=== PATIENT | male | born 1945 | race Caucasian/White ===

== ENCOUNTER → 2018-04-09 13:18 | Outpatient (CLI) | payer OTHER, SELFPAY ==
[2018-04-09 13:47] LABS: Hemoglobin 12.2 g/dL (13.5-17.5)
[2018-04-09 14:06] LABS: BUN Creatinine Ratio 23.8 (6-22); Blood Urea Nitrogen 31 mg/dL (9-20); Calcium 9.8 mg/dL (8.4-10.2); Carbon Dioxide 28 mmol/L (22-32); Chloride 103 mmol/L (98-107); Estimated Glomerular Filt Rate 54.3 mL/min (>60); Glucose 148 mg/dL (80-110); HEMOLYSIS < 15 (0-50); Potassium 4.3 mmol/L (3.4-5.1); Sodium 140 mmol/L (137-145)
[2018-04-09 14:21] LABS: Erythrocyte Sedimentation Rate 31 MM/HR (0-15)
[2018-04-09 14:52] LABS: Creatinine Urine Random 130.5 mg/dL; Protein (Total) Urine Random 103 mg/dL (0-12); Protein Creatinine Ratio Urine 0.78 GRAM/24H
[2018-04-13 12:51] LABS: Parathyroid Hormone Int 33 pg/mL (14-64)
== END ==
PROVIDERS: Family Provider Family Medicine; PCP Family Medicine; Visit Provider Student in an Organized Health Care Education/Training Program
DX: N05.9 Unspecified nephritic syndrome with unspecified morphologic changes (principal); D64.9 Anemia, unspecified; N25.81 Secondary hyperparathyroidism of renal origin; R80.9 Proteinuria, unspecified; R51 Headache
CPT/HCPCS: 36415; 80048; 82570; 83970; 84156; 85014; 85018; 85651

== ENCOUNTER → 2018-04-22 09:14 | Outpatient (CLI) | payer OTHER, SELFPAY ==
[2018-04-22 11:07] LABS: Vitamin B12 863 pg/mL (239-931)
== END ==
PROVIDERS: Family Provider Family Medicine; PCP Family Medicine; Visit Provider Family Medicine
DX: Z86.73 Personal history of transient ischemic attack (TIA), and cerebral infarction without residual deficits (principal); I48.0 Paroxysmal atrial fibrillation; Z86.39 Personal history of other endocrine, nutritional and metabolic disease
CPT/HCPCS: 36415; 82607

== ENCOUNTER → 2018-07-27 08:07 | Outpatient (CLI) | payer OTHER, SELFPAY ==
[2018-07-27 09:38] LABS: Erythrocyte Sedimentation Rate 42 MM/HR (0-15)
== END ==
PROVIDERS: Family Provider Family Medicine; PCP Family Medicine; Visit Provider Family Medicine
DX: R51 Headache (principal)
CPT/HCPCS: 85651

== ENCOUNTER → 2018-08-03 07:54 | Outpatient (CLI) | payer OTHER, SELFPAY ==
[2018-08-03 08:52] LABS: Add Manual Diff / Slide Review NO; Basophils Percent Auto 0.2 % (0-2); Eosinophils Percent Auto 3.5 % (2-4); Hematocrit 33.7 % (41-53); Hemoglobin 11.9 g/dL (13.5-17.5); Lymphocytes Percent Auto 21.7 % (25-40); Mean Corpuscular HGB Conc 35.5 % (30-36); Mean Corpuscular Hemoglobin 31.8 PG (26-34); Mean Corpuscular Volume 89.7 fL (80-100); Monocytes Percent Auto 7.5 % (3-14); Neutrophils Absolute Auto 5600 /uL (3000-5900); Neutrophils Percent Auto 67.1 % (50-75); Platelet Count 255 X10^3/uL (150-400); Red Blood Cell Count 3.75 X10^6/uL (4.5-5.9); White Blood Cell Count 8.3 X10^3/uL (4.5-11.0)
[2018-08-03 08:55] LABS: Hemoglobin A1C% w Est Avg Glu 6.7 % (4.0-6.0)
[2018-08-03 08:59] LABS: Alanine Aminotransferase 34 IU/L (21-72); Albumin Globulin Ratio 1.4 (1.0-2.8); Alkaline Phosphatase 57 U/L (38-126); Aspartate Aminotransferase 23 IU/L (17-59); BUN Creatinine Ratio 15.5 (6-22); Bilirubin Total 0.5 mg/dL (0.2-1.3); Blood Urea Nitrogen 17 mg/dL (9-20); Calcium 9.4 mg/dL (8.4-10.2); Carbon Dioxide 29 mmol/L (22-32); Chloride 107 mmol/L (98-107); Cholesterol 109 mg/dL (140-199); Estimated Glomerular Filt Rate > 60.0 mL/min (>60); Globulin 2.8 g/dL (1.7-4.1); Glucose 166 mg/dL (80-110); HDL Cholesterol 30 mg/dL (40-60); HEMOLYSIS < 15 (0-50); LDL Cholesterol Calculated 64 mg/dL (<100); Sodium 144 mmol/L (137-145); Total Protein 6.8 g/dL (6.3-8.2); Triglycerides 77 mg/dL (35-150)
[2018-08-03 09:48] LABS: Vitamin B12 870 pg/mL (239-931)
[2018-08-03 09:50] LABS: Thyroid Stimulating Hormone 2.44 uIU/mL (0.47-4.68)
== END ==
PROVIDERS: Family Provider Physical Medicine & Rehabilitation; PCP Family Medicine; Visit Provider Family Medicine
DX: D64.9 Anemia, unspecified (principal); E11.21 Type 2 diabetes mellitus with diabetic nephropathy; I10 Essential (primary) hypertension; Z51.81 Encounter for therapeutic drug level monitoring; Z79.4 Long term (current) use of insulin; Z86.79 Personal history of other diseases of the circulatory system
CPT/HCPCS: 36415; 80053; 80061; 82607; 83036; 84443; 85025

== ENCOUNTER → 2018-08-17 15:09 | Outpatient (CLI) | payer OTHER, SELFPAY ==
[2018-08-17 19:13] LABS: Creatinine Urine Random 184.1 mg/dL; Protein (Total) Urine Random 100 mg/dL (0-12); Protein Creatinine Ratio Urine 0.54 GRAM/24H
== END ==
PROVIDERS: Family Provider Physical Medicine & Rehabilitation; PCP Family Medicine; Visit Provider Student in an Organized Health Care Education/Training Program
DX: R80.9 Proteinuria, unspecified (principal)
CPT/HCPCS: 82570; 84156

== ENCOUNTER 2018-09-28 08:23 | Outpatient (CLI) | payer OTHER, SELFPAY ==
[2018-09-28] VITALS (9 sets, daily range): BP systolic 131–178; BP diastolic 65–88; PULSE 59–67; RESP 16–18; TEMP 36.4; O2SAT 94–100
--- NOTE | 2018-09-28 08:24 | DI.RAD.S_ITS ---
PROCEDURE: PAIN C/T INTERLAMINAR INJECT INDICATIONS: Multilevel cervical stenosis FINDINGS: Fluoroscopic spot filming was performed to verify placement of spinal needles at the C6-C7 level(s), as labeled on the films. Appropriate location(s) of the needle tip(s) was confirmed by injection of iodinated contrast. Dictated by: Keenan Barron M.D. on 09/28/2018 at 15:52 Approved by: Keenan Barron M.D. on 09/28/2018 at 15:52
[2018-09-28 09:28] LABS: INR 1.1 (0.9-1.3); Prothrombin Time 11.9 SECONDS (10.1-12.7)
--- NOTE | 2018-09-28 10:01 | PC.NURSE ---
PT ARRIVED STATING I DON'T FEEL WELL. NOTED TO BE DIAPHORETIC AND SLIGHTLY SLOW TO ANSWER QUESTIONS, STATED PT'S BS IS LOW. CONDUCTED ACCUCHECK, 1ST 65, GAVE 4OZ OJ. 10 MINUTES LATER 2ND ACCUCHECK 72, GAVE 4OZ OJ AND CHEESE. WILL CHECK IN ANOTHER 10 MINUTES.
[2018-09-28] MEDS: DEXTROSE 5%-0.9% NS 1,000 ML 100 ML IV (11:00)
--- NOTE | 2018-09-28 11:09 | PC.NURSE ---
3rd Accucheck conducted at [address] Montague at that time. Charted as done at 1105 by accident and unable to change time. please note 3rd Accucheck done 10 minutes after 2nd at 1016 with result of 106
[2018-09-28] MEDS: MIDAZOLAM 5 MG/5 ML VIAL IV (11:32)
[2018-09-28] MEDS: IOPAMIDOL 15 ML VIAL 3 ML INJ (11:43)
[2018-09-28] MEDS: DEXAMETHASONE 10 MG/ML VIAL 30 MG INJ (11:44)
--- NOTE | 2018-09-28 11:50 | PM.PROC.1 ---
Procedures Date/Time Date of procedure: 09/28/18 Time of procedure: 11:50 General Procedure description: PREOP DIAGNOSIS 1. CERVICAL STENOSIS, 2. CERVICAL HNP WITH UPPER EXTREMITY RADICULAR FEATURES, POST OP DIAGNOSIS 1. CERVICAL STENOSIS, 2. CERVICAL HNP WITH UPPER EXTREMITY RADICULAR FEATURES, PROCEDURES 1. FLUORSCOPICALLY GUIDED CONTRAST CONTROLLED INTERLAMINAR EPIDURAL STEROID INJECTION - C6/7 TL DWAIN PHYSICIAN: Aiden Montague, DO INDICATIONS Guanako is referred by Dr. Romano for treatment of Cervical Stenosis with Upper Extremity Paresthesias. FINDINGS Cervical Stenosis due to disc deterioration and nerve root irritation and nerve root irritation DESCRIPTION OF PROCEDURE Fluoroscopically guided, contrast-controlled C6/7 translaminar epidural steroid injection with conscious sedation. Following denial of allergy and review of potential side effects and complications, including, but not necessarily limited to, infection, allergic reaction, local tissue breakdown, temporary as well as permanent nerve injury, stroke, paralysis, and possible , the patient indicated that patient understood and agreed to proceed. An informed consent document was signed by the patient, witnessed by a nurse, and placed in the patient's chart. Additionally, other treatment options including modalities, medications, and physical therapy were reviewed with the patient. After review of previous anaesthesic history and IV conscious sedation the patient was deemed safe to proceed with todays procedure with IV conscious sedation as ASA class II designation. Safety time-out was performed to confirm patient ID, procedure to be performed and site of procedure. IV sedation was accomplished with a combination of 3mg of Versed administered by the RN after DO order, titrated to patient comfort during the course of the procedure while the patient remained responsive to all verbal commands. In the prone position, following sterile prep and drape of the cervical region, the C6/7 translaminar space was identified fluoroscopically. The skin was anesthetized via a 25-gauge 1.5-inch needle with 1% lidocaine solution. At this point, a 25-gauge, 2.5-inch short bevel spinal needle was atraumatically introduced and advanced under fluoroscopic guidance into epidural space at the C6/7 translaminar space. Depth was confirmed on lateral view. Radiological data, including multiple fluoroscopic views of the cervical spine, reveal a spinal needle at the C6/7 translaminar space. Lateral views then show placement of the needle in the epidural space. Subsequent views show contrast material flowing superiorly and inferiorly in the epidural space. DSA fluoroscopy with live contrast injection, once again, confirmed no vascular or intrathecal uptake. At this point, using loss of resistance technique with saline and air, the epidural space was entered. Following negative aspiration, injection of approximately 1.5 cc of Isovue-200 with live fluoroscopy in the AP view confirmed epidural flow in the epidural space without vascular or intrathecal uptake observed. Subsequently, a test dose of 1 cc of 1% lidocaine solution was injected and patient was observed for two minutes without signs or symptoms of complications, including abdominal pain, shortness of breath, bilateral upper or lower extremity weakness, nausea and vomiting, prior to steroid injection. At this point, 3 cc or 30 mg of dexamethasone was then injected without incident. The patient tolerated the procedure well without signs or symptoms of complications prior to being transferred to the recovery area for further monitoring, The patient was then transferred to the recovery area where they were observed for an appropriate period of time after the injection. The patient reported a VAS score of 6 prior to the procedure and a post-procedure VAS of 0. Total Fluoroscopy Time: 37.0 seconds Total Conscious Time: 24min POST OP INSTRUCTIONS The patient was provided a Pain Log to continue to record their response to the target-specific procedure prior to follow-up visit with the referring provider. Additionally, specific post-injection care instructions and a contact number to our office were provided if concerns arise regarding possible complications associated with the procedure are suspected. Aiden Montague DO Complications: none
--- NOTE | 2018-09-28 11:58 | PC.NURSE ---
ACCEPTED CARE OF PT FOR POST PROCEDURE OBSERVATION IN STABLE CONDITION
--- NOTE | 2018-09-28 11:59 | PC.NURSE ---
pt finished procedure and tolerated well. able to get off table on own and into w/c w/o problems. Handed off to Adelaide MURO for continued monitoring.
--- NOTE | 2018-09-29 11:58 | PC.NURSE ---
FOLLOW UP CALL MADE. PT C/O HIGH BLOODSUGARS, HIGHEST NOTED 325 TODAY, HE VERBALIZED THAT HE KNEW THIS COULD BE A SIDE EFFECT OF THE STEROID. HE C/O DECREASED ENERGY BUT DENIES OTHER CONCERNS AND STATES PAIN IS GONE. I INSTRUCTED HIM TO BE DILIGENT IN CHECKING HIS BLOOD SUGARS AND IN TAKING HIS INSULIN PRESCRIBED. ALSO ADVISED HIM TO LISTEN TO HIS BODY AND SEEK MEDICAL ATTENTION IF NEEDED. WILL UPDATE DR. MARTE.
== END 2018-09-28 12:22 | disposition home or self-care (01) ==
PROVIDERS: PCP Family Medicine; Visit Provider Physical Medicine & Rehabilitation
DX: M48.02 Spinal stenosis, cervical region (principal); M50.123 Cervical disc disorder at C6-C7 level with radiculopathy; R51 Headache; Z79.01 Long term (current) use of anticoagulants
CPT/HCPCS: 36415; 62321; 82962; 85610; 99152; J1100; J2250

== ENCOUNTER 2018-12-30 08:15 | Outpatient (RCR) | payer OTHER, SELFPAY ==
--- NOTE | 2018-11-09 17:30 | PT.OIE ---
Current Diagnoses Spinal stenosis, cervical region (11/09/18) Past Medical History (Last Reviewed 11/08/18 @ 18:04 by Paola Romano DO) Anemia (Acute) CKD (chronic kidney disease) (Acute ~12/2017) Atrial fibrillation (Chronic ~01/2017) BPH (benign prostatic hyperplasia) (Chronic) James's esophagus (Chronic) Cataracts, bilateral (Chronic ~12/2017) Coronary artery disease (Chronic) Diabetes (Chronic) GERD (gastroesophageal reflux disease) (Chronic) Generalized headaches (Chronic) Hyperlipemia (Chronic ~12/2014) Hypertension (Chronic) Pacemaker (Chronic 01/2017) Actinic keratosis (Resolved) History of CVA (cerebrovascular accident) (Resolved) Myocardial infarction (Resolved) Past Surgical History (Last Reviewed 11/08/18 @ 18:04 by Paola Romano DO) Hx of surgical procedure (Resolved) Hx of tonsillectomy (Resolved) Hx of vasectomy (Resolved) Status post transurethral resection of prostate (03/2014) Provider Visit Care Team Role Provider Type Paola Romano DO Primary Care Provider Physician Specialty: Family Practice Address: [address] [place] [address] Email: [email or web address] Aiden Montague DO Attending Provider Physician Specialty: Physiatry Pain Management Address: [address] [place] [address] Email: Physical Therapy Initial Evaluation PT-OP-A Visit Information Start: 11/09/18 14:47 Freq: Status: Active Protocol: Document 11/09/18 14:52 EA (Rec: 11/09/18 14:56 EA [id number]) Out-Patient Physical Therapy Visit Information Visit Information Visit Type Initial Evaluation Visit Start Time 09:45 Visit Stop Time 10:25 Total Visit Minutes 40 Visit Number 1 Number of WORM RAISER Visits 0 Evaluation Information Evaluation Date 11/09/18 Precautions Precautions Pacemaker PT-OP-B Current Condition Start: 11/09/18 14:47 Freq: Status: Active Protocol: Document 11/09/18 14:59 EA (Rec: 11/09/18 15:12 EA [id number]) Current Condition History of Current Condition Onset Date a year ago Current Complaints c/o bilateral neck pain with headache and both shoulder pain History of Current Condition Present condition started a year ago with no history of injury or neck surgery. Patient neck condition has been chronic in the past five years and had formal PT two years ago with good results. Patient reports it re-occurred last year in November; he mentioned that pain usually increased when uses he plays with his phone. Pt c/o of difficulty in driving due to head turning. X-rays performed recently per patient and reports diagnosed with disc problem. Prior Treatments and Tests Formal PT with same issues: 2 years ago with good results Cervical injection: 2 months ago Chiropractor: 6 months ago Future Testing and Treatments Planned Possible cervical surgery if PT did not resolve with PT treatment Treatment Goals Patient/Caregiver Goals 1. Patient wants to reduce pain to 1/10 2. Patient wants to improve cervical ROM Prior Functional Status Baseline Function- ADL's Independent Baseline Function- Mobility Independent Baseline Function- Gait Indep Baseline Function- Work/School Retired Baseline Function- Recreation/Hobbies No limitation in all pervious hobbies. Current Functional Impairments (Reported) Functional Limitations- ADL's Indep in all ADL's Functional Limitations- Mobility/Gait Independent Functional Limitations- Work/School Retired Functional Limitations- Recreation/ Unable if neck and head pain Hobbies appears Functional Limitations- Other Driving difficulty due to limited neck/head turning PT-OP-C Subjective Start: 11/09/18 14:47 Freq: Status: Active Protocol: Document 11/09/18 14:59 EA (Rec: 11/09/18 15:12 EA [id number]) OP-PT Subjective Patient Comments Patient Comments Pt c/o driving difficulty due to pain with head turning; states decreased tolerance to upright posture due to neck pain and head ache. Patient Reported Progress Worse Patient Questionnaires Neck Disability Index NDI Score 30 Neck Disability Index Impairment 60 to 79% Impaired (Score 30- 39) OP-PT Pain Assessment Location Bilateral Posterior Lateral Neck Pain Location Details bilateral post neck, traps, shoulder Intensity 5 Scale Used Numeric (1 - 10) Description Aching Shooting Tightness Frequency Frequent Pain Aggravating Factors Position Activity Lifting Pain Alleviating Factors Medication Rest Other Pain Alleviating Factors inflattble collar brace Patient Stated Pain Goal 1 Home Pain Medication Use Pain Medications Used Yes Pain Behaviors Pain Behaviors Guarding Holding Area PT-OP-E Functional Tests Start: 11/09/18 14:47 Freq: Status: Active Protocol: Document 11/09/18 17:28 EA (Rec: 11/09/18 17:38 EA [id number]) Functional Tests Apley's Scratch Test Action 1: The subject is instructed to touch the opposite shoulder with his/her hand. This motion checks Glenohumeral adduction, internal rotation , horizontal adduction and scapular protraction Action 2: The subject is instructed to place his/her arm overhead and reach behind the neck to touch his/her upper back. This motion checks Glenohumeral abduction, external rotation and scapular upward rotation and elevation. Action 3: The subject puts his/her hand on the lower back and reaches upward as far as possible. This motion checks glenohumeral adduction, internal rotation and scapular retraction with downward rotation Action 1- Left post deltoid Action 1- Right post deltoid Action 2- Left C7 Action 2- Right C7 Action 3- Left L2 Action 3- Right T12 PT-OP-H Neuro Start: 11/09/18 14:47 Freq: Status: Active Protocol: Document 11/09/18 17:28 EA (Rec: 11/09/18 17:38 EA [id number]) Deep Tendon Reflex & Clonus Assessment Deep Tendon Reflex Bilateral Brachioradialis Deep Tendon Reflex 1+ Diminished Bilateral Bicep Deep Tendon Reflex 1+ Diminished PT-OP-J Posture/Palpation/Skin Start: 11/09/18 14:47 Freq: Status: Active Protocol: Document 11/09/18 17:28 EA (Rec: 11/09/18 17:38 EA [id number]) Posture Evaluation Position Sitting Evaluation View Lateral Head/C-Spine Posture Excess Extension Forward Head T-Spine Posture Flattened L-Spine Posture Flattened Comments Posture Comments Moderate to severe forward head posture with internally rotated shoulders and protracted scapulae. Palpation Assessment Location One Palpation Location Posterior neck muscles, bilateral LS, traps, SCM, scalene Palpation Findings Soft Tissue Tightness Muscle Guarding Tenderness PT-OP-K Range of Motion Start: 11/09/18 14:47 Freq: Status: Active Protocol: Document 11/09/18 15:14 EA (Rec: 11/09/18 15:15 EA [id number]) Cervical Spine Range of Motion Cervical Spine Active Percentage Testing Position Sitting Flexion 80 Extension 75 Rotation Left 70 Rotation Right 70 Lateral Flexion Left 65 Lateral Flexion Right 65 ROM Limitations Soft Tissue Tightness Pain Shoulder Goniometric Range of Motion Shoulder Measured in Degrees Right Active Testing Position Sitting Flexion 150 Extension 60 Horizontal Abduction 15 External Rotation at 90 degrees 60 Abduction Internal Rotation 60 Left Active Testing Position Sitting Flexion 145 Extension 60 Abduction 145 Horizontal Abduction 15 External Rotation at 90 degrees 75 Abduction Internal Rotation 60 Internal Rotation Behind Back (text) L2 PT-OP-L Special Tests Start: 11/09/18 14:47 Freq: Status: Active Protocol: Document 11/09/18 15:12 EA (Rec: 11/09/18 15:13 EA [id number]) Special Tests Cervical Spine Special Tests Traction Test Results + Vertebral Artery Test Results negative Foraminal Compression Test Results + Shoulder Special Tests Neer Impingement Test Results + Lift-Off Rotator Cuff Test Results Left + Belly Press Test Results + PT-OP-M Strength Start: 11/09/18 14:47 Freq: Status: Active Protocol: Document 11/09/18 17:01 EA (Rec: 11/10/18 13:04 EA [id number]) Cervical Spine Strength Cervical Spine Manual Muscle Testing Flexion (C1-2) 4- Good- Extension 4 Good Rotation Left 4 Good Rotation Right 4 Good Lateral Flexion Left (C3) 4- Good- Lateral Flexion Right (C3) 4- Good- Reason Not Measured Pain Shoulder Strength Shoulder Manual Muscle Testing Right Flexion 4 Good Extension 5 Normal Abduction (C5) 4- Good- Adduction 5 Normal External Rotation 4 Good Internal Rotation 3+ Fair+ Horizontal Abduction 3+ Fair+ Left Flexion 4 Good Extension 5 Normal Abduction (C5) 3+ Fair+ Adduction 4 Good External Rotation 4 Good Internal Rotation 3+ Fair+ Horizontal Abduction 3+ Fair+ PT-OP-Q Treatments Start: 11/09/18 14:47 Freq: Status: Active Protocol: Document 11/09/18 14:52 EA (Rec: 11/09/18 14:56 EA [id number]) Self-Care/Home Management Treatment Education Patient Education Home Exercise Program Joint Protection Pain Management Posture PT-OP-T Assessment and Plan Start: 11/09/18 14:47 Freq: Status: Active Protocol: Document 11/09/18 14:52 EA (Rec: 11/09/18 14:56 EA [id number]) Physical Therapy Assessment Rehab Potential Rehabilitation Potential Fair Evaluation Complexity Number of Personal Factors/Comorbidities 1-2 Number of Body Systems Impaired 3 Clinical Presentation at Evaluation Evolving Impairments Impairments Activity Tolerance Pain Posture ROM Soft Tissue Mobility Strength Goals Five Impairment Impaired posture [employer] Goal (LTG) Patient will improve posture to near functional range to prevent muscular imbalance LTG Duration 4 wks Four Impairment Impaired shoulder ROM [facility] Goal (LTG) Patient will increase both shoulder ABD/Flexion/ ER with no pain to functional range to improve overhead movement. LTG Duration 4 wks Three Impairment Impaired cervical ROM [facility] Goal (LTG) Patient will increase cervical ROM particularly rotation to functional range LTG Duration 4 wks Two Impairment Quick Dash score 30 [facility] Goal (LTG) Patient will have Quick Dash score of < 10 LTG Duration 4 wks One Impairment Neck Disability Index score of 30/50 [facility] Goal (LTG) Patient will have NDI of < 20/ 50 LTG Duration 4 wks Assessment Summary Assessment Pleasant 73 y/o male patient with referring diagnosis cervical stenosis of spinal canal. Today he exhibits signs and symptoms consistent with cervical radiculopathy at the upper cervical region. Postural assessment reveals moderate to severe forward head posture with rounded and internally rotated shoulder and protracted scapulae. Sensory assessment reveals intact. Motor weakness is evident with shoulder musculature, however it is difficult to identify if pure neurological motor weakness due to pain on both shoulders. Shoulder special tests reveals positive with pain full arc and Belly press. Cervical compression tests reveals sensitive with no vertobrobasilar/vertebral artery dysfunction. Joint ROM is limited due to tightness to posterior cervical muscles, pectoral, and shoulder internal rotators. Patient is limited in most activities that requires head turning, lifting, and extreme shoulder rotation. In my professional opinion, patient would benefit with skilled PT to address the above mentioned deficits and dysfunction. Physical Therapy Plan Frequency and Duration Frequency of Treatment 2x/Week Duration of Treatment 8 weeks Plan of Care Start Date 11/09/18 Plan of Care End Date 01/04/19 Therapeutic Interventions Therapeutic Interventions Home Exercise Program Joint Mobilizations Manual Therapy Patient/Caregiver Education Self-Care/Home Management Soft Tissue Mobilization Therapeutic Exercises Modalities Cold Pack/Ice Massage Electric Stimulation Hot Packs Traction- Mechanical Next Visit Focus/Plan Next Note Type Treatment Note
--- NOTE | 2018-11-09 17:30 | PT.OPPOC ---
Current Diagnoses Spinal stenosis, cervical region (11/09/18) Provider Visit Care Team Role Provider Type Paola Romano DO Primary Care Provider Physician Specialty: Family Practice Address: [facility] [place], [address] Email: [email or web address] Aiden Montague DO Attending Provider Physician Specialty: Physiatry Pain Management Address: [address] [place] [address], [id number] Email: Plan Of Care PT-OP-T Assessment and Plan Start: 11/09/18 14:47 Freq: Status: Active Protocol: Document 11/09/18 14:52 EA (Rec: 11/09/18 14:56 EA [id number]) Physical Therapy Assessment Rehab Potential Rehabilitation Potential Fair Evaluation Complexity Number of Personal Factors/Comorbidities 1-2 Number of Body Systems Impaired 3 Clinical Presentation at Evaluation Evolving Impairments Impairments Activity Tolerance Pain Posture ROM Soft Tissue Mobility Strength Goals Five Impairment Impaired posture Correction Goal (LTG) Patient will improve posture to near functional range to prevent muscular imbalance LTG Duration 4 wks Four Impairment Impaired shoulder ROM [employer] Goal (LTG) Patient will increase both shoulder ABD/Flexion/ ER with no pain to functional range to improve overhead movement. LTG Duration 4 wks Three Impairment Impaired cervical ROM [employer] Goal (LTG) Patient will increase cervical ROM particulalry rotation to functional range LTG Duration 4 wks Two Impairment Quick Dash score 30 [employer] Goal (LTG) Patient will have Quick Dash score of < 10 LTG Duration 4 wks One Impairment Neck Disability Index score of 30/50 [employer] Goal (LTG) Patient will have NDI of < 20/ 50 LTG Duration 4 wks Assessment Summary Assessment Pleasant 73 y/o male patient with referring diagnosis cervical stenosis of spinal canal. Today he exhibits signs and symptoms consistent with cervical radiculopathy at the upper cervical region. Postural assessment reveals moderate to severe forward head posture with rounded and internally rotated shoulder and protracted scapulae. Sensory assessment reveals intact. Motor weakness is evident with shoulder musculature, however it is difficult to identify if pure neurological motor weakness due to pain on both shoulders. Shoulder special tests reveals positive with pain full arc and Belly press. Cervical compression tests reveals sensitive with no vertobrobasilar/vertebral artery dysfunction. Joint ROM is limited due to tightness to posterior cervical muscles, pectoral, and shoulder internal rotators. Patient is limited in most activities that requires head turning, lifting, and extreme shoulder rotation. In my professional opinion, patient would benefit with skilled PT to address the above mentioned deficits and dysfunction. Physical Therapy Plan Frequency and Duration Frequency of Treatment 2x/Week Duration of Treatment 8 weeks Plan of Care Start Date 11/09/18 Plan of Care End Date 01/04/19 Therapeutic Interventions Therapeutic Interventions Home Exercise Program Joint Mobilizations Manual Therapy Patient/Caregiver Education Self-Care/Home Management Soft Tissue Mobilization Therapeutic Exercises Modalities Cold Pack/Ice Massage Electric Stimulation Hot Packs Traction- Mechanical Next Visit Focus/Plan Next Note Type Treatment Note Plan of Care Dates Plan of Care Start Date 11/09/18 Plan of Care End Date 01/04/19 Please Sign and Return: I have reviewed this Plan of Care and certify that the skilled therapy services above are required to meet the patient?s needs. Physician Signature Date Printed Name and Credentials Clinical Instructor Signature Printed Name and Credentials
--- NOTE | 2018-11-16 10:21 | PT.OTN ---
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 Patient neck condition has been chronic in the past five years and had formal PT two years ago with good results. Patient reports it re-ocurred last year in November; he mentioned that pain usually increased when uses he plays with his phone. Pt c/o of difficulty in driving due to head turning. X-rays performed recently per patient and reports diagnosed with disc problem. Prior Treatments and Tests Formal PT with same issues: 2 years ago with good results Cervical enjection: 2 months ago Chiropractor: 6 months ago Future Testing and Treatments Planned Possible cervical surgery if PT did not resolve with PT treatment Treatment Goals Patient/Caregiver Goals 1. Patient wants to reduce pain to 1/10 2. Patient wants to improve cervical ROM Prior Functional Status Baseline Function- ADL's Independent Baseline Function- Mobility Independent Baseline Function- Gait Inedep Baseline Function- Work/School Retired Baseline Function- Recreation/Hobbies No limitation in all pervious hobbies. Current Functional Impairments (Reported) Functional Limitations- ADL's Indep in all ADL's Functional Limitations- Mobility/Gait Independent Functional Limitations- Work/School Retired Functional Limitations- Recreation/ Unable if neck and head pain Hobbies appears Functional Limitations- Other Driving difficulty due to limited neck/head turning PT-OP-C Subjective Start: 11/09/18 14:47 Freq: Status: Active Protocol: Document 11/16/18 10:09 SA (Rec: 11/16/18 10:21 SA [email or web address]) OP-PT Subjective Patient Comments Patient Comments Pt reports he is limiting his cell phone use in forward flexed position as well as doing wall stretch daily. Noted and minor improvement in symptoms. PT-OP-E Functional Tests Start: 11/09/18 14:47 Freq: Status: Active Protocol: Document 11/09/18 17:28 EA (Rec: 11/09/18 17:38 EA [id number]) Functional Tests Apley's Scratch Test Action 1: The subject is instructed to touch the opposite shoulder with his/her hand. This motion checks Glenohumeral adduction, internal rotation , horizontal adduction and scapular protraction Action 2: The subject is instructed to place his/her arm overhead and reach behind the neck to touch his/her upper back. This motion checks Glenohumeral abduction, external rotation and scapular upward rotation and elevation. Action 3: The subject puts his/her hand on the lower back and reaches upward as far as possible. This motion checks glenohumeral adduction, internal rotation and scapular retraction with downward rotation Action 1- Left post deltoid Action 1- Right post deltoid Action 2- Left C7 Action 2- Right C7 Action 3- Left L2 Action 3- Right T12 PT-OP-H Neuro Start: 11/09/18 14:47 Freq: Status: Active Protocol: Document 11/09/18 17:28 EA (Rec: 11/09/18 17:38 EA [id number]) Deep Tendon Reflex & Clonus Assessment Deep Tendon Reflex Bilateral Brachioradialis Deep Tendon Reflex 1+ Diminished Bilateral Bicep Deep Tendon Reflex 1+ Diminished PT-OP-J Posture/Palpation/Skin Start: 11/09/18 14:47 Freq: Status: Active Protocol: Document 11/09/18 17:28 EA (Rec: 11/09/18 17:38 EA [id number]) Posture Evaluation Position Sitting Evaluation View Lateral Head/C-Spine Posture Excess Extension Forward Head T-Spine Posture Flattened L-Spine Posture Flattened Comments Posture Comments Moderate to severe forward head posture with internally rotated shoulders and protracted scapulae. Palpation Assessment Location One Palpation Location Posterior neck muscles, bilateral LS, traps, SCM, scalene Palpation Findings Soft Tissue Tightness Muscle Guarding Tenderness PT-OP-K Range of Motion Start: 11/09/18 14:47 Freq: Status: Active Protocol: Document 11/09/18 15:14 EA (Rec: 11/09/18 15:15 EA [id number]) Cervical Spine Range of Motion Cervical Spine Active Percentage Testing Position Sitting Flexion 80 Extension 75 Rotation Left 70 Rotation Right 70 Lateral Flexion Left 65 Lateral Flexion Right 65 ROM Limitations Soft Tissue Tightness Pain Shoulder Goniometric Range of Motion Shoulder Measured in Degrees Right Active Testing Position Sitting Flexion 150 Extension 60 Horizontal Abduction 15 External Rotation at 90 degrees 60 Abduction Internal Rotation 60 Left Active Testing Position Sitting Flexion 145 Extension 60 Abduction 145 Horizontal Abduction 15 External Rotation at 90 degrees 75 Abduction Internal Rotation 60 Internal Rotation Behind Back (text) L2 PT-OP-L Special Tests Start: 11/09/18 14:47 Freq: Status: Active Protocol: Document 11/09/18 15:12 EA (Rec: 11/09/18 15:13 EA [id number]) Special Tests Cervical Spine Special Tests Traction Test Results + Vertebral Artery Test Results negative Foraminal Compression Test Results + Shoulder Special Tests Neer Impingement Test Results + Lift-Off Rotator Cuff Test Results Left + Belly Press Test Results + PT-OP-M Strength Start: 11/09/18 14:47 Freq: Status: Active Protocol: Document 11/09/18 17:01 EA (Rec: 11/10/18 13:04 EA [id number]) Cervical Spine Strength Cervical Spine Manual Muscle Testing Flexion (C1-2) 4- Good- Extension 4 Good Rotation Left 4 Good Rotation Right 4 Good Lateral Flexion Left (C3) 4- Good- Lateral Flexion Right (C3) 4- Good- Reason Not Measured Pain Shoulder Strength Shoulder Manual Muscle Testing Right Flexion 4 Good Extension 5 Normal Abduction (C5) 4- Good- Adduction 5 Normal External Rotation 4 Good Internal Rotation 3+ Fair+ Horizontal Abduction 3+ Fair+ Left Flexion 4 Good Extension 5 Normal Abduction (C5) 3+ Fair+ Adduction 4 Good External Rotation 4 Good Internal Rotation 3+ Fair+ Horizontal Abduction 3+ Fair+ PT-OP-Q Treatments Start: 11/09/18 14:47 Freq: Status: Active Protocol: Document 11/16/18 10:09 SA (Rec: 11/16/18 10:21 SA [email or web address]) Cardio Equipment Upper Body Ergometer (UBE) Duration (Minutes) 6 RPM 60 Other forward/backward Therapeutic Exercises Sidelying Exercises UT/scalenes stretching Side bilateral Reps/Minutes 30 x 2 each side Sitting Exercises chin tucks Reps/Minutes 20x Comments reminders for starting at neutral position Standing Exercises Postural wall stretch Side bilateral Reps/Minutes 3 min scapular row Side bilateral Resistance L2 TB Reps/Minutes 20x Manual Therapy Treatment Soft Tissue Mobilization Pecs/UTs/posterior c-spine Mobilization Type Myofascial Release Rolling Strumming Intensity/Depth Moderate Body Position Supine Comments Pt presents with tight pecs R> L PT-OP-R Modalities Start: 11/09/18 14:47 Freq: Status: Active Protocol: Document 11/16/18 10:09 SA (Rec: 11/16/18 10:21 SA [email or web address]) Hot Pack/Cold Pack Treatment Hot Pack Location c-spine Patient Position Supine Treatment Duration (minutes) 10 Patient Tolerance Good PT-OP-T Assessment and Plan Start: 11/09/18 14:47 Freq: Status: Active Protocol: Document 11/16/18 10:09 SA (Rec: 11/16/18 10:21 SA [email or web address]) Physical Therapy Assessment Assessment Summary Assessment Pt presents with forward head posture. Continued education for postural correction in sitting/standing position. Pt working on chin tucks and wall stretch daily as part of HEP, added scapular squeezes to HEP. Physical Therapy Plan Next Visit Focus/Plan Next Note Type Treatment Note Next Visit Plan Continue to progress postural and cervical ROM program, assess tolerance to manual therapy.
--- NOTE | 2018-11-23 11:22 | PT.OTN ---
Current Diagnoses Spinal stenosis, cervical region (11/23/18) Physical Therapy Treatment Note PT-OP-A Visit Information Start: 11/09/18 14:47 Freq: Status: Active Protocol: Document 11/23/18 11:14 SA (Rec: 11/23/18 11:22 SA [email or web address]) Out-Patient Physical Therapy Visit Information Visit Information Visit Type Treatment Note Visit Start Time 09:05 Visit Stop Time 09:50 Total Visit Minutes 45 Visit Number 3 Number of ELECTRIC METER INSPECTOR Visits 2 PT-OP-B Current Condition Start: 11/09/18 14:47 Freq: Status: Active Protocol: Document 11/09/18 14:59 EA (Rec: 11/09/18 15:12 EA [id number]) Current Condition History of Current Condition Onset Date a year ago Current Complaints c/o bilat neck pain with headache and both shoulder pain History of Current Condition Present condition started a year ago with no history of injury or neck surgery. Patient neck condition has been chronic in the past five years and had formal PT two years ago with good results. Patient reports it re-ocurred last year in November; he mentioned that pain usually increased when uses he plays with his phone. Pt c/o of difficulty in driving due to head turning. X-rays performed recently per patient and reports diagnosed with disc problem. Prior Treatments and Tests Formal PT with same issues: 2 years ago with good results Cervical enjection: 2 months ago Chiropractor: 6 months ago Future Testing and Treatments Planned Possible cervical surgery if PT did not resolve with PT treatment Treatment Goals Patient/Caregiver Goals 1. Patient wants to reduce pain to 1/10 2. Patient wants to improve cervical ROM Prior Functional Status Baseline Function- ADL's Independent Baseline Function- Mobility Independent Baseline Function- Gait Inedep Baseline Function- Work/School Retired Baseline Function- Recreation/Hobbies No limitation in all pervious hobbies. Current Functional Impairments (Reported) Functional Limitations- ADL's Indep in all ADL's Functional Limitations- Mobility/Gait Independent Functional Limitations- Work/School Retired Functional Limitations- Recreation/ Unable if neck and head pain Hobbies appears Functional Limitations- Other Driving difficulty due to limited neck/head turning PT-OP-C Subjective Start: 11/09/18 14:47 Freq: Status: Active Protocol: Document 11/23/18 11:14 SA (Rec: 11/23/18 11:22 SA [email or web address]) OP-PT Subjective Patient Comments Patient Comments Pt states he is feeling a gradual decrease in neck pain, has been modifying cell phone use, doing HEP daily and sleepin on My Pillow [email or web address] seems to be helping. PT-OP-E Functional Tests Start: 11/09/18 14:47 Freq: Status: Active Protocol: Document 11/09/18 17:28 EA (Rec: 11/09/18 17:38 EA [id number]) Functional Tests Apley's Scratch Test Action 1: The subject is instructed to touch the opposite shoulder with his/her hand. This motion checks Glenohumeral adduction, internal rotation , horizontal adduction and scapular protraction Action 2: The subject is instructed to place his/her arm overhead and reach behind the neck to touch his/her upper back. This motion checks Glenohumeral abduction, external rotation and scapular upward rotation and elevation. Action 3: The subject puts his/her hand on the lower back and reaches upward as far as possible. This motion checks glenohumeral adduction, internal rotation and scapular retraction with downward rotation Action 1- Left post deltoid Action 1- Right post deltoid Action 2- Left C7 Action 2- Right C7 Action 3- Left L2 Action 3- Right T12 PT-OP-H Neuro Start: 11/09/18 14:47 Freq: Status: Active Protocol: Document 11/09/18 17:28 EA (Rec: 11/09/18 17:38 EA [id number]) Deep Tendon Reflex & Clonus Assessment Deep Tendon Reflex Bilateral Brachioradialis Deep Tendon Reflex 1+ Diminished Bilateral Bicep Deep Tendon Reflex 1+ Diminished PT-OP-J Posture/Palpation/Skin Start: 11/09/18 14:47 Freq: Status: Active Protocol: Document 11/09/18 17:28 EA (Rec: 11/09/18 17:38 EA [id number]) Posture Evaluation Position Sitting Evaluation View Lateral Head/C-Spine Posture Excess Extension Forward Head T-Spine Posture Flattened L-Spine Posture Flattened Comments Posture Comments Moderate to severe forward head posture with internally rotated shoulders and protracted scapulae. Palpation Assessment Location One Palpation Location Posterior neck muscles, bilateral LS, traps, SCM, scalene Palpation Findings Soft Tissue Tightness Muscle Guarding Tenderness PT-OP-K Range of Motion Start: 11/09/18 14:47 Freq: Status: Active Protocol: Document 11/09/18 15:14 EA (Rec: 11/09/18 15:15 EA [id number]) Cervical Spine Range of Motion Cervical Spine Active Percentage Testing Position Sitting Flexion 80 Extension 75 Rotation Left 70 Rotation Right 70 Lateral Flexion Left 65 Lateral Flexion Right 65 ROM Limitations Soft Tissue Tightness Pain Shoulder Goniometric Range of Motion Shoulder Measured in Degrees Right Active Testing Position Sitting Flexion 150 Extension 60 Horizontal Abduction 15 External Rotation at 90 degrees 60 Abduction Internal Rotation 60 Left Active Testing Position Sitting Flexion 145 Extension 60 Abduction 145 Horizontal Abduction 15 External Rotation at 90 degrees 75 Abduction Internal Rotation 60 Internal Rotation Behind Back (text) L2 PT-OP-L Special Tests Start: 11/09/18 14:47 Freq: Status: Active Protocol: Document 11/09/18 15:12 EA (Rec: 11/09/18 15:13 EA [id number]) Special Tests Cervical Spine Special Tests Traction Test Results + Vertebral Artery Test Results negative Foraminal Compression Test Results + Shoulder Special Tests Neer Impingement Test Results + Lift-Off Rotator Cuff Test Results Left + Belly Press Test Results + PT-OP-M Strength Start: 11/09/18 14:47 Freq: Status: Active Protocol: Document 11/09/18 17:01 EA (Rec: 11/10/18 13:04 EA [id number]) Cervical Spine Strength Cervical Spine Manual Muscle Testing Flexion (C1-2) 4- Good- Extension 4 Good Rotation Left 4 Good Rotation Right 4 Good Lateral Flexion Left (C3) 4- Good- Lateral Flexion Right (C3) 4- Good- Reason Not Measured Pain Shoulder Strength Shoulder Manual Muscle Testing Right Flexion 4 Good Extension 5 Normal Abduction (C5) 4- Good- Adduction 5 Normal External Rotation 4 Good Internal Rotation 3+ Fair+ Horizontal Abduction 3+ Fair+ Left Flexion 4 Good Extension 5 Normal Abduction (C5) 3+ Fair+ Adduction 4 Good External Rotation 4 Good Internal Rotation 3+ Fair+ Horizontal Abduction 3+ Fair+ PT-OP-Q Treatments Start: 11/09/18 14:47 Freq: Status: Active Protocol: Document 11/23/18 11:14 SA (Rec: 11/23/18 11:22 SA [email or web address]) Cardio Equipment Upper Body Ergometer (UBE) Duration (Minutes) 6 RPM 65 Other forward/backward Therapeutic Exercises Sidelying Exercises UT/scalenes stretching Side bilateral Reps/Minutes 30 x 2 each side Sitting Exercises chin tucks Reps/Minutes 20x Comments reminders for starting at neutral position Standing Exercises Postural wall stretch Side bilateral Reps/Minutes 3 min Comments cues for technique scapular row Side bilateral Resistance L2 TB Reps/Minutes 20x Manual Therapy Treatment Soft Tissue Mobilization Pecs/UTs/posterior c-spine Mobilization Type Myofascial Release Rolling Strumming Intensity/Depth Moderate Body Position Supine Comments Pt presents with tight pecs R> L Manual Traction Cervical manual traction Body Position Supine Reps/Duration 3 min Comments Pt tolerates well. PT-OP-R Modalities Start: 11/09/18 14:47 Freq: Status: Active Protocol: Document 11/23/18 11:14 SA (Rec: 11/23/18 11:22 SA [email or web address]) Hot Pack/Cold Pack Treatment Hot Pack Location c-spine Patient Position Supine Patient Tolerance Good PT-OP-T Assessment and Plan Start: 11/09/18 14:47 Freq: Status: Active Protocol: Document 11/23/18 11:14 SA (Rec: 11/23/18 11:22 [email or web address]) Physical Therapy Assessment Assessment Summary Assessment Pt demonstrating improved postural awareness and self correction, consistent with HEP. Continued BUE/levator tightness R>L and forward head posture. Physical Therapy Plan Next Visit Focus/Plan Next Note Type Treatment Note Next Visit Plan Progress cervical ROM and postural improvement. Pt denies redicular symptoms.
--- NOTE | 2018-11-30 09:14 | PT.OTN ---
Current Diagnoses Spinal stenosis, cervical region (11/30/18) Physical Therapy Treatment Note PT-OP-A Visit Information Start: 11/09/18 14:47 Freq: Status: Active Protocol: Document 11/30/18 08:54 SA (Rec: 11/30/18 09:14 SA [email or web address]) Out-Patient Physical Therapy Visit Information Visit Information Visit Type Treatment Note Visit Start Time 09:00 Visit Stop Time 09:46 Total Visit Minutes 46 Visit Number 4 Number of AUTO PORTER Visits 3 PT-OP-B Current Condition Start: 11/09/18 14:47 Freq: Status: Active Protocol: Document 11/09/18 14:59 EA (Rec: 11/09/18 15:12 EA [id number]) Current Condition History of Current Condition Onset Date a year ago Current Complaints c/o bilat neck pain with headache and both shoulder pain History of Current Condition Present condition started a year ago with no history of injury or neck surgery. Patient neck condition has been chronic in the past five years and had formal PT two years ago with good results. Patient reports it re-ocurred last year in November; he mentioned that pain usually increased when uses he plays with his phone. Pt c/o of difficulty in driving due to head turning. X-rays performed recently per patient and reports diagnosed with disc problem. Prior Treatments and Tests Formal PT with same issues: 2 years ago with good results Cervical enjection: 2 months ago Chiropractor: 6 months ago Future Testing and Treatments Planned Possible cervical surgery if PT did not resolve with PT treatment Treatment Goals Patient/Caregiver Goals 1. Patient wants to reduce pain to 1/10 2. Patient wants to improve cervical ROM Prior Functional Status Baseline Function- ADL's Independent Baseline Function- Mobility Independent Baseline Function- Gait Inedep Baseline Function- Work/School Retired Baseline Function- Recreation/Hobbies No limitation in all pervious hobbies. Current Functional Impairments (Reported) Functional Limitations- ADL's Indep in all ADL's Functional Limitations- Mobility/Gait Independent Functional Limitations- Work/School Retired Functional Limitations- Recreation/ Unable if neck and head pain Hobbies appears Functional Limitations- Other Driving difficulty due to limited neck/head turning PT-OP-C Subjective Start: 11/09/18 14:47 Freq: Status: Active Protocol: Document 11/30/18 08:54 SA (Rec: 11/30/18 09:14 SA [email or web address]) OP-PT Subjective Patient Comments Patient Comments Pt having decreased TEMPLETON's but has c/o pain ans stiffness through c-spine in the mornings. Doing wall stretch and chin tucks daily. PT-OP-E Functional Tests Start: 11/09/18 14:47 Freq: Status: Active Protocol: Document 11/09/18 17:28 EA (Rec: 11/09/18 17:38 EA [id number]) Functional Tests Apley's Scratch Test Action 1: The subject is instructed to touch the opposite shoulder with his/her hand. This motion checks Glenohumeral adduction, internal rotation , horizontal adduction and scapular protraction Action 2: The subject is instructed to place his/her arm overhead and reach behind the neck to touch his/her upper back. This motion checks Glenohumeral abduction, external rotation and scapular upward rotation and elevation. Action 3: The subject puts his/her hand on the lower back and reaches upward as far as possible. This motion checks glenohumeral adduction, internal rotation and scapular retraction with downward rotation Action 1- Left post deltoid Action 1- Right post deltoid Action 2- Left C7 Action 2- Right C7 Action 3- Left L2 Action 3- Right T12 PT-OP-H Neuro Start: 11/09/18 14:47 Freq: Status: Active Protocol: Document 11/09/18 17:28 EA (Rec: 11/09/18 17:38 EA [id number]) Deep Tendon Reflex & Clonus Assessment Deep Tendon Reflex Bilateral Brachioradialis Deep Tendon Reflex 1+ Diminished Bilateral Bicep Deep Tendon Reflex 1+ Diminished PT-OP-J Posture/Palpation/Skin Start: 11/09/18 14:47 Freq: Status: Active Protocol: Document 11/09/18 17:28 EA (Rec: 11/09/18 17:38 EA [id number]) Posture Evaluation Position Sitting Evaluation View Lateral Head/C-Spine Posture Excess Extension Forward Head T-Spine Posture Flattened L-Spine Posture Flattened Comments Posture Comments Moderate to severe forward head posture with internally rotated shoulders and protracted scapulae. Palpation Assessment Location One Palpation Location Posterior neck muscles, bilateral LS, traps, SCM, scalene Palpation Findings Soft Tissue Tightness Muscle Guarding Tenderness PT-OP-K Range of Motion Start: 11/09/18 14:47 Freq: Status: Active Protocol: Document 11/09/18 15:14 EA (Rec: 11/09/18 15:15 EA [id number]) Cervical Spine Range of Motion Cervical Spine Active Percentage Testing Position Sitting Flexion 80 Extension 75 Rotation Left 70 Rotation Right 70 Lateral Flexion Left 65 Lateral Flexion Right 65 ROM Limitations Soft Tissue Tightness Pain Shoulder Goniometric Range of Motion Shoulder Measured in Degrees Right Active Testing Position Sitting Flexion 150 Extension 60 Horizontal Abduction 15 External Rotation at 90 degrees 60 Abduction Internal Rotation 60 Left Active Testing Position Sitting Flexion 145 Extension 60 Abduction 145 Horizontal Abduction 15 External Rotation at 90 degrees 75 Abduction Internal Rotation 60 Internal Rotation Behind Back (text) L2 PT-OP-L Special Tests Start: 11/09/18 14:47 Freq: Status: Active Protocol: Document 11/09/18 15:12 EA (Rec: 11/09/18 15:13 EA [id number]) Special Tests Cervical Spine Special Tests Traction Test Results + Vertebral Artery Test Results negative Foraminal Compression Test Results + Shoulder Special Tests Neer Impingement Test Results + Lift-Off Rotator Cuff Test Results Left + Belly Press Test Results + PT-OP-M Strength Start: 11/09/18 14:47 Freq: Status: Active Protocol: Document 11/09/18 17:01 EA (Rec: 11/10/18 13:04 EA [id number]) Cervical Spine Strength Cervical Spine Manual Muscle Testing Flexion (C1-2) 4- Good- Extension 4 Good Rotation Left 4 Good Rotation Right 4 Good Lateral Flexion Left (C3) 4- Good- Lateral Flexion Right (C3) 4- Good- Reason Not Measured Pain Shoulder Strength Shoulder Manual Muscle Testing Right Flexion 4 Good Extension 5 Normal Abduction (C5) 4- Good- Adduction 5 Normal External Rotation 4 Good Internal Rotation 3+ Fair+ Horizontal Abduction 3+ Fair+ Left Flexion 4 Good Extension 5 Normal Abduction (C5) 3+ Fair+ Adduction 4 Good External Rotation 4 Good Internal Rotation 3+ Fair+ Horizontal Abduction 3+ Fair+ PT-OP-Q Treatments Start: 11/09/18 14:47 Freq: Status: Active Protocol: Document 11/30/18 08:54 SA (Rec: 11/30/18 09:14 SA [email or web address]) Cardio Equipment Recumbent Stepper (Sci-Fit) Duration (Minutes) 6 Resistance 4 Therapeutic Exercises Supine Exercises Cervical ROM Side bilateral Equipment Used passive/manual Comments rotation and sidebending Sidelying Exercises UT/scalenes stretching Side bilateral Reps/Minutes 30 x 2 each Comments manual Sitting Exercises chin tucks Reps/Minutes 20x Comments reminders for starting at neutral position Standing Exercises Postural wall stretch Side bilateral Reps/Minutes 3 min Comments supine with foam roll under t- spine scapular row Side bilateral Resistance L2 TB Reps/Minutes 20x Manual Therapy Treatment Soft Tissue Mobilization Pecs/UTs/posterior c-spine Mobilization Type Myofascial Release Rolling Strumming Intensity/Depth Moderate Body Position Supine Comments gradual decrease in pec tightness Manual Traction Cervical manual traction Body Position Supine Reps/Duration 4 min Comments Pt tolerates well. PT-OP-R Modalities Start: 11/09/18 14:47 Freq: Status: Active Protocol: Document 11/30/18 08:54 SA (Rec: 11/30/18 09:14 SA [email or web address]) Hot Pack/Cold Pack Treatment Hot Pack Location c-spine Patient Position Supine Patient Tolerance Good PT-OP-T Assessment and Plan Start: 11/09/18 14:47 Freq: Status: Active Protocol: Document 11/30/18 08:54 SA (Rec: 11/30/18 09:14 SA [email or web address]) Physical Therapy Assessment Assessment Summary Assessment Pt progressing, consistent with HEP, decreasing HAs and improving postural awareness. Physical Therapy Plan Next Visit Focus/Plan Next Note Type Treatment Note Next Visit Plan Progress stretching and scapular strengthening with continued focus on postural improvement.
--- NOTE | 2018-12-03 11:42 | PT.OTN ---
Current Diagnoses Spinal stenosis, cervical region (12/03/18) Physical Therapy Treatment Note PT-OP-A Visit Information Start: 11/09/18 14:47 Freq: Status: Active Protocol: Document 12/03/18 11:37 SA (Rec: 12/03/18 11:42 SA [email or web address]) Out-Patient Physical Therapy Visit Information Visit Information Visit Type Treatment Note Visit Start Time 09:45 Visit Stop Time 10:31 Visit Number 5 Number of RRT Visits 4 PT-OP-B Current Condition Start: 11/09/18 14:47 Freq: Status: Active Protocol: Document 11/09/18 14:59 EA (Rec: 11/09/18 15:12 EA [id number]) Current Condition History of Current Condition Onset Date a year ago Current Complaints c/o bilat neck pain with headache and both shoulder pain History of Current Condition Present condition started a year ago with no history of injury or neck surgery. Patient neck condition has been chronic in the past five years and had formal PT two years ago with good results. Patient reports it re-ocurred last year in November; he mentioned that pain usually increased when uses he plays with his phone. Pt c/o of difficulty in driving due to head turning. X-rays performed recently per patient and reports diagnosed with disc problem. Prior Treatments and Tests Formal PT with same issues: 2 years ago with good results Cervical enjection: 2 months ago Chiropractor: 6 months ago Future Testing and Treatments Planned Possible cervical surgery if PT did not resolve with PT treatment Treatment Goals Patient/Caregiver Goals 1. Patient wants to reduce pain to 1/10 2. Patient wants to improve cervical ROM Prior Functional Status Baseline Function- ADL's Independent Baseline Function- Mobility Independent Baseline Function- Gait Inedep Baseline Function- Work/School Retired Baseline Function- Recreation/Hobbies No limitation in all pervious hobbies. Current Functional Impairments (Reported) Functional Limitations- ADL's Indep in all ADL's Functional Limitations- Mobility/Gait Independent Functional Limitations- Work/School Retired Functional Limitations- Recreation/ Unable if neck and head pain Hobbies appears Functional Limitations- Other Driving difficulty due to limited neck/head turning PT-OP-C Subjective Start: 11/09/18 14:47 Freq: Status: Active Protocol: Document 12/03/18 11:37 SA (Rec: 12/03/18 11:42 SA [email or web address]) OP-PT Subjective Patient Comments Patient Comments Pt reports doing his wall stretching daily. Feeling a little stiff this morning. PT-OP-E Functional Tests Start: 11/09/18 14:47 Freq: Status: Active Protocol: Document 11/09/18 17:28 EA (Rec: 11/09/18 17:38 EA [id number]) Functional Tests Apley's Scratch Test Action 1: The subject is instructed to touch the opposite shoulder with his/her hand. This motion checks Glenohumeral adduction, internal rotation , horizontal adduction and scapular protraction Action 2: The subject is instructed to place his/her arm overhead and reach behind the neck to touch his/her upper back. This motion checks Glenohumeral abduction, external rotation and scapular upward rotation and elevation. Action 3: The subject puts his/her hand on the lower back and reaches upward as far as possible. This motion checks glenohumeral adduction, internal rotation and scapular retraction with downward rotation Action 1- Left post deltoid Action 1- Right post deltoid Action 2- Left C7 Action 2- Right C7 Action 3- Left L2 Action 3- Right T12 PT-OP-H Neuro Start: 11/09/18 14:47 Freq: Status: Active Protocol: Document 11/09/18 17:28 EA (Rec: 11/09/18 17:38 EA [id number]) Deep Tendon Reflex & Clonus Assessment Deep Tendon Reflex Bilateral Brachioradialis Deep Tendon Reflex 1+ Diminished Bilateral Bicep Deep Tendon Reflex 1+ Diminished PT-OP-J Posture/Palpation/Skin Start: 11/09/18 14:47 Freq: Status: Active Protocol: Document 11/09/18 17:28 EA (Rec: 11/09/18 17:38 EA [id number]) Posture Evaluation Position Sitting Evaluation View Lateral Head/C-Spine Posture Excess Extension Forward Head T-Spine Posture Flattened L-Spine Posture Flattened Comments Posture Comments Moderate to severe forward head posture with internally rotated shoulders and protracted scapulae. Palpation Assessment Location One Palpation Location Posterior neck muscles, bilateral LS, traps, SCM, scalene Palpation Findings Soft Tissue Tightness Muscle Guarding Tenderness PT-OP-K Range of Motion Start: 11/09/18 14:47 Freq: Status: Active Protocol: Document 11/09/18 15:14 EA (Rec: 11/09/18 15:15 EA [id number]) Cervical Spine Range of Motion Cervical Spine Active Percentage Testing Position Sitting Flexion 80 Extension 75 Rotation Left 70 Rotation Right 70 Lateral Flexion Left 65 Lateral Flexion Right 65 ROM Limitations Soft Tissue Tightness Pain Shoulder Goniometric Range of Motion Shoulder Measured in Degrees Right Active Testing Position Sitting Flexion 150 Extension 60 Horizontal Abduction 15 External Rotation at 90 degrees 60 Abduction Internal Rotation 60 Left Active Testing Position Sitting Flexion 145 Extension 60 Abduction 145 Horizontal Abduction 15 External Rotation at 90 degrees 75 Abduction Internal Rotation 60 Internal Rotation Behind Back (text) L2 PT-OP-L Special Tests Start: 11/09/18 14:47 Freq: Status: Active Protocol: Document 11/09/18 15:12 EA (Rec: 11/09/18 15:13 EA [id number]) Special Tests Cervical Spine Special Tests Traction Test Results + Vertebral Artery Test Results negative Foraminal Compression Test Results + Shoulder Special Tests Neer Impingement Test Results + Lift-Off Rotator Cuff Test Results Left + Belly Press Test Results + PT-OP-M Strength Start: 11/09/18 14:47 Freq: Status: Active Protocol: Document 11/09/18 17:01 EA (Rec: 11/10/18 13:04 EA [id number]) Cervical Spine Strength Cervical Spine Manual Muscle Testing Flexion (C1-2) 4- Good- Extension 4 Good Rotation Left 4 Good Rotation Right 4 Good Lateral Flexion Left (C3) 4- Good- Lateral Flexion Right (C3) 4- Good- Reason Not Measured Pain Shoulder Strength Shoulder Manual Muscle Testing Right Flexion 4 Good Extension 5 Normal Abduction (C5) 4- Good- Adduction 5 Normal External Rotation 4 Good Internal Rotation 3+ Fair+ Horizontal Abduction 3+ Fair+ Left Flexion 4 Good Extension 5 Normal Abduction (C5) 3+ Fair+ Adduction 4 Good External Rotation 4 Good Internal Rotation 3+ Fair+ Horizontal Abduction 3+ Fair+ PT-OP-Q Treatments Start: 11/09/18 14:47 Freq: Status: Active Protocol: Document 12/03/18 11:37 SA (Rec: 12/03/18 11:42 SA [email or web address]) Cardio Equipment Upper Body Ergometer (UBE) Duration (Minutes) 6 RPM 70 Other forward/backward Therapeutic Exercises Supine Exercises Foam roll/thoracic ext stretch Reps/Minutes 3 min Cervical ROM Side bilateral Equipment Used passive/manual Comments rotation and sidebending Sidelying Exercises UT/scalenes stretching Side bilateral Reps/Minutes 30 x 2 each Comments manual Sitting Exercises chin tucks Reps/Minutes 20x Comments reminders for starting at neutral position Standing Exercises Postural wall stretch Side bilateral Reps/Minutes 3 min Comments supine with foam roll under t- spine scapular row Side bilateral Resistance TB LV3 Reps/Minutes 20x PT-OP-R Modalities Start: 11/09/18 14:47 Freq: Status: Active Protocol: Document 12/03/18 11:37 SA (Rec: 12/03/18 11:42 SA [email or web address]) Hot Pack/Cold Pack Treatment Hot Pack Location c-spine Patient Position Supine Treatment Duration (minutes) 10 Patient Tolerance Good PT-OP-T Assessment and Plan Start: 11/09/18 14:47 Freq: Status: Active Protocol: Document 12/03/18 11:37 SA (Rec: 12/03/18 11:42 SA [email or web address]) Physical Therapy Assessment Assessment Summary Assessment Pt demonstrating improving postural awareness and correction, decreased cervical pain and HAs. Physical Therapy Plan Next Visit Focus/Plan Next Note Type Treatment Note Next Visit Plan Progress stretching and scapular strengthening with continued focus on postural improvement.
--- NOTE | 2018-12-06 09:09 | PT.OTN ---
Current Diagnoses Spinal stenosis, cervical region (12/06/18) Physical Therapy Treatment Note PT-OP-A Visit Information Start: 11/09/18 14:47 Freq: Status: Active Protocol: Document 12/06/18 08:16 SAK (Rec: 12/06/18 08:31 SAK [id number]) Out-Patient Physical Therapy Visit Information Visit Information Visit Type Treatment Note Visit Start Time 08:15 Visit Stop Time 09:06 Total Visit Minutes 46 Visit Number 6 Number of FILLER AND TRIMMER Visits 4 PT-OP-B Current Condition Start: 11/09/18 14:47 Freq: Status: Active Protocol: Document 11/09/18 14:59 EA (Rec: 11/09/18 15:12 EA [id number]) Current Condition History of Current Condition Onset Date a year ago Current Complaints c/o bilat neck pain with headache and both shoulder pain History of Current Condition Present condition started a year ago with no history of injury or neck surgery. Patient neck condition has been chronic in the past five years and had formal PT two years ago with good results. Patient reports it re-ocurred last year in November; he mentioned that pain usually increased when uses he plays with his phone. Pt c/o of difficulty in driving due to head turning. X-rays performed recently per patient and reports diagnosed with disc problem. Prior Treatments and Tests Formal PT with same issues: 2 years ago with good results Cervical enjection: 2 months ago Chiropractor: 6 months ago Future Testing and Treatments Planned Possible cervical surgery if PT did not resolve with PT treatment Treatment Goals Patient/Caregiver Goals 1. Patient wants to reduce pain to 1/10 2. Patient wants to improve cervical ROM Prior Functional Status Baseline Function- ADL's Independent Baseline Function- Mobility Independent Baseline Function- Gait Inedep Baseline Function- Work/School Retired Baseline Function- Recreation/Hobbies No limitation in all pervious hobbies. Current Functional Impairments (Reported) Functional Limitations- ADL's Indep in all ADL's Functional Limitations- Mobility/Gait Independent Functional Limitations- Work/School Retired Functional Limitations- Recreation/ Unable if neck and head pain Hobbies appears Functional Limitations- Other Driving difficulty due to limited neck/head turning PT-OP-C Subjective Start: 11/09/18 14:47 Freq: Status: Active Protocol: Document 12/06/18 08:16 SAK (Rec: 12/06/18 08:31 SAK [id number]) OP-PT Subjective Patient Comments Patient Comments Sore, stiff this morning. PT-OP-E Functional Tests Start: 11/09/18 14:47 Freq: Status: Active Protocol: Document 11/09/18 17:28 EA (Rec: 11/09/18 17:38 EA [id number]) Functional Tests Apley's Scratch Test Action 1: The subject is instructed to touch the opposite shoulder with his/her hand. This motion checks Glenohumeral adduction, internal rotation , horizontal adduction and scapular protraction Action 2: The subject is instructed to place his/her arm overhead and reach behind the neck to touch his/her upper back. This motion checks Glenohumeral abduction, external rotation and scapular upward rotation and elevation. Action 3: The subject puts his/her hand on the lower back and reaches upward as far as possible. This motion checks glenohumeral adduction, internal rotation and scapular retraction with downward rotation Action 1- Left post deltoid Action 1- Right post deltoid Action 2- Left C7 Action 2- Right C7 Action 3- Left L2 Action 3- Right T12 PT-OP-H Neuro Start: 11/09/18 14:47 Freq: Status: Active Protocol: Document 11/09/18 17:28 EA (Rec: 11/09/18 17:38 EA [id number]) Deep Tendon Reflex & Clonus Assessment Deep Tendon Reflex Bilateral Brachioradialis Deep Tendon Reflex 1+ Diminished Bilateral Bicep Deep Tendon Reflex 1+ Diminished PT-OP-J Posture/Palpation/Skin Start: 11/09/18 14:47 Freq: Status: Active Protocol: Document 11/09/18 17:28 EA (Rec: 11/09/18 17:38 EA [id number]) Posture Evaluation Position Sitting Evaluation View Lateral Head/C-Spine Posture Excess Extension Forward Head T-Spine Posture Flattened L-Spine Posture Flattened Comments Posture Comments Moderate to severe forward head posture with internally rotated shoulders and protracted scapulae. Palpation Assessment Location One Palpation Location Posterior neck muscles, bilateral LS, traps, SCM, scalene Palpation Findings Soft Tissue Tightness Muscle Guarding Tenderness PT-OP-K Range of Motion Start: 11/09/18 14:47 Freq: Status: Active Protocol: Document 11/09/18 15:14 EA (Rec: 11/09/18 15:15 EA [id number]) Cervical Spine Range of Motion Cervical Spine Active Percentage Testing Position Sitting Flexion 80 Extension 75 Rotation Left 70 Rotation Right 70 Lateral Flexion Left 65 Lateral Flexion Right 65 ROM Limitations Soft Tissue Tightness Pain Shoulder Goniometric Range of Motion Shoulder Measured in Degrees Right Active Testing Position Sitting Flexion 150 Extension 60 Horizontal Abduction 15 External Rotation at 90 degrees 60 Abduction Internal Rotation 60 Left Active Testing Position Sitting Flexion 145 Extension 60 Abduction 145 Horizontal Abduction 15 External Rotation at 90 degrees 75 Abduction Internal Rotation 60 Internal Rotation Behind Back (text) L2 PT-OP-L Special Tests Start: 11/09/18 14:47 Freq: Status: Active Protocol: Document 11/09/18 15:12 EA (Rec: 11/09/18 15:13 EA [id number]) Special Tests Cervical Spine Special Tests Traction Test Results + Vertebral Artery Test Results negative Foraminal Compression Test Results + Shoulder Special Tests Neer Impingement Test Results + Lift-Off Rotator Cuff Test Results Left + Belly Press Test Results + PT-OP-M Strength Start: 11/09/18 14:47 Freq: Status: Active Protocol: Document 11/09/18 17:01 EA (Rec: 11/10/18 13:04 EA [id number]) Cervical Spine Strength Cervical Spine Manual Muscle Testing Flexion (C1-2) 4- Good- Extension 4 Good Rotation Left 4 Good Rotation Right 4 Good Lateral Flexion Left (C3) 4- Good- Lateral Flexion Right (C3) 4- Good- Reason Not Measured Pain Shoulder Strength Shoulder Manual Muscle Testing Right Flexion 4 Good Extension 5 Normal Abduction (C5) 4- Good- Adduction 5 Normal External Rotation 4 Good Internal Rotation 3+ Fair+ Horizontal Abduction 3+ Fair+ Left Flexion 4 Good Extension 5 Normal Abduction (C5) 3+ Fair+ Adduction 4 Good External Rotation 4 Good Internal Rotation 3+ Fair+ Horizontal Abduction 3+ Fair+ PT-OP-Q Treatments Start: 11/09/18 14:47 Freq: Status: Active Protocol: Document 12/06/18 08:16 SAK (Rec: 12/06/18 08:31 SAK [id number]) Cardio Equipment Upper Body Ergometer (UBE) Duration (Minutes) 6 RPM 70 Other forward/backward Therapeutic Exercises Supine Exercises Foam roll/thoracic ext stretch Reps/Minutes 3 min Cervical ROM Side bilateral Equipment Used passive/manual Comments rotation and sidebending Sidelying Exercises reach and roll Reps/Minutes 5x Sitting Exercises chin tucks Reps/Minutes 20x Comments reminders for starting at neutral position Standing Exercises Postural wall stretch Side bilateral Reps/Minutes 3 min Comments supine with foam roll under t- spine scapular row Side bilateral Resistance TB LV3 Reps/Minutes 20x Manual Therapy Treatment Soft Tissue Mobilization Pecs/UTs/posterior c-spine Mobilization Type Myofascial Release Rolling Strumming Intensity/Depth Moderate Body Position Supine Comments gradual decrease in pec tightness Manual Traction Cervical manual traction Body Position Supine Reps/Duration 4 min Comments Pt tolerates well. PT-OP-R Modalities Start: 11/09/18 14:47 Freq: Status: Active Protocol: Document 12/06/18 08:16 SAK (Rec: 12/06/18 08:31 SAK [id number]) Hot Pack/Cold Pack Treatment Hot Pack Location c-spine Patient Position Supine Treatment Duration (minutes) 15 Patient Tolerance Good PT-OP-T Assessment and Plan Start: 11/09/18 14:47 Freq: Status: Active Protocol: Document 12/06/18 08:16 SAK (Rec: 12/06/18 08:31 [facility] [id number]) Physical Therapy Assessment Goals Five Impairment Impaired posture Halfway Goal (LTG) Patient will improve posture to near functional range to prevent muscular imbalance LTG Duration 4 wks Four Impairment Impaired shoulder ROM Halfway Goal (LTG) Patient will increase both shoulder ABD/Flexion/ ER with no pain to functional range to improve overhead movement. LTG Duration 4 wks Three Impairment Impaired cervical ROM Truck Switcher Goal (LTG) Patient will increase cervical ROM particulalry rotation to functional range LTG Duration 4 wks Two Impairment Quick Dash score 30 Truck Switcher Goal (LTG) Patient will have Quick Dash score of < 10 LTG Duration 4 wks One Impairment Neck Disability Index score of 30/50 Truck Switcher Goal (LTG) Patient will have NDI of < 20/ 50 LTG Duration 4 wks Assessment Summary Assessment Patient requires mod cues for all ther ex Physical Therapy Plan Next Visit Focus/Plan Next Note Type Treatment Note Next Visit Plan Continue PT per POC
--- NOTE | 2018-12-09 13:04 | PT.OTN ---
Current Diagnoses Spinal stenosis, cervical region (12/09/18) Physical Therapy Treatment Note PT-OP-A Visit Information Start: 11/09/18 14:47 Freq: Status: Active Protocol: Document 12/09/18 07:30 AMB (Rec: 12/09/18 13:01 AMB [email or web address]) Out-Patient Physical Therapy Visit Information Visit Information Visit Type Treatment Note Visit Start Time 07:30 Visit Stop Time 08:15 Total Visit Minutes 46 Visit Number 7 Number of TOOL DESIGN ENGINEER Visits 0 PT-OP-B Current Condition Start: 11/09/18 14:47 Freq: Status: Active Protocol: Document 11/09/18 14:59 EA (Rec: 11/09/18 15:12 EA [id number]) Current Condition History of Current Condition Onset Date a year ago Current Complaints c/o bilat neck pain with headache and both shoulder pain History of Current Condition Present condition started a year ago with no history of injury or neck surgery. Patient neck condition has been chronic in the past five years and had formal PT two years ago with good results. Patient reports it re-ocurred last year in November; he mentioned that pain usually increased when uses he plays with his phone. Pt c/o of difficulty in driving due to head turning. X-rays performed recently per patient and reports diagnosed with disc problem. Prior Treatments and Tests Formal PT with same issues: 2 years ago with good results Cervical enjection: 2 months ago Chiropractor: 6 months ago Future Testing and Treatments Planned Possible cervical surgery if PT did not resolve with PT treatment Treatment Goals Patient/Caregiver Goals 1. Patient wants to reduce pain to 1/10 2. Patient wants to improve cervical ROM Prior Functional Status Baseline Function- ADL's Independent Baseline Function- Mobility Independent Baseline Function- Gait Inedep Baseline Function- Work/School Retired Baseline Function- Recreation/Hobbies No limitation in all pervious hobbies. Current Functional Impairments (Reported) Functional Limitations- ADL's Indep in all ADL's Functional Limitations- Mobility/Gait Independent Functional Limitations- Work/School Retired Functional Limitations- Recreation/ Unable if neck and head pain Hobbies appears Functional Limitations- Other Driving difficulty due to limited neck/head turning PT-OP-C Subjective Start: 11/09/18 14:47 Freq: Status: Active Protocol: Document 12/09/18 07:30 AMB (Rec: 12/09/18 13:01 AMB [id number]) OP-PT Subjective Patient Comments Patient Comments Pt reports sleeping poorly last night, so that he woke at about 4:30 am with his neck hurting PT-OP-E Functional Tests Start: 11/09/18 14:47 Freq: Status: Active Protocol: Document 11/09/18 17:28 EA (Rec: 11/09/18 17:38 EA [id number]) Functional Tests Apley's Scratch Test Action 1: The subject is instructed to touch the opposite shoulder with his/her hand. This motion checks Glenohumeral adduction, internal rotation , horizontal adduction and scapular protraction Action 2: The subject is instructed to place his/her arm overhead and reach behind the neck to touch his/her upper back. This motion checks Glenohumeral abduction, external rotation and scapular upward rotation and elevation. Action 3: The subject puts his/her hand on the lower back and reaches upward as far as possible. This motion checks glenohumeral adduction, internal rotation and scapular retraction with downward rotation Action 1- Left post deltoid Action 1- Right post deltoid Action 2- Left C7 Action 2- Right C7 Action 3- Left L2 Action 3- Right T12 PT-OP-H Neuro Start: 11/09/18 14:47 Freq: Status: Active Protocol: Document 11/09/18 17:28 EA (Rec: 11/09/18 17:38 EA [id number]) Deep Tendon Reflex & Clonus Assessment Deep Tendon Reflex Bilateral Brachioradialis Deep Tendon Reflex 1+ Diminished Bilateral Bicep Deep Tendon Reflex 1+ Diminished PT-OP-J Posture/Palpation/Skin Start: 11/09/18 14:47 Freq: Status: Active Protocol: Document 11/09/18 17:28 EA (Rec: 11/09/18 17:38 EA [id number]) Posture Evaluation Position Sitting Evaluation View Lateral Head/C-Spine Posture Excess Extension Forward Head T-Spine Posture Flattened L-Spine Posture Flattened Comments Posture Comments Moderate to severe forward head posture with internally rotated shoulders and protracted scapulae. Palpation Assessment Location One Palpation Location Posterior neck muscles, bilateral LS, traps, SCM, scalene Palpation Findings Soft Tissue Tightness Muscle Guarding Tenderness PT-OP-K Range of Motion Start: 11/09/18 14:47 Freq: Status: Active Protocol: Document 11/09/18 15:14 EA (Rec: 11/09/18 15:15 EA [id number]) Cervical Spine Range of Motion Cervical Spine Active Percentage Testing Position Sitting Flexion 80 Extension 75 Rotation Left 70 Rotation Right 70 Lateral Flexion Left 65 Lateral Flexion Right 65 ROM Limitations Soft Tissue Tightness Pain Shoulder Goniometric Range of Motion Shoulder Measured in Degrees Right Active Testing Position Sitting Flexion 150 Extension 60 Horizontal Abduction 15 External Rotation at 90 degrees 60 Abduction Internal Rotation 60 Left Active Testing Position Sitting Flexion 145 Extension 60 Abduction 145 Horizontal Abduction 15 External Rotation at 90 degrees 75 Abduction Internal Rotation 60 Internal Rotation Behind Back (text) L2 PT-OP-L Special Tests Start: 11/09/18 14:47 Freq: Status: Active Protocol: Document 11/09/18 15:12 EA (Rec: 11/09/18 15:13 EA [id number]) Special Tests Cervical Spine Special Tests Traction Test Results + Vertebral Artery Test Results negative Foraminal Compression Test Results + Shoulder Special Tests Neer Impingement Test Results + Lift-Off Rotator Cuff Test Results Left + Belly Press Test Results + PT-OP-M Strength Start: 11/09/18 14:47 Freq: Status: Active Protocol: Document 11/09/18 17:01 EA (Rec: 11/10/18 13:04 EA [id number]) Cervical Spine Strength Cervical Spine Manual Muscle Testing Flexion (C1-2) 4- Good- Extension 4 Good Rotation Left 4 Good Rotation Right 4 Good Lateral Flexion Left (C3) 4- Good- Lateral Flexion Right (C3) 4- Good- Reason Not Measured Pain Shoulder Strength Shoulder Manual Muscle Testing Right Flexion 4 Good Extension 5 Normal Abduction (C5) 4- Good- Adduction 5 Normal External Rotation 4 Good Internal Rotation 3+ Fair+ Horizontal Abduction 3+ Fair+ Left Flexion 4 Good Extension 5 Normal Abduction (C5) 3+ Fair+ Adduction 4 Good External Rotation 4 Good Internal Rotation 3+ Fair+ Horizontal Abduction 3+ Fair+ PT-OP-Q Treatments Start: 11/09/18 14:47 Freq: Status: Active Protocol: Document 12/09/18 07:30 AMB (Rec: 12/09/18 13:01 AMB [email or web address]) Cardio Equipment Upper Body Ergometer (UBE) Duration (Minutes) 6 RPM 70 Other forward/backward Therapeutic Exercises Supine Exercises Cervical ROM Side bilateral Equipment Used passive/manual Comments rotation and sidebending Sitting Exercises chin tucks Reps/Minutes 20x Comments reminders for starting at neutral position Standing Exercises Postural wall stretch Side bilateral Reps/Minutes 3 min Comments supine with foam roll under t- spine Manual Therapy Treatment Soft Tissue Mobilization Pecs/UTs/posterior c-spine Mobilization Type Myofascial Release Rolling Strumming Intensity/Depth Moderate Body Position Supine Comments gradual decrease in pec tightness Manual Traction Cervical manual traction Body Position Supine Reps/Duration 4 min Comments Pt tolerates well. PT-OP-R Modalities Start: 11/09/18 14:47 Freq: Status: Active Protocol: Document 12/09/18 07:30 AMB (Rec: 12/09/18 13:01 AMB [email or web address]) Hot Pack/Cold Pack Treatment Hot Pack Location c-spine Patient Position Supine Treatment Duration (minutes) 15 Patient Tolerance Good PT-OP-T Assessment and Plan Start: 11/09/18 14:47 Freq: Status: Active Protocol: Document 12/09/18 07:30 AMB (Rec: 12/09/18 13:01 AMB [email or web address]) Physical Therapy Assessment Assessment Summary Assessment Pt continues to wake from sleep with pain, discussed pillow usage and self myofascial release with theracane and tennis balls to help manage morning stiffness. Physical Therapy Plan Next Visit Focus/Plan Next Note Type Treatment Note Next Visit Plan Continue PT per POC
--- NOTE | 2018-12-23 12:02 | PT.OTN ---
Current Diagnoses Spinal stenosis, cervical region (12/23/18) Physical Therapy Treatment Note PT-OP-A Visit Information Start: 11/09/18 14:47 Freq: Status: Active Protocol: Document 12/23/18 08:11 EA (Rec: 12/23/18 08:17 EA [id number]) Out-Patient Physical Therapy Visit Information Visit Information Visit Type Treatment Note Visit Start Time 07:30 Visit Stop Time 08:18 Total Visit Minutes 48 Visit Number 8 PT-OP-B Current Condition Start: 11/09/18 14:47 Freq: Status: Active Protocol: Document 11/09/18 14:59 EA (Rec: 11/09/18 15:12 EA [id number]) Current Condition History of Current Condition Onset Date a year ago Current Complaints c/o bilat neck pain with headache and both shoulder pain History of Current Condition Present condition started a year ago with no history of injury or neck surgery. Patient neck condition has been chronic in the past five years and had formal PT two years ago with good results. Patient reports it re-ocurred last year in November; he mentioned that pain usually increased when uses he plays with his phone. Pt c/o of difficulty in driving due to head turning. X-rays performed recently per patient and reports diagnosed with disc problem. Prior Treatments and Tests Formal PT with same issues: 2 years ago with good results Cervical enjection: 2 months ago Chiropractor: 6 months ago Future Testing and Treatments Planned Possible cervical surgery if PT did not resolve with PT treatment Treatment Goals Patient/Caregiver Goals 1. Patient wants to reduce pain to 1/10 2. Patient wants to improve cervical ROM Prior Functional Status Baseline Function- ADL's Independent Baseline Function- Mobility Independent Baseline Function- Gait Inedep Baseline Function- Work/School Retired Baseline Function- Recreation/Hobbies No limitation in all pervious hobbies. Current Functional Impairments (Reported) Functional Limitations- ADL's Indep in all ADL's Functional Limitations- Mobility/Gait Independent Functional Limitations- Work/School Retired Functional Limitations- Recreation/ Unable if neck and head pain Hobbies appears Functional Limitations- Other Driving difficulty due to limited neck/head turning PT-OP-C Subjective Start: 11/09/18 14:47 Freq: Status: Active Protocol: Document 12/23/18 08:11 EA (Rec: 12/23/18 08:17 EA [id number]) OP-PT Subjective Patient Comments Patient Comments Pt reports that he feels much improve as to pain and neck mobility; states headache not as much as before as pattern and intensity. Reports unable to perform HEP in the past due to couch and cold. Patient Reported Progress Improving PT-OP-E Functional Tests Start: 11/09/18 14:47 Freq: Status: Active Protocol: Document 11/09/18 17:28 EA (Rec: 11/09/18 17:38 EA [id number]) Functional Tests Apley's Scratch Test Action 1: The subject is instructed to touch the opposite shoulder with his/her hand. This motion checks Glenohumeral adduction, internal rotation , horizontal adduction and scapular protraction Action 2: The subject is instructed to place his/her arm overhead and reach behind the neck to touch his/her upper back. This motion checks Glenohumeral abduction, external rotation and scapular upward rotation and elevation. Action 3: The subject puts his/her hand on the lower back and reaches upward as far as possible. This motion checks glenohumeral adduction, internal rotation and scapular retraction with downward rotation Action 1- Left post deltoid Action 1- Right post deltoid Action 2- Left C7 Action 2- Right C7 Action 3- Left L2 Action 3- Right T12 PT-OP-H Neuro Start: 11/09/18 14:47 Freq: Status: Active Protocol: Document 11/09/18 17:28 EA (Rec: 11/09/18 17:38 EA [id number]) Deep Tendon Reflex & Clonus Assessment Deep Tendon Reflex Bilateral Brachioradialis Deep Tendon Reflex 1+ Diminished Bilateral Bicep Deep Tendon Reflex 1+ Diminished PT-OP-J Posture/Palpation/Skin Start: 11/09/18 14:47 Freq: Status: Active Protocol: Document 11/09/18 17:28 EA (Rec: 11/09/18 17:38 EA [id number]) Posture Evaluation Position Sitting Evaluation View Lateral Head/C-Spine Posture Excess Extension Forward Head T-Spine Posture Flattened L-Spine Posture Flattened Comments Posture Comments Moderate to severe forward head posture with internally rotated shoulders and protracted scapulae. Palpation Assessment Location One Palpation Location Posterior neck muscles, bilateral LS, traps, SCM, scalene Palpation Findings Soft Tissue Tightness Muscle Guarding Tenderness PT-OP-K Range of Motion Start: 11/09/18 14:47 Freq: Status: Active Protocol: Document 11/09/18 15:14 EA (Rec: 11/09/18 15:15 EA [id number]) Cervical Spine Range of Motion Cervical Spine Active Percentage Testing Position Sitting Flexion 80 Extension 75 Rotation Left 70 Rotation Right 70 Lateral Flexion Left 65 Lateral Flexion Right 65 ROM Limitations Soft Tissue Tightness Pain Shoulder Goniometric Range of Motion Shoulder Measured in Degrees Right Active Testing Position Sitting Flexion 150 Extension 60 Horizontal Abduction 15 External Rotation at 90 degrees 60 Abduction Internal Rotation 60 Left Active Testing Position Sitting Flexion 145 Extension 60 Abduction 145 Horizontal Abduction 15 External Rotation at 90 degrees 75 Abduction Internal Rotation 60 Internal Rotation Behind Back (text) L2 PT-OP-L Special Tests Start: 11/09/18 14:47 Freq: Status: Active Protocol: Document 11/09/18 15:12 EA (Rec: 11/09/18 15:13 EA [id number]) Special Tests Cervical Spine Special Tests Traction Test Results + Vertebral Artery Test Results negative Foraminal Compression Test Results + Shoulder Special Tests Neer Impingement Test Results + Lift-Off Rotator Cuff Test Results Left + Belly Press Test Results + PT-OP-M Strength Start: 11/09/18 14:47 Freq: Status: Active Protocol: Document 11/09/18 17:01 EA (Rec: 11/10/18 13:04 EA [id number]) Cervical Spine Strength Cervical Spine Manual Muscle Testing Flexion (C1-2) 4- Good- Extension 4 Good Rotation Left 4 Good Rotation Right 4 Good Lateral Flexion Left (C3) 4- Good- Lateral Flexion Right (C3) 4- Good- Reason Not Measured Pain Shoulder Strength Shoulder Manual Muscle Testing Right Flexion 4 Good Extension 5 Normal Abduction (C5) 4- Good- Adduction 5 Normal External Rotation 4 Good Internal Rotation 3+ Fair+ Horizontal Abduction 3+ Fair+ Left Flexion 4 Good Extension 5 Normal Abduction (C5) 3+ Fair+ Adduction 4 Good External Rotation 4 Good Internal Rotation 3+ Fair+ Horizontal Abduction 3+ Fair+ PT-OP-Q Treatments Start: 11/09/18 14:47 Freq: Status: Active Protocol: Document 12/23/18 08:11 EA (Rec: 12/23/18 08:17 EA [id number]) Therapeutic Exercises Supine Exercises Cervical ROM Side bilateral Equipment Used passive/manual Comments rotation and sidebending Sidelying Exercises UT/scalenes stretching Side bilateral Reps/Minutes 30 x 2 each Comments manual Sitting Exercises 1 Sitting Exercise Name Isometrics in neutral position Reps/Minutes x 5SH x 5 repes each sides/ planes chin tucks Sitting Exercise Name AROM: SF, Rotation, F/E Reps/Minutes 20 reps each planes Comments reminders for starting at neutral position Standing Exercises scapular row Side bilateral Resistance TB LV3 Reps/Minutes 20x Manual Therapy Treatment Soft Tissue Mobilization Pecs/UTs/posterior c-spine Mobilization Type Myofascial Release Rolling Strumming Intensity/Depth Moderate Body Position Supine Comments gradual decrease in pec tightness PT-OP-R Modalities Start: 11/09/18 14:47 Freq: Status: Active Protocol: Document 12/23/18 08:11 EA (Rec: 12/23/18 08:17 EA [id number]) Hot Pack/Cold Pack Treatment Hot Pack Location c-spine Patient Position Supine Treatment Duration (minutes) 10 Patient Tolerance Good PT-OP-T Assessment and Plan Start: 11/09/18 14:47 Freq: Status: Active Protocol: Document 12/23/18 08:11 EA (Rec: 12/23/18 08:17 EA [id number]) Physical Therapy Assessment Assessment Summary Assessment Improved neck mobility with slight discomfort at end range . Patient is progressing very well. Progress exercises in sitting posture. Physical Therapy Plan Next Visit Focus/Plan Next Note Type Treatment Note Next Visit Plan Continue PT per POC
--- NOTE | 2018-12-27 09:35 | PT.OTN ---
Current Diagnoses Spinal stenosis, cervical region (12/27/18) Physical Therapy Treatment Note PT-OP-A Visit Information Start: 11/09/18 14:47 Freq: Status: Active Protocol: Document 12/27/18 08:08 EA (Rec: 12/27/18 08:15 EA [id number]) Out-Patient Physical Therapy Visit Information Visit Information Visit Type Treatment Note Visit Start Time 07:30 Visit Stop Time 08:20 Total Visit Minutes 50 Visit Number 9 PT-OP-B Current Condition Start: 11/09/18 14:47 Freq: Status: Active Protocol: Document 11/09/18 14:59 EA (Rec: 11/09/18 15:12 EA [id number]) Current Condition History of Current Condition Onset Date a year ago Current Complaints c/o bilat neck pain with headache and both shoulder pain History of Current Condition Present condition started a year ago with no history of injury or neck surgery. Patient neck condition has been chronic in the past five years and had formal PT two years ago with good results. Patient reports it re-ocurred last year in November; he mentioned that pain usually increased when uses he plays with his phone. Pt c/o of difficulty in driving due to head turning. X-rays performed recently per patient and reports diagnosed with disc problem. Prior Treatments and Tests Formal PT with same issues: 2 years ago with good results Cervical enjection: 2 months ago Chiropractor: 6 months ago Future Testing and Treatments Planned Possible cervical surgery if PT did not resolve with PT treatment Treatment Goals Patient/Caregiver Goals 1. Patient wants to reduce pain to 1/10 2. Patient wants to improve cervical ROM Prior Functional Status Baseline Function- ADL's Independent Baseline Function- Mobility Independent Baseline Function- Gait Inedep Baseline Function- Work/School Retired Baseline Function- Recreation/Hobbies No limitation in all pervious hobbies. Current Functional Impairments (Reported) Functional Limitations- ADL's Indep in all ADL's Functional Limitations- Mobility/Gait Independent Functional Limitations- Work/School Retired Functional Limitations- Recreation/ Unable if neck and head pain Hobbies appears Functional Limitations- Other Driving difficulty due to limited neck/head turning PT-OP-C Subjective Start: 11/09/18 14:47 Freq: Status: Active Protocol: Document 12/27/18 08:08 EA (Rec: 12/27/18 08:15 EA [id number]) OP-PT Subjective Patient Comments Patient Comments Pt reports that PT-OP-E Functional Tests Start: 11/09/18 14:47 Freq: Status: Active Protocol: Document 11/09/18 17:28 EA (Rec: 11/09/18 17:38 EA [id number]) Functional Tests Apley's Scratch Test Action 1: The subject is instructed to touch the opposite shoulder with his/her hand. This motion checks Glenohumeral adduction, internal rotation , horizontal adduction and scapular protraction Action 2: The subject is instructed to place his/her arm overhead and reach behind the neck to touch his/her upper back. This motion checks Glenohumeral abduction, external rotation and scapular upward rotation and elevation. Action 3: The subject puts his/her hand on the lower back and reaches upward as far as possible. This motion checks glenohumeral adduction, internal rotation and scapular retraction with downward rotation Action 1- Left post deltoid Action 1- Right post deltoid Action 2- Left C7 Action 2- Right C7 Action 3- Left L2 Action 3- Right T12 PT-OP-H Neuro Start: 11/09/18 14:47 Freq: Status: Active Protocol: Document 11/09/18 17:28 EA (Rec: 11/09/18 17:38 EA [id number]) Deep Tendon Reflex & Clonus Assessment Deep Tendon Reflex Bilateral Brachioradialis Deep Tendon Reflex 1+ Diminished Bilateral Bicep Deep Tendon Reflex 1+ Diminished PT-OP-J Posture/Palpation/Skin Start: 11/09/18 14:47 Freq: Status: Active Protocol: Document 11/09/18 17:28 EA (Rec: 11/09/18 17:38 EA [id number]) Posture Evaluation Position Sitting Evaluation View Lateral Head/C-Spine Posture Excess Extension Forward Head T-Spine Posture Flattened L-Spine Posture Flattened Comments Posture Comments Moderate to severe forward head posture with internally rotated shoulders and protracted scapulae. Palpation Assessment Location One Palpation Location Posterior neck muscles, bilateral LS, traps, SCM, scalene Palpation Findings Soft Tissue Tightness Muscle Guarding Tenderness PT-OP-K Range of Motion Start: 11/09/18 14:47 Freq: Status: Active Protocol: Document 11/09/18 15:14 EA (Rec: 11/09/18 15:15 EA [id number]) Cervical Spine Range of Motion Cervical Spine Active Percentage Testing Position Sitting Flexion 80 Extension 75 Rotation Left 70 Rotation Right 70 Lateral Flexion Left 65 Lateral Flexion Right 65 ROM Limitations Soft Tissue Tightness Pain Shoulder Goniometric Range of Motion Shoulder Measured in Degrees Right Active Testing Position Sitting Flexion 150 Extension 60 Horizontal Abduction 15 External Rotation at 90 degrees 60 Abduction Internal Rotation 60 Left Active Testing Position Sitting Flexion 145 Extension 60 Abduction 145 Horizontal Abduction 15 External Rotation at 90 degrees 75 Abduction Internal Rotation 60 Internal Rotation Behind Back (text) L2 PT-OP-L Special Tests Start: 11/09/18 14:47 Freq: Status: Active Protocol: Document 11/09/18 15:12 EA (Rec: 11/09/18 15:13 EA [id number]) Special Tests Cervical Spine Special Tests Traction Test Results + Vertebral Artery Test Results negative Foraminal Compression Test Results + Shoulder Special Tests Neer Impingement Test Results + Lift-Off Rotator Cuff Test Results Left + Belly Press Test Results + PT-OP-M Strength Start: 11/09/18 14:47 Freq: Status: Active Protocol: Document 11/09/18 17:01 EA (Rec: 11/10/18 13:04 EA [id number]) Cervical Spine Strength Cervical Spine Manual Muscle Testing Flexion (C1-2) 4- Good- Extension 4 Good Rotation Left 4 Good Rotation Right 4 Good Lateral Flexion Left (C3) 4- Good- Lateral Flexion Right (C3) 4- Good- Reason Not Measured Pain Shoulder Strength Shoulder Manual Muscle Testing Right Flexion 4 Good Extension 5 Normal Abduction (C5) 4- Good- Adduction 5 Normal External Rotation 4 Good Internal Rotation 3+ Fair+ Horizontal Abduction 3+ Fair+ Left Flexion 4 Good Extension 5 Normal Abduction (C5) 3+ Fair+ Adduction 4 Good External Rotation 4 Good Internal Rotation 3+ Fair+ Horizontal Abduction 3+ Fair+ PT-OP-Q Treatments Start: 11/09/18 14:47 Freq: Status: Active Protocol: Document 12/27/18 08:08 EA (Rec: 12/27/18 08:15 EA [id number]) Cardio Equipment Upper Body Ergometer (UBE) Duration (Minutes) 6 RPM 70 Other forward/backward Therapeutic Exercises Supine Exercises Cervical ROM Side bilateral Equipment Used passive/manual Comments rotation and sidebending Sidelying Exercises UT/scalenes stretching Side bilateral Reps/Minutes 30 x 2 each Comments manual Sitting Exercises 1 Sitting Exercise Name Isometrics in neutral position Reps/Minutes x 5SH x 5 repes each sides/ planes chin tucks Sitting Exercise Name AROM: SF, Rotation, F/E Reps/Minutes 20 reps each planes Comments reminders for starting at neutral position Standing Exercises Postural wall stretch Side bilateral Reps/Minutes 3 min Comments supine with foam roll under t- spine scapular row Side bilateral Resistance TB LV3 Reps/Minutes 20x Manual Therapy Treatment Soft Tissue Mobilization Pecs/UTs/posterior c-spine Mobilization Type Myofascial Release Rolling Strumming Intensity/Depth Moderate Body Position Supine Comments gradual decrease in pec tightness PT-OP-R Modalities Start: 11/09/18 14:47 Freq: Status: Active Protocol: Document 12/27/18 08:08 EA (Rec: 12/27/18 08:15 EA [id number]) Hot Pack/Cold Pack Treatment Hot Pack Location c-spine Patient Position Supine Treatment Duration (minutes) 10 Patient Tolerance Good PT-OP-T Assessment and Plan Start: 11/09/18 14:47 Freq: Status: Active Protocol: Document 12/27/18 08:08 EA (Rec: 12/27/18 08:15 EA [id number]) Physical Therapy Assessment Assessment Summary Assessment Patient tolerated treatment well with minor discomfort during full cervical rotation stretch. Physical Therapy Plan Next Visit Focus/Plan Next Note Type Treatment Note Next Visit Plan Advance as tolerated.
--- NOTE | 2018-12-30 09:00 | PT.OTN ---
Current Diagnoses Spinal stenosis, cervical region (12/30/18) Physical Therapy Treatment Note PT-OP-A Visit Information Start: 11/09/18 14:47 Freq: Status: Active Protocol: Document 12/30/18 08:16 SAK (Rec: 12/30/18 08:40 SAK [id number]) Out-Patient Physical Therapy Visit Information Visit Information Visit Type Treatment Note Visit Start Time 08:15 Visit Stop Time 09:05 Total Visit Minutes 50 Visit Number 10 Number of RECEIVING SPECIALIST Visits 0 PT-OP-B Current Condition Start: 11/09/18 14:47 Freq: Status: Active Protocol: Document 11/09/18 14:59 EA (Rec: 11/09/18 15:12 EA [id number]) Current Condition History of Current Condition Onset Date a year ago Current Complaints c/o bilat neck pain with headache and both shoulder pain History of Current Condition Present condition started a year ago with no history of injury or neck surgery. Patient neck condition has been chronic in the past five years and had formal PT two years ago with good results. Patient reports it re-ocurred last year in November; he mentioned that pain usually increased when uses he plays with his phone. Pt c/o of difficulty in driving due to head turning. X-rays performed recently per patient and reports diagnosed with disc problem. Prior Treatments and Tests Formal PT with same issues: 2 years ago with good results Cervical enjection: 2 months ago Chiropractor: 6 months ago Future Testing and Treatments Planned Possible cervical surgery if PT did not resolve with PT treatment Treatment Goals Patient/Caregiver Goals 1. Patient wants to reduce pain to 1/10 2. Patient wants to improve cervical ROM Prior Functional Status Baseline Function- ADL's Independent Baseline Function- Mobility Independent Baseline Function- Gait Inedep Baseline Function- Work/School Retired Baseline Function- Recreation/Hobbies No limitation in all pervious hobbies. Current Functional Impairments (Reported) Functional Limitations- ADL's Indep in all ADL's Functional Limitations- Mobility/Gait Independent Functional Limitations- Work/School Retired Functional Limitations- Recreation/ Unable if neck and head pain Hobbies appears Functional Limitations- Other Driving difficulty due to limited neck/head turning PT-OP-C Subjective Start: 11/09/18 14:47 Freq: Status: Active Protocol: Document 12/30/18 08:16 SAK (Rec: 12/30/18 08:40 SAK [id number]) OP-PT Subjective Patient Comments Patient Comments Overall feeling at least 50% better, doing his exercises. Patient Reported Progress Improving PT-OP-E Functional Tests Start: 11/09/18 14:47 Freq: Status: Active Protocol: Document 11/09/18 17:28 EA (Rec: 11/09/18 17:38 EA [id number]) Functional Tests Apley's Scratch Test Action 1: The subject is instructed to touch the opposite shoulder with his/her hand. This motion checks Glenohumeral adduction, internal rotation , horizontal adduction and scapular protraction Action 2: The subject is instructed to place his/her arm overhead and reach behind the neck to touch his/her upper back. This motion checks Glenohumeral abduction, external rotation and scapular upward rotation and elevation. Action 3: The subject puts his/her hand on the lower back and reaches upward as far as possible. This motion checks glenohumeral adduction, internal rotation and scapular retraction with downward rotation Action 1- Left post deltoid Action 1- Right post deltoid Action 2- Left C7 Action 2- Right C7 Action 3- Left L2 Action 3- Right T12 PT-OP-H Neuro Start: 11/09/18 14:47 Freq: Status: Active Protocol: Document 11/09/18 17:28 EA (Rec: 11/09/18 17:38 EA [id number]) Deep Tendon Reflex & Clonus Assessment Deep Tendon Reflex Bilateral Brachioradialis Deep Tendon Reflex 1+ Diminished Bilateral Bicep Deep Tendon Reflex 1+ Diminished PT-OP-J Posture/Palpation/Skin Start: 11/09/18 14:47 Freq: Status: Active Protocol: Document 11/09/18 17:28 EA (Rec: 11/09/18 17:38 EA [id number]) Posture Evaluation Position Sitting Evaluation View Lateral Head/C-Spine Posture Excess Extension Forward Head T-Spine Posture Flattened L-Spine Posture Flattened Comments Posture Comments Moderate to severe forward head posture with internally rotated shoulders and protracted scapulae. Palpation Assessment Location One Palpation Location Posterior neck muscles, bilateral LS, traps, SCM, scalene Palpation Findings Soft Tissue Tightness Muscle Guarding Tenderness PT-OP-K Range of Motion Start: 11/09/18 14:47 Freq: Status: Active Protocol: Document 11/09/18 15:14 EA (Rec: 11/09/18 15:15 EA [id number]) Cervical Spine Range of Motion Cervical Spine Active Percentage Testing Position Sitting Flexion 80 Extension 75 Rotation Left 70 Rotation Right 70 Lateral Flexion Left 65 Lateral Flexion Right 65 ROM Limitations Soft Tissue Tightness Pain Shoulder Goniometric Range of Motion Shoulder Measured in Degrees Right Active Testing Position Sitting Flexion 150 Extension 60 Horizontal Abduction 15 External Rotation at 90 degrees 60 Abduction Internal Rotation 60 Left Active Testing Position Sitting Flexion 145 Extension 60 Abduction 145 Horizontal Abduction 15 External Rotation at 90 degrees 75 Abduction Internal Rotation 60 Internal Rotation Behind Back (text) L2 PT-OP-L Special Tests Start: 11/09/18 14:47 Freq: Status: Active Protocol: Document 11/09/18 15:12 EA (Rec: 11/09/18 15:13 EA [id number]) Special Tests Cervical Spine Special Tests Traction Test Results + Vertebral Artery Test Results negative Foraminal Compression Test Results + Shoulder Special Tests Neer Impingement Test Results + Lift-Off Rotator Cuff Test Results Left + Belly Press Test Results + PT-OP-M Strength Start: 11/09/18 14:47 Freq: Status: Active Protocol: Document 11/09/18 17:01 EA (Rec: 11/10/18 13:04 EA [id number]) Cervical Spine Strength Cervical Spine Manual Muscle Testing Flexion (C1-2) 4- Good- Extension 4 Good Rotation Left 4 Good Rotation Right 4 Good Lateral Flexion Left (C3) 4- Good- Lateral Flexion Right (C3) 4- Good- Reason Not Measured Pain Shoulder Strength Shoulder Manual Muscle Testing Right Flexion 4 Good Extension 5 Normal Abduction (C5) 4- Good- Adduction 5 Normal External Rotation 4 Good Internal Rotation 3+ Fair+ Horizontal Abduction 3+ Fair+ Left Flexion 4 Good Extension 5 Normal Abduction (C5) 3+ Fair+ Adduction 4 Good External Rotation 4 Good Internal Rotation 3+ Fair+ Horizontal Abduction 3+ Fair+ PT-OP-Q Treatments Start: 11/09/18 14:47 Freq: Status: Active Protocol: Document 12/30/18 08:16 SAK (Rec: 12/30/18 08:40 SAK [id number]) Cardio Equipment Upper Body Ergometer (UBE) Duration (Minutes) 6 RPM 70 Other forward/backward Therapeutic Exercises Supine Exercises Cervical ROM Side bilateral Equipment Used passive/manual Comments rotation and sidebending Sidelying Exercises reach and roll Reps/Minutes 5x UT/scalenes stretching Side bilateral Reps/Minutes 30 x 2 each Comments manual Sitting Exercises UT and scalene stretches Reps/Minutes 2x 1 Sitting Exercise Name Isometrics in neutral position Reps/Minutes x 5SH x 5 repes each sides/ planes Standing Exercises Postural wall stretch Side bilateral Reps/Minutes 3 min Comments supine with foam roll under t- spine scapular row Side bilateral Resistance TB LV3 Reps/Minutes 20x Manual Therapy Treatment Soft Tissue Mobilization Pecs/UTs/posterior c-spine Mobilization Type Myofascial Release Rolling Strumming Intensity/Depth Moderate Body Position Supine Comments gradual decrease in pec tightness PT-OP-R Modalities Start: 11/09/18 14:47 Freq: Status: Active Protocol: Document 12/30/18 08:16 SAK (Rec: 12/30/18 08:40 SAK [id number]) Hot Pack/Cold Pack Treatment Hot Pack Location c-spine Patient Position Supine Treatment Duration (minutes) 10 Patient Tolerance Good PT-OP-T Assessment and Plan Start: 11/09/18 14:47 Freq: Status: Active Protocol: Document 12/30/18 08:16 SAK (Rec: 12/30/18 08:40 [facility] [id number]) Physical Therapy Assessment Goals Five Impairment Impaired posture Cushion Spring Assembler Goal (LTG) Patient will improve posture to near functional range to prevent muscular imbalance LTG Duration 4 wks Four Impairment Impaired shoulder ROM Cushion Spring Assembler Goal (LTG) Patient will increase both shoulder ABD/Flexion/ ER with no pain to functional range to improve overhead movement. LTG Duration 4 wks Three Impairment Impaired cervical ROM Intermediate Goal (LTG) Patient will increase cervical ROM particulalry rotation to functional range LTG Duration 4 wks Two Impairment Quick Dash score 30 Cushion Spring Assembler Goal (LTG) Patient will have Quick Dash score of < 10 LTG Duration 4 wks One Impairment Neck Disability Index score of 30/50 Cushion Spring Assembler Goal (LTG) Patient will have NDI of < 20/ 50 LTG Duration 4 wks Assessment Summary Assessment Patient progressing toward goals. Needs verbal and manual cues for postural alignment. Pain at end-range cervical rotation and sidebending. Physical Therapy Plan Frequency and Duration Frequency of Treatment 2x/Week Duration of Treatment 8 weeks Plan of Care Start Date 11/09/18 Plan of Care End Date 01/04/19 Next Visit Focus/Plan Next Note Type Re-Evaluation Next Visit Plan Reassess, continue PT per POC
--- NOTE | 2019-06-27 14:21 | PT.OPDS ---
Current Diagnoses Spinal stenosis, cervical region (12/30/18) Provider Visit Care Team Role Provider Type Paola Romano DO Primary Care Provider Physician Specialty: Family Practice Address: [address] [place] [address], [address], [place], [address] Email: [email or web address] Aiden Montague DO Attending Provider Physician Specialty: Physiatry Pain Management Address: [address] [place] [address], [id number] Email: [email or web address] Visit Number Visit Number 10 Discharge Summary PT-OP-B Current Condition Start: 11/09/18 14:47 Freq: Status: Active Protocol: Document 11/09/18 14:59 EA (Rec: 11/09/18 15:12 EA [id number]) Current Condition History of Current Condition Onset Date a year ago Current Complaints c/o bilat neck pain with headache and both shoulder pain History of Current Condition Present condition started a year ago with no history of injury or neck surgery. Patient neck condition has been chronic in the past five years and had formal PT two years ago with good results. Patient reports it re-ocurred last year in November; he mentioned that pain usually increased when uses he plays with his phone. Pt c/o of difficulty in driving due to head turning. X-rays performed recently per patient and reports diagnosed with disc problem. Prior Treatments and Tests Formal PT with same issues: 2 years ago with good results Cervical enjection: 2 months ago Chiropractor: 6 months ago Future Testing and Treatments Planned Possible cervical surgery if PT did not resolve with PT treatment Treatment Goals Patient/Caregiver Goals 1. Patient wants to reduce pain to 1/10 2. Patient wants to improve cervical ROM Prior Functional Status Baseline Function- ADL's Independent Baseline Function- Mobility Independent Baseline Function- Gait Inedep Baseline Function- Work/School Retired Baseline Function- Recreation/Hobbies No limitation in all pervious hobbies. Current Functional Impairments (Reported) Functional Limitations- ADL's Indep in all ADL's Functional Limitations- Mobility/Gait Independent Functional Limitations- Work/School Retired Functional Limitations- Recreation/ Unable if neck and head pain Hobbies appears Functional Limitations- Other Driving difficulty due to limited neck/head turning PT-OP-C Subjective Start: 11/09/18 14:47 Freq: Status: Active Protocol: Document 06/27/19 14:19 EA (Rec: 06/27/19 14:21 EA [id number]) OP-PT Subjective Patient Comments Patient Comments Patint is dicharge due to M.D authorization/referral issue per front desk receptionist staff. PT-OP-E Functional Tests Start: 11/09/18 14:47 Freq: Status: Active Protocol: Document 11/09/18 17:28 EA (Rec: 11/09/18 17:38 EA [id number]) Functional Tests Apley's Scratch Test Action 1- Left post deltoid Action 1- Right post deltoid Action 2- Left C7 Action 2- Right C7 Action 3- Left L2 Action 3- Right T12 PT-OP-H Neuro Start: 11/09/18 14:47 Freq: Status: Active Protocol: Document 11/09/18 17:28 EA (Rec: 11/09/18 17:38 EA [id number]) Deep Tendon Reflex & Clonus Assessment Deep Tendon Reflex Bilateral Brachioradialis Deep Tendon Reflex 1+ Diminished Bilateral Bicep Deep Tendon Reflex 1+ Diminished PT-OP-J Posture/Palpation/Skin Start: 11/09/18 14:47 Freq: Status: Active Protocol: Document 11/09/18 17:28 EA (Rec: 11/09/18 17:38 EA [id number]) Posture Evaluation Position Sitting Evaluation View Lateral Head/C-Spine Posture Excess Extension Forward Head T-Spine Posture Flattened L-Spine Posture Flattened Comments Posture Comments Moderate to severe forward head posture with internally rotated shoulders and protracted scapulae. Palpation Assessment Location One Palpation Location Posterior neck muscles, bilateral LS, traps, SCM, scalene Palpation Findings Soft Tissue Tightness Muscle Guarding Tenderness PT-OP-K Range of Motion Start: 11/09/18 14:47 Freq: Status: Active Protocol: Document 11/09/18 15:14 EA (Rec: 11/09/18 15:15 EA [id number]) Cervical Spine Range of Motion Cervical Spine Active Percentage Testing Position Sitting Flexion 80 Extension 75 Rotation Left 70 Rotation Right 70 Lateral Flexion Left 65 Lateral Flexion Right 65 ROM Limitations Soft Tissue Tightness Pain Shoulder Goniometric Range of Motion Shoulder Right Active Testing Position Sitting Flexion 150 Extension 60 Horizontal Abduction 15 External Rotation at 90 degrees 60 Abduction Internal Rotation 60 Left Active Testing Position Sitting Flexion 145 Extension 60 Abduction 145 Horizontal Abduction 15 External Rotation at 90 degrees 75 Abduction Internal Rotation 60 Internal Rotation Behind Back (text) L2 PT-OP-L Special Tests Start: 11/09/18 14:47 Freq: Status: Active Protocol: Document 11/09/18 15:12 EA (Rec: 11/09/18 15:13 EA [id number]) Special Tests Cervical Spine Special Tests Traction Test Results + Vertebral Artery Test Results negative Foraminal Compression Test Results + Shoulder Special Tests Neer Impingement Test Results + Lift-Off Rotator Cuff Test Results Left + Belly Press Test Results + PT-OP-M Strength Start: 11/09/18 14:47 Freq: Status: Active Protocol: Document 11/09/18 17:01 EA (Rec: 11/10/18 13:04 EA [id number]) Cervical Spine Strength Cervical Spine Manual Muscle Testing Flexion (C1-2) 4- Good- Extension 4 Good Rotation Left 4 Good Rotation Right 4 Good Lateral Flexion Left (C3) 4- Good- Lateral Flexion Right (C3) 4- Good- Reason Not Measured Pain Shoulder Strength Shoulder Manual Muscle Testing Right Flexion 4 Good Extension 5 Normal Abduction (C5) 4- Good- Adduction 5 Normal External Rotation 4 Good Internal Rotation 3+ Fair+ Horizontal Abduction 3+ Fair+ Left Flexion 4 Good Extension 5 Normal Abduction (C5) 3+ Fair+ Adduction 4 Good External Rotation 4 Good Internal Rotation 3+ Fair+ Horizontal Abduction 3+ Fair+ PT-OP-T Assessment and Plan Start: 11/09/18 14:47 Freq: Status: Active Protocol: Document 06/27/19 14:19 EA (Rec: 06/27/19 14:21 EA [id number]) Physical Therapy Assessment Assessment Summary Assessment Discharged Patient due to M.D referral issue per front desk receptionist staff. Physical Therapy Plan Discharge Physical Therapy Discharge Reasons No Longer Attending PT
== END 2019-07-01 10:06 | disposition home or self-care (01) ==
LOC: PHYS 08:15
PROVIDERS: PCP Family Medicine; Visit Provider Physical Medicine & Rehabilitation
DX: M48.02 Spinal stenosis, cervical region (principal)
CPT/HCPCS: 97010; 97110; 97140; 97162; J1100; J2250

== ENCOUNTER → 2019-01-17 07:49 | Outpatient (CLI) | payer OTHER, SELFPAY ==
[2019-01-17 09:59] LABS: Hemoglobin A1C% w Est Avg Glu 6.6 % (4.0-6.0)
[2019-01-17 10:06] LABS: Alanine Aminotransferase 41 IU/L (21-72); Albumin 4.3 g/dL (3.5-5.0); Albumin Globulin Ratio 1.3 (1.0-2.8); Alkaline Phosphatase 64 U/L (38-126); Aspartate Aminotransferase 29 IU/L (17-59); Bilirubin Total 0.5 mg/dL (0.2-1.3); Blood Urea Nitrogen 14 mg/dL (9-20); Calcium 9.3 mg/dL (8.4-10.2); Carbon Dioxide 28 mmol/L (22-32); Chloride 103 mmol/L (98-107); Cholesterol 136 mg/dL (140-199); Estimated Glomerular Filt Rate > 60.0 mL/min (>60); Globulin 3.2 g/dL (1.7-4.1); Glucose 77 mg/dL (80-110); HDL Cholesterol 30 mg/dL (40-60); HEMOLYSIS < 15 (0-50); LDL Cholesterol Calculated 81 mg/dL (<100); Potassium 4.1 mmol/L (3.4-5.1); Sodium 140 mmol/L (137-145); Total Protein 7.5 g/dL (6.3-8.2); Triglycerides 127 mg/dL (35-150)
== END ==
PROVIDERS: PCP Family Medicine; Visit Provider Family Medicine
DX: D64.9 Anemia, unspecified (principal); E11.21 Type 2 diabetes mellitus with diabetic nephropathy; I10 Essential (primary) hypertension; Z79.4 Long term (current) use of insulin
CPT/HCPCS: 36415; 80053; 80061; 83036

== ENCOUNTER → 2019-02-23 13:25 | Outpatient (CLI) | payer OTHER, SELFPAY ==
[2019-02-23 13:56] LABS: Hematocrit 36.1 % (41-53); Hemoglobin 12.5 g/dL (13.5-17.5)
[2019-02-23 14:29] LABS: BUN Creatinine Ratio 17.5 (6-22); Blood Urea Nitrogen 21 mg/dL (9-20); Calcium 9.3 mg/dL (8.4-10.2); Carbon Dioxide 26 mmol/L (22-32); Chloride 101 mmol/L (98-107); Estimated Glomerular Filt Rate 59.3 mL/min (>60); Glucose 186 mg/dL (80-110); HEMOLYSIS < 15 (0-50); Potassium 4.2 mmol/L (3.4-5.1); Sodium 137 mmol/L (137-145)
[2019-02-23 20:27] LABS: Creatinine Urine Random 170.7 mg/dL; Protein (Total) Urine Random 140 mg/dL (0-12); Protein Creatinine Ratio Urine 0.82 GRAM/24H
[2019-02-26 17:39] LABS: Parathyroid Hormone Int 12 pg/mL (14-64)
== END ==
PROVIDERS: PCP Family Medicine; Visit Provider Family Medicine
DX: N05.9 Unspecified nephritic syndrome with unspecified morphologic changes (principal); D64.9 Anemia, unspecified; N25.81 Secondary hyperparathyroidism of renal origin; R80.9 Proteinuria, unspecified
CPT/HCPCS: 36415; 80048; 82570; 83970; 84156; 85014; 85018

== ENCOUNTER → 2019-05-16 07:43 | Outpatient (CLI) | payer OTHER, SELFPAY ==
[2019-05-16 08:42] LABS: Add Manual Diff / Slide Review NO; Basophils Absolute Auto 0 /uL (0-100); Basophils Percent Auto 0.2 % (0-2); Eosinophils Absolute Auto 200 /uL (0-450); Eosinophils Percent Auto 3.3 % (2-4); Hematocrit 34.3 % (41-53); Hemoglobin 11.9 g/dL (13.5-17.5); Lymphocytes Absolute Auto 1700 /uL (1100-4500); Lymphocytes Percent Auto 22.7 % (25-40); Mean Corpuscular HGB Conc 34.9 % (30-36); Mean Corpuscular Hemoglobin 31.7 PG (26-34); Monocytes Absolute Auto 600 /uL (0-900); Neutrophils Absolute Auto 4900 /uL (1500-7000); Neutrophils Percent Auto 65.8 % (50-75); Platelet Count 257 X10^3/uL (150-400); Red Blood Cell Count 3.77 X10^6/uL (4.5-5.9); Red Cell Distribution Width 14.2 % (11.6-14.8); White Blood Cell Count 7.5 X10^3/uL (4.5-11.0)
[2019-05-16 08:57] LABS: Hemoglobin A1C% w Est Avg Glu 6.7 % (4.0-6.0)
[2019-05-16 09:01] LABS: Alanine Aminotransferase 32 IU/L (21-72); Albumin Globulin Ratio 1.3 (1.0-2.8); Alkaline Phosphatase 59 U/L (38-126); Aspartate Aminotransferase 26 IU/L (17-59); BUN Creatinine Ratio 18.3 (6-22); Bilirubin Total 0.6 mg/dL (0.2-1.3); Blood Urea Nitrogen 22 mg/dL (9-20); Calcium 9.5 mg/dL (8.4-10.2); Carbon Dioxide 29 mmol/L (22-32); Chloride 102 mmol/L (98-107); Cholesterol 128 mg/dL (140-199); Estimated Glomerular Filt Rate 59.3 mL/min (>60); Glucose 170 mg/dL (80-110); HDL Cholesterol 30 mg/dL (40-60); HEMOLYSIS < 15 (0-50); LDL Cholesterol Calculated 72 mg/dL (<100); Potassium 4.2 mmol/L (3.4-5.1); Sodium 140 mmol/L (137-145); Triglycerides 128 mg/dL (35-150)
== END ==
PROVIDERS: PCP Family Medicine; Visit Provider Family Medicine
DX: E11.9 Type 2 diabetes mellitus without complications (principal); I10 Essential (primary) hypertension; R60.9 Edema, unspecified; Z51.81 Encounter for therapeutic drug level monitoring
CPT/HCPCS: 36415; 80053; 80061; 83036; 85025

== ENCOUNTER → 2019-05-24 09:33 | Outpatient (CLI) | payer OTHER, SELFPAY ==
[2019-05-24 10:59] LABS: BUN Creatinine Ratio 17.3 (6-22); Blood Urea Nitrogen 26 mg/dL (9-20); Calcium 9.2 mg/dL (8.4-10.2); Carbon Dioxide 26 mmol/L (22-32); Chloride 100 mmol/L (98-107); Estimated Glomerular Filt Rate 45.9 mL/min (>60); Glucose 261 mg/dL (80-110); HEMOLYSIS < 15 (0-50); Potassium 4.5 mmol/L (3.4-5.1); Sodium 137 mmol/L (137-145)
== END ==
PROVIDERS: Family Provider Family Medicine; PCP Family Medicine; Visit Provider Internal Medicine Cardiovascular Disease
DX: I10 Essential (primary) hypertension (principal)
CPT/HCPCS: 36415; 80048

== ENCOUNTER → 2019-06-08 07:30 | Outpatient (CLI) | payer OTHER, SELFPAY ==
--- NOTE | 2019-06-08 08:41 | P.PCN_ITS ---
Cardiac Stress Test Report Referral & Results Date Patient Seen: 06/08/19 Time Patient Seen: 08:30 Requesting provider: Cristian Gore Indication: NSVT Rest ECG: V-paced rhythm Procedure Note: After both written and verbal informed consent the patient had an IV started by the diagnostic imaging RN and then was hooked up to the treadmill monitoring system. The patient was placed on the treadmill at 1 mile an hour with no elevation and was then injected with the Freya scan material. The Cardiolite was then immediately administered. The patient spent an additional 2-3 minutes on the treadmill before being returned to the [facility] in the supine position. The patient had a normal response to all infused materials. However, heart rate and blood pressure targets were not met. No signs/symptoms of angina. No EKG changes Impression: Suboptimal Freya protocol. Will await perfusion imaging. Please note: Actual ECG tracings can be found in the PACS system.
--- NOTE | 2019-06-09 16:44 | DI.NM.S_ITS ---
DATE OF SERVICE: 06/08/2019 PROCEDURE: Pharmacological perfusion study. INDICATION: Near syncope with paroxysmal a fib, Mobitz type II block, diabetes mellitus, hypertension. RADIOPHARMACEUTICAL: 25.1 mCi technetium-99m Myoview IV was injected at stress and 27.3 mCi technetium-99m Myoview IV was injected at rest. CARDIAC STRESS: Patient underwent IV Lexiscan perfusion study as per standard protocol. He remained hemodynamically stable. Baseline rhythm appears to be sinus rhythm. I don't see obvious atrioventricular pacing. During stress, there were no convincing ischemic changes. There were no significant sustained arrhythmias seen. RAW DATA: There was increased subdiaphragmatic activity. Hotspot spots seen near the apex. GATED STUDY: Stress LV ejection fraction 60%. I don't see any significant wall motion abnormalities. There is no transient ischemic dilatation. TID ratio is 1.07, which is within normal limits. Resting LV end-diastolic volume is 133 mL. Lung/heart ratio is 0.23, which is within normal limits. MYOCARDIAL PERFUSION SCAN: Stress supine, resting supine, and stress prone images were compared to each other. Stress supine and resting supine images revealed moderate sized, [id number] decreased perfusion of inferior wall and inferoapex which got significantly improved during prone images. However, prone images remained to have persisted inferoapical defect. No reversible ischemia. CONCLUSION: 1. No reversible ischemia. 2. Patient has predominantly fixed inferoapical defect. No significant wall motion abnormalities in that segment on gated study. Patient had perfusion study in 12/2016. At that time, he had normal myocardial. However, he had a pacemaker implantation in 02/24/2017. This inferoapical perfusion defect could be due to pacemaker. However, one cannot rule out possibility of small nontransmural myocardial infarction in that area. 3. Overall, this is a low-risk myocardial perfusion scan. Clinical correlation is recommended. Guanako Israel - ROOPA/angella/ doc#: [id number]/job#: [id number] dd: 06/09/2019 16:16:00 dt: 06/09/2019 16:25:00 DICTATING MD/COPIES TO: Cristian Gore MD COPIES MNE: JEN
== END ==
PROVIDERS: Family Provider Family Medicine; PCP Family Medicine; Visit Provider Internal Medicine Cardiovascular Disease
DX: R55 Syncope and collapse (principal); I48.0 Paroxysmal atrial fibrillation; I47.2 Ventricular tachycardia; I44.1 Atrioventricular block, second degree; E11.9 Type 2 diabetes mellitus without complications; I10 Essential (primary) hypertension; Z95.0 Presence of cardiac pacemaker
CPT/HCPCS: 78452; 93016; 93017; 93018; A9502; J2785

== ENCOUNTER → 2019-06-09 09:01 | Outpatient (CLI) | payer OTHER, SELFPAY ==
--- NOTE | 2019-06-09 09:03 | DI.ECHO.S_ITS ---
[facility]---------+ [facility] +---------+ : : [address] [place] : : : : [id number] : : : : Phone: [phone]+ Echocardiogram Report + + :Name: ZARI BABCOCK Study Date: 06/09/2019 Height: 69 in : :[facility] Exam Location: IS Weight: 170 lb : : Gender: Male BSA: 1.9 m2 : :: 1945 Age: 74 yrs BP: 158/63 mmHg: :Reason For Study: VTACH : : Performed By: Ruslan Guadarrama : :Referring: Cristian Gore : + + Interpretation Summary The left ventricle is normal in size. The ejection fraction is estimated to be 60-65%. There has been no significant change in LVEF since the previous study. The right ventricle is borderline dilated. The right ventricular systolic function is normal. There is a pacemaker lead in the right ventricle. There is mild tricuspid regurgitation. Compared to the prior echo exam, there has been no change in TR severity. The right ventricular systolic pressure is estimated to be at least 24 mmHg based on an estimated right atrial pressure of 3 mm Hg. Procedure: A two-dimensional transthoracic echocardiogram with color flow and Doppler was performed. The study quality was technically good. There is no prior echocardiogram noted for this patient. Comparison is made with the echocardiogram of 09/30/16. The patient was in normal sinus rhythm during the exam. Left Ventricle: The left ventricle is normal in size. Left ventricular wall thickness is borderline increased. Proximal septal thickening is noted. There is no echo evidence for significant left ventricular outflow tract obstruction. There is no thrombus. The ejection fraction is estimated to be 60-65%. There has been no significant change since the previous study. There is apical inferior wall hypokinesis. Compared to the prior exam, the left ventricular wall motion has not changed. Diastolic parameters suggest a relaxation abnormality of the left ventricle, consistent with probable normal filling pressures. Right Ventricle: The right ventricle is borderline dilated. There is a pacemaker lead in the right ventricle. The right ventricular systolic function is normal. Atria: The left atrium is mildly dilated. The left atrium has remained unchanged in size since the prior echo exam. Right atrial size is normal. The interatrial septum is intact with no evidence for an atrial septal defect. Mitral Valve: The mitral valve is normal. There is trace mitral regurgitation. Aortic Valve: The aortic valve is normal in structure and function. The aortic valve is trileaflet. The aortic valve opens well. There is no aortic valve stenosis. No aortic regurgitation is present. Tricuspid Valve: The tricuspid valve is normal. There is mild tricuspid regurgitation. The right ventricular systolic pressure is estimated to be at least 24 mmHg based on an estimated right atrial pressure of 3 mm Hg. Compared to the prior echo exam, there has been no change in TR severity. Pulmonic Valve: The pulmonic valve leaflets are thin and pliable; valve motion is normal. There is mild pulmonic regurgitation. Great Vessels: The aortic root is normal size. The dimensions of the ascending aorta are normal. The pulmonary artery is normal size. The IVC is of normal diameter and collapses greater than 50% with a sniff. This suggests a low right atrial pressure of 3 mm Hg. Pericardium/ Pleura There is no pericardial effusion. There is no pleural effusion. MMode/2D Measurements & Calculations LVIDd: 5.3 cm LVOT diam: 2.3 cm LVIDs: 3.2 cm Ao root diam: 3.5 cm FS: 38.2 % Aortic Jxn: 2.4 cm EPSS: 0.39 cm asc Aorta Diam: 3.4 cm IVSd: 1.1 cm LVPWd: 0.91 cm LV parker. diameter/BSA (cm/m^2): 2.7 LV sys. diameter/BSA (cm/m^2): 1.7 LA dimension: 3.4 cm RA long axis: 4.9 cm LA A2 area: 21.5 cm2 RA area: 18.3 cm2 LA A4 area: 23.5 cm2 RA vol: 57.7 ml LA length (vol): 6.2 cm RA : 29.9 ml/m2 LA vol: 69.4 ml IVC diam: 0.95 cm LA vol index: 36.0 ml/m2 RVD1 (basal): 3.8 cm RVD2 (mid): 4.3 cm Doppler Measurements & Calculations Ao V2 max: 134.2 cm/sec LVOT Max Cory: 100.0 cm/sec Ao V2 mean: 93.3 cm/sec LV V1 max P.0 mmHg Ao max P.2 mmHg LV V1 VTI: 22.2 cm Ao mean P.8 mmHg KONRAD(I,D): 3.1 cm2 Ao V2 VTI: 29.5 cm KONRAD(V,D): 3.1 cm2 sev ratio: 0.75 KONRAD indexed to BSA (cm^2/m^2): 1.6 MV E max cory: 43.5 cm/sec TR max cory: 228.7 cm/sec MV A max cory: 65.6 cm/sec TR max P.9 mmHg MV E/A: 0.66 PA V2 max: 76.0 cm/sec Med Peak E' Cory: 4.0 cm/sec PA V2 mean: 58.1 cm/sec E/E' med: 10.8 PA mean P.4 mmHg Lat Peak E' Cory: 8.2 cm/sec PA pr(Accel): 21.6 mmHg E/E' lat: 5.3 PA Accel Time: 0.12 sec E/e' average: 8.1 MV dec time: 0.25 sec SV(LVOT): 92.1 ml Reading Physician:01:04 PM
== END ==
PROVIDERS: Family Provider Family Medicine; PCP Family Medicine; Visit Provider Internal Medicine Cardiovascular Disease
DX: I07.1 Rheumatic tricuspid insufficiency (principal); I37.1 Nonrheumatic pulmonary valve insufficiency; I47.2 Ventricular tachycardia; I48.0 Paroxysmal atrial fibrillation; Z95.0 Presence of cardiac pacemaker; Z86.73 Personal history of transient ischemic attack (TIA), and cerebral infarction without residual deficits
CPT/HCPCS: 93306

== ENCOUNTER 2019-06-10 08:00 | Emergency (ER) | payer OTHER, SELFPAY ==
[2019-06-10 08:00] VITALS: BP 190/91; PULSE 81; RESP 18; TEMP 36.4; O2SAT 99; BMI 25.1
--- NOTE | 2019-06-10 08:06 | DI.RAD.S_ITS ---
PROCEDURE: XR CHEST 1V INDICATIONS: chest pain TECHNIQUE: One view of the chest was acquired. COMPARISON: [facility], , CHEST 2 VIEW, 12/18/2016, 8:34. FINDINGS: Surgical changes and devices: Dual-lead cardiac pacer. Lungs and pleura: Lungs are clear. No pleural effusions or pneumothorax. Mediastinum: Mediastinal contours appear normal. Heart size is normal. Bones and chest wall: No suspicious bony lesions. Overlying soft tissues appear unremarkable. IMPRESSION: No acute disease Dictated by: Keenan Barron M.D. on 06/10/2019 at 8:43 Approved by: Keenan Barron M.D. on 06/10/2019 at 8:46
[2019-06-10 08:24] LABS: Add Manual Diff / Slide Review NO; Basophils Absolute Auto 100 /uL (0-100); Basophils Percent Auto 0.9 % (0-2); Eosinophils Absolute Auto 200 /uL (0-450); Eosinophils Percent Auto 2.4 % (2-4); Hematocrit 38.3 % (41-53); Hemoglobin 13.5 g/dL (13.5-17.5); Lymphocytes Absolute Auto 2300 /uL (1100-4500); Mean Corpuscular HGB Conc 35.3 % (30-36); Mean Corpuscular Hemoglobin 32.1 PG (26-34); Mean Corpuscular Volume 90.8 fL (80-100); Monocytes Absolute Auto 700 /uL (0-900); Monocytes Percent Auto 8.3 % (3-14); Neutrophils Absolute Auto 5300 /uL (1500-7000); Neutrophils Percent Auto 61.4 % (50-75); Platelet Count 305 X10^3/uL (150-400); Red Blood Cell Count 4.22 X10^6/uL (4.5-5.9); Red Cell Distribution Width 14.2 % (11.6-14.8); White Blood Cell Count 8.6 X10^3/uL (4.5-11.0)
--- NOTE | 2019-06-10 08:25 | ED.SOB ---
HPI - SOB/Dyspnea General Chief Complaint: Shortness of Breath/Dyspnea Stated Complaint: rash,shortness of breath Time Seen by Provider: 06/10/19 08:01 Source: patient and family Mode of arrival: ambulatory Limitations: no limitations History of Present Illness 74-year-old male with history of hypertension and hyperlipidemia and recent evaluation for chest pain presents with a general sense of being ill with shortness of breath and fatigue as well as some anterior chest pressure in the absence of provocation or palliation nor radiation. He he is not dizzy nor weak or lightheaded. Patient had a Lexiscan two days ago and echo yesterday. He's felt poorly since the stress test. He had some caffeine this morning at the suggestion of his nurse and his symptoms improved. Patient was recently admitted [facility] for near syncope and this stress testing was part of the discharge plan for that. He was pale and clammy and developed some rash last night, which has since faded. His called cardiology whom suggest this may be a type of allergic reaction. Related Data Home Medications Medication Instructions Recorded Confirmed Iron (FERROUS GLUCONATE) 27 mg PO QDAY #0 01/19/13 05/17/19 Fish Oil 1,000 mg PO QDAY #0 tab 08/25/16 05/17/19 [cinnamon] #0 08/25/16 05/17/19 [CALCIUM] #0 06/12/17 05/17/19 ascorbic acid (vitamin C) #0 12/16/17 05/17/19 carvedilol 25 mg tablet 37.5 mg PO BID #0 tab 07/14/18 05/17/19 gabapentin 300 mg capsule 300 mg PO TID PRN cap 10/13/18 05/17/19 hydrochlorothiazide 25 mg tablet 25 mg PO DAILY 03/08/19 05/17/19 omeprazole magnesium 20 mg 20 mg PO DAILY 03/08/19 05/17/19 tablet,delayed release amlodipine 10 mg tablet 10 mg PO Q DAY tab 05/17/19 potassium chloride ER 10 mEq 10 meq PO DAILY 05/17/19 05/17/19 capsule,extended release Previous Rx's Medication Instructions Recorded glucometer #1 ea 05/06/18 Syringes: Ultra Fine Insulin #100 each 05/31/18 Syringe w/Needle warfarin 5 mg tablet 5 mg PO .COMPLEX #90 tab 08/23/18 losartan 100 mg tablet 100 mg PO Q DAY #30 tab 09/15/18 Glucose: Test Strips #200 each 09/27/18 [place] #100 each 10/11/18 Accu-chek Softclix Lancets #100 each 12/29/18 nystatin 100,000 unit/gram topical 1 applictn TOP BID #15 gram 03/08/19 cream atorvastatin 80 mg tablet 80 mg PO HS #30 tab 03/17/19 trazodone 50 mg tablet 50 mg PO BEDTIME #30 tab 04/20/19 insulin NPH isophane U-100 human See Rx Instructions SUBCUT 05/16/19 100 unit/mL (3 mL) subcutaneous pen .COMPLEX #15 ml insulin U- 100 regular human 100 See Rx Instructions .ROUTE 05/23/19 unit/mL injection solution .COMPLEX #10 ml Allergies Allergy/AdvReac Type Severity Reaction Status Date / Time ciprofloxacin [CIPROFLOXACIN] Allergy Intermediate Dizzy, Verified 06/10/19 08:13 constipation, lightheaded, bad dreams, joint pain atenolol [ATENOLOL] Allergy Mild Lightheaded Verified 06/10/19 08:13 and nausea Review of Systems Constitutional Reports chills, Reports fatigue, Denies fever(s), Denies lethargy and Reports weakness Eyes Denies change in vision, Denies eye discharge, Denies irritation and Denies loss of vision ENT Ears, Nose, Mouth, and Throat: Denies change in voice, Denies neck pain and Denies sore throat Cardiovascular Reports chest pain, Denies irregular heart rhythm, Denies lightheadedness, Denies palpitations, Reports dyspnea, Reports dyspnea on exertion and Denies orthopnea Respiratory Denies cough, Reports dyspnea, Reports dyspnea on exertion and Denies wheezing Gastrointestinal Gastrointestinal: Denies abdominal pain, Denies change in bowel habits, Denies diarrhea, Denies nausea and Denies vomiting Genitourinary Denies hematuria, Denies flank pain, Denies urinary incontinence and Denies urinary urgency Musculoskeletal Denies neck pain Integumentary/Breasts Denies pruritus, Denies erythema, Reports rash and Denies wounds Neurologic Denies confusion, Denies loss of vision and Reports weakness Psychiatric Denies anxiety, Denies confusion, Denies depression, Denies homicidal ideation and Denies suicidal ideation Endocrine Reports fatigue and Denies palpitations Hematologic/Lymphatic Denies easy bruising Allergic/Immunologic Denies wheezing [facility] Social History Smoking Status: Former smoker Exam Narrative Exam Narrative: GENERAL: 74-year-old male appears stated age, obviously in distress, visibly anxious with some increased work of breathing HEAD: Atraumatic. Normocephalic. No temporal or scalp tenderness. EYES: Pupils equal round and reactive. Extraocular motions intact. No scleral icterus. No injection or drainage. ENT: Nose without bleeding, purulent drainage or septal hematoma. Throat without erythema, tonsillar hypertrophy or exudate. Uvula midline. Airway patent. NECK: Trachea midline. No JVD or lymphadenopathy. Supple, nontender, no meningeal signs. CARDIOVASCULAR: Regular rate and rhythm without murmurs, gallops, or rubs. RESPIRATORY: Clear to auscultation. Breath sounds equal bilaterally. No wheezes, rales, or rhonchi. Tachypnea GASTROINTESTINAL: Abdomen soft, non-tender, nondistended. No hepato-splenomegaly, or palpable masses. No guarding. EXTREMITIES: No clubbing, cyanosis, or edema. No joint tenderness, effusion, or edema noted. BACK: Nontender without deformity or crepitance. No flank tenderness. NEURO: AOx3. SKIN: No rash or erythema. Initial Vital Signs Initial Vital Signs: Vital Signs Temperature 97.6 F 06/10/19 08:00 Pulse Rate 81 06/10/19 08:00 Respiratory Rate 18 06/10/19 08:00 Blood Pressure 190/91 H 06/10/19 08:00 Pulse Oximetry 99 06/10/19 08:00 Course Orders Ordered: ED Orders 06/10/19 08:05 EKG-12 Lead Stat 06/10/19 08:06 XR chest 1V Stat 06/10/19 08:10 B Type Natriuretic Peptide Stat Complete Blood Count AUTO DIFF Stat Comprehensive Metabolic Panel Stat D Dimer Stat Lipase Stat Troponin & CK Cardiac Panel Stat Sodium Chloride (Normal Saline 0.9%) 1,000 mls @ 150 mls/hr IV CONT BETH Last Admin: 06/10/19 08:30 Dose: 150 mls/hr Discontinued Medications Albuterol/Ipratropium (Duoneb) 3 ml INH NOW ONE Stop: 06/10/19 08:49 Last Admin: 06/10/19 08:55 Dose: 3 ml Aspirin (Aspirin Chew) 324 mg PO NOW ONE Stop: 06/10/19 08:07 Last Admin: 06/10/19 08:30 Dose: 324 mg Methylprednisolone (Solu-Medrol 125 Mg Vial) 125 mg IV NOW ONE Stop: 06/10/19 08:49 Last Admin: 06/10/19 09:04 Dose: 125 mg Consultations Consultation #1: discussion with Dr. Gore. Echo and stress test showed no abnormalities. Symptoms most likely consistent with allergy. Recommends the workup we've done and reassurance with follow up with PCP Vital Signs - 8 hr 06/10/19 08:00 06/10/19 08:56 Temperature 97.6 F Pulse Rate 81 68 Respiratory Rate 18 12 Blood Pressure 190/91 H Pulse Oximetry 99 100 MDM - SOB/Dyspnea Lab Data Result diagrams: 06/10/19 08:10 06/10/19 08:10 Lab Results 06/10/19 06/10/19 06/10/19 Range/Units 08:10 08:10 08:10 WBC 8.6 (4.5-11.0) X10^3/uL RBC 4.22 L (4.5-5.9) X10^6/uL Hgb 13.5 (13.5-17.5) g/dL Hct 38.3 L (41-53) % MCV 90.8 (80-100) fL MCH 32.1 (26-34) PG MCHC 35.3 (30-36) % RDW 14.2 (11.6-14.8) % Plt Count 305 (150-400) X10^3/uL Neut % (Auto) 61.4 (50-75) % Lymph % (Auto) 27.0 (25-40) % [place] % (Auto) 8.3 (3-14) % Eos % (Auto) 2.4 (2-4) % Baso % (Auto) 0.9 (0-2) % Neut # (Auto) 5300 (2285-7613) /uL Lymph # (Auto) 2300 (2527-5459) /uL [place] # (Auto) 700 (0-900) /uL Eos # (Auto) 200 (0-450) /uL Baso # (Auto) 100 (0-100) /uL D-Dimer < 200 (<230) ng/mL Sodium 138 (137-145) mmol/L Potassium 3.8 (3.4-5.1) mmol/L Chloride 104 (98-107) mmol/L Carbon Dioxide 22 (22-32) mmol/L BUN 22 H (9-20) mg/dL Creatinine 1.10 (0.66-1.25) mg/dL Estimated GFR > 60.0 (>60) mL/min BUN/Creatinine Ratio 20.0 (6-22) Glucose 175 H (80-110) mg/dL Calcium 10.3 H (8.4-10.2) mg/dL Total Bilirubin 0.9 (0.2-1.3) mg/dL AST 35 (17-59) IU/L ALT 46 (21-72) IU/L Alkaline Phosphatase 74 (38-126) U/L Total Creatine Kinase 47 L (55-170) U/L CK-MB (CK-2) TNP CK-MB (CK-2) Rel Index TNP Troponin I < 0.012 (0.01-0.034) ng/mL B-Natriuretic Peptide (<100) Total Protein 8.0 (6.3-8.2) g/dL Albumin 4.6 (3.5-5.0) g/dL Globulin 3.4 (1.7-4.1) g/dL Albumin/Globulin Ratio 1.4 (1.0-2.8) Lipase 439 H (23-300) U/L 06/10/19 Range/Units 08:10 WBC (4.5-11.0) X10^3/uL RBC (4.5-5.9) X10^6/uL Hgb (13.5-17.5) g/dL Hct (41-53) % MCV (80-100) fL MCH (26-34) PG MCHC (30-36) % RDW (11.6-14.8) % Plt Count (150-400) X10^3/uL Neut % (Auto) (50-75) % Lymph % (Auto) (25-40) % [place] % (Auto) (3-14) % Eos % (Auto) (2-4) % Baso % (Auto) (0-2) % Neut # (Auto) (6718-9100) /uL Lymph # (Auto) (6904-4418) /uL [place] # (Auto) (0-900) /uL Eos # (Auto) (0-450) /uL Baso # (Auto) (0-100) /uL D-Dimer (<230) ng/mL Sodium (137-145) mmol/L Potassium (3.4-5.1) mmol/L Chloride (98-107) mmol/L Carbon Dioxide (22-32) mmol/L BUN (9-20) mg/dL Creatinine (0.66-1.25) mg/dL Estimated GFR (>60) mL/min BUN/Creatinine Ratio (6-22) Glucose (80-110) mg/dL Calcium (8.4-10.2) mg/dL Total Bilirubin (0.2-1.3) mg/dL AST (17-59) IU/L ALT (21-72) IU/L Alkaline Phosphatase (38-126) U/L Total Creatine Kinase (55-170) U/L CK-MB (CK-2) CK-MB (CK-2) Rel Index Troponin I (0.01-0.034) ng/mL B-Natriuretic Peptide < 100 (<100) Total Protein (6.3-8.2) g/dL Albumin (3.5-5.0) g/dL Globulin (1.7-4.1) g/dL Albumin/Globulin Ratio (1.0-2.8) Lipase (23-300) U/L Imaging Data Chest x-ray: Radiologist's impression: [address] [address] XRay Report Signed Patient: Guanako Israel LMR#: [id number] : 6Acct:[id number] Age/Sex: 74 / MDate of Service: 06/10/19 Loc: ED Accession Number: [id number] Procedure: XR chest 1V Ordering Provider: Jaren Shine D.O. PROCEDURE: XR CHEST 1V INDICATIONS: chest pain TECHNIQUE: One view of the chest was acquired. COMPARISON: [facility], , CHEST 2 VIEW, 12/18/2016, 8:34. FINDINGS: Surgical changes and devices: Dual-lead cardiac pacer. Lungs and pleura: Lungs are clear. No pleural effusions or pneumothorax. Mediastinum: Mediastinal contours appear normal. Heart size is normal. Bones and chest wall: No suspicious bony lesions. Overlying soft tissues appear unremarkable. IMPRESSION: No acute disease Dictated by: Keenan Barron M.D. on 06/10/2019 at 8:43 Approved by: Keenan Barron M.D. on 06/10/2019 at 8:46 ECG Data Interpretation: atrial paced at 61BPM, no ischemic change such as ST segmental change MDM Narrative Medical decision making narrative: Multiple etiologies considered includin. DC - thought less likely with non ischemic EKG, normal troponin 2. CHF - thought less likely given lack of rales, lower extremity edema, orthopnea, fluid on CXR, or elevated BNP 3. PE - thought less likely given lack of pleuritic chest pain, tachycardia, signs of strain on EKG, negative DDimer, PE algorithm used 4. Hypoglycemia and other electrolyte abnormalities - thought less likely given normal labs Patient given extensive return precautions, questions for he and answered to their apparent satisfaction Discharge Plan Departure Patient Disposition: Home Clinical Impression: Acute dyspnea Instructions: DI for Shortness of Breath, DI for Adverse Drug Reaction -- Allergic Activity Restrictions/Additional Instructions: *You have been diagnosed with [ acute shortness of breath, fatigue, and rash likely a reaction to the Lexiscan. Heart attack, heart failure, blood clot and pneumonia have all been considered. ] *What to do: *Take medications as directed *Follow up with your primary care provider in 2-3 days, call for an appointment. Let them know you were seen in the Emergency Department and that we ask that you be seen in follow up *Return to ER if you should have any new, worsening or concerning symptoms Prescriptions: No Action glucometer Qty: 1 RF: 0 Iron (FERROUS GLUCONATE) 27 mg PO QDAY Qty: 0 RF: 0 [cinnamon] Qty: 0 RF: 0 Fish Oil 1,000 mg PO QDAY Qty: 0 RF: 0 [CALCIUM] Qty: 0 RF: 0 ascorbic acid (vitamin C) 500 MG tablet Qty: 0 RF: 0 Syringes: Ultra Fine Insulin Syringe w/Needle .Route .MEDSUPPLY Qty: 100 RF: 3 carvedilol [Coreg] 25 mg tablet 37.5 mg PO BID Qty: 0 RF: 0 warfarin [Coumadin] 5 mg tablet 5 mg PO .COMPLEX Qty: 90 RF: 1 losartan 100 mg tablet 100 mg PO Q DAY Qty: 30 RF: 6 Glucose: Test Strips .Route .MEDSUPPLY Qty: 200 RF: 3 [place] .Route .MEDSUPPLY Qty: 100 RF: 12 Accu-chek Softclix Lancets .Route .MEDSUPPLY Qty: 100 RF: 3 atorvastatin [Lipitor] 80 mg tablet 80 mg PO HS Qty: 30 RF: 2 trazodone 50 mg tablet 50 mg PO BEDTIME Qty: 30 RF: 0 Humulin N NPH Insulin KwikPen 100 unit/mL (3 mL) insulin pen See Rx Instructions SUBCUT .COMPLEX Qty: 15 RF: 3 Humulin R Regular U-100 Insuln 100 unit/mL solution See Rx Instructions .ROUTE .COMPLEX Qty: 10 RF: 3 hydrochlorothiazide 25 mg tablet 25 mg PO DAILY RF: 0 Prilosec OTC 20 mg tablet,delayed release (DR/EC) 20 mg PO DAILY RF: 0 nystatin 100,000 unit/gram cream 1 applictn TOP BID Qty: 15 RF: 2 potassium chloride 10 mEq capsule, extended release 10 meq PO DAILY RF: 0 amlodipine 10 mg tablet 10 mg PO Q DAY RF: 0 gabapentin 300 mg capsule 300 mg PO TID PRNRF: 0 Referrals: Paola Romano DO [Primary Care Provider] -
[2019-06-10] MEDS: SODIUM CHLORIDE 0.9% 1,000 ML 150 ML IV (08:30)
[2019-06-10] MEDS: ASPIRIN 81 MG TAB 324 MG PO (08:30)
[2019-06-10 08:35] LABS: Alanine Aminotransferase 46 IU/L (21-72); Albumin 4.6 g/dL (3.5-5.0); Albumin Globulin Ratio 1.4 (1.0-2.8); Alkaline Phosphatase 74 U/L (38-126); Aspartate Aminotransferase 35 IU/L (17-59); Bilirubin Total 0.9 mg/dL (0.2-1.3); Blood Urea Nitrogen 22 mg/dL (9-20); Calcium 10.3 mg/dL (8.4-10.2); Carbon Dioxide 22 mmol/L (22-32); Chloride 104 mmol/L (98-107); Creatine Kinase 47 U/L (55-170); Estimated Glomerular Filt Rate > 60.0 mL/min (>60); Globulin 3.4 g/dL (1.7-4.1); Glucose 175 mg/dL (80-110); HEMOLYSIS < 15 (0-50); Lipase 439 U/L (23-300); Potassium 3.8 mmol/L (3.4-5.1); Sodium 138 mmol/L (137-145)
[2019-06-10 08:46] LABS: Troponin I < 0.012 ng/mL (0.01-0.034)
[2019-06-10 08:47] LABS: D Dimer < 200 ng/mL (<230)
[2019-06-10] MEDS: ALBUTEROL/IPRATROPIUM 3 ML AMPUL INH (08:55)
[2019-06-10 08:56] VITALS: PULSE 68; RESP 12; O2SAT 100
[2019-06-10] MEDS: methylPREDNISolone 125 MG/2 ML VIAL IV (09:04)
[2019-06-10 09:48] LABS: B Type Natriuretic Peptide < 100 (<100)
[2019-06-10 10:16] VITALS: BP 152/72; PULSE 59; RESP 19; O2SAT 99
== END 2019-06-10 10:10 | disposition home or self-care (01) ==
PROVIDERS: Emergency Provider Emergency Medicine; Family Provider Family Medicine; PCP Family Medicine
DX: R06.00 Dyspnea, unspecified (principal)
CPT/HCPCS: 36591; 71045; 80053; 82550; 83690; 83880; 84484; 85025; 85379; 93005; 93010; 94640; 96361; 96374; 99283; 99285; J2930

== ENCOUNTER → 2019-08-04 07:57 | Outpatient (CLI) | payer OTHER, SELFPAY ==
[2019-08-04 09:00] LABS: Hemoglobin A1C% w Est Avg Glu 6.4 % (4.0-6.0)
[2019-08-04 09:24] LABS: Alanine Aminotransferase 30 IU/L (21-72); Albumin Globulin Ratio 1.5 (1.0-2.8); Alkaline Phosphatase 54 U/L (38-126); Amylase 94 U/L (30-110); Aspartate Aminotransferase 25 IU/L (17-59); BUN Creatinine Ratio 15.4 (6-22); Bilirubin Total 0.5 mg/dL (0.2-1.3); Blood Urea Nitrogen 20 mg/dL (9-20); Calcium 9.8 mg/dL (8.4-10.2); Carbon Dioxide 27 mmol/L (22-32); Chloride 104 mmol/L (98-107); Cholesterol 114 mg/dL (140-199); Estimated Glomerular Filt Rate 54.1 mL/min (>60); Globulin 2.6 g/dL (1.7-4.1); Glucose 126 mg/dL (80-110); HDL Cholesterol 29 mg/dL (40-60); HEMOLYSIS < 15 (0-50); LDL Cholesterol Calculated 54 mg/dL (<100); Lipase 139 U/L (23-300); Potassium 4.1 mmol/L (3.4-5.1); Sodium 140 mmol/L (137-145); Total Protein 6.6 g/dL (6.3-8.2); Triglycerides 157 mg/dL (35-150)
[2019-08-04 09:50] LABS: Thyroid Stimulating Hormone 1.54 uIU/mL (0.47-4.68)
== END ==
PROVIDERS: PCP Family Medicine; Visit Provider Family Medicine
DX: E11.21 Type 2 diabetes mellitus with diabetic nephropathy (principal); I10 Essential (primary) hypertension; I48.0 Paroxysmal atrial fibrillation; Z51.81 Encounter for therapeutic drug level monitoring; Z79.4 Long term (current) use of insulin; Z86.73 Personal history of transient ischemic attack (TIA), and cerebral infarction without residual deficits; E16.2 Hypoglycemia, unspecified; R74.8 Abnormal levels of other serum enzymes
CPT/HCPCS: 36415; 80053; 80061; 82150; 83036; 83690; 84443

== ENCOUNTER 2019-08-22 08:15 | Outpatient (RCR) | payer OTHER, SELFPAY ==
--- NOTE | 2019-08-15 16:53 | PT.OIE ---
Current Diagnoses Spinal stenosis, cervical region (08/15/19) Cervicalgia (08/15/19) Past Medical History (Last Reviewed 11/08/18 @ 18:04 by Paola Romano DO) Actinic keratosis (Resolved) Anemia (Acute) Atrial fibrillation (Chronic ~01/2017) James's esophagus (Chronic) BPH (benign prostatic hyperplasia) (Chronic) Cataracts, bilateral (Chronic ~12/2017) CKD (chronic kidney disease) (Acute ~12/2017) Coronary artery disease (Chronic) Diabetes (Chronic) Generalized headaches (Chronic) GERD (gastroesophageal reflux disease) (Chronic) History of CVA (cerebrovascular accident) (Resolved) Hyperlipemia (Chronic ~12/2014) Hypertension (Chronic) Myocardial infarction (Resolved) Pacemaker (Chronic 01/2017) Past Surgical History (Last Reviewed 11/08/18 @ 18:04 by Paola Romano DO) Hx of surgical procedure (Resolved) Hx of tonsillectomy (Resolved) Hx of vasectomy (Resolved) Status post transurethral resection of prostate (03/2014) Visit Care Team Role Provider Type Paola Romano DO Attending Provider Physician Primary Care Provider Specialty: [facility] Address: [address] [place] [address], [address], [facility] Email: [email or web address] Physical Therapy Initial Evaluation PT-OP-A Visit Information Start: 08/15/19 10:25 Freq: Status: Active Protocol: Document 08/15/19 10:30 AMB (Rec: 08/15/19 15:59 AMB [email or web address]) Out-Patient Physical Therapy Visit Information Visit Information Visit Type Initial Evaluation Visit Start Time 10:30 Visit Stop Time 11:30 Total Visit Minutes 30 Visit Number 1 PT-OP-B Current Condition Start: 08/15/19 10:25 Freq: Status: Active Protocol: Document 08/15/19 10:30 AMB (Rec: 08/15/19 15:59 AMB [email or web address]) Current Condition History of Current Condition Onset Date chronic Current Complaints neck pain, especially upon waking History of Current Condition Guanako has had neck pain for years. Denies pain, numbness, tingling that radiates into the hands. Does have finger tip intermittent numbness that he attributes to blood glucose checks. He finds the most pain is in the mornings. He sleeps poorly. Mostly on his sides, either side, with one My Pillow. It usually takes an hour or two for the neck to calm down, but about once a week it just painful all day long. He does get headaches, about once a month, that his doctors think are cervicogenic in nature. Guanako has significant medical history of [place] and CVA and pacemaker placement all in 2010. Prior Treatments and Tests Prior PT helped. Injection helped briefly, but no detention effects. X-ray showed foraminal stenosis throughout the cervical spine. Prior Functional Status Baseline Function- ADL's Independent Baseline Function- Mobility Independent Current Functional Impairments (Reported) Functional Limitations- ADL's Difficulty sleeping and pain when waking due to neck pain Personal Factors Other Personal Factors That May Effect just had back surgery, so Therapy/Recovery doing a bit more around the house to make up for that. PT-OP-C Subjective Start: 08/15/19 10:25 Freq: Status: Active Protocol: Document 08/15/19 10:30 AMB (Rec: 08/15/19 15:59 AMB [email or web address]) Patient Questionnaires Oswestry Low Back Index Oswestry Score 18 Oswestry Impairment 1 to 19% Impaired (Score 1-19) OP-PT Pain Assessment Location Bilateral Posterior Lateral Neck Intensity 6 Scale Used Numeric (1 - 10) PT-OP-J Posture/Palpation/Skin Start: 08/15/19 10:25 Freq: Status: Active Protocol: Document 08/15/19 10:30 AMB (Rec: 08/15/19 16:27 AMB [email or web address]) Posture Evaluation Comments Posture Comments Increased lumbar lordosis with thoracic kyphosis and upper cervical hyper extension. Palpation Assessment Location One Palpation Details Tenderness and stiffness with UPAs throughout cervical spine most at C4-5 and C5-6. No significant tenderness at UT, levator but significant tightness at suboccipitals. PT-OP-K Range of Motion Start: 08/15/19 10:25 Freq: Status: Active Protocol: Document 08/15/19 10:30 AMB (Rec: 08/15/19 16:27 AMB [email or web address]) Cervical Spine Range of Motion Cervical Spine Active Degrees Testing Position Sitting Flexion 50 Extension 22 Rotation Left 55 Rotation Right 45 Lateral Flexion Left 20 Lateral Flexion Right 20 PT-OP-L Special Tests Start: 08/15/19 10:25 Freq: Status: Active Protocol: Document 08/15/19 10:30 AMB (Rec: 08/15/19 16:27 AMB [email or web address]) Special Tests Cervical Spine Special Tests Spurling's Test Test Results negative PT-OP-M Strength Start: 08/15/19 10:25 Freq: Status: Active Protocol: Document 08/15/19 10:30 AMB (Rec: 08/15/19 16:27 AMB [email or web address]) Shoulder Strength Shoulder Manual Muscle Testing Right Flexion 4+ Good+ Extension 5 Normal Abduction (C5) 4 Good External Rotation 4+ Good+ Internal Rotation 4+ Good+ Left Flexion 4+ Good+ Extension 5 Normal Abduction (C5) 4 Good External Rotation 4+ Good+ Internal Rotation 4+ Good+ PT-OP-Q Treatments Start: 08/15/19 10:25 Freq: Status: Active Protocol: Document 08/15/19 10:30 AMB (Rec: 08/15/19 16:27 AMB [email or web address]) Therapeutic Exercises Standing Exercises 1 Standing Exercise Name chin tuck Reps/Minutes 5x2 PT-OP-R Modalities Start: 08/15/19 10:25 Freq: Status: Active Protocol: Document 08/15/19 10:30 AMB (Rec: 08/15/19 16:27 AMB [email or web address]) Hot Pack/Cold Pack Treatment Hot Pack Location neck Patient Position Hooklying Treatment Duration (minutes) 15 Patient Tolerance Good PT-OP-T Assessment and Plan Start: 08/15/19 10:25 Freq: Status: Active Protocol: Document 08/15/19 10:30 AMB (Rec: 08/15/19 16:46 AMB [email or web address]) Physical Therapy Assessment Rehab Potential Rehabilitation Potential Good Evaluation Complexity Number of Personal Factors/Comorbidities 1-2 Number of Body Systems Impaired 3 Clinical Presentation at Evaluation Stable Impairments Impairments Pain,Posture,ROM Goals Three Impairment sleep Short Term Goal (STG) Guanako will wake up with 4/10 pain or less. STG Duration 4 weeks Two Impairment pain Short Term Goal (STG) Guanako will report 3/10 neck pain or less with cervical rotation. STG Duration 4 weeks One Impairment ROM Short Term Goal (STG) Pt will increase cervical rotation to 55 degrees bilaterally. STG Duration 4 weeks Half-Way Goal (LTG) Pt will increase cervical sidebending to 35 degrees bilaterally. LTG Duration 8 weeks Assessment Summary Assessment Guanako attends PT with neck pain thatis chronic in nature with restricted ROM and stiffness especially in the morning. He did not have radicular symptoms, but did benefit from PT previously. He has kept up with some exercises, but not all. He will benefit from PT to continue to work on his posture, ROM and reduce his painful symptoms especially in the morning. Physical Therapy Plan Frequency and Duration Frequency of Treatment 2x/Week Duration of Treatment 8 weeks Plan of Care Start Date 08/15/19 Plan of Care End Date 10/10/19 Therapeutic Interventions Therapeutic Interventions Home Exercise Program,Joint Mobilizations,Manual Therapy, Neuromuscular Re-education, Self-Care/Home Management,Soft Tissue Mobilization, Therapeutic Activities, Therapeutic Exercises Modalities Cold Pack/Ice Massage,Hot Packs,Ultrasound Next Visit Focus/Plan Next Note Type Treatment Note Next Visit Plan Progress postural stability and ROM exercises
--- NOTE | 2019-08-17 08:16 | PT.OTN ---
Current Diagnoses Spinal stenosis, cervical region (08/17/19) Cervicalgia (08/17/19) Physical Therapy Treatment Note PT-OP-A Visit Information Start: 08/15/19 10:25 Freq: Status: Active Protocol: Document 08/17/19 07:30 AMB (Rec: 08/17/19 07:38 AMB [id number]) Out-Patient Physical Therapy Visit Information Visit Information Visit Type Treatment Note Visit Start Time 07:30 Visit Stop Time 08:15 Total Visit Minutes 45 Visit Number 2 PT-OP-B Current Condition Start: 08/15/19 10:25 Freq: Status: Active Protocol: Document 08/15/19 10:30 AMB (Rec: 08/15/19 15:59 AMB [email or web address]) Current Condition History of Current Condition Onset Date chronic Current Complaints neck pain, especially upon waking History of Current Condition Guanako has had neck pain for years. Denies pain, numbness, tingling that radiates into the hands. Does have finger tip intermittent numbness that he attributes to blood glucose checks. He finds the most pain is in the mornings. He sleeps poorly. Mostly on his sides, either side, with one My Pillow. It usually takes an hour or two for the neck to calm down, but about once a week it just painful all day long. He does get headaches, about once a month, that his doctors think are cervicogenic in nature. Guanako has significant medical history of [place] and CVA and pacemaker placement all in 2010. Prior Treatments and Tests Prior PT helped. Injection helped briefly, but no nursing home effects. X-ray showed foraminal stenosis throughout the cervical spine. Prior Functional Status Baseline Function- ADL's Independent Baseline Function- Mobility Independent Current Functional Impairments (Reported) Functional Limitations- ADL's Difficulty sleeping and pain when waking due to neck pain Personal Factors Other Personal Factors That May Effect just had back surgery, so Therapy/Recovery doing a bit more around the house to make up for that. PT-OP-C Subjective Start: 08/15/19 10:25 Freq: Status: Active Protocol: Document 08/17/19 07:30 AMB (Rec: 08/17/19 07:38 AMB [id number]) OP-PT Subjective Patient Comments Patient Comments Pt states his neck was sore after eval and is still a bit sore. PT-OP-J Posture/Palpation/Skin Start: 08/15/19 10:25 Freq: Status: Active Protocol: Document 08/15/19 10:30 AMB (Rec: 08/15/19 16:27 AMB [email or web address]) Posture Evaluation Comments Posture Comments Increased lumbar lordosis with thoracic kyphosis and upper cervical hyper extension. Palpation Assessment Location One Palpation Details Tenderness and stiffness with UPAs throughout cervical spine most at C4-5 and C5-6. No significant tenderness at UT, levator but significant tightness at suboccipitals. PT-OP-K Range of Motion Start: 08/15/19 10:25 Freq: Status: Active Protocol: Document 08/15/19 10:30 AMB (Rec: 08/15/19 16:27 AMB [email or web address]) Cervical Spine Range of Motion Cervical Spine Active Degrees Testing Position Sitting Flexion 50 Extension 22 Rotation Left 55 Rotation Right 45 Lateral Flexion Left 20 Lateral Flexion Right 20 PT-OP-L Special Tests Start: 08/15/19 10:25 Freq: Status: Active Protocol: Document 08/15/19 10:30 AMB (Rec: 08/15/19 16:27 AMB [email or web address]) Special Tests Cervical Spine Special Tests Spurling's Test Test Results negative PT-OP-M Strength Start: 08/15/19 10:25 Freq: Status: Active Protocol: Document 08/15/19 10:30 AMB (Rec: 08/15/19 16:27 AMB [email or web address]) Shoulder Strength Shoulder Manual Muscle Testing Right Flexion 4+ Good+ Extension 5 Normal Abduction (C5) 4 Good External Rotation 4+ Good+ Internal Rotation 4+ Good+ Left Flexion 4+ Good+ Extension 5 Normal Abduction (C5) 4 Good External Rotation 4+ Good+ Internal Rotation 4+ Good+ PT-OP-Q Treatments Start: 08/15/19 10:25 Freq: Status: Active Protocol: Document 08/17/19 07:30 AMB (Rec: 08/17/19 07:38 AMB [id number]) Cardio Equipment Upper Body Ergometer (UBE) Duration (Minutes) 5 Other fwd backward Therapeutic Exercises Supine Exercises 1 Supine Exercise Name cervical isometrics Reps/Minutes 5x10 Comments cervical rotation Foam roll/thoracic ext stretch Supine Exercise Name active pec stretch Reps/Minutes 20 Sidelying Exercises UT/scalenes stretching Reps/Minutes 30x2 Sitting Exercises chin tucks Reps/Minutes 10 Standing Exercises Postural wall stretch Reps/Minutes 30x2 Comments doorway scapular row Resistance t band #3 Reps/Minutes 2x10 Other Exercises 1 Other Exercise Name thread the needle Reps/Minutes 30x2 Comments quadruped PT-OP-R Modalities Start: 08/15/19 10:25 Freq: Status: Active Protocol: Document 08/15/19 10:30 AMB (Rec: 08/15/19 16:27 AMB [email or web address]) Hot Pack/Cold Pack Treatment Hot Pack Location neck Patient Position Hooklying Treatment Duration (minutes) 15 Patient Tolerance Good PT-OP-T Assessment and Plan Start: 08/15/19 10:25 Freq: Status: Active Protocol: Document 08/17/19 07:30 AMB (Rec: 08/17/19 07:38 AMB [id number]) Physical Therapy Assessment Assessment Summary Assessment Guanako tolerated stretching well , vc for form Physical Therapy Plan Next Visit Focus/Plan Next Note Type Treatment Note Next Visit Plan Progress postural stability and ROM exercises
--- NOTE | 2019-08-22 11:33 | PT.OTN ---
Current Diagnoses Spinal stenosis, cervical region (08/22/19) Cervicalgia (08/22/19) Physical Therapy Treatment Note PT-OP-A Visit Information Start: 08/15/19 10:25 Freq: Status: Active Protocol: Document 08/22/19 08:13 AMB (Rec: 08/22/19 08:23 AMB [id number]) Out-Patient Physical Therapy Visit Information Visit Information Visit Type Treatment Note Visit Start Time 08:15 Visit Stop Time 09:00 Total Visit Minutes 45 Visit Number 3 PT-OP-B Current Condition Start: 08/15/19 10:25 Freq: Status: Active Protocol: Document 08/15/19 10:30 AMB (Rec: 08/15/19 15:59 AMB [email or web address]) Current Condition History of Current Condition Onset Date chronic Current Complaints neck pain, especially upon waking History of Current Condition Guanako has had neck pain for years. Denies pain, numbness, tingling that radiates into the hands. Does have finger tip intermittent numbness that he attributes to blood glucose checks. He finds the most pain is in the mornings. He sleeps poorly. Mostly on his sides, either side, with one My Pillow. It usually takes an hour or two for the neck to calm down, but about once a week it just painful all day long. He does get headaches, about once a month, that his doctors think are cervicogenic in nature. Gu[place]ako has significant medical history of [place] and CVA and pacemaker placement all in 2010. Prior Treatments and Tests Prior PT helped. Injection helped briefly, but no [facility] effects. X-ray showed foraminal stenosis throughout the cervical spine. Prior Functional Status Baseline Function- ADL's Independent Baseline Function- Mobility Independent Current Functional Impairments (Reported) Functional Limitations- ADL's Difficulty sleeping and pain when waking due to neck pain Personal Factors Other Personal Factors That May Effect just had back surgery, so Therapy/Recovery doing a bit more around the house to make up for that. PT-OP-C Subjective Start: 08/15/19 10:25 Freq: Status: Active Protocol: Document 08/22/19 08:13 AMB (Rec: 08/22/19 08:23 AMB [id number]) OP-PT Subjective Patient Comments Patient Comments Pt states neck was sore for about 2 days after last appointment, soreness after HEP lasts for about 2 hours. PT-OP-J Posture/Palpation/Skin Start: 08/15/19 10:25 Freq: Status: Active Protocol: Document 08/15/19 10:30 AMB (Rec: 08/15/19 16:27 AMB [email or web address]) Posture Evaluation Comments Posture Comments Increased lumbar lordosis with thoracic kyphosis and upper cervical hyper extension. Palpation Assessment Location One Palpation Details Tenderness and stiffness with UPAs throughout cervical spine most at C4-5 and C5-6. No significant tenderness at UT, levator but significant tightness at suboccipitals. PT-OP-K Range of Motion Start: 08/15/19 10:25 Freq: Status: Active Protocol: Document 08/15/19 10:30 AMB (Rec: 08/15/19 16:27 AMB [email or web address]) Cervical Spine Range of Motion Cervical Spine Active Degrees Testing Position Sitting Flexion 50 Extension 22 Rotation Left 55 Rotation Right 45 Lateral Flexion Left 20 Lateral Flexion Right 20 PT-OP-L Special Tests Start: 08/15/19 10:25 Freq: Status: Active Protocol: Document 08/15/19 10:30 AMB (Rec: 08/15/19 16:27 AMB [email or web address]) Special Tests Cervical Spine Special Tests Spurling's Test Test Results negative PT-OP-M Strength Start: 08/15/19 10:25 Freq: Status: Active Protocol: Document 08/15/19 10:30 AMB (Rec: 08/15/19 16:27 AMB [email or web address]) Shoulder Strength Shoulder Manual Muscle Testing Right Flexion 4+ Good+ Extension 5 Normal Abduction (C5) 4 Good External Rotation 4+ Good+ Internal Rotation 4+ Good+ Left Flexion 4+ Good+ Extension 5 Normal Abduction (C5) 4 Good External Rotation 4+ Good+ Internal Rotation 4+ Good+ PT-OP-Q Treatments Start: 08/15/19 10:25 Freq: Status: Active Protocol: Document 08/22/19 08:13 AMB (Rec: 08/22/19 08:23 AMB [id number]) Cardio Equipment Upper Body Ergometer (UBE) Duration (Minutes) 5 Other fwd backward Therapeutic Exercises Supine Exercises 1 Supine Exercise Name cervical isometrics Reps/Minutes 5x10 Comments cervical rotation Prone Exercises 1 Prone Exercise Name Is Reps/Minutes 10 Sidelying Exercises UT/scalenes stretching Reps/Minutes 30x2 Sitting Exercises UT and scalene stretches Sitting Exercise Name given as HEP written handout Standing Exercises Postural wall stretch Reps/Minutes 30x2 Comments doorway scapular row Resistance t band #3 Reps/Minutes 2x10 Other Exercises 3 Other Exercise Name quadruped UE flex Reps/Minutes 10 2 Other Exercise Name kailash pose Reps/Minutes 30x2 1 Other Exercise Name thread the needle Reps/Minutes 30x2 Comments quadruped PT-OP-R Modalities Start: 08/15/19 10:25 Freq: Status: Active Protocol: Document 08/22/19 08:15 AMB (Rec: 08/22/19 11:33 AMB [id number]) Hot Pack/Cold Pack Treatment Hot Pack Location neck Patient Position Hooklying Treatment Duration (minutes) 15 Patient Tolerance Good PT-OP-T Assessment and Plan Start: 08/15/19 10:25 Freq: Status: Active Protocol: Document 08/22/19 08:13 AMB (Rec: 08/22/19 08:23 AMB [id number]) Physical Therapy Assessment Assessment Summary Assessment Soreness R>L, encouraged pt in moderation with HEP. Shoulders/tspine restrict ROM as well. Physical Therapy Plan Next Visit Focus/Plan Next Note Type Treatment Note Next Visit Plan Progress postural stability and ROM exercises
--- NOTE | 2019-09-02 09:12 | PT.OPDS ---
Current Diagnoses Spinal stenosis, cervical region (08/22/19) Cervicalgia (08/22/19) Visit Care Team Role Provider Type Paola Romano DO Attending Provider Physician Primary Care Provider Specialty: [facility] Address: [address] [place] [address], [address], [address] Email: [email or web address] Visit Number Visit Number 3 Discharge Summary PT-OP-B Current Condition Start: 08/15/19 10:25 Freq: Status: Active Protocol: Document 08/15/19 10:30 AMB (Rec: 08/15/19 15:59 AMB [email or web address]) Current Condition History of Current Condition Onset Date chronic Current Complaints neck pain, especially upon waking History of Current Condition Gu[place] has had neck pain for years. Denies pain, numbness, tingling that radiates into the hands. Does have finger tip intermittent numbness that he attributes to blood glucose checks. He finds the most pain is in the mornings. He sleeps poorly. Mostly on his sides, either side, with one My Pillow. It usually takes an hour or two for the neck to calm down, but about once a week it just painful all day long. He does get headaches, about once a month, that his doctors think are cervicogenic in nature. Guanako has significant medical history of [place] and CVA and pacemaker placement all in 2010. Prior Treatments and Tests Prior PT helped. Injection helped briefly, but no [facility] effects. X-ray showed foraminal stenosis throughout the cervical spine. Prior Functional Status Baseline Function- ADL's Independent Baseline Function- Mobility Independent Current Functional Impairments (Reported) Functional Limitations- ADL's Difficulty sleeping and pain when waking due to neck pain Personal Factors Other Personal Factors That May Effect just had back surgery, so Therapy/Recovery doing a bit more around the house to make up for that. PT-OP-C Subjective Start: 08/15/19 10:25 Freq: Status: Active Protocol: Document 08/22/19 08:13 AMB (Rec: 08/22/19 08:23 AMB [id number]) OP-PT Subjective Patient Comments Patient Comments Pt states neck was sore for about 2 days after last appointment, soreness after HEP lasts for about 2 hours. PT-OP-J Posture/Palpation/Skin Start: 08/15/19 10:25 Freq: Status: Active Protocol: Document 08/15/19 10:30 AMB (Rec: 08/15/19 16:27 AMB [email or web address]) Posture Evaluation Comments Posture Comments Increased lumbar lordosis with thoracic kyphosis and upper cervical hyper extension. Palpation Assessment Location One Palpation Details Tenderness and stiffness with UPAs throughout cervical spine most at C4-5 and C5-6. No significant tenderness at UT, levator but significant tightness at suboccipitals. PT-OP-K Range of Motion Start: 08/15/19 10:25 Freq: Status: Active Protocol: Document 08/15/19 10:30 AMB (Rec: 08/15/19 16:27 AMB [email or web address]) Cervical Spine Range of Motion Cervical Spine Active Degrees Testing Position Sitting Flexion 50 Extension 22 Rotation Left 55 Rotation Right 45 Lateral Flexion Left 20 Lateral Flexion Right 20 PT-OP-L Special Tests Start: 08/15/19 10:25 Freq: Status: Active Protocol: Document 08/15/19 10:30 AMB (Rec: 08/15/19 16:27 AMB [email or web address]) Special Tests Cervical Spine Special Tests Spurling's Test Test Results negative PT-OP-M Strength Start: 08/15/19 10:25 Freq: Status: Active Protocol: Document 08/15/19 10:30 AMB (Rec: 08/15/19 16:27 AMB [email or web address]) Shoulder Strength Shoulder Manual Muscle Testing Right Flexion 4+ Good+ Extension 5 Normal Abduction (C5) 4 Good External Rotation 4+ Good+ Internal Rotation 4+ Good+ Left Flexion 4+ Good+ Extension 5 Normal Abduction (C5) 4 Good External Rotation 4+ Good+ Internal Rotation 4+ Good+ PT-OP-T Assessment and Plan Start: 08/15/19 10:25 Freq: Status: Active Protocol: Document 09/02/19 09:09 AMB (Rec: 09/02/19 09:12 AMB [email or web address]) Physical Therapy Assessment Assessment Summary Assessment Guanako attended 3 visits of physical therapy and was instructed in a home exercise program. He canceled his last appointment, and his said that they were going to work on getting him different health insurance. He is discharged at this time per his request, but due to his short time in PT he did not meet his goals. Physical Therapy Plan Discharge Physical Therapy Discharge Reasons Patient Request
== END 2019-08-22 09:15 ==
LOC: PHYS 08:15
PROVIDERS: PCP Family Medicine; Visit Provider Family Medicine
DX: M48.02 Spinal stenosis, cervical region (principal); M54.2 Cervicalgia
CPT/HCPCS: 97110; 97161

== ENCOUNTER → 2019-09-07 13:55 | Outpatient (CLI) | payer OTHER, SELFPAY ==
[2019-09-07 15:14] LABS: Hematocrit 32.8 % (41-53); Hemoglobin 11.5 g/dL (13.5-17.5)
[2019-09-07 16:18] LABS: Blood Urea Nitrogen 27 mg/dL (9-20); Calcium 9.5 mg/dL (8.4-10.2); Carbon Dioxide 30 mmol/L (22-32); Chloride 101 mmol/L (98-107); Estimated Glomerular Filt Rate 45.9 mL/min (>60); Glucose 153 mg/dL (80-110); HEMOLYSIS < 15 (0-50); Potassium 4.1 mmol/L (3.4-5.1); Sodium 139 mmol/L (137-145)
[2019-09-07 16:20] LABS: Creatinine Urine Random 188.4 mg/dL; Protein (Total) Urine Random 34 mg/dL (0-12); Protein Creatinine Ratio Urine 0.18 GRAM/24H
[2019-09-07 17:31] LABS: B Type Natriuretic Peptide < 100 (<100)
[2019-09-10 16:35] LABS: Parathyroid Hormone Int 21 pg/mL (14-64)
== END ==
PROVIDERS: PCP Family Medicine; Visit Provider Student in an Organized Health Care Education/Training Program
DX: N05.9 Unspecified nephritic syndrome with unspecified morphologic changes (principal); I50.32 Chronic diastolic (congestive) heart failure; D64.9 Anemia, unspecified; N25.81 Secondary hyperparathyroidism of renal origin; R80.9 Proteinuria, unspecified
CPT/HCPCS: 36415; 80048; 82570; 83880; 83970; 84156; 85014; 85018

== ENCOUNTER → 2019-09-26 08:18 | Outpatient (CLI) | payer OTHER, SELFPAY ==
[2019-09-26 09:27] LABS: BUN Creatinine Ratio 16.7 (6-22); Blood Urea Nitrogen 25 mg/dL (9-20); Calcium 9.8 mg/dL (8.4-10.2); Carbon Dioxide 28 mmol/L (22-32); Chloride 104 mmol/L (98-107); Estimated Glomerular Filt Rate 45.9 mL/min (>60); Glucose 205 mg/dL (80-110); HEMOLYSIS < 15 (0-50); Magnesium 1.7 mg/dL (1.6-2.3); Potassium 4.4 mmol/L (3.4-5.1); Sodium 138 mmol/L (137-145)
[2019-09-26 10:35] LABS: Thyroid Stimulating Hormone 1.64 uIU/mL (0.47-4.68)
[2019-09-26 13:59] LABS: Free T4, Direct Thyroxine 1.09 ng/dL (0.78-2.19)
== END ==
PROVIDERS: Family Provider Family Medicine; PCP Family Medicine; Visit Provider Physician Assistant
DX: I48.0 Paroxysmal atrial fibrillation (principal)
CPT/HCPCS: 36415; 80048; 83735; 84439; 84443

== ENCOUNTER → 2019-10-04 12:56 | Outpatient (CLI) | payer OTHER, SELFPAY ==
--- NOTE | 2019-10-04 12:59 | DI.RAD.S_ITS ---
PROCEDURE: XR CHEST 2V INDICATIONS: wheezing TECHNIQUE: 2 views of the chest were acquired. COMPARISON: [facility], CR, XR CHEST 1V, 06/10/2019, 8:26. FINDINGS: Surgical changes and devices: left-sided cardiac pacer device is in place. Lungs and pleura: Lungs are clear. No pleural effusions or pneumothorax. Mediastinum: Mediastinal contours are normal. Heart size is normal. Bones and chest wall: No suspicious bony abnormalities. Soft tissues appear unremarkable. IMPRESSION: Stable radiographic evaluation of the chest without acute cardiopulmonary abnormalities or focal airspace disease. Dictated by: Nick Phipps M.D. on 10/04/2019 at 13:09 Approved by: Nick Phipps M.D. on 10/04/2019 at 13:29
== END ==
PROVIDERS: PCP Family Medicine; Visit Provider Family Medicine
DX: R06.2 Wheezing (principal); Z95.0 Presence of cardiac pacemaker
CPT/HCPCS: 71046

== ENCOUNTER → 2019-11-01 09:14 | Outpatient (CLI) | payer OTHER, SELFPAY ==
[2019-11-01 09:49] LABS: Blood Urea Nitrogen 26 mg/dL (9-20); Calcium 9.4 mg/dL (8.4-10.2); Carbon Dioxide 29 mmol/L (22-32); Chloride 98 mmol/L (98-107); Estimated Glomerular Filt Rate 54.1 mL/min (>60); Glucose 327 mg/dL (80-110); HEMOLYSIS < 15 (0-50); Sodium 135 mmol/L (137-145)
== END ==
PROVIDERS: PCP Family Medicine; Visit Provider Student in an Organized Health Care Education/Training Program
DX: N05.9 Unspecified nephritic syndrome with unspecified morphologic changes (principal)
CPT/HCPCS: 36415; 80048

== ENCOUNTER 2019-12-21 07:24 | Day surgery (SDC) | payer OTHER, SELFPAY ==
[2019-12-21] VITALS (9 sets, daily range): BP systolic 113–165; BP diastolic 60–73; PULSE 60–66; RESP 13–18; TEMP 36.4–36.5; O2SAT 89–99; BMI 23.3
[2019-12-21] MEDS: SODIUM CHLORIDE 0.9% 1,000 ML 150 ML IV (08:30)
[2019-12-21] MEDS: fentaNYL 250 MCG/5 ML INJ IV (09:14)
--- NOTE | 2019-12-21 09:14 | PM.PREOP ---
Pre-operative Note Interval Note History & Physical reviewed/Exam performed by Physician: Yes Changes to H&P: No H&P completed within 30 days and has changed as indicated here:: lungs exam: wheezing on expiration on right side anteriorly ASA Class (for procedural sedation): II
[2019-12-21] MEDS: MIDAZOLAM 5 MG/ML VIAL IV (09:20)
--- NOTE | 2019-12-21 09:24 | PM.OP.ENDO ---
Operative Date/Time/Diagnoses Date of procedure: 12/21/19 Procedure & Clinicians Study performed: EGD Moderate conscious sedation was administered by the endoscopy nurse and supervised by the endoscopist. The following parameters were monitored: Oxygen saturation, heart rate, blood pressure, and response to care. Sedatives used: 5 mg midazolam, 100 mcg fentanyl Indications: Esophageal dysphagia, GERD, history of James's esophagus Procedure Notes Procedure in detail: Prior to the procedure, history and physical was performed, and patient medications and allergies were reviewed. Preprocedure nursing history and assessment was reviewed. Patient identification and proposed procedure were verified by the physician and nurse in the procedure room. The physical status of the patient was reassessed after the procedure. After informed consent was obtained including risks, benefits, and alternatives, the scope was passed under direct vision. Throughout the procedure, the patient's blood pressure, pulse, and oxygen saturations were monitored continuously. The upper endoscope was introduced through the mouth and advanced to the 2nd portion of the duodenum. Retroflexion was performed in the stomach. The patient tolerated the procedure poorly; there was mild O2 desaturation, coughing, wheezing, and patient agitation during the procedure. The upper and middle thirds of the esophagus were normal appearing. In the distal esophagus, there were a few tongues of salmon-colored mucosa extending above the gastroesophageal junction for about 1 cm. No strictures, masses or mucosal nodules were seen. A more detailed exam was precluded due to patient's difficulty tolerating the procedure. A 3-4 cm hiatal hernia was noted. Scattered hematin deposits were noted in the stomach. No bleeding lesions were appreciated. The entire examined duodenum was normal appearing Impression: Short segment James's esophagus Medium-sized hiatal hernia Normal appearing stomach Normal appearing examined duodenum Sedation minutes: 10 Complications: other (No complications. No EBL) Post-procedure Plan for aftercare: Reschedule EGD with monitored anesthesia care Continue home medications Resume previous diet Follow anti-reflux diet and lifestyle modifications Discharge home with escort
--- NOTE | 2019-12-21 09:48 | SUR.PHASEI ---
Removed oxygen to assess room air saturation.
--- NOTE | 2019-12-21 09:58 | SUR.PHASEI ---
Patient drinking orange juice without difficulty.
== END 2019-12-21 10:26 | disposition home or self-care (01) ==
PROVIDERS: PCP Family Medicine; Referring Provider Internal Medicine; Visit Provider Internal Medicine
PROC: 0DJ08ZZ Inspection of Upper Intestinal Tract, Via Natural or Artificial Opening Endoscopic (ICD-10-PCS; CPT 43235; principal; 2019-12-21 09:00)
DX: K22.70 Barrett's esophagus without dysplasia (principal); K21.9 Gastro-esophageal reflux disease without esophagitis; K44.9 Diaphragmatic hernia without obstruction or gangrene
CPT/HCPCS: 43235; J2250; J3010

== ENCOUNTER → 2019-12-28 08:41 | Outpatient (CLI) | payer OTHER, SELFPAY ==
[2019-12-28 10:34] LABS: BUN Creatinine Ratio 17.7 (6-22); Blood Urea Nitrogen 23 mg/dL (9-20); Calcium 9.4 mg/dL (8.4-10.2); Carbon Dioxide 29 mmol/L (22-32); Chloride 100 mmol/L (98-107); Estimated Glomerular Filt Rate 54.1 mL/min (>60); Glucose 247 mg/dL (80-110); HEMOLYSIS < 15 (0-50); Potassium 4.1 mmol/L (3.4-5.1); Sodium 137 mmol/L (137-145)
== END ==
PROVIDERS: PCP Family Medicine; Referring Provider Internal Medicine Cardiovascular Disease; Visit Provider Internal Medicine Cardiovascular Disease
DX: I48.0 Paroxysmal atrial fibrillation (principal)
CPT/HCPCS: 36415; 80048

== ENCOUNTER → 2020-06-13 08:08 | Outpatient (CLI) | payer OTHER, SELFPAY ==
[2020-06-13 10:20] LABS: Add Manual Diff / Slide Review NO; Basophils Absolute Auto 0 /uL (0-100); Basophils Percent Auto 0.4 % (0-2); Eosinophils Absolute Auto 300 /uL (0-450); Eosinophils Percent Auto 4.3 % (2-4); Hematocrit 34.1 % (41-53); Hemoglobin 12.1 g/dL (13.5-17.5); Lymphocytes Absolute Auto 1600 /uL (1100-4500); Mean Corpuscular HGB Conc 35.5 % (30-36); Mean Corpuscular Hemoglobin 32.9 PG (26-34); Mean Corpuscular Volume 92.6 fL (80-100); Monocytes Absolute Auto 500 /uL (0-900); Monocytes Percent Auto 6.9 % (3-14); Neutrophils Absolute Auto 5200 /uL (1500-7000); Neutrophils Percent Auto 67.4 % (50-75); Platelet Count 221 X10^3/uL (150-400); Red Blood Cell Count 3.68 X10^6/uL (4.5-5.9); Red Cell Distribution Width 14.3 % (11.6-14.8); White Blood Cell Count 7.7 X10^3/uL (4.5-11.0)
[2020-06-13 10:34] LABS: Hemoglobin A1C% w Est Avg Glu 6.7 % (4.0-6.0)
[2020-06-13 10:57] LABS: Alanine Aminotransferase 27 IU/L (<50); Albumin 3.9 g/dL (3.5-5.0); Albumin Globulin Ratio 1.4 (1.0-2.8); Alkaline Phosphatase 61 U/L (38-126); Aspartate Aminotransferase 29 IU/L (17-59); Bilirubin Total 0.6 mg/dL (0.2-1.3); Blood Urea Nitrogen 22 mg/dL (9-20); Calcium 9.4 mg/dL (8.4-10.2); Carbon Dioxide 28 mmol/L (22-32); Chloride 102 mmol/L (98-107); Cholesterol 135 mg/dL (140-199); Estimated Glomerular Filt Rate > 60.0 mL/min (>60); Globulin 2.8 g/dL (1.7-4.1); Glucose 136 mg/dL (80-110); HDL Cholesterol 38 mg/dL (40-60); HEMOLYSIS < 15 (0-50); LDL Cholesterol Calculated 74 mg/dL (<100); Potassium 4.1 mmol/L (3.4-5.1); Sodium 135 mmol/L (137-145); Total Protein 6.7 g/dL (6.3-8.2); Triglycerides 117 mg/dL (35-150)
[2020-06-13 11:27] LABS: Prostate Specific Antigen 0.479 ng/mL (0.10-4.00)
== END ==
PROVIDERS: PCP Family Medicine; Referring Provider Family Medicine; Visit Provider Family Medicine
DX: D51.0 Vitamin B12 deficiency anemia due to intrinsic factor deficiency (principal); E11.21 Type 2 diabetes mellitus with diabetic nephropathy; I10 Essential (primary) hypertension; I48.0 Paroxysmal atrial fibrillation; N40.0 Benign prostatic hyperplasia without lower urinary tract symptoms; Z79.01 Long term (current) use of anticoagulants; Z79.4 Long term (current) use of insulin
CPT/HCPCS: 36415; 80053; 80061; 83036; 84153; 85025

== ENCOUNTER → 2020-06-27 10:50 | Outpatient (CLI) | payer OTHER, SELFPAY ==
[2020-06-27 12:12] LABS: Hematocrit 33.9 % (41-53); Hemoglobin 11.9 g/dL (13.5-17.5)
[2020-06-27 12:32] LABS: BUN Creatinine Ratio 14.9 (6-22); Blood Urea Nitrogen 22 mg/dL (9-20); Calcium 9.7 mg/dL (8.4-10.2); Carbon Dioxide 34 mmol/L (22-32); Chloride 103 mmol/L (98-107); Estimated Glomerular Filt Rate 46.5 mL/min (>60); Glucose 145 mg/dL (80-110); HEMOLYSIS < 15 (0-50); Potassium 4.7 mmol/L (3.4-5.1); Sodium 139 mmol/L (137-145)
[2020-06-27 15:26] LABS: Creatinine Urine Random 94.5 mg/dL; Protein (Total) Urine Random 21 mg/dL (0-12); Protein Creatinine Ratio Urine 0.22 GRAM/24H
[2020-06-28 07:09] LABS: Parathyroid Hormone Int 22 pg/mL (15-65)
== END ==
PROVIDERS: PCP Family Medicine; Referring Provider Student in an Organized Health Care Education/Training Program; Visit Provider Student in an Organized Health Care Education/Training Program
DX: N05.9 Unspecified nephritic syndrome with unspecified morphologic changes (principal); D64.9 Anemia, unspecified; N25.81 Secondary hyperparathyroidism of renal origin; R80.9 Proteinuria, unspecified
CPT/HCPCS: 36415; 80048; 82570; 83970; 84156; 85014; 85018

== ENCOUNTER → 2020-11-26 13:24 | Outpatient (CLI) | payer OTHER, SELFPAY ==
[2020-11-26 16:02] LABS: Blood Urea Nitrogen 23 mg/dL (9-20); Calcium 9.7 mg/dL (8.4-10.2); Carbon Dioxide 32 mmol/L (22-32); Chloride 99 mmol/L (98-107); Estimated Glomerular Filt Rate > 60.0 mL/min (>60); Glucose 159 mg/dL (80-110); HEMOLYSIS < 15 (0-50); Potassium 3.9 mmol/L (3.4-5.1); Sodium 136 mmol/L (137-145)
[2020-11-26 16:05] LABS: NT-proBNP (BNP-Adult 18+) 125 pg/mL (<125)
== END ==
PROVIDERS: PCP Family Medicine; Referring Provider Student in an Organized Health Care Education/Training Program; Visit Provider Student in an Organized Health Care Education/Training Program
DX: N05.9 Unspecified nephritic syndrome with unspecified morphologic changes (principal); I50.32 Chronic diastolic (congestive) heart failure
CPT/HCPCS: 36415; 80048; 83880

== ENCOUNTER → 2021-02-13 07:35 | Outpatient (CLI) | payer OTHER, SELFPAY ==
[2021-02-13 08:51] LABS: Add Manual Diff / Slide Review NO; Basophils Absolute Auto 0 /uL (0-100); Basophils Percent Auto 0.5 % (0-2); Eosinophils Absolute Auto 300 /uL (0-450); Eosinophils Percent Auto 4.3 % (2-4); Hematocrit 35.8 % (41-53); Hemoglobin 12.3 g/dL (13.5-17.5); Lymphocytes Absolute Auto 1700 /uL (1100-4500); Lymphocytes Percent Auto 21.7 % (25-40); Mean Corpuscular HGB Conc 34.4 % (30-36); Mean Corpuscular Hemoglobin 31.5 PG (26-34); Mean Corpuscular Volume 91.5 fL (80-100); Monocytes Absolute Auto 600 /uL (0-900); Monocytes Percent Auto 7.7 % (3-14); Neutrophils Absolute Auto 5200 /uL (1500-7000); Neutrophils Percent Auto 65.8 % (50-75); Platelet Count 247 X10^3/uL (150-400); Red Blood Cell Count 3.91 X10^6/uL (4.5-5.9); Red Cell Distribution Width 14.2 % (11.6-14.8); White Blood Cell Count 7.9 X10^3/uL (4.5-11.0)
[2021-02-13 08:52] LABS: Hemoglobin A1C% w Est Avg Glu 6.7 % (4.0-6.0)
[2021-02-13 09:06] LABS: Alanine Aminotransferase 31 IU/L (<50); Albumin 3.9 g/dL (3.5-5.0); Albumin Globulin Ratio 1.3 (1.0-2.8); Alkaline Phosphatase 67 U/L (38-126); Aspartate Aminotransferase 37 IU/L (17-59); BUN Creatinine Ratio 17.4 (6-22); Bilirubin Total 0.5 mg/dL (0.2-1.3); Blood Urea Nitrogen 23 mg/dL (9-20); Calcium 9.4 mg/dL (8.4-10.2); Carbon Dioxide 29 mmol/L (22-32); Chloride 102 mmol/L (98-107); Cholesterol 118 mg/dL (140-199); Estimated Glomerular Filt Rate 52.9 mL/min (>60); Glucose 144 mg/dL (80-110); HDL Cholesterol 25 mg/dL (40-60); HEMOLYSIS < 15 (0-50); LDL Cholesterol Calculated 63 mg/dL (<100); Potassium 3.7 mmol/L (3.4-5.1); Sodium 138 mmol/L (137-145); Total Protein 6.9 g/dL (6.3-8.2); Triglycerides 151 mg/dL (35-150)
== END ==
PROVIDERS: PCP Family Medicine; Referring Provider Family Medicine; Visit Provider Family Medicine
DX: E11.21 Type 2 diabetes mellitus with diabetic nephropathy (principal); I10 Essential (primary) hypertension; E78.5 Hyperlipidemia, unspecified; Z51.81 Encounter for therapeutic drug level monitoring; Z79.4 Long term (current) use of insulin
CPT/HCPCS: 36415; 80053; 80061; 83036; 85025

== ENCOUNTER → 2021-02-19 12:06 | Outpatient (CLI) | payer OTHER, SELFPAY ==
[2021-02-19 14:49] LABS: Free T3, Triiodothyronine Free 3.12 pg/mL (2.77-5.27); Free T4, Direct Thyroxine 1.08 ng/dL (0.78-2.19)
[2021-02-19 15:02] LABS: Thyroid Stimulating Hormone 1.85 uIU/mL (0.47-4.68)
== END ==
PROVIDERS: PCP Family Medicine; Referring Provider Family Medicine; Visit Provider Family Medicine
DX: I10 Essential (primary) hypertension (principal)
CPT/HCPCS: 36415; 84439; 84443; 84481

== ENCOUNTER → 2021-02-20 15:49 | Outpatient (CLI) | payer OTHER, SELFPAY ==
--- NOTE | 2021-02-20 15:50 | DI.ECHO.S_ITS ---
[facility]---------+ [facility] +---------+ : : [address] : : : : [id number] : : : : Phone: [phone] Echocardiogram Report + + :Name: ZARI BABCOCK Study Date: 02/20/2021 Height: 69 in : :[facility] ReadingLocation: Weight: 157 lb : : Gender: Male BSA: 1.9 m2 : :: 1945 Age: 76 yrs BP: 148/75 mmHg: :Reason For Study: ATRIOVENTRICULAR BLOCK, SECOND DEGREE : :Ordering Physician: DEANN, : :DENIA Marti Performed By: Jaky Carney : :Referring: DENIA ZACARIAS : + + Interpretation Summary The left ventricle is normal in size. The ejection fraction is estimated to be 55-60%. During intermittent ventricular paced rhythm, LV dyssynchrony seen. The right ventricle is at the upper limits of normal in size. The right ventricular systolic function is normal. There is a pacemaker lead in the right ventricle. No significant valvular pathology seen. The IVC is of normal diameter and collapses greater than 50% with a sniff. This suggests a low right atrial pressure of 3 mm Hg. Procedure: A two-dimensional transthoracic echocardiogram with color flow and Doppler was performed. The study quality was technically adequate. Comparison is made with the echocardiogram of 06/09/2019. The patient was in sinus rhythm with heart rates between 60-66 bpm during the exam. Intermittent pacemaker rhythm. Left Ventricle: The left ventricle is normal in size. Proximal septal thickening is noted. There is no echo evidence for significant left ventricular outflow tract obstruction. There is no thrombus. The ejection fraction is estimated to be 55-60%. During intermittent pacemaker rhythm, LV dyssynchrony seen. Diastolic parameters suggest a relaxation abnormality of the left ventricle, consistent with probable normal filling pressures. Right Ventricle: There is a pacemaker lead in the right ventricle. The right ventricle is at the upper limits of normal in size. The right ventricular systolic function is normal. Atria: The left atrium is mildly dilated. There has been no significant change since the previous study. The right atrium is mildly dilated. There is a catheter/pacemaker lead seen in the right atrium. There is no Doppler evidence for an interatrial shunt. Mitral Valve: There is mild mitral annular calcification. There is mild mitral regurgitation. Aortic Valve: The aortic valve is trileaflet. The aortic valve opens well. There is no aortic valve stenosis. No aortic regurgitation is present. Tricuspid Valve: The tricuspid valve is normal in structure and function. There is mild tricuspid regurgitation. The right ventricular systolic pressure is estimated to be at least 25 mmHg based on an estimated right atrial pressure of 3 mm Hg. Pulmonic Valve: The pulmonic valve leaflets are thin and pliable; valve motion is normal. There is mild pulmonic regurgitation. Great Vessels: The aortic root is normal size. The dimensions of the ascending aorta are normal. The IVC is of normal diameter and collapses greater than 50% with a sniff. This suggests a low right atrial pressure of 3 mm Hg. Pericardium/ Pleura There is no pericardial effusion. There is no pleural effusion. MMode/2D Measurements & Calculations LVIDd: 5.1 cm LVOT diam: 2.1 cm LVIDs: 3.4 cm Ao root diam: 3.6 cm FS: 34.4 % asc Aorta Diam: 3.0 cm EPSS: 0.72 cm IVSd: 1.2 cm LVPWd: 1.1 cm LV parker. diameter/BSA (cm/m^2): 2.8 LV sys. diameter/BSA (cm/m^2): 1.8 LA A2 area: 22.2 cm2 RA long axis: 5.4 cm LA A4 area: 21.6 cm2 RA area: 21.3 cm2 LA length (vol): 5.6 cm RA vol: 71.6 ml LA vol: 72.9 ml RA : 38.4 ml/m2 LA vol index: 39.1 ml/m2 IVC diam: 0.97 cm RVD1 (basal): 3.3 cm TAPSE: 2.0 cm Doppler Measurements & Calculations Ao V2 max: 146.0 cm/sec LVOT Max Cory: 101.6 cm/sec Ao V2 mean: 96.4 cm/sec LV V1 max P.1 mmHg Ao max P.5 mmHg LV V1 VTI: 22.4 cm Ao mean P.3 mmHg KONRAD(I,D): 2.5 cm2 Ao V2 VTI: 30.6 cm KONRAD(V,D): 2.4 cm2 sev ratio: 0.73 KONRAD indexed to BSA (cm^2/m^2): 1.4 MV E max cory: 67.9 cm/sec TR max cory: 233.2 cm/sec MV A max cory: 68.4 cm/sec TR max P.8 mmHg MV E/A: 0.99 PA V2 max: 88.3 cm/sec Med Peak E' Cory: 6.3 cm/sec PA V2 mean: 61.8 cm/sec E/E' med: 10.8 PA mean P.7 mmHg Lat Peak E' Cory: 10.0 cm/sec PA pr(Accel): 39.2 mmHg E/E' lat: 6.8 E/e' average: 8.8 MV dec time: 0.21 sec SV(LVOT): 77.9 ml Reading Physician:05:14 PM
== END ==
PROVIDERS: PCP Family Medicine; Referring Provider Physician Assistant; Visit Provider Physician Assistant
DX: I08.1 Rheumatic disorders of both mitral and tricuspid valves (principal); I44.1 Atrioventricular block, second degree
CPT/HCPCS: 93306

== ENCOUNTER 2021-03-05 06:57 | Inpatient (IN) | payer OTHER, SELFPAY ==
[2021-03-05] VITALS (17 sets, daily range): BP systolic 123–206; BP diastolic 55–112; PULSE 61–73; RESP 16–24; TEMP 36.6–38; O2SAT 91–98; BMI 22.8
--- NOTE | 2021-03-05 07:20 | DI.CT.S_ITS ---
PROCEDURE: CT ABDOMEN PELVIS WO CON INDICATIONS: Right-sided abdominal pain TECHNIQUE: After the administration of oral contrast, 5 mm thick sections acquired from the diaphragms to the symphysis. 5 mm coronal and sagittal reformats were performed. For radiation dose reduction, the following was used: automated exposure control, adjustment of mA and/or kV according to patient size. COMPARISON: None. FINDINGS: Image quality: Excellent. ABDOMEN: Lung bases: Lung bases are clear. Heart size is normal. Cardiac pacer leads. Solid organs: Liver is normal in size. Gallbladder is within normal limits. Pancreas is normal in size. Spleen is normal in size. No adrenal nodules. Both kidneys are normal in size, without hydronephrosis or nephrolithiasis. 1.0 centimeter upper pole and 1.3 centimeter lower pole hyperdense lesions noted in the left kidney which may represent hemorrhagic cysts. 1.1 centimeter lower pole hyperdense lesion noted in the of the right kidney which may represent hemorrhagic cyst. Peritoneum and bowel: Bowel loops demonstrate normal wall thickness and caliber. Numerous diverticuli scattered throughout the colon. Moderate amount of stool throughout the colon. The appendix is enlarged measuring up to 1.5 centimeters in diameter. There is and 8 millimeter appendicoliths. Mild inflammatory changes and trace free fluid noted adjacent to the enlarged appendix. Nodes and vessels: No retroperitoneal or mesenteric adenopathy by size criteria. Aorta and inferior vena cava are normal in size. Scattered atherosclerotic calcifications involving the abdominal and pelvic vasculature. Miscellaneous: Small fat containing umbilical hernia.. PELVIS: Genitourinary: Bladder wall thickness is normal. Miscellaneous: No inguinal adenopathy. Small bilateral fat containing inguinal hernias. Bones: No suspicious bony lesions. No vertebral body compression fractures. Spine degenerative disc disease and facet arthropathy. IMPRESSION: 1. Acute appendicitis with 8 millimeter appendicolith. No evidence of appendiceal rupture. 2. Colonic diverticulosis without evidence of diverticulitis. 3. Small hyperdense lesions in the kidneys bilaterally which may represent hemorrhagic cyst. Recommend renal ultrasound for definitive characterization when clinically feasible. Findings discussed with Dr. Bowen on March 05, 2021 at 9:29 a.m. Dictated by: Lina George MD, PhD on 03/05/2021 at 9:21 Approved by: Lina George MD, PhD on 03/05/2021 at 9:30
[2021-03-05 07:22] LABS: Add Manual Diff / Slide Review NO; Basophils Absolute Auto 100 /uL (0-100); Basophils Percent Auto 0.4 % (0-2); Eosinophils Absolute Auto 0 /uL (0-450); Eosinophils Percent Auto 0.1 % (2-4); Hematocrit 36.6 % (41-53); Hemoglobin 12.6 g/dL (13.5-17.5); Lymphocytes Absolute Auto 1200 /uL (1100-4500); Lymphocytes Percent Auto 6.6 % (25-40); Mean Corpuscular HGB Conc 34.5 % (30-36); Mean Corpuscular Hemoglobin 31.3 PG (26-34); Mean Corpuscular Volume 90.7 fL (80-100); Monocytes Absolute Auto 1400 /uL (0-900); Monocytes Percent Auto 7.4 % (3-14); Neutrophils Absolute Auto 15700 /uL (1500-7000); Neutrophils Percent Auto 85.5 % (50-75); Platelet Count 297 X10^3/uL (150-400); Red Blood Cell Count 4.03 X10^6/uL (4.5-5.9); Red Cell Distribution Width 13.8 % (11.6-14.8); White Blood Cell Count 18.4 X10^3/uL (4.5-11.0)
--- NOTE | 2021-03-05 07:22 | ED.GENADULT ---
HPI - General Adult General Chief complaint: Abdominal Pain Stated complaint: FEVER 10.5 LAST NIGHT RIGHT SIDE PAIN Time Seen by Provider: 03/05/21 07:03 Source: patient Mode of arrival: Ambulatory Limitations: no limitations History of Present Illness HPI narrative: 76-year-old male here for evaluation approximately 24 hours of right-sided abdominal pain. He states that it started yesterday afternoon after eating a hot dog. Has had some nausea and dry heaving. States that urination is not changing any of his symptoms. Has not had a bowel movement since the onset of the discomfort. Other individuals who ate the same amount of food did not have any symptoms. He is on Coumadin for atrial fibrillation and a presence of a pacemaker. He is also an insulin-dependent diabetic. Has had a stroke in the past and also has had coronary artery disease. Has had some kidney issues in the past but not on dialysis. Has been taking all his medications as directed. Had a fever last night. No prior abdominal surgeries. Has not tried anything for symptoms prior to arrival. Related Data Home Medications Medication Instructions Recorded Confirmed Iron (FERROUS GLUCONATE) 27 mg PO QDAY #0 01/19/13 02/19/21 cinnamon bark [Cinnamon] 1,000 mg PO BID #0 08/25/16 02/19/21 ascorbic acid (vitamin C) 500 mg PO DAILY #0 12/16/17 02/19/21 potassium chloride 10 mEq 10 meq PO DAILY 05/17/19 02/19/21 capsule,extended release Fish Oil 1,200 mg PO BID #0 tab 07/25/19 02/19/21 hydrochlorothiazide 25 mg tablet 12.5 mg PO DAILY tab 02/19/21 02/19/21 insulin NPH isoph U-100 human 100 See Rx Instructions SUBCUT 02/19/21 unit/mL (3 mL) subcutaneous pen .COMPLEX ml Previous Rx's Medication Instructions Recorded glucometer #1 ea 05/06/18 Accu-chek Softclix Lancets #100 each 12/29/18 Syringes: Ultra Fine Insulin #100 each 01/10/20 Syringe w/Needle warfarin 5 mg tablet 5 mg PO .COMPLEX #100 tab 02/27/20 amlodipine 10 mg tablet 10 mg PO Q DAY #90 tab 04/27/20 [place] #200 each 09/12/20 trazodone 50 mg tablet 50 mg PO BEDTIME #90 tab 09/26/20 insulin regular human 100 unit/mL See Rx Instructions .ROUTE 10/23/20 injection solution .COMPLEX #30 ml carvedilol 25 mg tablet 37.5 mg PO BID #270 tab 12/20/20 lorazepam 0.5 mg tablet See Rx Instructions .ROUTE 12/27/20 .COMPLEX #30 tab sertraline 25 mg tablet See Rx Instructions .ROUTE 01/03/21 .COMPLEX #90 tab losartan 100 mg tablet See Rx Instructions .ROUTE 01/24/21 .COMPLEX #90 tab Glucose: Test Strips #200 each 01/29/21 atorvastatin 80 mg tablet See Rx Instructions .ROUTE 02/22/21 .COMPLEX #30 tab Allergies Allergy/AdvReac Type Severity Reaction Status Date / Time ciprofloxacin [CIPROFLOXACIN] Allergy Intermediate Dizzy, Verified 02/19/21 11:29 constipation, lightheaded, bad dreams, joint pain atenolol [ATENOLOL] Allergy Mild Lightheaded Verified 02/19/21 11:29 and nausea regadenoson [From Lexiscan] Allergy disorented Verified 02/19/21 11:29 and agitated Review of Systems Constitutional Constitutional: Reports chills, Reports fatigue, Reports fever(s) and Denies headache(s) Eyes Eyes: Denies change in vision ENT Ears, Nose, Mouth, and Throat: Denies headache(s) and Denies sore throat Cardiovascular Cardiovascular: Denies chest pain and Denies dyspnea Respiratory Respiratory: Denies dyspnea Gastrointestinal Gastrointestinal: Reports abdominal pain, Denies change in bowel habits, Reports nausea and Reports vomiting Genitourinary Genitourinary: Denies dysuria Genitourinary: Denies dysuria Musculoskeletal Musculoskeletal: Denies arthralgias and Denies myalgias Integumentary/Breasts Skin/Breast: Denies rash Neurologic Neurologic: Denies behavioral changes, Denies confusion and Denies headache(s) Psychiatric Psychiatric: Denies behavioral changes and Denies confusion Endocrine Endocrine: Reports fatigue Hematologic/Lymphatic On Anticoagulants: Yes Allergic/Immunologic Allergic/Immunologic: Denies urticaria Patient History Medical History Actinic keratosis Acute renal failure (01/09/17) Anemia Atrial fibrillation (~01/2017) James's esophagus BPH (benign prostatic hyperplasia) BPPV (benign paroxysmal positional vertigo) Cataracts, bilateral (~12/2017) CKD (chronic kidney disease) (~12/2017) Coronary artery disease Diabetes Generalized 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 panic attacks Generalized headaches GERD (gastroesophageal reflux disease) History of CVA (cerebrovascular accident) Hyperlipemia (~12/2014) Hypertension prison current use of anticoagulant therapy Myocardial infarction Pacemaker (01/2017) Surgical History Hx of surgical procedure Hx of tonsillectomy Hx of vasectomy Status post transurethral resection of prostate (03/2014) Family History (Updated 06/07/20 @ 12:40 by Gianni Zaman DO) Father Diabetes mellitus High cholesterol Mother Diabetes mellitus High cholesterol Social History household members: spouse Smoking Status: Former smoker alcohol intake: former Smoking Status: Former smoker alcohol intake frequency: 0-2 drinks per day Substance Use Type: marijuana Exam Initial Vital Signs Initial Vital Signs: Vital Signs Temperature 99.2 F 03/05/21 07:08 Pulse Rate 69 03/05/21 07:08 Respiratory Rate 16 03/05/21 07:08 Blood Pressure 172/77 H 03/05/21 07:08 Pulse Oximetry 97 03/05/21 07:08 Const General: cooperative, comfortable and well developed Limitations: mental status not altered HENMT Head: normal to inspection and normocephalic Eyes Eyelids: eyelids normal Chest Chest: No pacemaker Other: Pacemaker left upper chest Resp Effort & Inspection: normal respiratory effort Auscultation: clear to auscultation bilaterally Cardio Rate: regular rate Rhythm: regular rhythm GI Inspection: non-distended Palpation: soft, No firm and tender (Right upper quadrant and right lower quadrant with guarding) Back/Spine/Pelvis Back: No CVA tenderness Skin Lesions: no lesions Rashes: no rashes Neuro General: patient alert, patient awake and patient oriented x3 Cognition: normal cognition Speech: speech normal Sensory Exam: no sensory deficits noted Extrem General: normal to inspection and capillary refill normal Psych Appearance: grossly normal and well kempt Scores GCS Shaan coma scale eye opening: Spontaneous Blaine coma scale verbal response: Orientated Shaan coma scale motor response: Obey commands Blaine coma scale total score: 15 Course Orders Ordered: ED Orders 03/05/21 07:10 Complete Blood Count AUTO DIFF Stat Comprehensive Metabolic Panel Stat Lipase Stat Prothrombin Time INR Stat 03/05/21 07:20 CT abdomen pelvis wo con Stat 03/05/21 09:34 COVID19 - ADMIT (SIGNS AND DISPLAYS SALES REPRESENTATIVE swab/PCR) Stat Piperacillin/Tazobactam/Dextrose (Zosyn) 4.5 gm in 100 mls @ 200 mls/hr IV NOW ONE Stop: 03/05/21 10:02 Sodium Chloride (Normal Saline 0.9%) 1,000 mls @ 125 mls/hr IV CONT BETH Discontinued Medications Sodium Chloride (Normal Saline 0.9%) 1,000 mls @ 1,000 mls/hr IV BOLUS ONE Stop: 03/05/21 08:11 Last Admin: 03/05/21 07:38 Dose: 1,000 mls/hr Documented by: OREN Morphine Sulfate (Morphine 4 Mg/Ml Inj) 4 mg IV NOW ONE Stop: 03/05/21 07:22 Last Admin: 03/05/21 07:38 Dose: 4 mg Documented by: OREN Ondansetron HCl (Ondansetron 4 Mg/2 Ml Inj) 4 mg IV NOW ONE Stop: 03/05/21 07:22 Last Admin: 03/05/21 07:37 Dose: 4 mg Documented by: OREN Ondansetron HCl (Ondansetron 4 Mg/2 Ml Inj) 4 mg IV NOW ONE Stop: 03/05/21 08:15 Last Admin: 03/05/21 08:24 Dose: 4 mg Documented by: BTONER Vital Signs Vital signs: Vital Signs - 8 hr 03/05/21 07:08 03/05/21 07:41 03/05/21 07:43 Temperature 99.2 F Pulse Rate 69 63 62 Respiratory Rate 16 Blood Pressure 172/77 H 174/79 H Pulse Oximetry 97 98 95 03/05/21 08:00 03/05/21 08:02 03/05/21 08:30 Temperature Pulse Rate 68 66 65 Respiratory Rate 21 Blood Pressure 206/85 H 185/86 H 158/102 H Pulse Oximetry 98 97 94 03/05/21 08:46 03/05/21 09:00 Temperature Pulse Rate 67 63 Respiratory Rate 23 22 Blood Pressure 176/108 H 175/88 H Pulse Oximetry 98 95 Medical Decision Making Medical Records Medical records reviewed: Yes I reviewed the patient's medical records. Lab Data Lab results reviewed: Yes I reviewed the patient's lab results. Result diagrams: 03/05/21 07:10 03/05/21 07:10 Labs: Lab Results 03/05/21 03/05/21 03/05/21 Range/Units 07:10 07:10 07:10 WBC 18.4 H (4.5-11.0) X10^3/uL RBC 4.03 L (4.5-5.9) X10^6/uL Hgb 12.6 L (13.5-17.5) g/dL Hct 36.6 L (41-53) % MCV 90.7 (80-100) fL MCH 31.3 (26-34) PG MCHC 34.5 (30-36) % RDW 13.8 (11.6-14.8) % Plt Count 297 (150-400) X10^3/uL Neut % (Auto) 85.5 H (50-75) % Lymph % (Auto) 6.6 L (25-40) % Hidalgo % (Auto) 7.4 (3-14) % Eos % (Auto) 0.1 L (2-4) % Baso % (Auto) 0.4 (0-2) % Neut # (Auto) 28123 H (8170-5805) /uL Lymph # (Auto) 1200 (3342-1378) /uL [place]go # (Auto) 1400 H (0-900) /uL Eos # (Auto) 0 (0-450) /uL Baso # (Auto) 100 (0-100) /uL PT 27.2 H (10.1-12.7) SECONDS INR 2.3 H (0.9-1.3) Sodium 137 (137-145) mmol/L Potassium 3.7 (3.4-5.1) mmol/L Chloride 102 (98-107) mmol/L Carbon Dioxide 25 (22-32) mmol/L BUN 23 H (9-20) mg/dL Creatinine 1.16 (0.66-1.25) mg/dL Estimated GFR > 60.0 (>60) mL/min BUN/Creatinine Ratio 19.8 (6-22) Glucose 221 H (80-110) mg/dL Calcium 10.1 (8.4-10.2) mg/dL Total Bilirubin 0.6 (0.2-1.3) mg/dL AST 30 (17-59) IU/L ALT 28 (<50) IU/L Alkaline Phosphatase 66 (38-126) U/L Total Protein 7.6 (6.3-8.2) g/dL Albumin 4.3 (3.5-5.0) g/dL Globulin 3.3 (1.7-4.1) g/dL Albumin/Globulin Ratio 1.3 (1.0-2.8) Lipase 77 (23-300) U/L Imaging Data CT scan - abdomen/pelvis: Radiologist's Impression: [address] [id number] Scan ReportSigned Patient: Guanako Israel LMR#: [id number]: 6Acct:[id number]/Sex: 76 / MDate of Service: 03/05/21Loc: EDAccession Number: [id number] Procedure: CT abdomen pelvis wo con Ordering Provider: Yaya Bowen D.O. PROCEDURE: CT ABDOMEN PELVIS WO CON INDICATIONS: Right-sided abdominal pain TECHNIQUE: After the administration of oral contrast, 5 mm thick sections acquired from the diaphragms to the symphysis. 5 mm coronal and sagittal reformats were performed. For radiation dose reduction, the following was used: automated exposure control, adjustment of mA and/or kV according to patient size. COMPARISON: None. FINDINGS: Image quality: Excellent. ABDOMEN: Lung bases: Lung bases are clear. Heart size is normal. Cardiac pacer leads. Solid organs: Liver is normal in size. Gallbladder is within normal limits. Pancreas is normal in size. Spleen is normal in size. No adrenal nodules. Both kidneys are normal in size, without hydronephrosis or nephrolithiasis. 1.0 centimeter upper pole and 1.3 centimeter lower pole hyperdense lesions noted in the left kidney which may represent hemorrhagic cysts. 1.1 centimeter lower pole hyperdense lesion noted in the of the right kidney which may represent hemorrhagic cyst. Peritoneum and bowel: Bowel loops demonstrate normal wall thickness and caliber. Numerous diverticuli scattered throughout the colon. Moderate amount of stool throughout the colon. The appendix is enlarged measuring up to 1.5 centimeters in diameter. There is and 8 millimeter appendicoliths. Mild inflammatory changes and trace free fluid noted adjacent to the enlarged appendix. Nodes and vessels: No retroperitoneal or mesenteric adenopathy by size criteria. Aorta and inferior vena cava are normal in size. Scattered atherosclerotic calcifications involving the abdominal and pelvic vasculature. Miscellaneous: Small fat containing umbilical hernia.. PELVIS: Genitourinary: Bladder wall thickness is normal. Miscellaneous: No inguinal adenopathy. Small bilateral fat containing inguinal hernias. Bones: No suspicious bony lesions. No vertebral body compression fractures. Spine degenerative disc disease and facet arthropathy. IMPRESSION: 1. Acute appendicitis with 8 millimeter appendicolith. No evidence of appendiceal rupture. 2. Colonic diverticulosis without evidence of diverticulitis. 3. Small hyperdense lesions in the kidneys bilaterally which may represent hemorrhagic cyst. Recommend renal ultrasound for definitive characterization when clinically feasible. Findings discussed with Dr. Bowen on March 05, 2021 at 9:29 a.m. Dictated by: Lina George MD, PhD on 03/05/2021 at 9:21 Approved by: Lina George MD, PhD on 03/05/2021 at 9:30 ECG Data Attestation: I personally reviewed and interpreted this ECG as follows: Prior ECG tracings: not available for review Interpretation: Sinus rhythm Ventricular rate is 64 Left axis deviation LVH Normal QTC QRS 116 milliseconds MDM Narrative Medical decision making narrative: Patient has right-sided abdominal tenderness. Leukocytosis. Is afebrile. CT scan does show appendicitis. This does explain his presenting symptoms today. His last oral intake was this morning at approximately 0600 hours. Discussed the case with Dr. Pizano on-call for General surgery. Will admit under his service. Antibiotics ordered. Discharge Plan Departure Patient Disposition: Admitted as Observation Clinical Impression: Acute appendicitis Admit Date/Time: 03/05/21 09:35 Admit Provider: Rd Pizano
[2021-03-05 07:28] LABS: INR 2.3 (0.9-1.3); Prothrombin Time 27.2 SECONDS (10.1-12.7)
[2021-03-05 07:33] LABS: Alanine Aminotransferase 28 IU/L (<50); Albumin 4.3 g/dL (3.5-5.0); Albumin Globulin Ratio 1.3 (1.0-2.8); Alkaline Phosphatase 66 U/L (38-126); Aspartate Aminotransferase 30 IU/L (17-59); BUN Creatinine Ratio 19.8 (6-22); Bilirubin Total 0.6 mg/dL (0.2-1.3); Blood Urea Nitrogen 23 mg/dL (9-20); Calcium 10.1 mg/dL (8.4-10.2); Carbon Dioxide 25 mmol/L (22-32); Chloride 102 mmol/L (98-107); Estimated Glomerular Filt Rate > 60.0 mL/min (>60); Globulin 3.3 g/dL (1.7-4.1); Glucose 221 mg/dL (80-110); HEMOLYSIS < 15 (0-50); Lipase 77 U/L (23-300); Potassium 3.7 mmol/L (3.4-5.1); Sodium 137 mmol/L (137-145); Total Protein 7.6 g/dL (6.3-8.2)
[2021-03-05] MEDS: ONDANSETRON 4 MG/2 ML INJ IV ×2 (07:37→08:24)
[2021-03-05] MEDS: MORPHINE 4 MG/ML INJ IV (07:38)
[2021-03-05] MEDS: SODIUM CHLORIDE 0.9% 1,000 ML 1000 ML IV (07:38)
--- NOTE | 2021-03-05 08:26 | PC.NURSE ---
pt complains of not feeling right, then said he felt something in his chest, place cardiac leads on and called for a EKG, requested zofran iv from dr berry, provided to pt.
[2021-03-05] MEDS: PIPERACILLIN-TAZO 4.5 GM/100 ML FROZ.PIGGY IV (09:46)
[2021-03-05] MEDS: HYDROMORPHONE 0.5 MG INJ IV ×2 (09:47→11:41)
[2021-03-05] MEDS: SODIUM CHLORIDE 0.9% 1,000 ML 125 ML IV ×2 (09:59→10:56)
--- NOTE | 2021-03-05 10:40 | PC.NURSE ---
Day shift: Pt on unit from ED at approx 1040. Pt's spouse, Chante has requested that he get his INR drawn here as he has an appointment tomorrow for INR. Pt is A&Ox4. Oriented to room and call light. He is ambulatory but high fall risk for now. He just voided and urine collected. He is NPO and the plan is surgery later today. He is on the schedule per ED RN. HFR protocol in place as well as NPO signage. VS WNL. RA 97%. Reports ABD pain 5/10. Denies any nausea.
[2021-03-05 11:17] LABS: COVID19 - ADMIT (NP swab/PCR) Negative (Negative)
[2021-03-05] MEDS: PIPERACILLIN-TAZO 3.375 GM/50 ML FROZ.PIGGY IV ×2 (13:23→21:34)
[2021-03-05] MEDS: OXYCODONE IR 5 MG TABLET PO ×2 (15:57→21:58)
--- NOTE | 2021-03-05 18:26 | P.HP_ITS ---
History of Present Illness History of Present Illness Date Patient Seen: 03/05/21 Time Patient Seen: 18:27 Chief complaint: FEVER 10.5 LAST NIGHT RIGHT SIDE PAIN Narrative: Guanako Israel is a 76 year-old man admitted for acute appendicitis without abscess. He presented this morning with right lower quadrant abdominal pain and associated nausea. CT A/P demonstrates acute appendicitis without abscess or free air. At admission WBC 18, INR 2.3. Receiving Zosyn and IV fluids since admission with improvement but not resolution of abdominal pain. Past medical history 1. Atrial fibriliation on Warfarin 2. CAD hx HI 2016 no stents 3. HTN 4. Insulin dependent DM 5. CVA 6. TURP 7. Hx acute renal failure resolved. 8. Pacemaker Patient History Medical History Actinic keratosis Acute renal failure (01/09/17) Anemia Atrial fibrillation (~01/2017) James's esophagus BPH (benign prostatic hyperplasia) BPPV (benign paroxysmal positional vertigo) Cataracts, bilateral (~12/2017) CKD (chronic kidney disease) (~12/2017) Coronary artery disease Diabetes Generalized 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 panic attacks Generalized headaches GERD (gastroesophageal reflux disease) History of CVA (cerebrovascular accident) Hyperlipemia (~12/2014) Hypertension FDC current use of anticoagulant therapy Myocardial infarction Pacemaker (01/2017) Surgical History Hx of surgical procedure Hx of tonsillectomy Hx of vasectomy Status post transurethral resection of prostate (03/2014) Family & Social History Family History Father Diabetes mellitus High cholesterol Mother Diabetes mellitus High cholesterol Social History: household members spouse Prior Living Arrangements House Safety & Behavioral: Feels Safe in Current Yes Environment Been Physically Hurt or No Threatened By a Person Suicidal Ideation Description None Suicide Plan Description No Plan Tobacco & Substance use: Tobacco type cigarettes Smoking Status Former smoker alcohol intake former alcohol intake frequency 0-2 drinks per day Substance Use Type marijuana Meds Home Medications and Allergies Home Medications Medication Instructions Recorded Confirmed Type ferrous sulfate 27 mg PO DAILY #0 01/19/13 03/05/21 History cinnamon bark [Cinnamon] 1,000 mg PO BID #0 08/25/16 03/05/21 History ascorbic acid (vitamin C) 500 mg PO DAILY #0 12/16/17 03/05/21 History glucometer #1 ea 05/06/18 03/05/21 Rx Accu-chek Softclix Lancets #100 each 12/29/18 03/05/21 Rx potassium chloride 10 mEq 10 meq PO BEDTIME 05/17/19 03/05/21 History capsule,extended release Syringes: Ultra Fine Insulin #100 each 01/10/20 03/05/21 Rx Syringe w/[place] #200 each 09/12/20 03/05/21 Rx trazodone 50 mg tablet 50 mg PO BEDTIME #90 tab 09/26/20 03/05/21 Rx carvedilol 25 mg tablet 37.5 mg PO BID #270 tab 12/20/20 03/05/21 Rx lorazepam 0.5 mg tablet See Rx Instructions .ROUTE 12/27/20 03/05/21 Rx .COMPLEX #30 tab Glucose: Test Strips #200 each 01/29/21 03/05/21 Rx hydrochlorothiazide 25 mg tablet 12.5 mg PO DAILY tab 02/19/21 03/05/21 History amlodipine 10 mg PO BEDTIME 03/05/21 03/05/21 History atorvastatin 80 mg PO BEDTIME 03/05/21 03/05/21 History uidrooz-velxfkjvo-tvpk 1 tab PO BEDTIME 03/05/21 03/05/21 History famotidine 20 mg PO BEDTIME 03/05/21 03/05/21 History glucosamine sulfate [Glucosamine] 2,000 mg PO BID 03/05/21 03/05/21 History insulin NPH isoph U-100 human 6 unit SUBCUT BEDTIME 03/05/21 03/05/21 History [Humulin N NPH Insulin KwikPen] insulin NPH isoph U-100 human 24 unit SUBCUT QAM 03/05/21 03/05/21 History [Humulin N NPH Insulin KwikPen] insulin regular human [Humulin R 4 - 9 unit SUBCUT AC 03/05/21 03/05/21 History Regular U-100 Insuln] losartan 100 mg PO DAILY 03/05/21 03/05/21 History multivitamin 1 tab PO DAILY 03/05/21 03/05/21 History omega 1-jww-wuh-fish oil [Fish Oil] 1 cap PO BID 03/05/21 03/05/21 History sertraline 25 mg PO DAILY 03/05/21 03/05/21 History warfarin 5 mg PO DAILY 03/05/21 03/05/21 History Allergies Allergy/AdvReac Type Severity Reaction Status Date / Time ciprofloxacin [CIPROFLOXACIN] Allergy Intermediate Dizzy, Verified 02/19/21 11:29 constipation, lightheaded, bad dreams, joint pain atenolol [ATENOLOL] Allergy Mild Lightheaded Verified 02/19/21 11:29 and nausea regadenoson [From Lexiscan] Allergy disorented Verified 02/19/21 11:29 and agitated Review of Systems Review of Systems ROS: Yes All systems reviewed with the patient and are negative except as otherwise documented Exam Vital Signs (past 8 hours): - 03/05/21 10:47 03/05/21 15:40 Temperature 99.3 F 100.4 F H Pulse Rate 61 72 Respiratory Rate 18 18 Blood Pressure 149/59 H 123/60 Pulse Oximetry 98 94 Oxygen Delivery Method Room Air Oxygen Flow Rate 0 Narrative Exam Narrative: GENERAL-well developed elderly male, no acute distress HEENT-no scleral icterus, hearing intact NECK-no JVD, trachea midline CVS- regular rate, no peripheral edema RESP-unlabored respiratory effort, no audible wheezing GI-tender right lower quadrant with deep palpation, no peritonitis MSK-no cyanosis or clubbing, extremities without deformity SKIN-warm, dry NEURO-alert and oriented, no focal deficits PYSCH-Appropriate mood and affect Objective Labs Result Diagrams: 03/05/21 07:10 03/05/21 07:10 Labs: Laboratory Results - last 24 hr 03/05/21 03/05/21 03/05/21 07:10 07:10 07:10 WBC 18.4 H RBC 4.03 L Hgb 12.6 L Hct 36.6 L MCV 90.7 MCH 31.3 MCHC 34.5 RDW 13.8 Plt Count 297 Neut % (Auto) 85.5 H Lymph % (Auto) 6.6 L [place] % (Auto) 7.4 Eos % (Auto) 0.1 L Baso % (Auto) 0.4 Neut # (Auto) 94700 H Lymph # (Auto) 1200 [place] # (Auto) 1400 H Eos # (Auto) 0 Baso # (Auto) 100 PT 27.2 H INR 2.3 H Sodium 137 Potassium 3.7 Chloride 102 Carbon Dioxide 25 BUN 23 H Creatinine 1.16 Estimated GFR > 60.0 BUN/Creatinine Ratio 19.8 Glucose 221 H Calcium 10.1 Total Bilirubin 0.6 AST 30 ALT 28 Alkaline Phosphatase 66 Total Protein 7.6 Albumin 4.3 Globulin 3.3 Albumin/Globulin Ratio 1.3 Lipase 77 SARS-CoV-2 (PCR) 03/05/21 09:52 WBC RBC Hgb Hct MCV MCH MCHC RDW Plt Count Neut % (Auto) Lymph % (Auto) [place] % (Auto) Eos % (Auto) Baso % (Auto) Neut # (Auto) Lymph # (Auto) [place] # (Auto) Eos # (Auto) Baso # (Auto) PT INR Sodium Potassium Chloride Carbon Dioxide BUN Creatinine Estimated GFR BUN/Creatinine Ratio Glucose Calcium Total Bilirubin AST ALT Alkaline Phosphatase Total Protein Albumin Globulin Albumin/Globulin Ratio Lipase SARS-CoV-2 (PCR) Negative Assessment & Plan Assessment & Plan narrative: Guanako Israel is a 76-year-old male on anticoagulation with acute appendicitis. Multiple medical comorbidities including coronary artery disease, pacemaker, atrial fibrillation diabetes. CT a/P demonstrates acute appendicitis with fecaliths no abscess. Plan -warfarin reversal with vitamin K now -laparoscopic appendectomy tomorrow 5/5 -Zosyn and IV fluids -sliding scale insulin -SCDs for VT prophylaxis -diet as tolerated NPO after midnight Technical details of the operation were discussed with the patient and his . Operative risks including bleeding, infection, damage to surrounding structu res, conversion to open, heart attack, stroke, were discussed. Their questions have been answered and he is in agreement with this plan.
[2021-03-05] MEDS: PHYTONADIONE (VIT K1) 10 MG in DEXTROSE 5 % IN WATER 50 ML 102 ML IV (18:33)
[2021-03-05] MEDS: ACETAMINOPHEN 325 MG TABLET 650 MG PO (18:33)
[2021-03-05] MEDS: ATORVASTATIN 20 MG TABLET 80 MG PO (21:33)
[2021-03-05] MEDS: FAMOTIDINE 20 MG TABLET PO (21:33)
[2021-03-05] MEDS: AMLODIPINE 5 MG TABLET 10 MG PO (21:33)
[2021-03-05] MEDS: POTASSIUM CHLORIDE 10 MEQ TAB PO (21:33)
[2021-03-05] MEDS: carvediloL 12.5 MG TABLET 37.5 MG PO (21:38)
[2021-03-05] MEDS: INSULIN LISPRO 100 UNIT/ML 3ML VIAL SUBCUT (21:41)
[2021-03-05] MEDS: INSULIN NPH 100 UNIT/ML VIAL 6 UNIT SUBCUT (21:50)
[2021-03-06] VITALS (27 sets, daily range): BP systolic 102–138; BP diastolic 42–69; PULSE 65–84; RESP 14–20; TEMP 36.6–38.4; O2SAT 88–98; BMI 22.8
--- NOTE | 2021-03-06 | PATH_ITS ---
[facility] Accession Number: [id number] . 01 Material submitted: . appendix - APPENDIX . 02 Diagnosis: Appendix, Appendectomy: Acute suppurative appendicitis with perforation and serositis. Negative for dysplasia and malignancy. MRV 03/12/2021 1341 Local . 02 Electronically signed: . Shameka Cruz MD, Pathologist NPI- [id number] . 01 Gross description: . The specimen is received in formalin, labeled appendix and consists of a 3.5 cm in length by 0.7 cm in diameter disrupted vermiform appendix. The serosa is benitez-pink with fibrinous adhesions. Sectioning reveals a benitez-pink mucosa and a lumen measuring 0.3 cm in diameter. Also received are multiple benitez-yellow to benitez-green and hemorrhagic fragments of soft tissue measuring 4.5 x 4.0 x 2.0 cm in aggregate. Relations Coordinator sections are submitted. . A1-A2: vermiform appendix, entirely submitted, margin inked blue and bisected tip. A3: retail field representative soft tissue. ([id number]) /MRV 03/07/2021 1614 Local . 02 Pathologist provided ICD-10: K35.20 . 02 CPT . 647747 Performed at: 01 [facility] [address], [place], [place] [id number] MD Almas Ibanez MD Phone: [phone] Performed at: 02 [facility] [address] [place], [place] [id number] MD Shameka Cruz MD Phone: [phone]
[2021-03-06] MEDS: SODIUM CHLORIDE 0.9% 1,000 ML 125 ML IV ×3 (00:06→20:23)
[2021-03-06] MEDS: ACETAMINOPHEN 325 MG TABLET 650 MG PO ×3 (00:13→23:44)
[2021-03-06] MEDS: ONDANSETRON 4 MG/2 ML INJ IV (00:14)
[2021-03-06] MEDS: TRAZODONE 50 MG TABLET PO (00:14)
[2021-03-06] MEDS: DEXTROSE 50 % IN WATER 25 GM/50 ML SYRINGE IV (02:13)
--- NOTE | 2021-03-06 02:18 | PC.NURSE ---
GLU check at 0200 showed 48 mg/dL. Pt NPO for potential surgery 03/06/2021. Pt given 25 mg in 50 mL D50 IV.
[2021-03-06 05:23] LABS: Add Manual Diff / Slide Review NO; Basophils Absolute Auto 0 /uL (0-100); Basophils Percent Auto 0.1 % (0-2); Eosinophils Absolute Auto 0 /uL (0-450); Eosinophils Percent Auto 0.1 % (2-4); Hematocrit 33.8 % (41-53); Hemoglobin 11.7 g/dL (13.5-17.5); Lymphocytes Absolute Auto 1100 /uL (1100-4500); Lymphocytes Percent Auto 7.2 % (25-40); Mean Corpuscular HGB Conc 34.6 % (30-36); Mean Corpuscular Hemoglobin 31.8 PG (26-34); Mean Corpuscular Volume 92.1 fL (80-100); Monocytes Absolute Auto 1100 /uL (0-900); Monocytes Percent Auto 7.2 % (3-14); Neutrophils Absolute Auto 13500 /uL (1500-7000); Neutrophils Percent Auto 85.4 % (50-75); Platelet Count 221 X10^3/uL (150-400); Red Blood Cell Count 3.67 X10^6/uL (4.5-5.9); Red Cell Distribution Width 13.7 % (11.6-14.8); White Blood Cell Count 15.8 X10^3/uL (4.5-11.0)
[2021-03-06] MEDS: PIPERACILLIN-TAZO 3.375 GM/50 ML FROZ.PIGGY IV ×4 (06:14→23:44)
[2021-03-06 06:28] LABS: INR 1.6 (0.9-1.3); Prothrombin Time 18.3 SECONDS (10.1-12.7)
[2021-03-06 06:30] LABS: Blood Urea Nitrogen 23 mg/dL (9-20); Calcium 8.6 mg/dL (8.4-10.2); Carbon Dioxide 27 mmol/L (22-32); Chloride 107 mmol/L (98-107); Estimated Glomerular Filt Rate 44.6 mL/min (>60); Glucose 131 mg/dL (80-110); HEMOLYSIS < 15 (0-50); Potassium 3.9 mmol/L (3.4-5.1); Sodium 138 mmol/L (137-145)
[2021-03-06] MEDS: carvediloL 12.5 MG TABLET 37.5 MG PO ×2 (08:14→21:48)
[2021-03-06] MEDS: POTASSIUM CHLORIDE 10 MEQ TAB PO (08:14)
[2021-03-06] MEDS: AMLODIPINE 5 MG TABLET 10 MG PO (08:15)
[2021-03-06] MEDS: OXYCODONE IR 5 MG TABLET PO ×3 (08:16→23:44)
[2021-03-06] MEDS: INSULIN LISPRO 100 UNIT/ML 3ML VIAL SUBCUT ×2 (08:17→11:22)
[2021-03-06] MEDS: PHYTONADIONE (VIT K1) 5 MG in DEXTROSE 5 % IN WATER 50 ML 101 ML IV (09:40)
--- NOTE | 2021-03-06 13:55 | CM.DANOTE ---
Patient is a 76 year old male who was admitted on 03/05/21 for Fever, Right Side Pain. Pt has [facility] for insurance and his PCP is Dr. Gianni Zaman. EMR was reviewed. Per Surgeon, pt with acute appendicitis without signs of abscess and recommending Lap Appe today. SW met beside with pt and spouse and explained role and they confirm that they live in [place] and pt is active and independent at baseline. Pt drives and does not use DME to ambulate. Pt denies any hx of HH or SNF and his DPOA is his Chante. Pt states he helps his sister 5 days a week with their 96 year old mother who lives with pt's sister. Pt is concerned he will have to take time off after surgery before being able to help his mother but they have set up an additional caregiver while he is recovering from surgery. Spouse states that she does not feel that they will need HH RN or any other services at d/c as she is retired and available to assist if needed and can provide transport home at d/c and is somewhat concerned if pt discharges right after surgery but aware that to stay in the hospital the MD needs to medically justify staying in the hospital. Plan: SW to follow after Lap Appe today around 1500 to determine if pt safe for d/c home with spouse when stable and any further identified discharge planning needs. GAGAN Escobedo Discharge Planning/Care Management Advanced directive, confirm from FAMILY Start: 03/05/21 13:01 Freq: Q24H Status: Active Protocol: Document 03/05/21 13:01 YAD (Rec: 03/05/21 13:02 YAD [id number]) Advance Directive, confirm on record Time 13:01 Person contacted Pt Copy received No CM Discharge Assessment Start: 03/06/21 13:53 Freq: Status: Active Protocol: Document 03/06/21 13:53 BF (Rec: 03/06/21 13:55 BF [id number]) Discharge Planning Assessment Assigned [employer]k1 Operator GAGAN Bradley DPOA/Assigned Designee Name spouse Chante Contact Information [phone] Advance Directives? Yes Advance Directives on File No History Provided By Patient,Significant Other, Medical Record Has Patient been admitted in last 30 No days? Prior Living Arrangements House Household Members spouse Type of transporation used prior to Drives own vehicle admit Independent with ADL's Yes Is patient alert and oriented? Yes Caregiver for Another Yes: 96 yo mother Barriers to Discharge No Discharge Plan Home Transportation Arrangement Spouse bedside and can transport at d/c Referrals Initiated None needed Additional Comment Pending Lap Appe around 1300 today Whiteboard Updated in Patient Room with Yes name and ext. # of Ship Self [employer] Mk1 Operator Review Status In Process Please Provide Date Initial DC 03/06/21 Assessment Was Performed Next Review Type Continued Stay Review
--- NOTE | 2021-03-06 15:39 | PC.NURSE ---
Pt plan is to go to surgery this afternoon. Pt pain has been managed well with PRN oxycodone. Temp of 100.1 this morning, given PRN tylenol and fever resolved. Pt at bedside at 0840, Dr. Pizano at bedside at 0915 with updates on surgery. Pt given one more dose of Vitamin K IV, and told he would be going to surgery some time this afternoon. Pt and agreeable to plan. Pt allowed to drink sips of water until 1100. IV to the left forearm infiltrated with NS at 0940; arm elevated and warm compress applied. New 20g to the right forearm started at 0940.
[2021-03-06] MEDS: LACTATED RINGERS 1,000 ML 42 ML IV (16:40)
--- NOTE | 2021-03-06 16:50 | PM.PREOP ---
Pre-operative Note Interval Note History & Physical reviewed/Exam performed by Physician: Yes Changes to H&P: No
--- NOTE | 2021-03-06 17:09 | DIET.PN ---
Addendum entered by Mayelin Pablo 03/07/21 13:56: pt reports he is not fighting his weight loss over the past few years, his appetite is just not what it used to be. interventions: Discussed prioritizing protein intake with low appetite. Pt enjoys variety of protein foods and will try to do this. Pt has no questions or concerns for RD Original Note: Dietary Progress Note Assessment: 76y M c pmhx of CAD s/p stroke and insulin dependent DM (A1c 6.8) admitted for acute appendicitis c fecalith referred to nutrition for recent weight loss. Pt reports having severe R side pain since last night after eating hot dog for dinner. Chart review shows pt has been experiencing some slow weight loss over the past 2y (-10% in 2y, non-severe, -2% in 1y, non-severe). HT: 175.2cm WT: 70.3kg UBW: 71-78kg x3y BMI: 22.9 Labs:A1c 6.8 MNA:9 [place]:20 Nutrition Diagnosis: none at this time Diet Order: NPO for surgery Monitoring/Evaluations: following post-surgical POs
--- NOTE | 2021-03-06 17:31 | SUR.OPER ---
Supine on padded OR bed, head on pillow, right arm secured on padded arm boards at <90 degrees abduction, left arm padded and tucked, legs uncrossed, safety belt at thigh, tape over blanket over lower legs.
[2021-03-06] MEDS: BUPIVACAINE 0.25% (PF) VIAL 30 ML INJ (17:46)
[2021-03-06] MEDS: OXYCODONE/ACETAMINOPHEN 5/325 TABLET 1 TAB PO (19:05)
--- NOTE | 2021-03-06 19:38 | SUR.PHASEI ---
191 to room 221. Bed down and locked, call light within reach, SCDs on. Drain remains compressed, red drainage in tubing. Waited for 20 minutes for RN to arrive (was helping another patient). Hand off patient to RN coordinator. Steri-strips CDI, approx half dollar size pale pink drainage on gauze around drain site. Patient was dozing while waiting for the RN, arouses easily to voice. VSS.
[2021-03-06] MEDS: INSULIN NPH 100 UNIT/ML VIAL 6 UNIT SUBCUT (21:05)
[2021-03-06] MEDS: ATORVASTATIN 20 MG TABLET 80 MG PO (21:09)
[2021-03-06] MEDS: FAMOTIDINE 20 MG TABLET PO (21:11)
--- NOTE | 2021-03-06 21:48 | P.OP_ITS ---
Operative Date/Time/Diagnoses Date of procedure: 03/06/21 Time of procedure: 21:48 Pre-op diagnosis: Acute appendicitis Post-op diagnosis: other (Perforated appendicitis) Procedure & Clinicians Procedure: Laparoscopic appendectomy Same procedure as scheduled: Yes Indications: Acute appendicitis. CT demonstrates acute appendicitis without ab scess Surgeon: Rd Pizano Anesthesia Type: General Operative Notes Findings: Necrotic perforated appendix with abscess cavity. Specimen(s): other (Appendix) Estimated Blood Loss (mL): 75 Procedure in detail: Patient was brought to the operating room placed supine on the table. Bilateral lower extremity compression devices were applied. Anesthesia was induced and they intubated with an endotracheal tube. They received 3.375 g of Zosyn prior to skin incision. The left arm was tucked and appropriately padded. They were prepped and draped in sterile fashion. Time-out was performed. An infraumbilical incision was made the umbilical stalk was grasped and elevated and incision was made and the abdomen was entered atraumatically. A 12 mm balloon trocar was then placed through the incision and pneumoperitoneum of 14 mm Hg was established. The scope was then inserted and the abdomen inspected, there was no evidence of injury upon entry. Two 5 mm ports were placed under direct visualization, one in the left lower quadrant and second in the lower midline. A thorough laparoscopic evaluation was performed inspecting all four quadrants. The patient was then tilted right side up. The small bowel was then swept to the upper aspect of the abdomen. The abdomen had murky fluid within the pelvis. The tenie were followed to the base of the cecum where the appendix was identified. The appendix was within an abscess cavity with purulent material. As the appendix was fully exposed it became evident that it was fully necrotic in its midportion and perforated. There was a fecalith sitting adjacent to the necrotic portion. The appendix was dissected out of the abscess cavity and off of the cecum. The cecum was mobilized off of its lateral attachments to fully expose the appendix. The appendix was removed in pieces, the appendiceal artery could not be identified I suspected it had thrombosed. The appendiceal mesentery that remained was divided with electo cautery on the [place]. The base of the appendix was viable and it was transected flush with the cecum using the Endo-DIO stapler blue load. The abscess cavity was entirely debrided and the cavity along with the appendix were removed using the Endo-Catch. The abdomen was irrigated with several L of sterile saline hemostasis was checked. Placed a drain through the left side of the abdomen laparoscopic incision to lay along the right pericolic gutter. The 5 mm ports were then removed under direct visualization. The umbilical fascial incision was closed with 0 Vicryl in a figure-eight fashion. The skin wounds were irrigated and closed with 4-0 Monocryl followed by the application of Dermabond. Sponge instrument count at the end of the operation was correct. The patient tolerated procedure well was extubated and transferred to the postoperative care unit in stable condition. Complications: none Post-operative Disposition: Acute Care
--- NOTE | 2021-03-06 23:53 | PC.NURSE ---
pt was only able to void 50cc. bladder scan was around 200cc
[2021-03-07] VITALS (21 sets, daily range): BP systolic 104–122; BP diastolic 57–64; PULSE 72–98; RESP 16–20; TEMP 35.7–37.4; O2SAT 84–98
--- NOTE | 2021-03-07 01:29 | PC.NURSE ---
Addendum entered by Ramila Wayne R.N. 03/07/21 06:28: Additional note: patient was up to BSC earlier and able to urinate 225cc. Addendum entered by Ramila Wayne R.N. 03/07/21 06:03: Had been weaned down to 0.5L/min oxygen but now noted sat to be 88% so increased back to 1L/min Original Note: patient is alert and oriented. Breath sounds CTA. O2 sat at shift change was 96% on 3L/min oxygen per NC so decreased to 2L/min and still at 96% so decreased further to 1L/min. Patient does state he feels slightly SOB but has no obvious symptoms. HRR. Denies nausea. BT present but has not yet passed flatus. Abdomen is distended and tender to light palpation. States abdominal pain is 4/10 so medicated with Oxycodone. Steri-strips to 2 lap sites are CDI. ZELALEM dressing with moderate amount serosanguinous drainage; ZELALEM is intact and compressed. Has not yet voided since return from surgery at 1930 so bladder scan done with 298cc noted on scan. Is able to turn himself in bed. Did stand at side of bed in attempt to urinate and was noted to be unsteady/weak. Is wearing bilateral calf SCD's. 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 Fall risk score is high and bed alarm is activated. Temperature was 100.3 so was medicated with Tylenol and was 98 on recheck.
[2021-03-07] MEDS: SODIUM CHLORIDE 0.9% 1,000 ML 125 ML IV (02:12)
[2021-03-07 05:22] LABS: Add Manual Diff / Slide Review NO; Basophils Absolute Auto 0 /uL (0-100); Basophils Percent Auto 0.3 % (0-2); Eosinophils Absolute Auto 0 /uL (0-450); Hematocrit 29.7 % (41-53); Hemoglobin 10.3 g/dL (13.5-17.5); Lymphocytes Absolute Auto 900 /uL (1100-4500); Lymphocytes Percent Auto 6.4 % (25-40); Mean Corpuscular HGB Conc 34.6 % (30-36); Mean Corpuscular Hemoglobin 32.1 PG (26-34); Mean Corpuscular Volume 92.7 fL (80-100); Monocytes Absolute Auto 500 /uL (0-900); Neutrophils Absolute Auto 12000 /uL (1500-7000); Neutrophils Percent Auto 89.3 % (50-75); Platelet Count 189 X10^3/uL (150-400); Red Cell Distribution Width 13.8 % (11.6-14.8); White Blood Cell Count 13.4 X10^3/uL (4.5-11.0)
[2021-03-07 05:35] LABS: BUN Creatinine Ratio 15.5 (6-22); Blood Urea Nitrogen 22 mg/dL (9-20); Calcium 7.8 mg/dL (8.4-10.2); Carbon Dioxide 24 mmol/L (22-32); Chloride 104 mmol/L (98-107); Estimated Glomerular Filt Rate 48.6 mL/min (>60); Glucose 192 mg/dL (80-110); HEMOLYSIS < 15 (0-50); Potassium 3.8 mmol/L (3.4-5.1); Sodium 134 mmol/L (137-145)
[2021-03-07] MEDS: PIPERACILLIN-TAZO 3.375 GM/50 ML FROZ.PIGGY IV ×4 (06:01→23:46)
[2021-03-07] MEDS: OXYCODONE IR 5 MG TABLET PO ×5 (06:48→23:46)
[2021-03-07] MEDS: HYDROMORPHONE 0.5 MG INJ IV (09:02)
[2021-03-07] MEDS: AMLODIPINE 5 MG TABLET 10 MG PO (09:08)
[2021-03-07] MEDS: carvediloL 12.5 MG TABLET 37.5 MG PO ×2 (09:09→20:11)
[2021-03-07] MEDS: ENOXAPARIN 30 MG/0.3 ML SYRINGE SUBCUT (09:11)
[2021-03-07] MEDS: hydroCHLOROthiazide 25 MG TABLET 12.5 MG PO (09:12)
[2021-03-07] MEDS: SERTRALINE 50 MG TABLET 25 MG PO (09:13)
[2021-03-07] MEDS: ACETAMINOPHEN 325 MG TABLET 650 MG PO (09:14)
[2021-03-07] MEDS: INSULIN LISPRO 100 UNIT/ML 3ML VIAL SUBCUT ×3 (09:15→16:47)
--- NOTE | 2021-03-07 09:20 | PM.PNPO.1 ---
Subjective Subjective Date Patient Seen: 03/07/21 Time Patient Seen: 09:20 Interval history: abdominal pain improved from yesterday. no N/V fever resolved Exam Vital Signs (past 8 hours): - 03/07/21 03:18 03/07/21 05:00 03/07/21 05:40 Temperature 97.7 F Pulse Rate 72 Respiratory Rate 18 20 Blood Pressure 116/57 L Pulse Oximetry 94 95 03/07/21 06:03 03/07/21 09:00 03/07/21 09:09 Temperature 99.3 F Pulse Rate 78 72 Respiratory Rate 16 Blood Pressure 118/60 116/57 L Pulse Oximetry 88 L 93 Oxygen Delivery Method Nasal Cannula Oxygen Flow Rate 1.5 Narrative Exam Narrative: Gen-Adult male alter and oriented Chest-Non labored resp 2 L NC Abdomen-Soft minimally tender RLQ. Drain SS scant. Extm-Mild edema. Objective Labs Result Diagrams: 03/07/21 04:47 03/07/21 04:53 Labs: Laboratory Results - last 24 hr 03/07/21 03/07/21 04:47 04:53 WBC 13.4 H RBC 3.20 L Hgb 10.3 L Hct 29.7 L MCV 92.7 MCH 32.1 MCHC 34.6 RDW 13.8 Plt Count 189 Neut % (Auto) 89.3 H Lymph % (Auto) 6.4 L [place] % (Auto) 4.0 Eos % (Auto) 0.0 L Baso % (Auto) 0.3 Neut # (Auto) 64359 H Lymph # (Auto) 900 L [place] # (Auto) 500 Eos # (Auto) 0 Baso # (Auto) 0 Sodium 134 L Potassium 3.8 Chloride 104 Carbon Dioxide 24 BUN 22 H Creatinine 1.42 H Estimated GFR 48.6 L BUN/Creatinine Ratio 15.5 Glucose 192 H Calcium 7.8 L PFSH Medical History Actinic keratosis Acute renal failure (01/09/17) Anemia Atrial fibrillation (~01/2017) James's esophagus BPH (benign prostatic hyperplasia) BPPV (benign paroxysmal positional vertigo) Cataracts, bilateral (~12/2017) CKD (chronic kidney disease) (~12/2017) Coronary artery disease Diabetes Generalized 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 panic attacks Generalized headaches GERD (gastroesophageal reflux disease) History of CVA (cerebrovascular accident) Hyperlipemia (~12/2014) Hypertension nursing home current use of anticoagulant therapy Myocardial infarction Pacemaker (01/2017) Surgical History Hx of surgical procedure Hx of tonsillectomy Hx of vasectomy Status post transurethral resection of prostate (03/2014) Family History Father Diabetes mellitus High cholesterol Mother Diabetes mellitus High cholesterol Social History household members: spouse Smoking Status: Former smoker alcohol intake: former Assessment & Plan Post-op Postoperative Procedures: Procedures Operation Date: 03/06/21 16:15 Actual Procedures Side Surgeon p Laparoscopic Appendectomy Rd Pizano MD Postoperative status narrative: 76M POD 1 sp lap appy perforated with abscess -Diabetic diet insulin sliding scale -DC IVF -40 Lasix today wean O2 as able -pLovenox and SCDs -Zosyn -Possible DC tomorrow +/- drain on PO antibicotics if resolution of leukocytosis -PT consult
[2021-03-07] MEDS: FUROSEMIDE 40 MG/4 ML VIAL IV (09:28)
--- NOTE | 2021-03-07 11:58 | PT.IIE ---
Surgery Performed Operation Date: 03/06/21 16:15 Actual Procedures p Laparoscopic Appendectomy - Rd Pizano MD Surgical History (Last Reviewed 03/05/21 @ 18:[address] Pizano MD) Hx of surgical procedure Hx of tonsillectomy Hx of vasectomy Status post transurethral resection of prostate (03/2014) Medical History (Last Reviewed 03/05/21 @ 18:[address] Pizano MD) Actinic keratosis Acute renal failure (01/09/17) Anemia Atrial fibrillation (~01/2017) James's esophagus BPH (benign prostatic hyperplasia) BPPV (benign paroxysmal positional vertigo) Cataracts, bilateral (~12/2017) CKD (chronic kidney disease) (~12/2017) Coronary artery disease Diabetes Generalized 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 panic attacks Generalized headaches GERD (gastroesophageal reflux disease) History of CVA (cerebrovascular accident) Hyperlipemia (~12/2014) Hypertension 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 use of 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 5 steps L rail + R wall to enter the house Home Environment Standard Height Toilet,Walk in Shower,Tub/Shower Home Equipment Front Wheel Walker,Shower Seat without Backrest,Hand Held Shower,Grab Bars Near Toilet Additional Social History Comment pt stated that he takes care of his 96y/o mom(does not need physical assistance; assists with meals) M2 PT-IP Current Condition Start: 03/07/21 13:27 Freq: NEEDED Status: Active Protocol: Document 03/07/21 11:58 AB (Rec: 03/07/21 13:41 AB [id number]) Physical Therapy Current Condition Current Condition Evaluation Date 03/07/21 Treatment Diagnosis s/p Lap appy; difficulty in walking Onset Date 03/05/21 Precautions Abdominal Surgery Precautions Log Roll,Lifting Restrictions, Gait Belt above Incisional Area M3 PT-IP Subjective Start: 03/07/21 13:27 Freq: NEEDED Status: Active Protocol: Document 03/07/21 11:58 AB (Rec: 03/07/21 13:41 AB [id number]) Subjective Physical Therapy Visit Type Type Initial Evaluation Visit Start Time 11:58 Visit Stop Time 12:18 Total Visit Minutes 20 Number of SERVICE STATION OPERATOR Visits 0 Therapy Pain Assessment Pain When Pain Assessed At Rest Pain Present Pain Present Pain Reported Location Abdomen Intensity 6 Scale Used Numeric (0 - 10) Pain Management Techniques Distraction,Modification of Treatment,Re-positioning, Timing of Activity with Medications M4 PT-IP Mobility and Gait Start: 03/07/21 13:27 Freq: NEEDED Status: Active Protocol: Document 03/07/21 11:58 AB (Rec: 03/07/21 13:41 AB [id number]) PT-Bed Mobility Assessment Rolling Type of Rolling Log Rolling Level of Assist Standby Assistance Supine to Sit Supine to Sit Standby Assistance,Bedrails Sit to Supine Sit to Supine Standby Assistance,Bedrails PT-Transfer Assessment Sit to and From Stand Sit to and from Stand Contact Guard Assistance,1 Person Assistance,Use of Upper Extremities Equipment Transfer Assistive Device None,Gait Belt Orthotic/Prosthetic Devices or Brace: No Transfers Transfer Destination Bed Transfer Technique ambulated without AD Transfer Ability Level of Assist Contact Guard Assistance,1 Person Assistance,Use of Upper Extremities Comments Mobility Comments pt sitting on chair and stated that he just walked the hallway with nursing and is stated that it wiped him out but agreed to do some PT. completed sit to stand from the chair CGA and ambulated to the bed without AD CGA. completed log roll sit<>supine SBA using bed rail. agreed to do some more ambulation in room and completed ~ 15 ft without AD. pt sat back on the chair. positioned on the chair. call light and table placed within reach. informed pt regarding unsteadiness with ambulation without AD and pt will continue to work with PT to improve ambulation and activity tolerance. pt agreed . Gait Assessment Gait Gait Assistance Required: Contact Guard Assist Distance (Feet) 15 Able to Maintain Weight Bearing Status Yes During Gait Assistive Devices Assistive Device None,Gait Belt Orthotic/Prosthetic Devices or Brace: No Gait Deviations General Gait Pattern Ataxic,Decreased Stride Length ,Decreased Feet Clearance,Step -to Gait Factors Limiting Gait Function Factors Limiting Gait Function Decreased Activity Tolerance, Decreased Strength,Limited Range of Motion,Pain,Poor Balance Comments Gait Comments presents with waddling gait with increase trunk guarding. informed pt with safety and to use FWW a this time but PT to continues to work on ambulation without ADand improve activity tolerance. pt agreed. Stair Climbing Assessment Comments Stair Climbing Comments refused to do stair climbing; stated that he is tired from his previous walk with the nurses PT-Balance Assessment Sitting Balance and Reactions Static Sitting Balance Ability Good Dynamic Sitting Balance Ability Good Standing Balance and Reactions Static Standing Balance Ability Good Dynamic Standing Balance Ability Fair Device Used without AD M5 PT-IP Objective Assessments Start: 03/07/21 13:27 Freq: NEEDED Status: Active Protocol: Document 03/07/21 11:58 AB (Rec: 03/07/21 13:41 AB [id number]) Orientation Orientation/Cognition Level of Alertness Alert Orientation Name,Place,Situation Language Function Ability Hard of Hearing Safety Awareness Understands Safety Issues Memory Description No Deficits Noted Gross Range of Motion Lower Extremity ROM Assessment Within Functional Limits Strength Comments Strength Comments RLE: 4/5 LLE: 4+/5 Coordination Assessment Gross Coordination Gross Coordination WNL Sensation Assessment Sensation Gross Sensation WNL Muscle Tone Muscle Tone WNL Yes M6 PT-IP Treatment Start: 03/07/21 13:27 Freq: NEEDED Status: Active Protocol: Document 03/07/21 11:58 AB (Rec: 03/07/21 13:41 AB [id number]) Physical Therapy Treatment Education Education Provided Precautions,Safety M7 PT-IP Assessment and Plan Start: 03/07/21 13:27 Freq: NEEDED Status: Active Protocol: Document 03/07/21 11:58 AB (Rec: 03/07/21 13:41 AB [id number]) PT Summary Assessment and Plan Potential Rehabilitation Potential Good Status of Condition at Evaluation Stable Summary Impairments Pain,ROM,Strength,Balance, Coordination,Sensation,Tone, Cognition,Bed Mobility, Transfers,Gait,Activity Tolerance Assessment Summary pt requiring CGA with ambulation without AD. recommending use of FWW at this time for safety but PT to continue to improve ambulation and activity tolerance. pt also need to complete stair climbing training prior to d/c. pt stated that his spouse will be able to assist him if needed. Goals Bed Mobility Goal Independent Transfer Goal Independent,Front Wheeled Walker Gait Goal Independent,Front Wheel Walker Gait Distance 250 Other Goals LTG: improve transfer without AD mod I; without AD 100 ft without AD mod I up/down 5 steps L rail ascending mod I Days to Meet Goals 5 Frequency of Treatment Frequency Of Treatment Once a Day Treatment Plan Physical Therapy Treatment Plan Bed Mobility Training,Transfer Training,Gait Training, Therapeutic Exercise,Balance Retraining,Post Op Education, Discharge Planning,Hot or Cold Pack,Neuromuscular Re-ed, Coordination Retraining,Manual Therapy Precautions Abdominal Surgery Precautions Log Roll,Lifting Restrictions, Gait Belt above Incisional Area Recommendations To Nursing Amount of Assist Needed 1 Person Assist Discharge Recommendations PT Discharge Recommendations Home with Assistance,Home Health Transportation Needs at Discharge Private Vehicle
[2021-03-07] MEDS: SODIUM CHLORIDE 0.9% 250 ML 21 ML IV (12:55)
--- NOTE | 2021-03-07 13:59 | PC.NURSE ---
Patient VSS, bowel tones are hypoactive in all quadrants, is not passing gas, last BM 5/3, denies nausea, abdomen is distended and tender,abdominal pain is 4-7/10. Claudy drain is patent and draining sanguineous fluid, lap sites are intact. IV Dilaudid 0.5mg PRN and Oxycodone 5mg PRN given and is working well for pain. Patient was up ambulating in the hallway today, up walking the room, and up in the chair. Incentive spirometer was encouraged, patient has some coarse lung sounds anteriorly bilaterally, but also states that he is a regular marijuana smoker.
--- NOTE | 2021-03-07 15:16 | CM.DPC ---
DCP: continued: Case received, discussed in Team Rounds. Noted pt do go to surgery yesterday afternoon as planned for laproscopic appendectomy. Post of dx was perforated appendicitis with abscess. Pt today is on IV antibiotics (with oral planned at d/c). Drain in place. PT working with pt and currently recommending a fww ( pt does not use AD at baseline. will have to see if he has access to one prior). Pt has also been up in halls mobilizing with nursing staff. RN caring for pt notes BT hypoactive. - flatus. P: anticipate home at d/c with 's support but will be following. Payer: [employer]. Admission status: confirmed INPT: per ÁNGELA Raygoza
--- NOTE | 2021-03-07 16:21 | DI.RAD.S_ITS ---
PROCEDURE: XR CHEST 1V INDICATIONS: post op hypoxia TECHNIQUE: One view of the chest was acquired. COMPARISON: [facility], CR, XR CHEST 1V, 06/10/2019, 8:26. FINDINGS: Surgical changes and devices: Stable left chest wall cardiac pacer. Lungs and pleura: Lungs are clear. No pleural effusions or pneumothorax. Mediastinum: Mediastinal contours appear normal. Heart size is normal. Bones and chest wall: No suspicious bony lesions. Overlying soft tissues appear unremarkable. IMPRESSION: No acute cardiopulmonary disease process. Dictated by: Lina George MD, PhD on 03/07/2021 at 16:59 Approved by: Lina George MD, PhD on 03/07/2021 at 17:00
[2021-03-07] MEDS: MAGNESIUM HYDROXIDE 30 ML UDC PO (16:38)
[2021-03-07] MEDS: POTASSIUM CHLORIDE 10 MEQ TAB PO (20:06)
[2021-03-07] MEDS: ATORVASTATIN 20 MG TABLET 80 MG PO (20:06)
[2021-03-07] MEDS: FAMOTIDINE 20 MG TABLET PO (20:07)
[2021-03-07] MEDS: ONDANSETRON 4 MG/2 ML INJ IV (20:33)
[2021-03-07] MEDS: INSULIN NPH 100 UNIT/ML VIAL 6 UNIT SUBCUT (20:36)
[2021-03-07] MEDS: SODIUM CHLORIDE 0.9% FLUSH 10 ML IV (20:50)
[2021-03-08] VITALS (16 sets, daily range): BP systolic 100–127; BP diastolic 54–61; PULSE 70–89; RESP 16–20; TEMP 36.8–37.3; O2SAT 83–96
--- NOTE | 2021-03-08 01:30 | PC.NURSE ---
Addendum entered by Ramila Wayne R.N. 03/08/21 06:59: Patient able to urinate only 50cc in urinal with bladder scan of 576. [place] to [facility] [place] if he could empty out bladder but only able to void an additional 30cc. Dr Savage informed of urinary retention although patient denies feeling any pressure/discomfort from retention. Reviewed respiratory status and O2 sats during the night. See new orders. Addendum entered by Ramila Wayne R.N. 03/08/21 01:58: Continuous pulse oximeter alarming and patient found to have sats dropping as low as 84%. Woke patient and had him work with I.S. and coughing and was again able to bring up clear mucous. After 10 breaths with I.S. and coughing O2 sat now again at 92%. Will continue to monitor. Original Note: patient is alert and oriented. When first vital signs taken patient was on oxygen at 3L/min per NC with sat of 88% so increased oxygen to 5L/min to get sat to 92%. Had patient work with I.S. which resulted in some strong coughing and expectoration of scant, thin, clear mucous after which sat improved to 95%. Breath sounds with expiratory rhonchi in right lobes. HRR. Denies current nausea. BT hypoactive tonight and abdomen is still very distended but soft. Has not had BM since 03/04 and denies flatus as yet; refused ordered suppository on previous shift but did take MOM. Tender to palpation and patient describes pain as 6/10 and sore; medicated with Oxycodone. Steristrips intact to lap sites on abdomen. Dressing intact around ZELALEM drain and no new drainage noted; ZELALEM is intact and compressed. Denies dysuria, frequency or urgency with urination. Is able to move himself in bed. When out of bed is assisted with walker and 1 assist due to weakness/unsteadiness. Wearing bilateral calf SCD's. Fall risk score is high and bed alarm is activated.
[2021-03-08] MEDS: HYDROMORPHONE 0.5 MG INJ IV (02:08)
[2021-03-08 05:41] LABS: BUN Creatinine Ratio 16.1 (6-22); Blood Urea Nitrogen 29 mg/dL (9-20); Calcium 7.8 mg/dL (8.4-10.2); Carbon Dioxide 26 mmol/L (22-32); Chloride 103 mmol/L (98-107); Glucose 148 mg/dL (80-110); HEMOLYSIS < 15 (0-50); Potassium 3.4 mmol/L (3.4-5.1); Sodium 135 mmol/L (137-145)
[2021-03-08 05:43] LABS: Add Manual Diff / Slide Review NO; Basophils Absolute Auto 0 /uL (0-100); Basophils Percent Auto 0.2 % (0-2); Eosinophils Absolute Auto 100 /uL (0-450); Eosinophils Percent Auto 0.6 % (2-4); Hematocrit 26.3 % (41-53); Hemoglobin 9.1 g/dL (13.5-17.5); Lymphocytes Absolute Auto 700 /uL (1100-4500); Lymphocytes Percent Auto 6.4 % (25-40); Mean Corpuscular HGB Conc 34.6 % (30-36); Mean Corpuscular Hemoglobin 31.8 PG (26-34); Mean Corpuscular Volume 91.8 fL (80-100); Monocytes Absolute Auto 500 /uL (0-900); Monocytes Percent Auto 4.8 % (3-14); Neutrophils Absolute Auto 9900 /uL (1500-7000); Platelet Count 192 X10^3/uL (150-400); Red Blood Cell Count 2.87 X10^6/uL (4.5-5.9); Red Cell Distribution Width 14.1 % (11.6-14.8); White Blood Cell Count 11.2 X10^3/uL (4.5-11.0)
[2021-03-08] MEDS: PIPERACILLIN-TAZO 3.375 GM/50 ML FROZ.PIGGY IV ×3 (06:00→21:45)
[2021-03-08] MEDS: SODIUM CHLORIDE 0.9% FLUSH 10 ML IV ×3 (06:01→21:45)
[2021-03-08] MEDS: SODIUM CHLORIDE 0.9% 250 ML 21 ML IV (07:07)
[2021-03-08] MEDS: LIDOCAINE 2% (GLYDO) 6 ML GEL TOP (07:53)
[2021-03-08] MEDS: INSULIN LISPRO 100 UNIT/ML 3ML VIAL SUBCUT ×4 (08:36→21:39)
[2021-03-08] MEDS: ENOXAPARIN 40 MG/0.4 ML SYRINGE SUBCUT (08:40)
[2021-03-08] MEDS: AMLODIPINE 5 MG TABLET 10 MG PO (08:47)
[2021-03-08] MEDS: hydroCHLOROthiazide 25 MG TABLET 12.5 MG PO (08:50)
[2021-03-08] MEDS: SERTRALINE 50 MG TABLET 25 MG PO (08:50)
[2021-03-08] MEDS: carvediloL 12.5 MG TABLET 37.5 MG PO ×2 (09:00→20:43)
[2021-03-08] MEDS: ALBUTEROL/IPRATROPIUM 3 ML AMPUL INH ×2 (09:21→20:00)
--- NOTE | 2021-03-08 09:50 | PT.IPTN ---
Current Diagnoses Acute appendicitis with perforation and localized peritonitis, without abscess (03/05/21) Surgery Performed Operation Date: 03/06/21 16:15 Actual Procedures p Laparoscopic Appendectomy - Rd Pizano MD Physical Therapy Treatment Note M2 PT-IP Current Condition Start: 03/07/21 13:27 Freq: NEEDED Status: Active Protocol: Document 03/07/21 11:58 AB (Rec: 03/07/21 13:41 AB [id number]) Physical Therapy Current Condition Current Condition Evaluation Date 03/07/21 Treatment Diagnosis s/p Lap appy; difficulty in walking Onset Date 03/05/21 Precautions Abdominal Surgery Precautions Log Roll,Lifting Restrictions, Gait Belt above Incisional Area M3 PT-IP Subjective Start: 03/07/21 13:27 Freq: NEEDED Status: Active Protocol: Document 03/08/21 09:50 AB (Rec: 03/08/21 11:27 AB [id number]) Subjective Physical Therapy Visit Type Type Treatment Note Visit Start Time 09:50 Visit Stop Time 10:20 Total Visit Minutes 30 Number of SUPERVISOR ERECTION SHOP Visits 0 Physical Therapy Visit Comments Patient Comments agreeable to do PT Therapy Pain Assessment Pain When Pain Assessed At Rest Location Abdomen Scale Used pain scale not stated Pain Management Techniques Modification of Treatment,Re- positioning,Timing of Activity with Medications M4 PT-IP Mobility and Gait Start: 03/07/21 13:27 Freq: NEEDED Status: Active Protocol: Document 03/08/21 09:50 AB (Rec: 03/08/21 11:27 AB [id number]) PT-Bed Mobility Assessment Rolling Type of Rolling Log Rolling Level of Assist Standby Assistance Supine to Sit Supine to Sit Standby Assistance,Head of Bed Elevated PT-Transfer Assessment Sit to and From Stand Sit to and from Stand Contact Guard Assistance,1 Person Assistance,Use of Upper Extremities Equipment Transfer Assistive Device Gait Belt,Front Wheeled Walker Orthotic/Prosthetic Devices or Brace: No Transfers Transfer Destination Chair Transfer Technique ambulated using FWW Transfer Ability Level of Assist Contact Guard Assistance,1 Person Assistance,Use of Upper Extremities Comments Mobility Comments pt stated that he feels tired but agreeable to do PT. Pt completed supine to sit log roll HOB elevated SBA. pt was able to sit on EOB SBA. completed sit to stand CGA and ambulated in room using FWW 45 ft CGA. opted to use FWW today for safety as pt seems to have less energy today. Hgb: 9.1 and Hct of 26.3. O2 sat with O2 on at 94% and BP: 103/56. pt agreed to sit up on chair. positioned on chair. call light and table placed within reach. BP at end of tx session: 104/53 Gait Assessment Gait Gait Assistance Required: Contact Guard Assist Distance (Feet) 45 Able to Maintain Weight Bearing Status Yes During Gait Assistive Devices Assistive Device Gait Belt,Front Wheeled Walker Orthotic/Prosthetic Devices or Brace: No Gait Deviations General Gait Pattern Decreased Stride Length, Decreased Feet Clearance Factors Limiting Gait Function Factors Limiting Gait Function Decreased Activity Tolerance, Decreased Strength,Limited Range of Motion,Pain,Poor Balance,Respiratory Distress Comments Gait Comments pls refer to mobility section for details M5 PT-IP Objective Assessments Start: 03/07/21 13:27 Freq: NEEDED Status: Active Protocol: Document 03/07/21 11:58 AB (Rec: 03/07/21 13:41 AB [id number]) Orientation Orientation/Cognition Level of Alertness Alert Orientation Name,Place,Situation Language Function Ability Hard of Hearing Safety Awareness Understands Safety Issues Memory Description No Deficits Noted Gross Range of Motion Lower Extremity ROM Assessment Within Functional Limits Strength Comments Strength Comments RLE: 4/5 LLE: 4+/5 Coordination Assessment Gross Coordination Gross Coordination WNL Sensation Assessment Sensation Gross Sensation WNL Muscle Tone Muscle Tone WNL Yes M6 PT-IP Treatment Start: 03/07/21 13:27 Freq: NEEDED Status: Active Protocol: Document 03/08/21 09:50 AB (Rec: 03/08/21 11:27 AB [id number]) Physical Therapy Treatment Education Education Provided Precautions,Safety M7 PT-IP Assessment and Plan Start: 03/07/21 13:27 Freq: NEEDED Status: Active Protocol: Document 03/08/21 09:50 AB (Rec: 03/08/21 11:27 AB [id number]) PT Summary Assessment and Plan Potential Rehabilitation Potential Good Summary Impairments Pain,ROM,Strength,Balance, Coordination,Bed Mobility, Transfers,Gait,Activity Tolerance Progress Towards Goals Slow Progress due to Medical Issues,Slow Progress due to Activity Tolerance Assessment Summary pt requiring CGA with mobility and c/o feeling tired. used FWW at this time for safety. pt seems to be doing better yesterday with regards to activity tolerance and mobility compared to today. will need to assess progress during hospital stay for d/c plans but pt plans to go home and spouse to assist him but at this time may require SNF to improve general strength and mobility independence. Goals Bed Mobility Goal Independent Transfer Goal Independent,Front Wheeled Walker Gait Goal Independent,Front Wheel Walker Gait Distance 250 Other Goals LTG: improve transfer without AD mod I; without AD 100 ft without AD mod I up/down 5 steps L rail ascending mod I Days to Meet Goals 5 Frequency of Treatment Frequency Of Treatment Once a Day Treatment Plan Physical Therapy Treatment Plan Bed Mobility Training,Transfer Training,Gait Training, Therapeutic Exercise,Balance Retraining,Post Op Education, Discharge Planning,Hot or Cold Pack,Neuromuscular Re-ed, Coordination Retraining,Manual Therapy Precautions Abdominal Surgery Precautions Log Roll,Lifting Restrictions, Gait Belt above Incisional Area Recommendations To Nursing Amount of Assist Needed 1 Person Assist Discharge Recommendations PT Discharge Recommendations Home vs SNF Transportation Needs at Discharge Private Vehicle,Wheelchair/ Cabulance
--- NOTE | 2021-03-08 12:42 | PC.NURSE ---
Assess- Patient pierson inserted as he was retaining urine. He has had an adequate amount that is dark yellow in pierson bag. Complained of some buring around urethra but this seems to have resolved. Abdomen is distended but softer than this am. He has been up in room ambulating with physical therapy. IVF infusing at 21cc/hr and he is tolerating well. ZELALEM drain in place and putting out ss drainage. just left to go home for a rest and will be back later.
--- NOTE | 2021-03-08 13:00 | CM.DPC ---
DCP: continued: case discussed in Team Rounds, EMR reviewed. Gonzalez catheter is now in place as pt was retaining urine overnight. PT is working with pt again today. Pt is mobilizing at a contact guard assist with FWW. No note from the surgeon yet for today. Pt is post op day 2 from laproscopic appendectomy: appendix perforated and with abscess. (performed 03/06 1t 1500) P: d/c home when medically stable for same expected but DCP team will continue to follow as POC unfolds.
--- NOTE | 2021-03-08 13:06 | PC.NURSE ---
30cc serosanguineous drainage emptied from abdominal drain.
[2021-03-08] MEDS: OXYCODONE IR 5 MG TABLET PO (15:32)
[2021-03-08] MEDS: ACETAMINOPHEN 325 MG TABLET 650 MG PO (15:33)
--- NOTE | 2021-03-08 15:42 | PC.NURSE ---
Addendum entered by Louisa Lou R.N. 03/08/21 21:13: Per Dr. Savage orders, pt's alexander drain was dc'd following emptying 30 cc's serous fluid. Folded 2 x 2 with tegaderm to cover placed against previous drain site. Dulcolax suppository administered. Addendum entered by Louisa Lou R.N. 03/08/21 18:02: Dr. Savage in to see patient. Original Note: Pt awake, alert resting quietly in recliner. 02 @ 3L per nc in place. Pt independent in using I.S. to 1500 and Pickle. Breath sounds are clear throughout. Occasional irregular apical beat with auscultation. Pt admits to passing flatus and denies nausea. Abdomen is distended. Bowel tones are tympanic. Visible steristrip to central abdomen. Alexander drain to left lower abdominal quadrant with old drainage visible and contained within tegaderm dressing. No peripheral edema. Pt admits to right sided abdominal pain, sharp in nature, 5/10 and was medicated as per emar. Taking oral fluids well.
--- NOTE | 2021-03-08 18:02 | P.PN_ITS ---
Subjective Subjective Date Patient Seen: 03/08/21 Time Patient Seen: 18:02 Interval history: The patient is a gentleman who is post an appendectomy 2 days ago. He has stop the small amount of gas but had no bowel movements. He feels a little distended. Pain right now is improved and he feels the best he has in 2 days. Ate better tonight than he has in 2 days. Still on supplemental oxygen. He had to have a Gonzalez placed because he was unable to urinate and had almost 600 cc in his bladder. He has chronic problems with nocturia. He has had a bladder procedure in the past. Exam Vital Signs (past 8 hours): - 03/08/21 11:51 03/08/21 14:00 03/08/21 15:40 Temperature 98.2 F 98.3 F Pulse Rate 83 75 Respiratory Rate 20 16 Blood Pressure 108/57 L 100/54 L Pulse Oximetry 94 90 L 93 Oxygen Delivery Method Nasal Cannula Oxygen Flow Rate 2 Narrative Exam Narrative: Moving air well. Lungs are clear at this time. Abdomen is distended. Drain is draining serous fluid. It is clear. No unusual tenderness. Gonzalez in place. Objective Labs Result Diagrams: 03/08/21 05:14 03/08/21 05:14 Labs: Laboratory Results - last 24 hr 03/08/21 03/08/21 05:14 05:14 WBC 11.2 H RBC 2.87 L Hgb 9.1 L Hct 26.3 L MCV 91.8 MCH 31.8 MCHC 34.6 RDW 14.1 Plt Count 192 Neut % (Auto) 88.0 H Lymph % (Auto) 6.4 L [place] % (Auto) 4.8 Eos % (Auto) 0.6 L Baso % (Auto) 0.2 Neut # (Auto) 9900 H Lymph # (Auto) 700 L [place] # (Auto) 500 Eos # (Auto) 100 Baso # (Auto) 0 Sodium 135 L Potassium 3.4 Chloride 103 Carbon Dioxide 26 BUN 29 H Creatinine 1.80 H Estimated GFR 37.0 L BUN/Creatinine Ratio 16.1 Glucose 148 H Calcium 7.8 L [facility] Medical History Actinic keratosis Acute renal failure (01/09/17) Anemia Atrial fibrillation (~01/2017) James's esophagus BPH (benign prostatic hyperplasia) BPPV (benign paroxysmal positional vertigo) Cataracts, bilateral (~12/2017) CKD (chronic kidney disease) (~12/2017) Coronary artery disease Diabetes Generalized 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 panic attacks Generalized headaches GERD (gastroesophageal reflux disease) History of CVA (cerebrovascular accident) Hyperlipemia (~12/2014) Hypertension half-way current use of anticoagulant therapy Myocardial infarction Pacemaker (01/2017) Surgical History Hx of surgical procedure Hx of tonsillectomy Hx of vasectomy Status post transurethral resection of prostate (03/2014) Family History Father Diabetes mellitus High cholesterol Mother Diabetes mellitus High cholesterol Social History household members: spouse Smoking Status: Former smoker alcohol intake: former Assessment & Plan Post-op Postoperative Procedures: Procedures Operation Date: 03/06/21 16:15 Actual Procedures Side Surgeon p Laparoscopic Appendectomy Rd Pizano MD Postoperative status: doing well Postoperative plan narrative: Will give a suppository to see if we can stimulate bowel function. Drain can probably be removed as it is draining serous material. White blood cell count is 11 but still has a preponderance of segs. Will continue IV antibiotics. Creatinine is up to 1.8. Will watch this cautiously. Repeat labs in the morning. Resume his anticoagulation once the drain is out.
[2021-03-08] MEDS: ATORVASTATIN 20 MG TABLET 80 MG PO (20:41)
[2021-03-08] MEDS: POTASSIUM CHLORIDE 10 MEQ TAB PO (20:42)
[2021-03-08] MEDS: FAMOTIDINE 20 MG TABLET PO (20:42)
[2021-03-08] MEDS: BISACODYL 10 MG SUPP PR (20:45)
[2021-03-08] MEDS: INSULIN NPH 100 UNIT/ML VIAL 6 UNIT SUBCUT (21:40)
[2021-03-08] MEDS: TRAZODONE 50 MG TABLET PO (21:45)
[2021-03-09] VITALS (16 sets, daily range): BP systolic 95–133; BP diastolic 50–64; PULSE 63–89; RESP 16–20; TEMP 36.4–36.9; O2SAT 86–94
[2021-03-09 05:23] LABS: Add Manual Diff / Slide Review NO; Basophils Absolute Auto 0 /uL (0-100); Basophils Percent Auto 0.3 % (0-2); Eosinophils Absolute Auto 400 /uL (0-450); Eosinophils Percent Auto 3.7 % (2-4); Hematocrit 26.2 % (41-53); Hemoglobin 9.2 g/dL (13.5-17.5); Lymphocytes Absolute Auto 800 /uL (1100-4500); Lymphocytes Percent Auto 7.1 % (25-40); Mean Corpuscular HGB Conc 35.1 % (30-36); Mean Corpuscular Hemoglobin 32.1 PG (26-34); Mean Corpuscular Volume 91.5 fL (80-100); Monocytes Absolute Auto 600 /uL (0-900); Monocytes Percent Auto 5.1 % (3-14); Neutrophils Absolute Auto 9200 /uL (1500-7000); Neutrophils Percent Auto 83.8 % (50-75); Platelet Count 214 X10^3/uL (150-400); Red Blood Cell Count 2.86 X10^6/uL (4.5-5.9); Red Cell Distribution Width 14.2 % (11.6-14.8); White Blood Cell Count 10.9 X10^3/uL (4.5-11.0)
[2021-03-09 05:36] LABS: Alanine Aminotransferase 27 IU/L (<50); Albumin 2.8 g/dL (3.5-5.0); Alkaline Phosphatase 57 U/L (38-126); Aspartate Aminotransferase 38 IU/L (17-59); BUN Creatinine Ratio 19.7 (6-22); Bilirubin Total 0.6 mg/dL (0.2-1.3); Blood Urea Nitrogen 35 mg/dL (9-20); Calcium 8.1 mg/dL (8.4-10.2); Carbon Dioxide 26 mmol/L (22-32); Chloride 102 mmol/L (98-107); Estimated Glomerular Filt Rate 37.4 mL/min (>60); Globulin 2.8 g/dL (1.7-4.1); Glucose 194 mg/dL (80-110); HEMOLYSIS < 15 (0-50); Potassium 3.4 mmol/L (3.4-5.1); Sodium 133 mmol/L (137-145); Total Protein 5.6 g/dL (6.3-8.2)
[2021-03-09] MEDS: SODIUM CHLORIDE 0.9% 250 ML 21 ML IV (06:01)
[2021-03-09] MEDS: PIPERACILLIN-TAZO 3.375 GM/50 ML FROZ.PIGGY IV ×3 (06:01→21:24)
[2021-03-09 07:14] LABS: Magnesium 2.1 mg/dL (1.6-2.3)
[2021-03-09] MEDS: AMLODIPINE 5 MG TABLET 10 MG PO (08:53)
[2021-03-09] MEDS: hydroCHLOROthiazide 25 MG TABLET 12.5 MG PO (08:56)
[2021-03-09] MEDS: SERTRALINE 50 MG TABLET 25 MG PO (08:57)
[2021-03-09] MEDS: carvediloL 12.5 MG TABLET 37.5 MG PO ×2 (08:58→21:26)
[2021-03-09] MEDS: INSULIN LISPRO 100 UNIT/ML 3ML VIAL SUBCUT ×4 (09:00→21:32)
[2021-03-09] MEDS: MULTIVIT,CALC,MINS/IRON/FOLIC 1 TABLET 1 TAB PO (09:00)
[2021-03-09] MEDS: ENOXAPARIN 40 MG/0.4 ML SYRINGE SUBCUT (09:01)
[2021-03-09] MEDS: ALBUTEROL/IPRATROPIUM 3 ML AMPUL INH ×2 (09:05→19:46)
--- NOTE | 2021-03-09 10:14 | DI.RAD.S_ITS ---
PROCEDURE: XR CHEST 1V INDICATIONS: O2 dependence TECHNIQUE: One view of the chest was acquired. COMPARISON: [facility], CR, XR CHEST 2V, 10/04/2019, 12:58. [facility], CR, XR CHEST 1V, 06/10/2019, 8:26. [facility], CR, XR CHEST 1V, 03/07/2021, 16:37. FINDINGS: Surgical changes and devices: A pacer device is seen. The leads are seen in stable positions. Lungs and pleura: Lungs are clear. No pleural effusions or pneumothorax. Mediastinum: Mediastinal contours appear normal. Heart size is normal. Bones and chest wall: No suspicious bony lesions. Age-appropriate bony degenerative changes are seen. Overlying soft tissues appear unremarkable. IMPRESSION: Stable chest plain films, without an acute abnormality identified. Dictated by: Fausto Mace M.D. on 03/09/2021 at 9:38 Approved by: Fausto Mace M.D. on 03/09/2021 at 9:38
--- NOTE | 2021-03-09 10:18 | PM.PN.1 ---
Subjective Subjective Date Patient Seen: 03/09/21 Time Patient Seen: 09:30 Interval history: Pt passed a small liquid stool last PM. Passing gas. Tolerating PO. Pulling 2000 on IS. Still on 3L NC. Denies subjective SOB. Still feels bloated. Exam Vital Signs (past 8 hours): - 03/09/21 02:30 03/09/21 04:00 03/09/21 06:18 Temperature 97.9 F Pulse Rate 78 Respiratory Rate 20 Blood Pressure 132/59 L Pulse Oximetry 90 L 90 L 94 03/09/21 07:43 03/09/21 08:58 03/09/21 09:05 Temperature Pulse Rate 78 78 86 Respiratory Rate 16 18 Blood Pressure 130/64 130/64 Pulse Oximetry 91 92 03/09/21 09:31 Temperature Pulse Rate Respiratory Rate Blood Pressure Pulse Oximetry 92 Oxygen Delivery Method Room Air Oxygen Flow Rate 3 Narrative Exam Narrative: GENERAL: Alert, comfortable. Appears stated age. Answers questions promptly and appropriately. Vital signs noted. HENT: Normocephalic, atraumatic. Hearing intact. EYES: Conjunctiva pink, sclera white, no periorbital swelling. CARDIOVASCULAR: Regular rate RESPIRATORY: Non-tachypneic, breathing comfortably on 3L NC. GASTROINTESTINAL: Abdomen soft, mildly distended; appropriate TTP Objective Imaging Chest x-ray: Radiologist's impression: Nothing acute, nothing to explain desat Labs Result Diagrams: 03/09/21 05:16 03/09/21 05:16 Labs: Laboratory Results - last 24 hr 03/09/21 03/09/21 03/09/21 05:16 05:16 05:16 WBC 10.9 RBC 2.86 L Hgb 9.2 L Hct 26.2 L MCV 91.5 MCH 32.1 MCHC 35.1 RDW 14.2 Plt Count 214 Neut % (Auto) 83.8 H Lymph % (Auto) 7.1 L [place] % (Auto) 5.1 Eos % (Auto) 3.7 Baso % (Auto) 0.3 Neut # (Auto) 9200 H Lymph # (Auto) 800 L [place] # (Auto) 600 Eos # (Auto) 400 Baso # (Auto) 0 Sodium 133 L Potassium 3.4 Chloride 102 Carbon Dioxide 26 BUN 35 H Creatinine 1.78 H Estimated GFR 37.4 L BUN/Creatinine Ratio 19.7 Glucose 194 H Calcium 8.1 L Magnesium 2.1 Total Bilirubin 0.6 AST 38 ALT 27 Alkaline Phosphatase 57 Total Protein 5.6 L Albumin 2.8 L Globulin 2.8 Albumin/Globulin Ratio 1.0 PFSH Medical History Actinic keratosis Acute renal failure (01/09/17) Anemia Atrial fibrillation (~01/2017) James's esophagus BPH (benign prostatic hyperplasia) BPPV (benign paroxysmal positional vertigo) Cataracts, bilateral (~12/2017) CKD (chronic kidney disease) (~12/2017) Coronary artery disease Diabetes Generalized 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 panic attacks Generalized headaches GERD (gastroesophageal reflux disease) History of CVA (cerebrovascular accident) Hyperlipemia (~12/2014) Hypertension [facility] current use of anticoagulant therapy Myocardial infarction Pacemaker (01/2017) Surgical History Hx of surgical procedure Hx of tonsillectomy Hx of vasectomy Status post transurethral resection of prostate (03/2014) Family History Father Diabetes mellitus High cholesterol Mother Diabetes mellitus High cholesterol Social History household members: spouse Smoking Status: Former smoker alcohol intake: former Assessment & Plan Assessment and plan (1) Hypoxia: Status: Acute (2) Abdominal distension: Status: Acute (3) S/P appendectomy: Status: Acute (4) BETO (acute kidney injury): Status: Acute (5) Hypokalemia: Status: Acute (6) Type 2 diabetes mellitus with diabetic nephropathy, with long-term current use of insulin: Status: Chronic (7) Paroxysmal atrial fibrillation: Status: Chronic (8) Anticoagulated on Coumadin: Status: Acute (9) Urinary retention: Status: Acute Assessment & Plan narrative: 76 yo man POD#3 s/p appendectomy. Leukocytosis has resolved. Continuing abx due to abscess in OR. Will go home on abx per Dr. Pizano. He is not weaning off O2. CXR unimpressive. Will get echo to eval for cardiac cause. Pierson still in place due to urinary retention. Starting flomax today. Passing gas and small amount of stool. Still distended. Will increase bowel regimen and ambulation as much as possible. Will need O2 tank. Plan: zosyn cont for abscess cxr -- done, normal echo ordered starting coumadin today increasing bowel regimen ambulate as much as tolerated keep pierson today start flomax remove pierson tomorrow dispo pending tolerates PO, passing stool, and weans off O2 Quality VTE Deep Vein Thrombosis/Pulmonary Embolism Present on Admission: No
[2021-03-09] MEDS: polyethylene glycoL 3350 17 GM POWD.PACK PO ×2 (10:50→21:27)
[2021-03-09] MEDS: TAMSULOSIN 0.4 MG CAPSULE PO (10:50)
--- NOTE | 2021-03-09 11:49 | DI.ECHO.S_ITS ---
[facility]---------+ [facility] +---------+ : : [address] : : : : [id number] : : : : Phone: [phone] Echocardiogram Report + + :Name: ZARI BABCOCK Study Date: 03/09/2021 Height: 69 in : :[facility] ReadingLocation: Weight: 155 lb : : Gender: Male BSA: 1.9 m2 : :: 1945 Age: 76 yrs BP: 133/62 mmHg: :Reason For Study: SOB : :Ordering Physician: SHERITA, : :LUCILLE Performed By: Tutu Mcwilliams : :Referring: LUCILLE MAGALLON : + + Interpretation Summary Limited Echo: 1) Normal left ventricular size, thickness, wall motion, and systolic function (EF 60-65%). 2) Normal right ventricular size and function. There is a pacemaker lead in the right ventricle. 3) The right ventricular systolic pressure is estimated to be at least 31 mmHg based on an estimated right atrial pressure of 3 mm Hg. 4) Compared to the Echo done 02/20/2021, no significant change. Procedure: A two-dimensional transthoracic echocardiogram with color flow and Doppler was performed in limited views only. The study quality was technically adequate. Comparison is made with the echocardiogram of 02/20/2021. Left Ventricle: The left ventricle is normal in size and wall thickness. Left ventricular systolic function is normal. The ejection fraction is estimated to be 60-65%. There are no focal wall motion abnormalities. Right Ventricle: The right ventricle is normal in size and function. There is a pacemaker lead in the right ventricle. Tricuspid Valve: The tricuspid valve is normal in structure and function. There is mild tricuspid regurgitation. The right ventricular systolic pressure is estimated to be at least 31 mmHg based on an estimated right atrial pressure of 3 mm Hg. Great Vessels: The IVC is of normal diameter and collapses greater than 50% with a sniff. This suggests a low right atrial pressure of 3 mm Hg. Pericardium/ Pleura There is no pericardial effusion. There is no pleural effusion. MMode/2D Measurements & Calculations LVIDd: 5.1 cm TAPSE: 2.1 cm LVIDs: 3.0 cm FS: 40.0 % IVSd: 1.0 cm LVPWd: 0.87 cm LV parker. diameter/BSA (cm/m^2): 2.7 LV sys. diameter/BSA (cm/m^2): 1.6 Doppler Measurements & Calculations TR max alf: 266.3 cm/sec TR max P.4 mmHg Reading Physician:01:59 PM
--- NOTE | 2021-03-09 11:57 | PC.NURSE ---
Addendum entered by Johana Larry R.N. 03/09/21 14:05: Patient up to the hallway, desats to 86% on 3 liters, patiently is currently on 6 liters in the hallway to maintain 92-93% and feels short of breath and a little light headed. Addendum entered by Johana Larry R.N. 03/09/21 12:51: Patient is now complaining about abdominal pain 05/11, patient is complaining that enamel applier had really pushed on abdomen and now it is really painful. Addendum entered by Johana Larry R.N. 03/09/21 12:31: Patient has abdominal pain 01/09, denies intervention, denies nausea, he's passing gas, bowel tones are hypoactive in all quadrants. Original Note: Patient continues to have low O2 saturation off of oxygen. Patient is currently only 3 liters O2 [place] was up ambulating in the [place] w/ O2 on 3 liters and was at 89-91% while ambulating. Lung sounds are coarse throughout and Dim in the bases, he has a moist cough that is non-productive. Patient has been encouraged to do deep breathing, cough, incentive spirometer and flutter valve. Patient has been encouraged to ambulate. Dr. Johnson aware of patient progress.
[2021-03-09] MEDS: HYDROMORPHONE 0.5 MG INJ IV (12:50)
[2021-03-09] MEDS: ACETAMINOPHEN 325 MG TABLET 650 MG PO (12:50)
--- NOTE | 2021-03-09 13:35 | PT-IP ANOTE ---
Pt refused mobility x2 today. Pt states he is not feeling well today and had walked with nursing this morning, if feeling better later he states he will walk with nursing later.
--- NOTE | 2021-03-09 15:27 | DI.CT.S_ITS ---
PROCEDURE: CT ANGIO CHEST PE PROTOCOL INDICATIONS: hypoxia post op, PE TECHNIQUE: After the administration of intravenous contrast, 2 mm thick sections acquired from the pulmonary apices to the posterior costophrenic angles. 3-dimensional maximum intensity projection (MIP) coronal and sagittal reformats were then acquired through the thorax. For radiation dose reduction, the following was used: automated exposure control, adjustment of mA and/or kV according to patient size. COMPARISON: [facility], CT, CT ABDOMEN PELVIS WO CON, 03/05/2021, 8:43. [facility], CR, XR CHEST 1V, 03/09/2021, 10:17. [facility], CR, XR CHEST 1V, 03/07/2021, 16:37. FINDINGS: Image quality: Excellent. Pulmonary arteries: Pulmonary arteries are normal in size, and demonstrate no intraluminal filling defects to suggest central pulmonary embolism. Lungs and pleura: Small bilateral pleural effusions are seen. Dependent enhancing consolidation can be seen at both lung bases, which is attributed to atelectasis. There is no pneumothorax. The central airways are patent. Mediastinum: Heart size is normal, without pericardial effusion. AICD leads are seen. Borderline prominent mediastinal lymph nodes are seen, without melissa enlargement. Thoracic aorta is normal in caliber and enhancement. Esophagus is normal in caliber. There is a small to moderate hiatal hernia. Bones and chest wall: No suspicious bony lesions. Ribs and thoracic spine appear intact throughout. At least moderate degenerative changes are seen. Thyroid gland demonstrates no significant abnormality. No axillary or supraclavicular adenopathy. Abdomen: A mild amount of ascites is seen within the upper abdomen. Oral contrast can be seen within the colon. The visualized portions of the upper abdominal structures are otherwise unremarkable for imaging technique. IMPRESSION: Negative for pulmonary embolism. Small bilateral pleural effusions are seen, with overlying atelectasis. Borderline prominent lymph nodes are seen. Mild ascites noted. Incidental note is made of: AICD Small to moderate hiatal hernia Dictated by: Fausto Mace M.D. on 03/09/2021 at 15:59 Approved by: Fausto Mace M.D. on 03/09/2021 at 16:03
--- NOTE | 2021-03-09 15:53 | P.CONS_ITS ---
History of Present Illness Consult details Date Patient Seen: 03/09/21 Time Patient Seen: 15:53 Chief complaint: FEVER 10.5 LAST NIGHT RIGHT SIDE PAIN Reason for consult: hypoxia Requesting provider: Chinyere Johnson Narrative: This is a 76-year-old male with a past medical history of paroxysmal AFib, previous high-degree block status post pacemaker, hypertension, type 2 diabetes, prior CVA and reported NC (normal stress testing recently, no stents) who was admitted on March 05 with acute appendicitis. On March 06 the patient underwent laparoscopic appendectomy and has been requiring oxygen since. On March 07 that appears he got a dose of Lasix, 40 mg which did not seemingly help his oxygenation. He then developed a slight BETO with creatinine jumping to 1.8. Chest x-ray shows no acute pathologies. Limited echocardiogram today performed shows an EF of 60-65% without focal wall motion abnormalities and a normal right atrial pressure consistent with no acute volume overload. EKG on 03/06 showed sinus rhythm with no evidence of ischemia. EKG performed today shows atrial fibrillation with occasional ventricularly paced complexes, there is no acute morphology changes compared to his prior tracings when not paced. The patient today does complain of a slightly worsened abdominal pain after echocardiogram, he denies any nausea or vomiting and does not feel that short of breath currently. He denies any chest pain, palpitations, diaphoresis, chest pressure or left arm or neck pain. He last took his warfarin on 03/04. He has been on heparin 5000 units twice a day. Patient had been smoking marijuana daily for approximately the past 15 years, he states he would like to stop after this hospitalization. The remainder of his vital signs are unremarkable. Imaging is as discussed above. CBC today shows no leukocytosis, mild but stable anemia, creatinine of 1.78 improved slightly from 1.80 yesterday. Glucose was 194. He also has a mildly low total protein and albumin. CT PE protocol was ordered, currently pending Meds Home Medications and Allergies Home Medications Medication Instructions Recorded Confirmed Type ferrous sulfate 27 mg PO DAILY #0 01/19/13 03/05/21 History cinnamon bark [Cinnamon] 1,000 mg PO BID #0 08/25/16 03/05/21 History ascorbic acid (vitamin C) 500 mg PO DAILY #0 12/16/17 03/05/21 History glucometer #1 ea 05/06/18 03/05/21 Rx Accu-chek Softclix Lancets #100 each 12/29/18 03/05/21 Rx potassium chloride 10 mEq 10 meq PO BEDTIME 05/17/19 03/05/21 History capsule,extended release Syringes: Ultra Fine Insulin #100 each 01/10/20 03/05/21 Rx Syringe w/Needle [place] #200 each 09/12/20 03/05/21 Rx trazodone 50 mg tablet 50 mg PO BEDTIME #90 tab 09/26/20 03/05/21 Rx carvedilol 25 mg tablet 37.5 mg PO BID #270 tab 12/20/20 03/05/21 Rx lorazepam 0.5 mg tablet See Rx Instructions .ROUTE 12/27/20 03/05/21 Rx .COMPLEX #30 tab Glucose: Test Strips #200 each 01/29/21 03/05/21 Rx hydrochlorothiazide 25 mg tablet 12.5 mg PO DAILY tab 02/19/21 03/05/21 History Humulin N NPH Insulin KwikPen 6 unit SUBCUT BEDTIME 03/05/21 03/05/21 History Humulin N NPH Insulin KwikPen 24 unit SUBCUT QAM 03/05/21 03/05/21 History Humulin R Regular U-100 Insuln 4 - 9 unit SUBCUT AC 03/05/21 03/05/21 History amlodipine 10 mg PO BEDTIME 03/05/21 03/05/21 History atorvastatin 80 mg PO BEDTIME 03/05/21 03/05/21 History tivgkvk-wkcvkfhwp-zloc 1 tab PO BEDTIME 03/05/21 03/05/21 History famotidine 20 mg PO BEDTIME 03/05/21 03/05/21 History glucosamine sulfate [Glucosamine] 2,000 mg PO BID 03/05/21 03/05/21 History losartan 100 mg PO DAILY 03/05/21 03/05/21 History multivitamin 1 tab PO DAILY 03/05/21 03/05/21 History omega 6-tsj-nvb-fish oil [Fish Oil] 1 cap PO BID 03/05/21 03/05/21 History sertraline 25 mg PO DAILY 03/05/21 03/05/21 History warfarin 5 mg PO DAILY 03/05/21 03/05/21 History amoxicillin-pot clavulanate 1 tab PO BID #14 tab 03/07/21 Rx [Augmentin] oxycodone 5 mg PO Q8H PRN #30 tab 03/07/21 Rx Allergies Allergy/AdvReac Type Severity Reaction Status Date / Time ciprofloxacin [CIPROFLOXACIN] Allergy Intermediate Dizzy, Verified 02/19/21 11:29 constipation, lightheaded, bad dreams, joint pain atenolol [ATENOLOL] Allergy Mild Lightheaded Verified 02/19/21 11:29 and nausea regadenoson [From Lexiscan] Allergy disorented Verified 02/19/21 11:29 and agitated Review of Systems Review of Systems Narrative: All other systems reviewed with the patient and are negative unless otherwise stated. Exam Vital Signs (past 8 hours): - 03/09/21 08:58 03/09/21 09:05 03/09/21 09:31 Temperature Pulse Rate 78 86 Respiratory Rate 18 Blood Pressure 130/64 Pulse Oximetry 92 92 03/09/21 10:00 03/09/21 11:03 03/09/21 14:00 Temperature 97.6 F Pulse Rate 89 Respiratory Rate 17 Blood Pressure 133/62 Pulse Oximetry 92 91 92 Oxygen Delivery Method Nasal Cannula Oxygen Flow Rate 3 Narrative Exam Narrative: GENERAL APPEARANCE: Well developed, well nourished, in no acute distress. Nasal cannulae in place. SKIN: Inspection of the skin reveals no rashes, ulcerations or petechiae. HEENT: Normocephalic atraumatic, extraocular muscles are intact, oropharynx is clear and mucous membranes are moist, neck is supple without adenopathy NECK: Supple and symmetric. There was no thyroid enlargement, and no tenderness, or masses were felt. CHEST: Normal AP diameter and normal contour without any kyphoscoliosis. LUNGS: Auscultation of the lungs revealed diminished breath sounds at the bilateral lung bases with no overt wheezes, rhonchi, rales CARDIOVASCULAR: There was a regular rate and rhythm without any murmurs, gallops, rubs. Peripheral pulses were 2+ and symmetric. ABDOMEN: Soft, mildly distended, appropriately tender over surgical incisions which appear clear dry and intact. MUSCULOSKELETAL: There was no tenderness or effusions noted. Muscle strength and tone were normal. EXTREMITIES: No cyanosis, clubbing or edema. NEUROLOGIC: Alert and oriented x 3. Normal affect. Patient was seen ambulating with assistance earlier in the day slowly with physical therapy. Strength is +5/5 in the Upper Extremities and Lower Extremities Bilaterally. Objective ECG Impression: atrial fibrillation with occasional ventricularly paced complexes, there is no acute morphology changes compared to his prior tracings when not paced. Imaging Chest x-ray: My impression: No acute pathology, pacemaker in place. Radiologist's impression: PROCEDURE: XR CHEST 1V INDICATIONS: O2 dependence TECHNIQUE: One view of the chest was acquired. COMPARISON: [facility], CR, XR CHEST 2V, 10/04/2019, 12:58. [facility], CR, XR CHEST 1V, 06/10/2019, 8:26. [facility], CR, XR CHEST 1V, 03/07/2021, 16:37. FINDINGS: Surgical changes and devices: A pacer device is seen. The leads are seen in stable positions. Lungs and pleura: Lungs are clear. No pleural effusions or pneumothorax. Mediastinum: Mediastinal contours appear normal. Heart size is normal. Bones and chest wall: No suspicious bony lesions. Age-appropriate bony dege nerative changes are seen. Overlying soft tissues appear unremarkable. IMPRESSION: Stable chest plain films, without an acute abnormality identified. Labs Result Diagrams: 03/09/21 05:16 03/09/21 05:16 Labs: Laboratory Results - last 24 hr 03/09/21 03/09/21 03/09/21 05:16 05:16 05:16 WBC 10.9 RBC 2.86 L Hgb 9.2 L Hct 26.2 L MCV 91.5 MCH 32.1 MCHC 35.1 RDW 14.2 Plt Count 214 Neut % (Auto) 83.8 H Lymph % (Auto) 7.1 L [place] % (Auto) 5.1 Eos % (Auto) 3.7 Baso % (Auto) 0.3 Neut # (Auto) 9200 H Lymph # (Auto) 800 L [place] # (Auto) 600 Eos # (Auto) 400 Baso # (Auto) 0 Sodium 133 L Potassium 3.4 Chloride 102 Carbon Dioxide 26 BUN 35 H Creatinine 1.78 H Estimated GFR 37.4 L BUN/Creatinine Ratio 19.7 Glucose 194 H Calcium 8.1 L Magnesium 2.1 Total Bilirubin 0.6 AST 38 ALT 27 Alkaline Phosphatase 57 Total Protein 5.6 L Albumin 2.8 L Globulin 2.8 Albumin/Globulin Ratio 1.0 Assessment & Plan Assessment & Plan narrative: This is a 76-year-old male with a past medical history of paroxysmal AFib, previous high-degree block status post pacemaker, hypertension, type 2 diabetes, prior CVA and reported NC (normal stress testing recently, no stents) who was admitted on March 05 with acute appendicitis. On March 06 the patient underwent laparoscopic appendectomy and has been requiring oxygen since, Medicine was consulted today, 03/09, for persistent hypoxia. 1. Acute hypoxemic respiratory failure, present on admission -differential at this time includes atelectasis secondary to pain from abdominal procedure and mild distension, other etiologies include possible aspiration or pulmonary embolism, or EBONY as spouse reports worsened hypoxia when asleep. Suspect etiology multifactorial due to combination of these if CT angio is negative for PE. -have ordered CT angiogram PE protocol to help further delineate the etiology of his hypoxia currently. -there is no current evidence of volume overload or heart failure based on echocardiogram results with an EF of 60-65% and a normal right atrial pressure. Giving him Lasix previously during his hospital course only seemed to cause a mild BETO. -EKG shows no evidence of acute ischemia and patient is without chest pain, ACS is unlikely at this time. His anemia with a hemoglobin of 9.2 is not likely sufficient enough to cause over hypoxia. 2. Paroxysmal atrial fibrillation, history of high-degree block with permanent pacemaker -patient is currently rate controlled 3. Acute kidney injury, not present on admission -likely in the setting of acute infection and dehydration. He currently appears euvolemic and his creatinine slightly improved today. Do not recommend fluids at this time, but will continue to monitor closely after CT angiogram. 4. Hypertension, chronic -continue home medications 5. Type 2 diabetes, chronic -patient is on NPH at home, 24 AM and 6 PM. Will change to lantus therapy in the hospital, start with 10 units tonight for longer acting coverage. May need to re-initiate meal time coverage depending on diet and blood sugars tomorrow. 6. Acute appendicitis status post appendectomy - General surgery managing. 7. Acute blood loss anemia - suspect secondary to procedure. Transfuse for Hg <7. Code: Full, surrogate decision maker is the patient's spouse DVT ppx: on HSQ Medicine will continue to follow this patient. Please contact hospitalist team with any questions.
[2021-03-09] MEDS: WARFARIN 5 MG TABLET PO (16:59)
[2021-03-09] MEDS: OXYCODONE IR 5 MG TABLET PO (18:12)
[2021-03-09] MEDS: ATORVASTATIN 20 MG TABLET 80 MG PO (21:25)
[2021-03-09] MEDS: POTASSIUM CHLORIDE 10 MEQ TAB 20 MEQ PO (21:25)
[2021-03-09] MEDS: FAMOTIDINE 20 MG TABLET PO (21:25)
[2021-03-09] MEDS: TRAZODONE 50 MG TABLET PO (21:25)
[2021-03-09] MEDS: SENNOSIDES 8.6 MG TABLET 17.2 MG PO (21:26)
[2021-03-09] MEDS: INSULIN GLARGINE 100 UNIT/ML 3ML PEN 10 UNIT SUBCUT (21:33)
[2021-03-09] MEDS: SODIUM CHLORIDE 0.9% FLUSH 10 ML IV (21:35)
[2021-03-10] VITALS (17 sets, daily range): BP systolic 130–162; BP diastolic 59–85; PULSE 67–90; RESP 15–20; TEMP 36.4–37.2; O2SAT 92–97
[2021-03-10 06:13] LABS: BUN Creatinine Ratio 17.3 (6-22); Blood Urea Nitrogen 26 mg/dL (9-20); Calcium 8.5 mg/dL (8.4-10.2); Carbon Dioxide 28 mmol/L (22-32); Chloride 103 mmol/L (98-107); Estimated Glomerular Filt Rate 45.6 mL/min (>60); Glucose 177 mg/dL (80-110); HEMOLYSIS < 15 (0-50); Magnesium 2.1 mg/dL (1.6-2.3); Potassium 3.5 mmol/L (3.4-5.1); Sodium 136 mmol/L (137-145)
[2021-03-10 06:25] LABS: Hematocrit 28.5 % (41-53); Hemoglobin 9.9 g/dL (13.5-17.5); Mean Corpuscular HGB Conc 34.7 % (30-36); Mean Corpuscular Hemoglobin 31.8 PG (26-34); Mean Corpuscular Volume 91.7 fL (80-100); Platelet Count 251 X10^3/uL (150-400); Red Blood Cell Count 3.11 X10^6/uL (4.5-5.9); Red Cell Distribution Width 13.9 % (11.6-14.8); White Blood Cell Count 10.6 X10^3/uL (4.5-11.0)
[2021-03-10] MEDS: PIPERACILLIN-TAZO 3.375 GM/50 ML FROZ.PIGGY IV ×3 (06:27→21:38)
[2021-03-10 06:52] LABS: Add Manual Diff / Slide Review NO; Basophils Percent Auto 0.2 % (0-2); Eosinophils Absolute Auto 300 /uL (0-450); Lymphocytes Absolute Auto 1000 /uL (1100-4500); Lymphocytes Percent Auto 9.5 % (25-40); Monocytes Absolute Auto 800 /uL (0-900); Monocytes Percent Auto 7.3 % (3-14); Neutrophils Absolute Auto 8500 /uL (1500-7000)
[2021-03-10 06:53] LABS: Basophils Absolute Auto 0 /uL (0-100)
[2021-03-10] MEDS: ALBUTEROL/IPRATROPIUM 3 ML AMPUL INH ×2 (07:35→20:12)
--- NOTE | 2021-03-10 08:30 | CM.DPC ---
DCP Cont: Checked in with patient and , Chante. Introduced self and role. Confirmed with and patient that home is the plan. indicated, she can take care of him. They both reside outside of [place]. Patient is still requiring oxygen, goal is to get him off the oxygen before he goes home. Mentioned home health to spouse, but stated, I don't think we need it. P: DCP to continue to check in. At this time, home is the plan when he is medically stable. Antionette Amador RN/Wire [employer]
[2021-03-10] MEDS: INSULIN LISPRO 100 UNIT/ML 3ML VIAL SUBCUT ×4 (09:07→20:57)
[2021-03-10] MEDS: SERTRALINE 50 MG TABLET 25 MG PO (09:08)
[2021-03-10] MEDS: HEPARIN 5,000 UNIT/ML VIAL 5000 UNIT SUBCUT ×2 (09:08→20:47)
[2021-03-10] MEDS: hydroCHLOROthiazide 25 MG TABLET 12.5 MG PO (09:08)
[2021-03-10] MEDS: carvediloL 12.5 MG TABLET 37.5 MG PO ×2 (09:08→20:48)
[2021-03-10] MEDS: polyethylene glycoL 3350 17 GM POWD.PACK PO ×2 (09:08→20:46)
[2021-03-10] MEDS: AMLODIPINE 5 MG TABLET 10 MG PO (09:09)
[2021-03-10] MEDS: TAMSULOSIN 0.4 MG CAPSULE PO (09:09)
[2021-03-10] MEDS: MULTIVIT,CALC,MINS/IRON/FOLIC 1 TABLET 1 TAB PO (09:09)
--- NOTE | 2021-03-10 10:39 | PM.PN.1 ---
Subjective Subjective Date Patient Seen: 03/10/21 Time Patient Seen: 09:30 Interval history: Negative echo and PE CT. Worked with PT and RT. Feels less distended. Tolerating PO and passing gas and stool. Exam Vital Signs (past 8 hours): - 03/10/21 05:35 03/10/21 06:00 03/10/21 07:35 Temperature 97.5 F L Pulse Rate 82 67 Respiratory Rate 18 16 Blood Pressure 135/66 Pulse Oximetry 95 93 96 03/10/21 08:00 03/10/21 09:08 03/10/21 10:00 Temperature 97.7 F Pulse Rate 73 73 Respiratory Rate 15 Blood Pressure 133/74 133/74 Pulse Oximetry 94 94 Oxygen Delivery Method Nasal Cannula Oxygen Flow Rate 2 Narrative Exam Narrative: GEN: appears fatigued HENT: Normocephalic, atraumatic. Hearing intact. EYES: Conjunctiva pink, sclera white, no periorbital swelling. CARDIOVASCULAR: Regular rate RESPIRATORY: Non-tachypneic, breathing comfortably on 2L NC. GASTROINTESTINAL: Abdomen soft, mildly distended, improved from yesterday, dressings c/d/i; appropriate TTP Objective Imaging Echo: Radiologist's impression: Unchanged from January, EF 60-65% CT scan - chest: Radiologist's impression: No PE. +atelectasis, small pleural effusions Labs Result Diagrams: 03/10/21 05:43 03/10/21 05:43 Labs: Laboratory Results - last 24 hr 03/10/21 03/10/21 05:43 05:43 WBC 10.6 RBC 3.11 L Hgb 9.9 L Hct 28.5 L MCV 91.7 MCH 31.8 MCHC 34.7 RDW 13.9 Plt Count 251 Neut % (Auto) 80.0 H Lymph % (Auto) 9.5 L [place] % (Auto) 7.3 Eos % (Auto) 3.0 Baso % (Auto) 0.2 Neut # (Auto) 8500 H Lymph # (Auto) 1000 L [place] # (Auto) 800 Eos # (Auto) 300 Baso # (Auto) 0 Total Counted Cancelled Seg Neutrophils % Cancelled Band Neutrophils % Cancelled Lymphocytes % (Manual) Cancelled Atypical Lymphs % Cancelled Monocytes % (Manual) Cancelled Eosinophils % (Manual) Cancelled Basophils % (Manual) Cancelled Metamyelocytes % Cancelled Myelocytes % Cancelled Promyelocytes % Cancelled Blast Cells % Cancelled Neutrophils # (Manual) Cancelled Nucleated RBCs Cancelled Differential Comment Cancelled Hypersegmented Neuts Cancelled Reactive Lymphocytes Cancelled Plasma Cells Cancelled Smudge Cells Cancelled Other Cell Type Cancelled Toxic Granulation Cancelled Toxic Vacuolation Cancelled Dohle Bodies Cancelled Monet Rods Cancelled WBC Morphology Comment Cancelled Platelet Estimate Cancelled Clumped Platelets Cancelled Plt Morphology Comment Cancelled RBC Morphology Cancelled Dimorphic RBCs Cancelled Polychromasia Cancelled Hypochromasia Cancelled Poikilocytosis Cancelled Basophilic Stippling Cancelled Anisocytosis Cancelled Microcytosis Cancelled Macrocytosis Cancelled Spherocytes Cancelled Pappenheimer Bodies Cancelled Sickle Cells Cancelled Target Cells Cancelled Tear Drop Cells Cancelled Ovalocytes Cancelled Stomatocytes Cancelled Helmet Cells Cancelled [place] Bodies Cancelled [place] Rings Cancelled Quang Cells Cancelled Acanthocytes (Spur) Cancelled Rouleaux Cancelled Schistocytes Cancelled Sodium 136 L Potassium 3.5 Chloride 103 Carbon Dioxide 28 BUN 26 H Creatinine 1.50 H Estimated GFR 45.6 L BUN/Creatinine Ratio 17.3 Glucose 177 H Calcium 8.5 Magnesium 2.1 PFSH Medical History Actinic keratosis Acute renal failure (01/09/17) Anemia Atrial fibrillation (~01/2017) James's esophagus BPH (benign prostatic hyperplasia) BPPV (benign paroxysmal positional vertigo) Cataracts, bilateral (~12/2017) CKD (chronic kidney disease) (~12/2017) Coronary artery disease Diabetes Generalized 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 panic attacks Generalized headaches GERD (gastroesophageal reflux disease) History of CVA (cerebrovascular accident) Hyperlipemia (~12/2014) 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 Myocardial infarction Pacemaker (01/2017) Surgical History Hx of surgical procedure Hx of tonsillectomy Hx of vasectomy Status post transurethral resection of prostate (03/2014) Family History Father Diabetes mellitus High cholesterol Mother Diabetes mellitus High cholesterol Social History household members: spouse Smoking Status: Former smoker alcohol intake: former Assessment & Plan Assessment and plan (1) Hypoxia: Status: Acute (2) Abdominal distension: Status: Acute (3) S/P appendectomy: Status: Acute (4) BETO (acute kidney injury): Status: Acute (5) Hypokalemia: Status: Acute (6) Type 2 diabetes mellitus with diabetic nephropathy, with long-term current use of insulin: Status: Chronic (7) Paroxysmal atrial fibrillation: Status: Chronic (8) Anticoagulated on Coumadin: Status: Acute (9) Urinary retention: Status: Acute Assessment & Plan narrative: 76 yo man POD#4 s/p appendectomy with abscess. He remains in the hospital because he has not been able to wean off of O2. Echo and PE CT were done yesterday, and ruled out cardiac decompensation or PE. RT worked with patient and he has improved somewhat, although he is still on 2L NC. Will continue RT today. Plan on dispo as soon as he can wean off of O2. Otherwise he will need to go home on O2. Continue IV abx while he is here because of abdominal abscess. Will put on oral abx at discharge. Pierson removed today after 2x flomax. If pt has urine retention, will need to go home with pierson/leg bag. Started coumadin yesterday. Will check INR in AM. Plan: zosyn cont for abscess ambulate as much as tolerated cont flomax RT, wean O2 cont coumadin labs tomorrow reg diet bowel reg as needed dispo pending weans off O2 Quality VTE Deep Vein Thrombosis/Pulmonary Embolism Present on Admission: No
--- NOTE | 2021-03-10 14:33 | PC.NURSE ---
Addendum entered by Johana Larry R.N. 03/10/21 14:57: Patient worked w/ RT and now lung sounds are coarse throughout. Patient doing breathing treatments with RT. Original Note: Patient stated that he is feeling better today. Patient's O2 saturations have been better on 1-2 liters, trial of room air showed that patient staid at 93%, when patient got up to go to back to bed he felt like it was tougher to get air in and his O2 saturation went down to 89% on ambulation. Gonzalez came out today and so far there has been 150cc of urine out after it was removed. He had a moderate loose BM today, bowel tones are hypoactive and incisions are intact. Patient is being encouraged to use IS and flutter valve.
[2021-03-10] MEDS: ALBUTEROL 2.5 MG/3 ML NEB (ADULT) INH (14:38)
[2021-03-10] MEDS: ACETAMINOPHEN 325 MG TABLET 650 MG PO (15:38)
[2021-03-10] MEDS: OXYCODONE IR 5 MG TABLET PO (15:38)
--- NOTE | 2021-03-10 15:52 | PC.NURSE ---
Addendum entered by Louisa Lou R.N. 03/10/21 22:42: Positions self independently in bed. Resting quietly with eyes closed without signs of distress or discomfort. Addendum entered by Louisa Lou R.N. 03/10/21 21:19: R.T. in with pt performing chest physiology. Pt denies need for pain meds. Positions self in bed. Meds administered as per emar. Encouraged to call for needs. Bed alarm in place overnight. Addendum entered by Louisa Lou R.N. 03/10/21 16:26: P.T. aide in to see patient and mobilize pt around room with walker and oxygen in place @ 1L per nc. Returned to bed and Dr. Otoole in to see patient and turns off pt's oxygen and converses with pt. Oxygen level on room air 92-93%. Original Note: Pt requests pain medications for c/o headache 04/11 and abdominal post surgical pain 03/11. Pt reports headache began after R.T. treatments. Administered oxycodone and tylenol after discussion with pt. BL calf scd's in place. Pt denies nausea. Bowel tones are rare with greater activity to left quadrants than right. Abdomen is distended. Pt is belching. Able to void per urinal without difficulty. Positions self independently in bed. Compliant with deep breathing and lung exercises. 1L 02 per NC with continuous pulse oximeter in place; 93-94%.
--- NOTE | 2021-03-10 16:02 | P.PN_ITS ---
Subjective Subjective Date Patient Seen: 03/10/21 Time Patient Seen: 16:02 Interval history: This is a 76-year-old gentleman admitted for acute appendicitis with multiple medical comorbidities. Medicine was consulted for hypoxia yesterday. CT angiogram was negative for PE but does show atelectasis. His oxygenation is much improved today down to 1-2 L. He was able to work with physical therapy and afterward today he was maintaining O2 sats between 92-93% on room air. He is passing gas, had 2 bowel movements, and feels less distended. Denies chest pain, chest pressure, cough, lower extremity edema today. Does feel weak and mildly short of breath, but improving. Exam Vital Signs (past 8 hours): - 03/10/21 09:08 03/10/21 10:00 03/10/21 12:00 Temperature 98 F Pulse Rate 73 71 Respiratory Rate 16 Blood Pressure 133/74 130/71 Pulse Oximetry 94 96 03/10/21 14:00 03/10/21 14:40 03/10/21 15:29 Temperature 99.0 F Pulse Rate 67 68 Respiratory Rate 16 20 Blood Pressure 133/59 L Pulse Oximetry 94 97 96 Oxygen Delivery Method Nasal Cannula Oxygen Flow Rate 2 Narrative Exam Narrative: GENERAL APPEARANCE: Well developed, well nourished, in no acute distress. Nasal cannulae in place. SKIN: Inspection of the skin reveals no rashes, ulcerations or petechiae. HEENT: Normocephalic atraumatic, extraocular muscles are intact, oropharynx is clear and mucous membranes are moist, neck is supple without adenopathy NECK: Supple and symmetric. There was no thyroid enlargement, and no tenderness, or masses were felt. CHEST: Normal AP diameter and normal contour without any kyphoscoliosis. LUNGS: Auscultation of the lungs revealed diminished breath sounds at the bilateral lung bases with no overt wheezes, rhonchi, rales CARDIOVASCULAR: There was a regular rate and rhythm without any murmurs, gallops, rubs. Peripheral pulses were 2+ and symmetric. ABDOMEN: Soft, mildly distended, appropriately tender over surgical incisions which appear clear dry and intact. MUSCULOSKELETAL: There was no tenderness or effusions noted. Muscle strength and tone were normal. EXTREMITIES: No cyanosis, clubbing or edema. NEUROLOGIC: Alert and oriented x 3. Normal affect. Patient was seen ambulating with assistance earlier in the day slowly with physical therapy. Strength is +5/5 in the Upper Extremities and Lower Extremities Bilaterally. Objective Labs Result Diagrams: 03/10/21 05:43 03/10/21 05:43 Labs: Laboratory Results - last 24 hr 03/10/21 03/10/21 05:43 05:43 WBC 10.6 RBC 3.11 L Hgb 9.9 L Hct 28.5 L MCV 91.7 MCH 31.8 MCHC 34.7 RDW 13.9 Plt Count 251 Neut % (Auto) 80.0 H Lymph % (Auto) 9.5 L [place] % (Auto) 7.3 Eos % (Auto) 3.0 Baso % (Auto) 0.2 Neut # (Auto) 8500 H Lymph # (Auto) 1000 L [place] # (Auto) 800 Eos # (Auto) 300 Baso # (Auto) 0 Total Counted Cancelled Seg Neutrophils % Cancelled Band Neutrophils % Cancelled Lymphocytes % (Manual) Cancelled Atypical Lymphs % Cancelled Monocytes % (Manual) Cancelled Eosinophils % (Manual) Cancelled Basophils % (Manual) Cancelled Metamyelocytes % Cancelled Myelocytes % Cancelled Promyelocytes % Cancelled Blast Cells % Cancelled Neutrophils # (Manual) Cancelled Nucleated RBCs Cancelled Differential Comment Cancelled Hypersegmented Neuts Cancelled Reactive Lymphocytes Cancelled Plasma Cells Cancelled Smudge Cells Cancelled Other Cell Type Cancelled Toxic Granulation Cancelled Toxic Vacuolation Cancelled Dohle Bodies Cancelled Monet Rods Cancelled WBC Morphology Comment Cancelled Platelet Estimate Cancelled Clumped Platelets Cancelled Plt Morphology Comment Cancelled RBC Morphology Cancelled Dimorphic RBCs Cancelled Polychromasia Cancelled Hypochromasia Cancelled Poikilocytosis Cancelled Basophilic Stippling Cancelled Anisocytosis Cancelled Microcytosis Cancelled Macrocytosis Cancelled Spherocytes Cancelled Pappenheimer Bodies Cancelled Sickle Cells Cancelled Target Cells Cancelled Tear Drop Cells Cancelled Ovalocytes Cancelled Stomatocytes Cancelled Helmet Cells Cancelled [place] Bodies Cancelled [place] Rings Cancelled Quang Cells Cancelled Acanthocytes (Spur) Cancelled Rouleaux Cancelled Schistocytes Cancelled Sodium 136 L Potassium 3.5 Chloride 103 Carbon Dioxide 28 BUN 26 H Creatinine 1.50 H Estimated GFR 45.6 L BUN/Creatinine Ratio 17.3 Glucose 177 H Calcium 8.5 Magnesium 2.1 PFSH Medical History Actinic keratosis Acute renal failure (01/09/17) Anemia Atrial fibrillation (~01/2017) James's esophagus BPH (benign prostatic hyperplasia) BPPV (benign paroxysmal positional vertigo) Cataracts, bilateral (~12/2017) CKD (chronic kidney disease) (~12/2017) Coronary artery disease Diabetes Generalized 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 panic attacks Generalized headaches GERD (gastroesophageal reflux disease) History of CVA (cerebrovascular accident) Hyperlipemia (~12/2014) Hypertension USP current use of anticoagulant therapy Myocardial infarction Pacemaker (01/2017) Surgical History Hx of surgical procedure Hx of tonsillectomy Hx of vasectomy Status post transurethral resection of prostate (03/2014) Family History Father Diabetes mellitus High cholesterol Mother Diabetes mellitus High cholesterol Social History household members: spouse Smoking Status: Former smoker alcohol intake: former Assessment & Plan Assessment & Plan narrative: This is a 76-year-old male with a past medical history of paroxysmal AFib, previous high-degree block status post pacemaker, hypertension, type 2 diabetes, prior CVA and reported AK (normal stress testing recently, no stents) who was admitted on March 05 with acute appendicitis. On March 06 the patient underwent laparoscopic appendectomy and has been requiring oxygen since, Medicine was consulted 03/09, for persistent hypoxia. After evaluation, appears likely related to atelectasis and his status has improved today and is almost off of supplemental oxygen as of this evening. 1. Acute hypoxemic respiratory failure, present on admission, resolved -suspect related to atelectasis secondary to pain from abdominal procedure and mild distension, other etiologies include possible aspiration or pulmonary embolism, or EBONY as spouse reports worsened hypoxia when asleep. CTA was ultimately negative for PE, did show atelectasis. No evidence currently of pneumonia. -there is no current evidence of volume overload or heart failure based on echocardiogram results with an EF of 60-65% and a normal right atrial pressure. Giving him Lasix previously during his hospital course only seemed to cause a mild BETO which is now improving. -EKG shows no evidence of acute ischemia and patient is without chest pain, ACS is unlikely at this time. His anemia with a hemoglobin of 9.2 is not likely sufficient enough to cause over hypoxia. - recommend outpatient sleep study and pulmonary function testing with PCP. - O2 goal >90%. 2. Paroxysmal atrial fibrillation, history of high-degree block with permanent pacemaker -patient is currently rate controlled 3. Acute kidney injury, not present on admission, improved -likely in the setting of acute infection and dehydration. Creatinine peaked at 1.8. He currently appears euvolemic and his creatinine improved today to near baseline. 4. Hypertension, chronic -continue home medications 5. Type 2 diabetes, chronic -patient is on NPH at home, 24 AM and 6 PM. Changed to lantus therapy in the hospital, started with 10 units tonight for longer acting coverage with fasting of 177 this AM. Will add meal time dosing today, 3 U AC. -when patient is discharged, he can resume home insulin therapy without changes. 6. Acute appendicitis status post appendectomy - General surgery managing. 7. Acute blood loss anemia - suspect secondary to procedure. Transfuse for Hg <7. Code: Full, surrogate decision maker is the patient's spouse DVT ppx: on HSQ Medicine will sign off at this time, do not hesitate to contact the hospitalist team with additional questions or if needed for additional recommendations. Quality VTE Deep Vein Thrombosis/Pulmonary Embolism Present on Admission: No
--- NOTE | 2021-03-10 16:38 | PT.IPTN ---
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) Hypokalemia (03/05/21) Paroxysmal atrial fibrillation (03/05/21) Acute appendicitis with perforation and localized peritonitis, without abscess (03/05/21) Acute kidney failure, unspecified (03/05/21) Hypoxemia (03/05/21) Abdominal distension (gaseous) (03/05/21) Retention of urine, unspecified (03/05/21) salvage determiner (current) use of anticoagulants (03/05/21) detention (current) use of insulin (03/05/21) Acquired absence of other specified parts of digestive tract (03/05/21) Surgery Performed Operation Date: 03/06/21 16:15 Actual Procedures p Laparoscopic Appendectomy - Rd Pizano MD Physical Therapy Treatment Note M2 PT-IP Current Condition Start: 03/07/21 13:27 Freq: NEEDED Status: Active Protocol: Document 03/07/21 11:58 AB (Rec: 03/07/21 13:41 AB [id number]) Physical Therapy Current Condition Current Condition Evaluation Date 03/07/21 Treatment Diagnosis s/p Lap appy; difficulty in walking Onset Date 03/05/21 Precautions Abdominal Surgery Precautions Log Roll,Lifting Restrictions, Gait Belt above Incisional Area M3 PT-IP Subjective Start: 03/07/21 13:27 Freq: NEEDED Status: Active Protocol: Document 03/10/21 15:55 ALANA (Rec: 03/10/21 16:38 ALANA [id number]) Subjective Physical Therapy Visit Type Type Treatment Note Visit Start Time 15:55 Visit Stop Time 16:18 Total Visit Minutes 23 Number of COMIC ILLUSTRATOR Visits 1 Physical Therapy Visit Comments Patient Comments agreeable to do PT Therapy Pain Assessment Pain When Pain Assessed At Rest Pain Present Pain Present Pain Reported M4 PT-IP Mobility and Gait Start: 03/07/21 13:27 Freq: NEEDED Status: Active Protocol: Document 03/10/21 15:55 ALANA (Rec: 03/10/21 16:38 LJ [id number]) PT-Bed Mobility Assessment Rolling Level of Assist Standby Assistance Supine to Sit Supine to Sit Standby Assistance,Head of Bed Elevated PT-Transfer Assessment Sit to and From Stand Sit to and from Stand Standby Assistance,Use of Upper Extremities Equipment Transfer Assistive Device Gait Belt,Front Wheeled Walker Orthotic/Prosthetic Devices or Brace: No Transfers Transfer Destination Bed,Toilet Transfer Technique ambulated using FWW Transfer Ability Level of Assist Standby Assistance,Contact Guard Assistance,Use of Upper Extremities Comments Mobility Comments Pt in bed upon arrival willing to get up and walk around the room. Pt performed a rigo- knife maneuver to sit upright in bed despite verbal cues to logroll. Pt stood on side of bed pushing off then reaching for the FWW. Pt ambulated around the bed with assist with IV and O2 line. He then sat on the edge of the bed and decided he needed to use the toilet so he ambulated to the bathroom with the FWW. Pt then returned to the bed without using the FWW and got himself back into bed independently. Hospitalist came into room and removed O2 from pt. SCMs donned and activated, all needs within reach with call light in bed. Gait Assessment Gait Gait Assistance Required: Standby Assistance Distance (Feet) 40 Able to Maintain Weight Bearing Status Yes During Gait Assistive Devices Assistive Device Gait Belt,Front Wheeled Walker Orthotic/Prosthetic Devices or Brace: No Gait Deviations General Gait Pattern Decreased Stride Length, Decreased Feet Clearance Factors Limiting Gait Function Factors Limiting Gait Function Decreased Activity Tolerance, Decreased Strength,Limited Range of Motion Comments Gait Comments see mobility section M5 PT-IP Objective Assessments Start: 03/07/21 13:27 Freq: NEEDED Status: Active Protocol: Document 03/07/21 11:58 AB (Rec: 03/07/21 13:41 AB [id number]) Orientation Orientation/Cognition Level of Alertness Alert Orientation Name,Place,Situation Language Function Ability Hard of Hearing Safety Awareness Understands Safety Issues Memory Description No Deficits Noted Gross Range of Motion Lower Extremity ROM Assessment Within Functional Limits Strength Comments Strength Comments RLE: 4/5 LLE: 4+/5 Coordination Assessment Gross Coordination Gross Coordination WNL Sensation Assessment Sensation Gross Sensation WNL Muscle Tone Muscle Tone WNL Yes M6 PT-IP Treatment Start: 03/07/21 13:27 Freq: NEEDED Status: Active Protocol: Document 03/10/21 15:55 ALANA (Rec: 03/10/21 16:38 LJ [id number]) Physical Therapy Treatment Education Education Provided Precautions,Safety M7 PT-IP Assessment and Plan Start: 03/07/21 13:27 Freq: NEEDED Status: Active Protocol: Document 03/10/21 15:55 ALANA (Rec: 03/10/21 16:38 ALANA [id number]) PT Summary Assessment and Plan Potential Rehabilitation Potential Good Summary Impairments ROM,Strength,Balance, Coordination,Gait,Activity Tolerance Progress Towards Goals Progressing Toward Goals Assessment Summary Pt requiring SBA for ambulation with Turner for managing lines. Pt was able to walk from toilet to bed and return to bed without distress or LOB. He stated that he has very little pain and it is more of an annoyance . No respiratory distress and O2 levels are to where hospitalist removed O2. Pt improved with all mobility and ambulation. Pt needs to perform stairs then will be safe to return home with assist from . Pt does not need FWW for transfers nor assist with bed mobility. Goals Bed Mobility Goal Independent Transfer Goal Independent,Front Wheeled Walker Gait Goal Independent,Front Wheel Walker Gait Distance 250 Other Goals LTG: improve transfer without AD mod I; without AD 100 ft without AD mod I up/down 5 steps L rail ascending mod I Days to Meet Goals 5 Frequency of Treatment Frequency Of Treatment Once a Day Treatment Plan Physical Therapy Treatment Plan Gait Training,Therapeutic Exercise,Balance Retraining, Discharge Planning, Neuromuscular Re-ed, Coordination Retraining Other Recommendations and Next Treatment assess and progress gait Focus without AD Precautions Abdominal Surgery Precautions Log Roll,Lifting Restrictions, Gait Belt above Incisional Area Recommendations To Nursing Amount of Assist Needed 1 Person Assist Discharge Recommendations PT Discharge Recommendations Home vs SNF Transportation Needs at Discharge Private Vehicle,Wheelchair/ Cabulance
[2021-03-10] MEDS: WARFARIN 5 MG TABLET PO (17:07)
[2021-03-10] MEDS: POTASSIUM CHLORIDE 10 MEQ TAB 20 MEQ PO (20:46)
[2021-03-10] MEDS: SENNOSIDES 8.6 MG TABLET 17.2 MG PO (20:46)
[2021-03-10] MEDS: ATORVASTATIN 20 MG TABLET 80 MG PO (20:47)
[2021-03-10] MEDS: TRAZODONE 50 MG TABLET PO (20:47)
[2021-03-10] MEDS: FAMOTIDINE 20 MG TABLET PO (20:48)
[2021-03-10] MEDS: INSULIN GLARGINE 100 UNIT/ML 3ML PEN 10 UNIT SUBCUT (20:58)
[2021-03-10] MEDS: SODIUM CHLORIDE 0.9% FLUSH 10 ML IV (21:00)
[2021-03-11 02:23] VITALS: BP 151/71; PULSE 65; RESP 16; TEMP 37; O2SAT 91
--- NOTE | 2021-03-11 02:28 | PC.NURSE ---
patient is alert and oriented. Breath sounds coarse with expiratory rhonchi. Moist sounding occasionally productive cough; clear sputum. Initial O2 sat was 89% upon first waking up but with deep breathing improved to 91%. HRR. BP trending high and is currently 151/71. Denies nausea. BT hypoactive but is passing flatus and did have loose stool yesterday. Abdomen remain mildly distended. Steri-strips and ZELALEM site dressing are CDI; some bruising noted around incisions. Denies any pain at present time. Denies dysuria, frequency or urgency following catheter removal yesterday; urine is clear yellow. Is able to turn himself in bed. Out of bed with SBA + walker. Wearing bilateral calf SCD's. Fall risk score is high and bed alarm is activated.
[2021-03-11] MEDS: OXYCODONE IR 5 MG TABLET PO (04:28)
[2021-03-11 05:29] VITALS: BP 154/59; PULSE 64; RESP 20; TEMP 37.1; O2SAT 91
[2021-03-11] MEDS: PIPERACILLIN-TAZO 3.375 GM/50 ML FROZ.PIGGY IV (05:34)
[2021-03-11] MEDS: SODIUM CHLORIDE 0.9% FLUSH 10 ML IV (05:34)
[2021-03-11 05:38] LABS: Add Manual Diff / Slide Review NO; Basophils Absolute Auto 0 /uL (0-100); Basophils Percent Auto 0.4 % (0-2); Eosinophils Absolute Auto 500 /uL (0-450); Eosinophils Percent Auto 5.2 % (2-4); Hematocrit 28.7 % (41-53); Hemoglobin 10.1 g/dL (13.5-17.5); Lymphocytes Absolute Auto 1000 /uL (1100-4500); Lymphocytes Percent Auto 11.5 % (25-40); Mean Corpuscular HGB Conc 35.1 % (30-36); Mean Corpuscular Hemoglobin 31.8 PG (26-34); Mean Corpuscular Volume 90.7 fL (80-100); Monocytes Absolute Auto 900 /uL (0-900); Monocytes Percent Auto 9.4 % (3-14); Neutrophils Absolute Auto 6600 /uL (1500-7000); Neutrophils Percent Auto 73.5 % (50-75); Platelet Count 271 X10^3/uL (150-400); Red Blood Cell Count 3.17 X10^6/uL (4.5-5.9); Red Cell Distribution Width 13.8 % (11.6-14.8)
[2021-03-11 05:40] LABS: INR 1.2 (0.9-1.3); Prothrombin Time 13.9 SECONDS (10.1-12.7)
[2021-03-11 05:44] LABS: Blood Urea Nitrogen 18 mg/dL (9-20); Carbon Dioxide 28 mmol/L (22-32); Chloride 102 mmol/L (98-107); Estimated Glomerular Filt Rate 54.3 mL/min (>60); Glucose 152 mg/dL (80-110); HEMOLYSIS < 15 (0-50); Magnesium 1.7 mg/dL (1.6-2.3); Potassium 3.3 mmol/L (3.4-5.1); Sodium 135 mmol/L (137-145)
[2021-03-11 08:30] VITALS: O2SAT 93
[2021-03-11 08:37] VITALS: BP 168/77; PULSE 60; RESP 14; TEMP 35.9; O2SAT 93
[2021-03-11] MEDS: SERTRALINE 50 MG TABLET 25 MG PO (08:41)
[2021-03-11] MEDS: polyethylene glycoL 3350 17 GM POWD.PACK PO (08:41)
[2021-03-11] MEDS: AMLODIPINE 5 MG TABLET 10 MG PO (08:42)
[2021-03-11] MEDS: MULTIVIT,CALC,MINS/IRON/FOLIC 1 TABLET 1 TAB PO (08:42)
[2021-03-11] MEDS: INSULIN LISPRO 100 UNIT/ML 3ML VIAL SUBCUT ×2 (08:43→08:44)
[2021-03-11] MEDS: TAMSULOSIN 0.4 MG CAPSULE PO (08:43)
[2021-03-11] MEDS: carvediloL 12.5 MG TABLET 37.5 MG PO (08:43)
[2021-03-11] MEDS: hydroCHLOROthiazide 25 MG TABLET 12.5 MG PO (08:43)
[2021-03-11] MEDS: HEPARIN 5,000 UNIT/ML VIAL 5000 UNIT SUBCUT (08:46)
[2021-03-11] MEDS: ALBUTEROL/IPRATROPIUM 3 ML AMPUL INH (09:38)
[2021-03-11 09:48] VITALS: PULSE 64; RESP 18; O2SAT 93
--- NOTE | 2021-03-11 10:40 | PT.IPTN ---
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 (03/05/21) longterm (current) use of insulin (03/05/21) Acquired absence of other specified parts of digestive tract (03/05/21) Surgery Performed Operation Date: 03/06/21 16:15 Actual Procedures p Laparoscopic Appendectomy - Rd Pizano MD Physical Therapy Treatment Note M2 PT-IP Current Condition Start: 03/07/21 13:27 Freq: NEEDED Status: Active Protocol: Document 03/07/21 11:58 AB (Rec: 03/07/21 13:41 AB [id number]) Physical Therapy Current Condition Current Condition Evaluation Date 03/07/21 Treatment Diagnosis s/p Lap appy; difficulty in walking Onset Date 03/05/21 Precautions Abdominal Surgery Precautions Log Roll,Lifting Restrictions, Gait Belt above Incisional Area M3 PT-IP Subjective Start: 03/07/21 13:27 Freq: NEEDED Status: Active Protocol: Document 03/11/21 10:13 ALANA (Rec: 03/11/21 10:40 ALANA [id number]) Subjective Physical Therapy Visit Type Type Treatment Note Visit Start Time 10:13 Visit Stop Time 10:29 Total Visit Minutes 16 Physical Therapy Visit Comments Patient Comments agreeable to do PT. Pt ggetting ready for DC Therapy Pain Assessment Pain When Pain Assessed At Rest Pain Present Pain Present Denied Pain M4 PT-IP Mobility and Gait Start: 03/07/21 13:27 Freq: NEEDED Status: Active Protocol: Document 03/11/21 10:13 ALANA (Rec: 03/11/21 10:40 ALANA [id number]) PT-Transfer Assessment Sit to and From Stand Sit to and from Stand Independent,Use of Upper Extremities Equipment Transfer Assistive Device Gait Belt,Front Wheeled Walker Orthotic/Prosthetic Devices or Brace: No Transfers Transfer Destination Chair Transfer Ability Level of Assist Independent,Use of Upper Extremities Comments Mobility Comments Pt in chair with in room. Agreeable to walk in hallway before DC. Pt demonstrating normal gait with proper FWW use. Picking up walker when turning around. Asked pt if wanting to ambulate without FWW and stated he'd rather use it for now. Pt ambulated ~200 ' in hallway and returned to room and independtly moved FWW aside and transfered to chair without it. Pt ready for DC Gait Assessment Gait Gait Assistance Required: Standby Assistance Distance (Feet) 200 Able to Maintain Weight Bearing Status Yes During Gait Assistive Devices Assistive Device Gait Belt,Front Wheeled Walker Orthotic/Prosthetic Devices or Brace: No Gait Deviations General Gait Pattern Decreased Stride Length, Decreased Feet Clearance Factors Limiting Gait Function Factors Limiting Gait Function Decreased Activity Tolerance, Decreased Strength,Limited Range of Motion Comments Gait Comments see mobility section M5 PT-IP Objective Assessments Start: 03/07/21 13:27 Freq: NEEDED Status: Active Protocol: Document 03/07/21 11:58 AB (Rec: 03/07/21 13:41 AB [id number]) Orientation Orientation/Cognition Level of Alertness Alert Orientation Name,Place,Situation Language Function Ability Hard of Hearing Safety Awareness Understands Safety Issues Memory Description No Deficits Noted Gross Range of Motion Lower Extremity ROM Assessment Within Functional Limits Strength Comments Strength Comments RLE: 4/5 LLE: 4+/5 Coordination Assessment Gross Coordination Gross Coordination WNL Sensation Assessment Sensation Gross Sensation WNL Muscle Tone Muscle Tone WNL Yes M6 PT-IP Treatment Start: 03/07/21 13:27 Freq: NEEDED Status: Active Protocol: Document 03/10/21 15:55 ALANA (Rec: 03/10/21 16:38 ALANA [id number]) Physical Therapy Treatment Education Education Provided Precautions,Safety M7 PT-IP Assessment and Plan Start: 03/07/21 13:27 Freq: NEEDED Status: Active Protocol: Document 03/11/21 10:13 ALANA (Rec: 03/11/21 10:40 ALANA [id number]) PT Summary Assessment and Plan Potential Rehabilitation Potential Good Summary Impairments ROM,Strength,Balance, Coordination,Gait,Activity Tolerance Progress Towards Goals Safe For Discharge,Goals Met Assessment Summary Pt has met goals and is safe for DC. Goals Bed Mobility Goal Independent Transfer Goal Independent,Front Wheeled Walker Gait Goal Independent,Front Wheel Walker Gait Distance 250 Other Goals LTG: improve transfer without AD mod I; without AD 100 ft without AD mod I up/down 5 steps L rail ascending mod I Days to Meet Goals 5 Frequency of Treatment Frequency Of Treatment Once a Day Treatment Plan Physical Therapy Treatment Plan Gait Training,Therapeutic Exercise,Balance Retraining, Discharge Planning, Neuromuscular Re-ed, Coordination Retraining Precautions Abdominal Surgery Precautions Log Roll,Lifting Restrictions, Gait Belt above Incisional Area Recommendations To Nursing Amount of Assist Needed 1 Person Assist Discharge Recommendations PT Discharge Recommendations Home Transportation Needs at Discharge Private Vehicle,Wheelchair/ Cabulance
--- NOTE | 2021-03-11 11:07 | PC.NURSE ---
Patient discharged home, left facility with all belongings. Patient brought down to private vehicle via wheelchair by JINA Joyce. Discharge paperwork, including signs of symptoms of infection, new medications, S/S of heart failure and diet/activity, discussed with patient and spouse, no further questions. Follow-up appointments discussed and paper scripts of oxycodone and amoxicillin given to patient, spouse and patient verbalized understanding. IV removed, intact. No complaints of pain and on RA at time of discharge.
--- NOTE | 2021-03-11 11:25 | CM.DPC ---
DCP Discharge Home Per Surgeon, pt is medically stable to d/c home with spouse assist and outpt follow up. Per PT, pt completed CG training with spouse and stairs and cleared for safe d/c home with assist. Per RT, pt currently on room air but sitting and will trial him with ambulation to determine if home oxygen is needed at d/c or not for today. Spouse agreeable and willing to transport pt home today and provided her with a copy of the pt's Medicare Message. Plan: Patient to d/c home today via spouse POV and assist and outpt follow up with Surgeon. No further SW needs at this time. GAGAN Escobedo
--- NOTE | 2021-03-12 20:31 | PM.DS.1 ---
History of Present Illness History of Present Illness Chief complaint: FEVER 10.5 LAST NIGHT RIGHT SIDE PAIN Narrative: Guanako Israel is a 76 year-old man admitted for acute appendicitis without abscess. He presented this morning with right lower quadrant abdominal pain and associated nausea. CT A/P demonstrates acute appendicitis without abscess or free air. At admission WBC 18, INR 2.3. Receiving Zosyn and IV fluids since admission with improvement but not resolution of abdominal pain. Past medical history 1. Atrial fibriliation on Warfarin 2. CAD hx NC 2017 no stents 3. HTN 4. Insulin dependent DM 5. CVA 6. TURP 7. Hx acute renal failure resolved. 8. Pacemaker Discharge Providers Provider Date of admission: 03/05/21 09:35 Discharge Date: 03/11/21 Primary care physician: Gianni Zaman DO Consults: 03/05/21 13:01 Consult to Dietitian, Adult Routine Comment: Reason For Exam: weight loss 03/06/21 02:56 Consult to Respiratory Therapy Evaluate & Treat Comment: Physician Instructions: Evaluate and treat 03/07/21 09:04 Consult to Physical Therapy Evaluate & Treat Comment: Physician Instructions: Evaluate and Treat 03/07/21 16:42 Consult to Respiratory Therapy Evaluate & Treat Comment: Physician Instructions: Evaluate and treat 03/09/21 14:23 Consult to Hospitalist Service Routine Comment: Consulting Provider: Yovany Otoole Reason for consultation: Dyspnea at rest and on exertion. Discharge provider: Rd Dudley MD Summary Hospital Course Discharge Diagnosis: Acute appendicitis with abscess Acute respiratory insufficiency Insulin dependent diabetes Diabetes Hospital Course: Patient underwent a laparoscopic appendectomy 03/06/21. He had a necrotic appendix with associated abscess. He was maintained on Zosyn postoperatively. But his postoperative course was significant for acute respiratory insufficiency. He required supplemental oxygen and internal Medicine was consulted. He underwent a workup including a CTA which was negative for pulmonary embolus and pneumonia as well as an echocardiogram which was normal. He gradually improved with the assistance of respiratory therapy. Ultimately at the time of discharge he was able to maintain his saturations in the mid 90s on room air. He was discharged home in stable condition on a course of Augmentin x1 week. Exam Vital Signs (past 8 hours): Oxygen Delivery Method Room Air Oxygen Flow Rate 0 Narrative Exam Narrative: General elderly man alert oriented no acute distress Respirations nonlabored Abdomen soft appropriately tender to palpation. Laparoscopic port incisions clean dry intact. Objective Labs Result Diagrams: 03/11/21 05:20 03/11/21 05:20 PFS Medical History Actinic keratosis Acute renal failure (01/09/17) Anemia Atrial fibrillation (~01/2017) James's esophagus BPH (benign prostatic hyperplasia) BPPV (benign paroxysmal positional vertigo) Cataracts, bilateral (~12/2017) CKD (chronic kidney disease) (~12/2017) Coronary artery disease Diabetes Generalized 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 panic attacks Generalized headaches GERD (gastroesophageal reflux disease) History of CVA (cerebrovascular accident) Hyperlipemia (~12/2014) Hypertension skilled nursing current use of anticoagulant therapy Myocardial infarction Pacemaker (01/2017) Surgical History Hx of surgical procedure Hx of tonsillectomy Hx of vasectomy Status post transurethral resection of prostate (03/2014) Family History Father Diabetes mellitus High cholesterol Mother Diabetes mellitus High cholesterol Social History household members: spouse Smoking Status: Former smoker alcohol intake: former Discharge Plan Discharge Plan Patient Disposition: Home Provider Discharge Comment: You were treated for perforated appendicitis with abscess. -oxycodone tylenol for pain control -may shower but do not submerge the wounds until seen in follow-up Discharge orders & Medications Prescriptions: New amoxicillin-pot clavulanate [Augmentin] 875-125 mg tablet 1 tab PO BID Qty: 14 RF: 0 oxycodone 5 mg tablet 5 mg PO Q8H PRN (Reason: pain) Qty: 30 RF: 0 Continued (DME) glucometer Qty: 1 RF: 0 ferrous sulfate 27 mg iron Tablet 27 mg PO DAILY Qty: 0 RF: 0 cinnamon bark [Cinnamon] 500 mg Capsule 1,000 mg PO BID Qty: 0 RF: 0 ascorbic acid (vitamin C) 500 MG tablet 500 mg PO DAILY Qty: 0 RF: 0 (DME) Accu-chek Softclix Lancets 0 .Route .MEDSUPPLY Qty: 100 RF: 3 (DME) Syringes: Ultra Fine Insulin Syringe w/Needle 0 .Route .MEDSUPPLY Qty: 100 RF: 3 (DME) [place] 31G x15/64 0 .Route .MEDSUPPLY Qty: 200 RF: 12 trazodone 50 mg tablet 50 mg PO BEDTIME Qty: 90 RF: 3 carvedilol [Coreg] 25 mg tablet 37.5 mg PO BID Qty: 270 RF: 0 lorazepam 0.5 mg tablet See Rx Instructions .ROUTE .COMPLEX Qty: 30 RF: 0 (DME) Glucose: Test Strips 0 .Route .MEDSUPPLY Qty: 200 RF: 3 hydrochlorothiazide 25 mg tablet 12.5 mg PO DAILY RF: 0 potassium chloride 10 mEq capsule, extended release 10 meq PO BEDTIME RF: 0 Humulin R Regular U-100 Insuln 100 unit/mL Solution 4 - 9 unit SUBCUT AC RF: 0 Humulin N NPH Insulin KwikPen 100 unit/mL (3 mL) Insulin Pen 6 unit SUBCUT BEDTIME RF: 0 Humulin N NPH Insulin KwikPen 100 unit/mL (3 mL) Insulin Pen 24 unit SUBCUT QAM RF: 0 multivitamin Tablet 1 tab PO DAILY RF: 0 glucosamine sulfate [Glucosamine] 500 mg Tablet 2,000 mg PO BID RF: 0 cfhcxew-dedptofxj-dqkb Tablet 1 tab PO BEDTIME RF: 0 famotidine 20 mg Tablet 20 mg PO BEDTIME RF: 0 sertraline 25 mg Tablet 25 mg PO DAILY RF: 0 losartan 100 mg Tablet 100 mg PO DAILY RF: 0 omega 3-ovt-pxx-fish oil [Fish Oil] 1,200 (144-216) mg Capsule 1 cap PO BID RF: 0 atorvastatin 80 mg Tablet 80 mg PO BEDTIME RF: 0 amlodipine 10 mg Tablet 10 mg PO BEDTIME RF: 0 warfarin 5 mg Tablet 5 mg PO DAILY RF: 0 No Action furosemide [Lasix] 40 mg tablet 40 mg PO DAILY Qty: 5 RF: 0 Follow up/Referrals: Rd Dudley MD [Physician] - 03/20/21 10:45 am (APPT:03/20 @ 10:[address] dudley please arrive 15 min prior to scheduled appointment ) Gianni Zaman DO [Primary Care Provider] - Diet/Activity/Treatments Diet: Carb-consistent/Diabetic Activity: No lifting >20 lbs x 4 weeks. Walking only for exercise for 4 weeks. [address] while taking narcotics. Skin/Wound/Dressing Care Report to your healthcare provider any signs of infection, such as:: chills, fever, increased pain, unusual drainage and unusual redness Visit Report/Discharge Packet Instructions: DI for Heart Failure, DI for an Appendectomy, DI for Laparoscopy, DI for Urinary Retention in Men, DI for Prescription Opioid Use, Oxycodone, Amoxicillin and Clavulanic Acid, DI for Hypoxia, [facility]: Wound Care Discharge Data Primary Care Provider: Gianni Zaman VTE Deep Vein Thrombosis/Pulmonary Embolism Present on Admission: No
== END 2021-03-11 11:15 | disposition home or self-care (01) | DRG 338 ==
LOC: ED 09:29 → AC 09:44
PROVIDERS: Specialist; Surgery; Admitting Provider Surgery; Emergency Provider Emergency Medicine; PCP Family Medicine; Referring Provider Emergency Medicine; Visit Provider Surgery
PROC: 0DTJ4ZZ Resection of Appendix, Percutaneous Endoscopic Approach (ICD-10-PCS; CPT 44970; principal; 2021-03-06 16:15)
DX: K35.32 Acute appendicitis with perforation, localized peritonitis, and gangrene, without abscess (principal); J96.01 Acute respiratory failure with hypoxia; N17.9 Acute kidney failure, unspecified; D62 Acute posthemorrhagic anemia; Z79.01 Long term (current) use of anticoagulants; E87.6 Hypokalemia; R33.9 Retention of urine, unspecified; I25.10 Atherosclerotic heart disease of native coronary artery without angina pectoris; I48.0 Paroxysmal atrial fibrillation; I10 Essential (primary) hypertension; E11.9 Type 2 diabetes mellitus without complications; Z79.4 Long term (current) use of insulin; Z95.0 Presence of cardiac pacemaker; Z86.73 Personal history of transient ischemic attack (TIA), and cerebral infarction without residual deficits; Z87.891 Personal history of nicotine dependence; Z20.822 Contact with and (suspected) exposure to COVID-19
CPT/HCPCS: 36415; 44970; 71045; 71275; 74176; 80048; 80053; 82962; 83690; 83735; 85025; 85610; 87635; 93005; 93307; 94640; 94667; 94668; 94760; 96361; 96365; 96375; 96376; 97116; 97161; 97530; 99222; 99284; C9803; A9270; J0330; J1170; J1644; J1650; J1815; J1940; J2270; J2405; J2543; J2704; J3010; J3430; J7613; Q9967

== ENCOUNTER 2021-03-11 18:58 | Emergency (ER) | payer OTHER, SELFPAY ==
[2021-03-05 12:26] VITALS: BMI 22.8
--- NOTE | 2021-03-11 18:58 | DI.RAD.S_ITS ---
PROCEDURE: XR CHEST 1V INDICATIONS: suspected sepsis TECHNIQUE: One view of the chest was acquired. COMPARISON: [facility], , XR CHEST 1V, 03/09/2021, 10:17. 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 Lungs and pleura: Lungs are clear. No pleural effusions or pneumothorax. Mediastinum: Mediastinal contours appear normal. Heart size is normal. Bones and chest wall: No suspicious bony lesions. Overlying soft tissues appear unremarkable. IMPRESSION: No acute cardiopulmonary abnormality. Dictated by: Rj Gamble M.D. on 03/11/2021 at 20:45 Approved by: Rj Gamble M.D. on 03/11/2021 at 20:49
[2021-03-11 19:03] VITALS: BP 194/84; PULSE 67; RESP 20; TEMP 37.9; O2SAT 94; BMI 22.8
--- NOTE | 2021-03-11 19:06 | ED.GENADULT ---
HPI - General Adult <Jo-Ann Hagen DO - Last Filed: 03/12/21 07:24> General Chief complaint: Shortness of Breath/Dyspnea Stated complaint: Low O2 sat Time Seen by Provider: 03/11/21 19:06 Source: patient and EMS Mode of arrival: EMS Limitations: no limitations History of Present Illness HPI narrative: This is a 76-year-old male who comes to the emergency department with complaint of a low O2 sat. Patient denies any symptoms. They have been checking his pulse ox at home on recommendations from his physician's after being discharged home. Patient had low oxygen status post appendectomy here at the hospital. He had bilateral infiltrates or pneumonia and he is on Augmentin. His states he could barely walk to the bedside commode without dropping his oxygen but had been improving so they sent him home without any home O2. He does appear to had a workup to evaluate for PE on the patient denies any fevers, he denies any chest pain or pressure. He denies any shortness of breath. He denies any nausea or vomiting. He has been having bowel movements regularly with no black or bloody stools. He has been urinating regularly. He denies any increased or new abdominal pain. Patient has had a cough which does worsen somewhat through the day. He has not appreciate any significant swelling in his lower extremities. He was restarted on his warfarin in the last several days. He takes this for atrial fibrillation. He does not any prior history of MIs or prior cardiac stents. He is on insulin for diabetes, antihypertensive and dyslipidemia medication. Related Data Home Medications Medication Instructions Recorded Confirmed ferrous sulfate 27 mg PO DAILY #0 01/19/13 03/05/21 cinnamon bark [Cinnamon] 1,000 mg PO BID #0 08/25/16 03/05/21 ascorbic acid (vitamin C) 500 mg PO DAILY #0 12/16/17 03/05/21 potassium chloride 10 mEq 10 meq PO BEDTIME 05/17/19 03/05/21 capsule,extended release hydrochlorothiazide 25 mg tablet 12.5 mg PO DAILY tab 02/19/21 03/05/21 Humulin N NPH Insulin KwikPen 6 unit SUBCUT BEDTIME 03/05/21 03/05/21 Humulin N NPH Insulin KwikPen 24 unit SUBCUT QAM 03/05/21 03/05/21 Humulin R Regular U-100 Insuln 4 - 9 unit SUBCUT AC 03/05/21 03/05/21 amlodipine 10 mg PO BEDTIME 03/05/21 03/05/21 atorvastatin 80 mg PO BEDTIME 03/05/21 03/05/21 vtqqolh-fqoitrjwi-pvje 1 tab PO BEDTIME 03/05/21 03/05/21 famotidine 20 mg PO BEDTIME 03/05/21 03/05/21 glucosamine sulfate [Glucosamine] 2,000 mg PO BID 03/05/21 03/05/21 losartan 100 mg PO DAILY 03/05/21 03/05/21 multivitamin 1 tab PO DAILY 03/05/21 03/05/21 omega [id number]-fish oil [Fish Oil] 1 cap PO BID 03/05/21 03/05/21 sertraline 25 mg PO DAILY 03/05/21 03/05/21 warfarin 5 mg PO DAILY 03/05/21 03/05/21 Previous Rx's Medication Instructions Recorded glucometer #1 ea 05/06/18 Accu-chek Softclix Lancets #100 each 12/29/18 Syringes: Ultra Fine Insulin #100 each 01/10/20 Syringe w/Needle Lucinda #200 each 09/12/20 trazodone 50 mg tablet 50 mg PO BEDTIME #90 tab 09/26/20 carvedilol 25 mg tablet 37.5 mg PO BID #270 tab 12/20/20 lorazepam 0.5 mg tablet See Rx Instructions .ROUTE 12/27/20 .COMPLEX #30 tab Glucose: Test Strips #200 each 01/29/21 amoxicillin-pot clavulanate 1 tab PO BID #14 tab 03/07/21 [Augmentin] oxycodone 5 mg PO Q8H PRN #30 tab 03/07/21 furosemide [Lasix] 40 mg PO DAILY #5 tab 03/12/21 Allergies Allergy/AdvReac Type Severity Reaction Status Date / Time ciprofloxacin [CIPROFLOXACIN] Allergy Intermediate Dizzy, Verified 03/11/21 19:09 constipation, lightheaded, bad dreams, joint pain atenolol [ATENOLOL] Allergy Mild Lightheaded Verified 03/11/21 19:09 and nausea regadenoson [From Lexiscan] Allergy disorented Verified 03/11/21 19:09 and agitated Review of Systems <Jo-Ann Hagen DO - Last Filed: 03/12/21 07:24> Review of Systems ROS Unobtainable: All systems reviewed & are unremarkable except as noted in HPI and below Patient History <Jo-Ann Hagen DO - Last Filed: 03/12/21 07:24> Medical History Actinic keratosis Acute renal failure (01/09/17) Anemia Atrial fibrillation (~01/2017) James's esophagus BPH (benign prostatic hyperplasia) BPPV (benign paroxysmal positional vertigo) Cataracts, bilateral (~12/2017) CKD (chronic kidney disease) (~12/2017) Coronary artery disease Diabetes Generalized 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 panic attacks Generalized headaches GERD (gastroesophageal reflux disease) History of CVA (cerebrovascular accident) Hyperlipemia (~12/2014) Hypertension MCC current use of anticoagulant therapy Myocardial infarction Pacemaker (01/2017) Surgical History Hx of surgical procedure Hx of tonsillectomy Hx of vasectomy Status post transurethral resection of prostate (03/2014) Family History Father Diabetes mellitus High cholesterol Mother Diabetes mellitus High cholesterol Social History household members: spouse Smoking Status: Former smoker alcohol intake: former Smoking Status: Former smoker alcohol intake frequency: 0-2 drinks per day Substance Use Type: marijuana Exam <Jo-Ann Hagen DO - Last Filed: 03/12/21 07:24> Narrative Exam Narrative: GENERAL: Alert and oriented x three, well-nourished elderly male in mild distress HEENT: Head normocephalic, atraumatic, EOMI, pupils reactive, face symmetric, moist mucous membranes NECK: Supple, full range of motion CARDIOVASCULAR: Regular rate and rhythm without murmurs, rubs or gallops. RESPIRATORY: Breath sounds equal bilaterally, no wheezes rales or rhonchi. No tachypnea accessory muscle use. ABDOMEN: Soft, nontender. Normoactive bowel sounds all 4 quadrants. No guarding or rebound, rigidity, no mass. Abdomen is slightly distended without any tympany. Patient has 3 incisions on his lower abdomen which are clean dry and intact any has some mild ecchymosis in the lower abdomen. : No CVA tenderness EXTREMITIES: Normal range of motion, no clubbing or edema. Neurovascularly intact. 2+ pulses bilateral lower extremities. NEUROLOGICAL: Cranial nerves II through XII grossly intact. Moving all extremities SKIN: Warm, dry, no petechiae, no rashes or lesions. Initial Vital Signs Initial Vital Signs: Vital Signs Temperature 100.2 F H 03/11/21 19:03 Pulse Rate 67 03/11/21 19:03 Respiratory Rate 20 03/11/21 19:03 Blood Pressure 194/84 H 03/11/21 19:03 Pulse Oximetry 94 03/11/21 19:03 <Jaren Shine DO - Last Filed: 03/13/21 04:42> Initial Vital Signs Initial Vital Signs: Vital Signs Temperature 100.2 F H 03/11/21 19:03 Pulse Rate 67 03/11/21 19:03 Respiratory Rate 20 03/11/21 19:03 Blood Pressure 194/84 H 03/11/21 19:03 Pulse Oximetry 94 03/11/21 19:03 Course <Jo-Ann Hagen, DO - Last Filed: 03/12/21 07:24> Orders Ordered: Discontinued Medications Sodium Chloride (Normal Saline 0.9%) 1,000 mls @ 1,000 mls/hr IV BOLUS ONE Stop: 03/11/21 19:57 Last Infusion: 03/11/21 21:35 Dose: 0 mls/hr Documented by: Admin: 03/11/21 20:13 Dose: 1,000 mls/hr Documented by: JAVI Oxycodone HCl (Oxycodone Ir 5 Mg Tablet) 5 mg PO NOW ONE Stop: 03/11/21 20:25 Last Admin: 03/11/21 20:33 Dose: 5 mg Documented by: JAVI Vital Signs Vital signs: Vital Signs - 8 hr 03/11/21 23:30 03/12/21 00:00 03/12/21 00:30 Pulse Rate 64 60 61 Respiratory Rate 24 27 H 25 H Blood Pressure 150/67 H 165/77 H 160/74 H Pulse Oximetry 93 92 92 03/12/21 01:00 03/12/21 01:30 03/12/21 01:31 Pulse Rate 60 60 60 Respiratory Rate 22 31 H 29 H Blood Pressure 183/74 H 175/78 H Pulse Oximetry 91 93 92 03/12/21 02:00 03/12/21 02:01 03/12/21 02:30 Pulse Rate 60 60 60 Respiratory Rate 27 H 24 26 H Blood Pressure 164/74 H 161/74 H Pulse Oximetry 93 92 91 03/12/21 03:00 03/12/21 03:01 03/12/21 03:15 Pulse Rate 73 74 76 Respiratory Rate 26 H 37 H 18 Blood Pressure 187/81 H 184/88 H Pulse Oximetry 93 93 93 03/12/21 03:17 03/12/21 03:30 03/12/21 04:00 Pulse Rate 93 H 79 72 Respiratory Rate 24 30 H 28 H Blood Pressure 170/77 H Pulse Oximetry 89 L 94 94 03/12/21 04:01 03/12/21 04:30 03/12/21 05:00 Pulse Rate 71 83 88 Respiratory Rate 26 H 28 H 24 Blood Pressure 158/95 H 156/74 H 163/74 H Pulse Oximetry 94 94 96 03/12/21 07:10 Pulse Rate 78 Respiratory Rate Blood Pressure Pulse Oximetry 95 <Jaren Shine, DO - Last Filed: 03/13/21 04:42> Course Course Narrative: patient was actually dispositioned by Dr. Hagen prior to being signed out to me. I did not see this patient Orders Ordered: Discontinued Medications Sodium Chloride (Normal Saline 0.9%) 1,000 mls @ 1,000 mls/hr IV BOLUS ONE Stop: 03/11/21 19:57 Last Infusion: 03/11/21 21:35 Dose: 0 mls/hr Documented by: Admin: 03/11/21 20:13 Dose: 1,000 mls/hr Documented by: JAVI Oxycodone HCl (Oxycodone Ir 5 Mg Tablet) 5 mg PO NOW ONE Stop: 03/11/21 20:25 Last Admin: 03/11/21 20:33 Dose: 5 mg Documented by: JAVI Vital Signs Vital signs: Vital Signs - 8 hr 03/11/21 23:30 03/12/21 00:00 03/12/21 00:30 Pulse Rate 64 60 61 Respiratory Rate 24 27 H 25 H Blood Pressure 150/67 H 165/77 H 160/74 H Pulse Oximetry 93 92 92 03/12/21 01:00 03/12/21 01:30 03/12/21 01:31 Pulse Rate 60 60 60 Respiratory Rate 22 31 H 29 H Blood Pressure 183/74 H 175/78 H Pulse Oximetry 91 93 92 03/12/21 02:00 03/12/21 02:01 03/12/21 02:30 Pulse Rate 60 60 60 Respiratory Rate 27 H 24 26 H Blood Pressure 164/74 H 161/74 H Pulse Oximetry 93 92 91 03/12/21 03:00 03/12/21 03:01 03/12/21 03:15 Pulse Rate 73 74 76 Respiratory Rate 26 H 37 H 18 Blood Pressure 187/81 H 184/88 H Pulse Oximetry 93 93 93 03/12/21 03:17 03/12/21 03:30 03/12/21 04:00 Pulse Rate 93 H 79 72 Respiratory Rate 24 30 H 28 H Blood Pressure 170/77 H Pulse Oximetry 89 L 94 94 03/12/21 04:01 03/12/21 04:30 03/12/21 05:00 Pulse Rate 71 83 88 Respiratory Rate 26 H 28 H 24 Blood Pressure 158/95 H 156/74 H 163/74 H Pulse Oximetry 94 94 96 03/12/21 07:10 Pulse Rate 78 Respiratory Rate Blood Pressure Pulse Oximetry 95 Medical Decision Making <Jo-Ann Hagen, DO - Last Filed: 03/12/21 07:24> Lab Data Lab results reviewed: Yes I reviewed the patient's lab results. Result diagrams: 03/11/21 19:10 03/11/21 19:10 Labs: Lab Results 03/11/21 03/11/21 03/11/21 Range/Units 19:10 19:10 19:10 WBC 10.8 (4.5-11.0) X10^3/uL RBC 3.54 L (4.5-5.9) X10^6/uL Hgb 11.3 L (13.5-17.5) g/dL Hct 31.9 L (41-53) % MCV 90.2 (80-100) fL MCH 31.9 (26-34) PG MCHC 35.3 (30-36) % RDW 13.9 (11.6-14.8) % Plt Count 325 (150-400) X10^3/uL Neut % (Auto) 79.4 H (50-75) % Lymph % (Auto) 9.5 L (25-40) % Caroline % (Auto) 7.8 (3-14) % Eos % (Auto) 2.9 (2-4) % Baso % (Auto) 0.4 (0-2) % Neut # (Auto) 8600 H (7323-6049) /uL Lymph # (Auto) 1000 L (4883-1370) /uL Caroline # (Auto) 800 (0-900) /uL Eos # (Auto) 300 (0-450) /uL Baso # (Auto) 0 (0-100) /uL PT 14.3 H (10.1-12.7) SECONDS INR 1.3 (0.9-1.3) APTT 28 (26.4-36.2) SECONDS D-Dimer (<230) ng/mL Sodium 134 L (137-145) mmol/L Potassium 3.6 (3.4-5.1) mmol/L Chloride 99 (98-107) mmol/L Carbon Dioxide 28 (22-32) mmol/L BUN 17 (9-20) mg/dL Creatinine 1.11 (0.66-1.25) mg/dL Estimated GFR > 60.0 (>60) mL/min BUN/Creatinine Ratio 15.3 (6-22) Glucose 209 H (80-110) mg/dL Lactate (0.7-2.1) mmol/L Calcium 9.1 (8.4-10.2) mg/dL Total Bilirubin 0.4 (0.2-1.3) mg/dL AST 71 H (17-59) IU/L ALT 59 H (<50) IU/L Alkaline Phosphatase 78 (38-126) U/L Total Creatine Kinase (55-170) U/L CK-MB (CK-2) CK-MB (CK-2) Rel Index Troponin I (0.01-0.034) ng/mL NT-Pro-B Natriuret Pep (<450) pg/mL Total Protein 5.7 L (6.3-8.2) g/dL Albumin 2.9 L (3.5-5.0) g/dL Globulin 2.8 (1.7-4.1) g/dL Albumin/Globulin Ratio 1.0 (1.0-2.8) Lipase 111 (23-300) U/L Procalcitonin 0.35 (<0.5) ng/mL SARS-CoV-2 (PCR) (Negative) 03/11/21 03/11/21 03/11/21 Range/Units 19:10 19:10 19:10 WBC (4.5-11.0) X10^3/uL RBC (4.5-5.9) X10^6/uL Hgb (13.5-17.5) g/dL Hct (41-53) % MCV (80-100) fL MCH (26-34) PG MCHC (30-36) % RDW (11.6-14.8) % Plt Count (150-400) X10^3/uL Neut % (Auto) (50-75) % Lymph % (Auto) (25-40) % Caroline % (Auto) (3-14) % Eos % (Auto) (2-4) % Baso % (Auto) (0-2) % Neut # (Auto) (5498-0845) /uL Lymph # (Auto) (1094-2624) /uL Caroline # (Auto) (0-900) /uL Eos # (Auto) (0-450) /uL Baso # (Auto) (0-100) /uL PT 14.3 H (10.1-12.7) SECONDS INR 1.3 (0.9-1.3) APTT (26.4-36.2) SECONDS D-Dimer 2880 H (<230) ng/mL Sodium (137-145) mmol/L Potassium (3.4-5.1) mmol/L Chloride (98-107) mmol/L Carbon Dioxide (22-32) mmol/L BUN (9-20) mg/dL Creatinine (0.66-1.25) mg/dL Estimated GFR (>60) mL/min BUN/Creatinine Ratio (6-22) Glucose (80-110) mg/dL Lactate 1.0 (0.7-2.1) mmol/L Calcium (8.4-10.2) mg/dL Total Bilirubin (0.2-1.3) mg/dL AST (17-59) IU/L ALT (<50) IU/L Alkaline Phosphatase (38-126) U/L Total Creatine Kinase 31 L (55-170) U/L CK-MB (CK-2) TNP CK-MB (CK-2) Rel Index TNP Troponin I 0.014 (0.01-0.034) ng/mL NT-Pro-B Natriuret Pep 1630 H (<450) pg/mL Total Protein (6.3-8.2) g/dL Albumin (3.5-5.0) g/dL Globulin (1.7-4.1) g/dL Albumin/Globulin Ratio (1.0-2.8) Lipase (23-300) U/L Procalcitonin (<0.5) ng/mL SARS-CoV-2 (PCR) (Negative) 03/11/21 Range/Units 19:36 WBC (4.5-11.0) X10^3/uL RBC (4.5-5.9) X10^6/uL Hgb (13.5-17.5) g/dL Hct (41-53) % MCV (80-100) fL MCH (26-34) PG MCHC (30-36) % RDW (11.6-14.8) % Plt Count (150-400) X10^3/uL Neut % (Auto) (50-75) % Lymph % (Auto) (25-40) % Caroline % (Auto) (3-14) % Eos % (Auto) (2-4) % Baso % (Auto) (0-2) % Neut # (Auto) (6419-1970) /uL Lymph # (Auto) (4219-9721) /uL Caroline # (Auto) (0-900) /uL Eos # (Auto) (0-450) /uL Baso # (Auto) (0-100) /uL PT (10.1-12.7) SECONDS INR (0.9-1.3) APTT (26.4-36.2) SECONDS D-Dimer (<230) ng/mL Sodium (137-145) mmol/L Potassium (3.4-5.1) mmol/L Chloride (98-107) mmol/L Carbon Dioxide (22-32) mmol/L BUN (9-20) mg/dL Creatinine (0.66-1.25) mg/dL Estimated GFR (>60) mL/min BUN/Creatinine Ratio (6-22) Glucose (80-110) mg/dL Lactate (0.7-2.1) mmol/L Calcium (8.4-10.2) mg/dL Total Bilirubin (0.2-1.3) mg/dL AST (17-59) IU/L ALT (<50) IU/L Alkaline Phosphatase (38-126) U/L Total Creatine Kinase (55-170) U/L CK-MB (CK-2) CK-MB (CK-2) Rel Index Troponin I (0.01-0.034) ng/mL NT-Pro-B Natriuret Pep (<450) pg/mL Total Protein (6.3-8.2) g/dL Albumin (3.5-5.0) g/dL Globulin (1.7-4.1) g/dL Albumin/Globulin Ratio (1.0-2.8) Lipase (23-300) U/L Procalcitonin (<0.5) ng/mL SARS-CoV-2 (PCR) Negative (Negative) Urine Dip Bedside Urine Glucose Negative Bedside Urine Bilirubin - Negative Bedside Urine Ketone - Negative Urine Specific [place] 1.020 Bedside Urine Occult Blood - Negative Bedside Urine pH 7 Bedside Urine Protein +/- 15 Bedside Urine Urobilinogen - Negative Bedside Urine Nitrite - Negative Bedside Urine Leukocytes - Negative Esterase Point of care testing: Urine Dip Bedside Urine Glucose Negative Bedside Urine Bilirubin - Negative Bedside Urine Ketone - Negative Urine Specific [place] 1.020 Bedside Urine Occult Blood - Negative Bedside Urine pH 7 Bedside Urine Protein +/- 15 Bedside Urine Urobilinogen - Negative Bedside Urine Nitrite - Negative Bedside Urine Leukocytes - Negative Esterase Imaging Data CT scan - chest: Radiologist's Impression: [address] [id number] Scan ReportSigned Patient: Guanako Israel LMR#: [id number]: 6Acct:[id number]/Sex: 76 / MDate of Service: 03/11/21Loc: EDAccession Number: [id number] Procedure: CT angio chest PE protocol Ordering Provider: Mank,Jo-Ann C D.O. PROCEDURE: CT ANGIO CHEST PE PROTOCOL INDICATIONS: pneumonia +, s/p appy, ? PE TECHNIQUE: After the administration of intravenous contrast, 2 mm thick sections acquired from the pulmonary apices to the posterior costophrenic angles. 3-dimensional maximum intensity projection (MIP) coronal and sagittal reformats were then acquired through the thorax. For radiation dose reduction, the following was used: automated exposure control, adjustment of mA and/or kV according to patient size. COMPARISON: [facility], CR, XR CHEST 1V, 03/11/2021, 19:22. [facility], CT, CT ANGIO CHEST PE PROTOCOL, 03/09/2021, 16:32. FINDINGS: Image quality: Excellent. Pulmonary arteries: Pulmonary arteries are normal in size, and demonstrate no intraluminal filling defects to suggest central pulmonary embolism. Lungs and pleura: Small right and trace left pleural effusions do not appear significantly changed when compared to the CT from 03/09/2021. There is mildly improved aeration of the lung bases. Subtle ground-glass opacities are seen left lower lobe. Mediastinum: Heart size is normal, without pericardial effusion. No mediastinal or hilar adenopathy. Thoracic aorta is normal in caliber and enhancement. Esophagus is normal in caliber, with a small to moderate hiatal hernia. Bones and chest wall: A cardiac pacemaker is seen with pulse generator in the left chest.No suspicious bony lesions. Ribs and thoracic spine appear intact throughout. Thyroid gland is normal in size. No axillary or supraclavicular adenopathy. Abdomen: A small amount of ascites is seen in the upper abdomen. Visualized upper abdominal solid organs otherwise appear normal in the early arterial phase of enhancement. IMPRESSION: 1. No acute pulmonary embolus. 2. Small bilateral pleural effusions do not appear significantly changed in size when compared to the CT from 03/09/2021. 3. Bibasilar atelectasis has mildly improved. Subtle ground-glass opacities in the re-expanded left lower lobe could represent mild edema versus a mild infectious or inflammatory process. 4. Small amount of upper abdominal ascites. 5. Small to moderate hiatal hernia. Dictated by: Rj Gamble M.D. on 03/11/2021 at 21:36 Approved by: Rj Gamble M.D. on 03/11/2021 at 21:43 ECG Data Attestation: I personally reviewed and interpreted this ECG as follows: Interpretation: Atrial paced rhythm, left anterior fascicular block. Rate of 60, AL 186 QRS of 114 and QTC of 418. MDM Narrative Medical decision making narrative: This a 76-year-old male who comes in with complaint of asymptomatic hypoxia. Patient recently had an appendectomy and was discharged home he had developed bilateral pneumonia prior to discharge and was told he may need oxygen at home but was not discharged home with any at that time. It is unclear if his oxygenation had improved as he states this was a discussion up to close to the time he was discharged home. Patient has been checking his pulse oximeter with his . He struck down into the mid 80s, would EMS went to pick him up today they also correlated his O2 sat and was in the mid 80s as well. Upon arrival he was about 94%. Patient did have CTA ordered although he had a negative scan on the with his recent history of surgical intervention and hypoxia it was felt to be appropriate particularly in the setting of an elevated D-dimer. Patient's BNP is elevated but imaging does not show any pulmonary edema. He is not short of breath. He does not any chest pain or pressure. Patients labs labs are fairly stable the mild elevation in his LFTs but this does not seem surprising with his recent intra-abdominal surgery. Was monitored overnight, O2 sats dropped to 89% with ambulation. Patient is symptomatic. We attempted to set up home O2 but were unsuccessful given the late hour of the day. There were no beds available in house or elsewhere overnight so admission was not possible. Patient's would like to take the patient home. His ambulatory pulse ox was 89% overnight but RT was only able to get him to 93% this morning. Discussed with Dr. Davies is covering Dr. Zaman and they will attempt to help patient but he may not meet criteria. <Jaren Shine, DO - Last Filed: 03/13/21 04:42> Lab Data Labs: Lab Results 03/11/21 03/11/21 03/11/21 Range/Units 19:10 19:10 19:10 WBC 10.8 (4.5-11.0) X10^3/uL RBC 3.54 L (4.5-5.9) X10^6/uL Hgb 11.3 L (13.5-17.5) g/dL Hct 31.9 L (41-53) % MCV 90.2 (80-100) fL MCH 31.9 (26-34) PG MCHC 35.3 (30-36) % RDW 13.9 (11.6-14.8) % Plt Count 325 (150-400) X10^3/uL Neut % (Auto) 79.4 H (50-75) % Lymph % (Auto) 9.5 L (25-40) % Caroline % (Auto) 7.8 (3-14) % Eos % (Auto) 2.9 (2-4) % Baso % (Auto) 0.4 (0-2) % Neut # (Auto) 8600 H (3207-3765) /uL Lymph # (Auto) 1000 L (7556-1870) /uL Caroline # (Auto) 800 (0-900) /uL Eos # (Auto) 300 (0-450) /uL Baso # (Auto) 0 (0-100) /uL PT 14.3 H (10.1-12.7) SECONDS INR 1.3 (0.9-1.3) APTT 28 (26.4-36.2) SECONDS D-Dimer (<230) ng/mL Sodium 134 L (137-145) mmol/L Potassium 3.6 (3.4-5.1) mmol/L Chloride 99 (98-107) mmol/L Carbon Dioxide 28 (22-32) mmol/L BUN 17 (9-20) mg/dL Creatinine 1.11 (0.66-1.25) mg/dL Estimated GFR > 60.0 (>60) mL/min BUN/Creatinine Ratio 15.3 (6-22) Glucose 209 H (80-110) mg/dL Lactate (0.7-2.1) mmol/L Calcium 9.1 (8.4-10.2) mg/dL Total Bilirubin 0.4 (0.2-1.3) mg/dL AST 71 H (17-59) IU/L ALT 59 H (<50) IU/L Alkaline Phosphatase 78 (38-126) U/L Total Creatine Kinase (55-170) U/L CK-MB (CK-2) CK-MB (CK-2) Rel Index Troponin I (0.01-0.034) ng/mL NT-Pro-B Natriuret Pep (<450) pg/mL Total Protein 5.7 L (6.3-8.2) g/dL Albumin 2.9 L (3.5-5.0) g/dL Globulin 2.8 (1.7-4.1) g/dL Albumin/Globulin Ratio 1.0 (1.0-2.8) Lipase 111 (23-300) U/L Procalcitonin 0.35 (<0.5) ng/mL SARS-CoV-2 (PCR) (Negative) 03/11/21 03/11/21 03/11/21 Range/Units 19:10 19:10 19:10 WBC (4.5-11.0) X10^3/uL RBC (4.5-5.9) X10^6/uL Hgb (13.5-17.5) g/dL Hct (41-53) % MCV (80-100) fL MCH (26-34) PG MCHC (30-36) % RDW (11.6-14.8) % Plt Count (150-400) X10^3/uL Neut % (Auto) (50-75) % Lymph % (Auto) (25-40) % Caroline % (Auto) (3-14) % Eos % (Auto) (2-4) % Baso % (Auto) (0-2) % Neut # (Auto) (5242-9529) /uL Lymph # (Auto) (7821-1122) /uL Caroline # (Auto) (0-900) /uL Eos # (Auto) (0-450) /uL Baso # (Auto) (0-100) /uL PT 14.3 H (10.1-12.7) SECONDS INR 1.3 (0.9-1.3) APTT (26.4-36.2) SECONDS D-Dimer 2880 H (<230) ng/mL Sodium (137-145) mmol/L Potassium (3.4-5.1) mmol/L Chloride (98-107) mmol/L Carbon Dioxide (22-32) mmol/L BUN (9-20) mg/dL Creatinine (0.66-1.25) mg/dL Estimated GFR (>60) mL/min BUN/Creatinine Ratio (6-22) Glucose (80-110) mg/dL Lactate 1.0 (0.7-2.1) mmol/L Calcium (8.4-10.2) mg/dL Total Bilirubin (0.2-1.3) mg/dL AST (17-59) IU/L ALT (<50) IU/L Alkaline Phosphatase (38-126) U/L Total Creatine Kinase 31 L (55-170) U/L CK-MB (CK-2) TNP CK-MB (CK-2) Rel Index TNP Troponin I 0.014 (0.01-0.034) ng/mL NT-Pro-B Natriuret Pep 1630 H (<450) pg/mL Total Protein (6.3-8.2) g/dL Albumin (3.5-5.0) g/dL Globulin (1.7-4.1) g/dL Albumin/Globulin Ratio (1.0-2.8) Lipase (23-300) U/L Procalcitonin (<0.5) ng/mL SARS-CoV-2 (PCR) (Negative) 03/11/21 Range/Units 19:36 WBC (4.5-11.0) X10^3/uL RBC (4.5-5.9) X10^6/uL Hgb (13.5-17.5) g/dL Hct (41-53) % MCV (80-100) fL MCH (26-34) PG MCHC (30-36) % RDW (11.6-14.8) % Plt Count (150-400) X10^3/uL Neut % (Auto) (50-75) % Lymph % (Auto) (25-40) % Caroline % (Auto) (3-14) % Eos % (Auto) (2-4) % Baso % (Auto) (0-2) % Neut # (Auto) (2677-0064) /uL Lymph # (Auto) (9229-9409) /uL Caroline # (Auto) (0-900) /uL Eos # (Auto) (0-450) /uL Baso # (Auto) (0-100) /uL PT (10.1-12.7) SECONDS INR (0.9-1.3) APTT (26.4-36.2) SECONDS D-Dimer (<230) ng/mL Sodium (137-145) mmol/L Potassium (3.4-5.1) mmol/L Chloride (98-107) mmol/L Carbon Dioxide (22-32) mmol/L BUN (9-20) mg/dL Creatinine (0.66-1.25) mg/dL Estimated GFR (>60) mL/min BUN/Creatinine Ratio (6-22) Glucose (80-110) mg/dL Lactate (0.7-2.1) mmol/L Calcium (8.4-10.2) mg/dL Total Bilirubin (0.2-1.3) mg/dL AST (17-59) IU/L ALT (<50) IU/L Alkaline Phosphatase (38-126) U/L Total Creatine Kinase (55-170) U/L CK-MB (CK-2) CK-MB (CK-2) Rel Index Troponin I (0.01-0.034) ng/mL NT-Pro-B Natriuret Pep (<450) pg/mL Total Protein (6.3-8.2) g/dL Albumin (3.5-5.0) g/dL Globulin (1.7-4.1) g/dL Albumin/Globulin Ratio (1.0-2.8) Lipase (23-300) U/L Procalcitonin (<0.5) ng/mL SARS-CoV-2 (PCR) Negative (Negative) Urine Dip Bedside Urine Glucose Negative Bedside Urine Bilirubin - Negative Bedside Urine Ketone - Negative Urine Specific [place] 1.020 Bedside Urine Occult Blood - Negative Bedside Urine pH 7 Bedside Urine Protein +/- 15 Bedside Urine Urobilinogen - Negative Bedside Urine Nitrite - Negative Bedside Urine Leukocytes - Negative Esterase Point of care testing: Urine Dip Bedside Urine Glucose Negative Bedside Urine Bilirubin - Negative Bedside Urine Ketone - Negative Urine Specific [place] 1.020 Bedside Urine Occult Blood - Negative Bedside Urine pH 7 Bedside Urine Protein +/- 15 Bedside Urine Urobilinogen - Negative Bedside Urine Nitrite - Negative Bedside Urine Leukocytes - Negative Esterase Discharge Plan Departure Patient Disposition: Home Clinical Impression: Low oxygen saturation, S/P appy, Pneumonia of both lungs Activity Restrictions/Additional Instructions: Continue your home medications as prescribed. Dr. De Jesus office is going to work on setting up home oxygen for you today but you do not technically meet criteria. They will continue to work with you to set try and set this up but may not be able too. Prescription was sent for lasix to [facility]. Take once daily until gone. Continue all your home medications. Please return for any new or worsening symptoms, persistent fevers, worsening shortness of breath, lightheadedness passing out, persistent vomiting, new swelling extremities or other new or concerning symptoms. Prescriptions: New furosemide [Lasix] 40 mg tablet 40 mg PO DAILY Qty: 5 RF: 0 No Action (DME) glucometer Qty: 1 RF: 0 ferrous sulfate 27 mg iron Tablet 27 mg PO DAILY Qty: 0 RF: 0 cinnamon bark [Cinnamon] 500 mg Capsule 1,000 mg PO BID Qty: 0 RF: 0 ascorbic acid (vitamin C) 500 MG tablet 500 mg PO DAILY Qty: 0 RF: 0 (DME) Accu-chek Softclix Lancets 0 .Route .MEDSUPPLY Qty: 100 RF: 3 (DME) Syringes: Ultra Fine Insulin Syringe w/Needle 0 .Route .MEDSUPPLY Qty: 100 RF: 3 (DME) Lucinda 31G x15/64 0 .Route .MEDSUPPLY Qty: 200 RF: 12 trazodone 50 mg tablet 50 mg PO BEDTIME Qty: 90 RF: 3 carvedilol [Coreg] 25 mg tablet 37.5 mg PO BID Qty: 270 RF: 0 lorazepam 0.5 mg tablet See Rx Instructions .ROUTE .COMPLEX Qty: 30 RF: 0 (DME) Glucose: Test Strips 0 .Route .MEDSUPPLY Qty: 200 RF: 3 hydrochlorothiazide 25 mg tablet 12.5 mg PO DAILY RF: 0 potassium chloride 10 mEq capsule, extended release 10 meq PO BEDTIME RF: 0 Humulin R Regular U-100 Insuln 100 unit/mL Solution 4 - 9 unit SUBCUT AC RF: 0 Humulin N NPH Insulin KwikPen 100 unit/mL (3 mL) Insulin Pen 6 unit SUBCUT BEDTIME RF: 0 Humulin N NPH Insulin KwikPen 100 unit/mL (3 mL) Insulin Pen 24 unit SUBCUT QAM RF: 0 multivitamin Tablet 1 tab PO DAILY RF: 0 glucosamine sulfate [Glucosamine] 500 mg Tablet 2,000 mg PO BID RF: 0 odgfgys-grtzwhkyn-yrau Tablet 1 tab PO BEDTIME RF: 0 famotidine 20 mg Tablet 20 mg PO BEDTIME RF: 0 sertraline 25 mg Tablet 25 mg PO DAILY RF: 0 losartan 100 mg Tablet 100 mg PO DAILY RF: 0 omega 2-pzs-znc-fish oil [Fish Oil] 1,200 (144-216) mg Capsule 1 cap PO BID RF: 0 atorvastatin 80 mg Tablet 80 mg PO BEDTIME RF: 0 amlodipine 10 mg Tablet 10 mg PO BEDTIME RF: 0 warfarin 5 mg Tablet 5 mg PO DAILY RF: 0 amoxicillin-pot clavulanate [Augmentin] 875-125 mg tablet 1 tab PO BID Qty: 14 RF: 0 oxycodone 5 mg tablet 5 mg PO Q8H PRN (Reason: pain) Qty: 30 RF: 0 Referrals: Gianni Zaman DO [Primary Care Provider] -
[2021-03-11 19:43] LABS: Add Manual Diff / Slide Review NO; Basophils Absolute Auto 0 /uL (0-100); Basophils Percent Auto 0.4 % (0-2); Eosinophils Absolute Auto 300 /uL (0-450); Eosinophils Percent Auto 2.9 % (2-4); Hematocrit 31.9 % (41-53); Hemoglobin 11.3 g/dL (13.5-17.5); Lymphocytes Absolute Auto 1000 /uL (1100-4500); Lymphocytes Percent Auto 9.5 % (25-40); Mean Corpuscular HGB Conc 35.3 % (30-36); Mean Corpuscular Hemoglobin 31.9 PG (26-34); Mean Corpuscular Volume 90.2 fL (80-100); Monocytes Absolute Auto 800 /uL (0-900); Monocytes Percent Auto 7.8 % (3-14); Neutrophils Absolute Auto 8600 /uL (1500-7000); Neutrophils Percent Auto 79.4 % (50-75); Platelet Count 325 X10^3/uL (150-400); Red Blood Cell Count 3.54 X10^6/uL (4.5-5.9); Red Cell Distribution Width 13.9 % (11.6-14.8); White Blood Cell Count 10.8 X10^3/uL (4.5-11.0)
[2021-03-11 20:03] LABS: INR 1.3 (0.9-1.3); Prothrombin Time 14.3 SECONDS (10.1-12.7)
[2021-03-11 20:12] LABS: D Dimer 2880 ng/mL (<230)
[2021-03-11] MEDS: SODIUM CHLORIDE 0.9% 1,000 ML 1000 ML IV (20:13)
[2021-03-11 20:15] LABS: Creatine Kinase 31 U/L (55-170)
[2021-03-11 20:16] LABS: Alanine Aminotransferase 59 IU/L (<50); Albumin 2.9 g/dL (3.5-5.0); Alkaline Phosphatase 78 U/L (38-126); Aspartate Aminotransferase 71 IU/L (17-59); BUN Creatinine Ratio 15.3 (6-22); Bilirubin Total 0.4 mg/dL (0.2-1.3); Blood Urea Nitrogen 17 mg/dL (9-20); Calcium 9.1 mg/dL (8.4-10.2); Carbon Dioxide 28 mmol/L (22-32); Chloride 99 mmol/L (98-107); Estimated Glomerular Filt Rate > 60.0 mL/min (>60); Globulin 2.8 g/dL (1.7-4.1); Glucose 209 mg/dL (80-110); HEMOLYSIS < 15 (0-50); Lipase 111 U/L (23-300); Potassium 3.6 mmol/L (3.4-5.1); Sodium 134 mmol/L (137-145); Total Protein 5.7 g/dL (6.3-8.2)
[2021-03-11 20:19] LABS: INR 1.3 (0.9-1.3); Prothrombin Time 14.3 SECONDS (10.1-12.7)
[2021-03-11 20:21] LABS: PTT Partial Thromboplastin Tim 28 SECONDS (26.4-36.2)
--- NOTE | 2021-03-11 20:26 | DI.CT.S_ITS ---
PROCEDURE: CT ANGIO CHEST PE PROTOCOL INDICATIONS: pneumonia +, s/p appy, ? PE TECHNIQUE: After the administration of intravenous contrast, 2 mm thick sections acquired from the pulmonary apices to the posterior costophrenic angles. 3-dimensional maximum intensity projection (MIP) coronal and sagittal reformats were then acquired through the thorax. For radiation dose reduction, the following was used: automated exposure control, adjustment of mA and/or kV according to patient size. COMPARISON: [facility], CR, XR CHEST 1V, 03/11/2021, 19:22. [facility], CT, CT ANGIO CHEST PE PROTOCOL, 03/09/2021, 16:32. FINDINGS: Image quality: Excellent. Pulmonary arteries: Pulmonary arteries are normal in size, and demonstrate no intraluminal filling defects to suggest central pulmonary embolism. Lungs and pleura: Small right and trace left pleural effusions do not appear significantly changed when compared to the CT from 03/09/2021. There is mildly improved aeration of the lung bases. Subtle ground-glass opacities are seen left lower lobe. Mediastinum: Heart size is normal, without pericardial effusion. No mediastinal or hilar adenopathy. Thoracic aorta is normal in caliber and enhancement. Esophagus is normal in caliber, with a small to moderate hiatal hernia. Bones and chest wall: A cardiac pacemaker is seen with pulse generator in the left chest.No suspicious bony lesions. Ribs and thoracic spine appear intact throughout. Thyroid gland is normal in size. No axillary or supraclavicular adenopathy. Abdomen: A small amount of ascites is seen in the upper abdomen. Visualized upper abdominal solid organs otherwise appear normal in the early arterial phase of enhancement. IMPRESSION: 1. No acute pulmonary embolus. 2. Small bilateral pleural effusions do not appear significantly changed in size when compared to the CT from 03/09/2021. 3. Bibasilar atelectasis has mildly improved. Subtle ground-glass opacities in the re-expanded left lower lobe could represent mild edema versus a mild infectious or inflammatory process. 4. Small amount of upper abdominal ascites. 5. Small to moderate hiatal hernia. Dictated by: Rj Gamble M.D. on 03/11/2021 at 21:36 Approved by: Rj Gamble M.D. on 03/11/2021 at 21:43
[2021-03-11 20:28] LABS: NT-proBNP (BNP-Adult 18+) 1630 pg/mL (<450); Troponin I 0.014 ng/mL (0.01-0.034)
[2021-03-11] MEDS: OXYCODONE IR 5 MG TABLET PO (20:33)
[2021-03-11 20:34] LABS: Procalcitonin 0.35 ng/mL (<0.5)
--- NOTE | 2021-03-11 20:42 | PC.NURSE ---
Recent hospitalization, pneumonia, low saturations. Discharged home today after hospitalization for appendectomy
[2021-03-11 20:50] LABS: COVID19 - ADMIT (NP swab/PCR) Negative (Negative)
[2021-03-11 22:48] VITALS: PULSE 66; RESP 28; O2SAT 93
[2021-03-11 23:00] VITALS: BP 167/79; PULSE 60; RESP 26; O2SAT 92
[2021-03-11 23:30] VITALS: BP 150/67; PULSE 64; RESP 24; O2SAT 93
[2021-03-12] VITALS (22 sets, daily range): BP systolic 149–187; BP diastolic 70–95; PULSE 60–115; RESP 18–37; O2SAT 89–96
--- NOTE | 2021-03-12 03:17 | PC.NURSE ---
Pt ambulated around the unit x 2, SpO2 dropped to 89%. Pt reported mild SOB and cloudy head feeling. Dr Hieu brito.
== END 2021-03-12 07:49 | disposition home or self-care (01) ==
PROVIDERS: Emergency Provider Emergency Medicine; PCP Family Medicine
DX: J18.9 Pneumonia, unspecified organism (principal); R09.02 Hypoxemia; Z20.822 Contact with and (suspected) exposure to COVID-19
CPT/HCPCS: 36415; 71045; 71275; 80053; 81003; 82550; 83605; 83690; 83880; 84145; 84484; 85025; 85379; 85610; 85730; 87040; 87635; 93005; 93010; 96360; 99284; C9803; Q9967

== ENCOUNTER → 2021-07-05 08:13 | Outpatient (CLI) | payer OTHER, SELFPAY ==
[2021-03-05 12:26] VITALS: BMI 22.8
[2021-07-05 09:48] LABS: Hematocrit 36.5 % (41-53); Hemoglobin 12.6 g/dL (13.5-17.5)
[2021-07-05 09:55] LABS: Blood Urea Nitrogen 24 mg/dL (9-20); Calcium 9.5 mg/dL (8.4-10.2); Carbon Dioxide 29 mmol/L (22-32); Chloride 105 mmol/L (98-107); Estimated Glomerular Filt Rate 52.4 mL/min (>60); Glucose 141 mg/dL (80-110); HEMOLYSIS < 15 (0-50); Potassium 4.4 mmol/L (3.4-5.1); Sodium 137 mmol/L (137-145)
[2021-07-05 10:02] LABS: NT-proBNP (BNP-Adult 18+) 1230 pg/mL (<450)
[2021-07-06 10:09] LABS: Parathyroid Hormone Int 24 pg/mL (15-65)
== END ==
PROVIDERS: PCP Family Medicine; Referring Provider Student in an Organized Health Care Education/Training Program; Visit Provider Student in an Organized Health Care Education/Training Program
DX: N05.9 Unspecified nephritic syndrome with unspecified morphologic changes (principal); I50.32 Chronic diastolic (congestive) heart failure; D84.9 Immunodeficiency, unspecified; N25.81 Secondary hyperparathyroidism of renal origin
CPT/HCPCS: 36415; 80048; 83880; 83970; 85014; 85018

== ENCOUNTER → 2021-10-24 10:43 | Outpatient (CLI) | payer OTHER, SELFPAY ==
[2021-03-05 12:26] VITALS: BMI 22.8
[2021-10-24 12:40] LABS: INR 2.1 (0.9-1.3); Prothrombin Time 24.2 SECONDS (10.1-12.7)
== END ==
PROVIDERS: PCP Family Medicine; Referring Provider Family Medicine; Visit Provider Family Medicine
DX: Z79.01 Long term (current) use of anticoagulants (principal)
CPT/HCPCS: 36415; 85610

== ENCOUNTER → 2021-12-10 11:03 | Outpatient (CLI) | payer OTHER, SELFPAY ==
[2021-03-05 12:26] VITALS: BMI 22.8
[2021-12-10 12:50] LABS: INR 3.7 (0.9-1.3); Prothrombin Time 43.1 SECONDS (10.1-12.7)
== END ==
PROVIDERS: PCP Family Medicine; Referring Provider Family Medicine; Visit Provider Family Medicine
DX: Z79.01 Long term (current) use of anticoagulants (principal)
CPT/HCPCS: 36415; 85610

== ENCOUNTER → 2021-12-20 07:44 | Outpatient (CLI) | payer OTHER, SELFPAY ==
[2021-12-19 11:07] VITALS: BMI 22.8
[2021-12-20 08:53] LABS: Add Manual Diff / Slide Review NO; Basophils Absolute Auto 0 /uL (0-100); Basophils Percent Auto 0.3 % (0-2); Eosinophils Absolute Auto 400 /uL (0-450); Hematocrit 33.9 % (41-53); Hemoglobin 11.8 g/dL (13.5-17.5); Lymphocytes Absolute Auto 1800 /uL (1100-4500); Lymphocytes Percent Auto 20.6 % (25-40); Mean Corpuscular HGB Conc 34.9 % (30-36); Mean Corpuscular Hemoglobin 31.8 PG (26-34); Monocytes Absolute Auto 600 /uL (0-900); Monocytes Percent Auto 7.3 % (3-14); Neutrophils Absolute Auto 6000 /uL (1500-7000); Neutrophils Percent Auto 67.8 % (50-75); Platelet Count 239 X10^3/uL (150-400); Red Blood Cell Count 3.72 X10^6/uL (4.5-5.9); Red Cell Distribution Width 14.2 % (11.6-14.8); White Blood Cell Count 8.9 X10^3/uL (4.5-11.0)
[2021-12-20 09:00] LABS: Hemoglobin A1C% w Est Avg Glu 6.7 % (4.0-6.0)
[2021-12-20 09:08] LABS: Alanine Aminotransferase 28 IU/L (<50); Albumin 3.9 g/dL (3.5-5.0); Albumin Globulin Ratio 1.4 (1.0-2.8); Alkaline Phosphatase 69 U/L (38-126); Aspartate Aminotransferase 29 IU/L (17-59); BUN Creatinine Ratio 18.6 (6-22); Bilirubin Total 0.5 mg/dL (0.2-1.3); Blood Urea Nitrogen 26 mg/dL (9-20); Calcium 9.4 mg/dL (8.4-10.2); Carbon Dioxide 29 mmol/L (22-32); Chloride 105 mmol/L (98-107); Cholesterol 120 mg/dL (140-199); Estimated Glomerular Filt Rate 49.4 mL/min (>60); Globulin 2.8 g/dL (1.7-4.1); Glucose 126 mg/dL (80-110); HDL Cholesterol 32 mg/dL (40-60); HEMOLYSIS < 15 (0-50); LDL Cholesterol Calculated 67 mg/dL (<100); Potassium 4.2 mmol/L (3.4-5.1); Sodium 139 mmol/L (137-145); Total Protein 6.7 g/dL (6.3-8.2); Triglycerides 104 mg/dL (35-150)
[2021-12-20 09:36] LABS: Prostate Specific Antigen 0.623 ng/mL (0.10-4.00)
[2021-12-20 09:55] LABS: Vitamin B12 781 pg/mL (239-931)
== END ==
PROVIDERS: PCP Family Medicine; Referring Provider Family Medicine; Visit Provider Family Medicine
DX: E11.21 Type 2 diabetes mellitus with diabetic nephropathy (principal); N40.0 Benign prostatic hyperplasia without lower urinary tract symptoms; E87.6 Hypokalemia; I10 Essential (primary) hypertension; N17.9 Acute kidney failure, unspecified; Z79.4 Long term (current) use of insulin; R06.00 Dyspnea, unspecified
CPT/HCPCS: 36415; 80053; 80061; 82607; 83036; 84153; 85025

== ENCOUNTER → 2022-03-10 11:08 | Outpatient (CLI) | payer OTHER, SELFPAY ==
[2021-12-19 11:07] VITALS: BMI 22.8
[2022-03-10 12:40] LABS: Hematocrit 36.3 % (41-53); Hemoglobin 12.6 g/dL (13.5-17.5)
[2022-03-10 12:56] LABS: BUN Creatinine Ratio 17.7 (6-22); Blood Urea Nitrogen 25 mg/dL (9-20); Calcium 9.1 mg/dL (8.4-10.2); Carbon Dioxide 30 mmol/L (22-32); Chloride 103 mmol/L (98-107); Estimated Glomerular Filt Rate 52 mL/min (>60); Glucose 110 mg/dL (80-110); HEMOLYSIS < 15 (0-50); Potassium 4.4 mmol/L (3.4-5.1); Sodium 138 mmol/L (137-145)
[2022-03-10 13:55] LABS: TSH w/ Reflex to FT4 1.58 uIU/mL (0.47-4.68)
[2022-03-11 07:36] LABS: Parathyroid Hormone Int 40 pg/mL (15-65)
[2022-03-18 21:36] LABS: 1,25-Dihydroxy, Vitamin D-2 <10 pg/mL (.)
== END ==
PROVIDERS: PCP Family Medicine; Referring Provider Psychiatry & Neurology Neurology; Visit Provider Student in an Organized Health Care Education/Training Program
DX: D64.9 Anemia, unspecified (principal); N05.9 Unspecified nephritic syndrome with unspecified morphologic changes; N25.81 Secondary hyperparathyroidism of renal origin; R80.9 Proteinuria, unspecified; R41.3 Other amnesia; F68.8 Other specified disorders of adult personality and behavior; E55.9 Vitamin D deficiency, unspecified; Z81.8 Family history of other mental and behavioral disorders
CPT/HCPCS: 36415; 80048; 82652; 83970; 84443; 85014; 85018

== ENCOUNTER → 2022-04-10 10:04 | Outpatient (CLI) | payer OTHER, SELFPAY ==
[2021-12-19 11:07] VITALS: BMI 22.8
[2022-04-10 11:54] LABS: INR 3.9 (0.9-1.3); Prothrombin Time 45.6 SECONDS (10.1-12.7)
== END ==
PROVIDERS: Family Provider Family Medicine; PCP Family Medicine; Referring Provider Family Medicine; Visit Provider Family Medicine
DX: Z79.01 Long term (current) use of anticoagulants (principal)
CPT/HCPCS: 36415; 85610

== ENCOUNTER 2022-05-16 09:30 | Outpatient (RCR) | payer OTHER, SELFPAY ==
[2021-12-19 11:07] VITALS: BMI 22.8
--- NOTE | 2022-04-10 15:48 | ST.OPIE ---
Visit Care Team Role Provider Type Gianni Zaman DO Family Provider Physician Primary Care Provider Specialty: Family Practice Address: [address] [place] [address], [id number] Email: Gina Pettit MD Attending Provider Non-Staff Referring Provider Specialty: Neurology Address: [place], [address] Email: Speech-Language Pathology Initial Evaluation PATHOLOGY TEACHER Adult Cognitive Linguistic Eval Start: 04/10/22 14:22 Freq: Status: Active Protocol: Document 04/10/22 15:12 ZS (Rec: 04/10/22 15:46 ZS [id number]) Adult Cognitive Linguistic Evaluation Session Time Visit Start Time 14:30 Visit Stop Time 15:15 Total Visit Minutes 45 Visit Information Visit Number Initial Evaluation Plan of Care Dates 04/10/2022 - 11/01/2022 Insurance Information [place] Referral Referring Provider Dr. Pettit Reason for Referral word finding difficulty, memory loss Setting Assessment Location Outpatient Care Visit Type Note Type Initial evaluation Next Note Type Next Note Type Treatment Note Patient Information Identification Type Name Patient History Guanako is a 77 year old male who had a stroke in 2016 and was recently diagnosed with moderate dementia. He received speech therapy services at [facility] following his stroke in 2016. Guanako is currently having difficulty with memory, which his stated is likely related to moderate dementia diagnosis, and communicating thoughts verbally. Guanako stated he will know what he wants to say, but cannot organize the thoughts into a sentence and has difficulty coming up with the words he wants to say. His reported Guanako often gets frustrated when he is unable to communicate his thoughts and will give up trying. Language(s) Spoken in the Home Czech Hearing Hearing Level Hearing Aids Vision Vision Status Not Impaired Previous Therapy Previous Speech-Language Therapy Yes History of Therapy Received speech therapy at [facility] in 2016 following stroke. Subjective Mental Status Alert,Responsive,Cooperative Assessment Oral Motor Examination Completed No Formal Assessment Standardized Test/Screener Type Cognitive Linguistic Quick Test (CLQT) Administration Complete Results Results of the CLQT place Guanako Monges composite score at 3.6, indicating overall cognitive skills are WNL. However, Smith s memory and language skills fell in the mildly impaired range. Guanako exhibited difficulty with story recall, symbol trails, and design generation. During generation naming task for words beginning with m, Guanako stated my mind just went blank and did not name any objects for 15-20 seconds. On the symbol trails task, Guanako was observed to miss a triangle, identify the error, and continue the task. When given a different color to try again, Guanako missed a different shape and did not catch the error. His first completion of symbol trails scored a 5/10 and the second attempt scored a 8/10. Recommend speech therapy to increase memory and communication of wants and needs, especially in emergency situations. Prognosis Prognosis Fair Based on Cognitive status,Family support,Duration of symptoms/ severity,Time since onset Plan of Care Speech-Language Treatment Yes Frequency once a week Duration 45 minutes Patient/Caregiver Education Described results of evaluation,Patient expressed understanding of evaluation, Patient expressed agreement with goals and treatment plans ,Family/caregivers expressed understanding of evaluation, Family/caregivers expressed agreement with goals and treatment plan,Patient requires further education/ training,Family/caregivers require further education/ training Short Term Goals 1. Guanako will participate in informal assessment of word finding and sentence generation to determine areas of concern and inform plan of care. 2. Guanako will implement 2-4 external cognitive strategies in home environment to increase memory and word finding. 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
--- NOTE | 2022-04-10 15:48 | ST.OPPOC ---
Physical, Occupational & Speech Therapy At [facility] Visit Care Team Role Provider Type Gianni Zaman DO Family Provider Physician Primary Care Provider Address: [address] [place] [address], [id number] Gina Pettit MD Attending Provider Non-Staff Referring Provider Address: [address] [place] [address], [id number] Speech Pathology Plan of Care Plan of Care Dates 04/10/2022 - 11/01/[address] Pettit Patient History Guanako is a 77 year old male who had a stroke in 2016 and was recently diagnosed with moderate dementia. He received speech therapy services at [facility] following his stroke in 2016. Guanako is currently having difficulty with memory, which his stated is likely related to moderate dementia diagnosis, and communicating thoughts verbally. Guanako stated he will know what he wants to say, but cannot organize the thoughts into a sentence and has difficulty coming up with the words he wants to say. His reported Guanako often gets frustrated when he is unable to communicate his thoughts and will give up trying. Short Term Goals 1. Guanako will participate in informal assessment of word finding and sentence generation to determine areas of concern and inform plan of care. 2. Guanako will implement 2-4 external cognitive strategies in home environment to increase memory and word finding. Alf Goals Guanako will communicate his thoughts verbally with minimal frustration, as measured by patient and family report and clinician judgment. Comment: Electronically Signed by: LYNDA Cabello 04/10/22 [id number] If you are in agreement with this Plan of Care, please return a signed and dated copy. I have reviewed this Plan of Care and certify that the skilled therapy services above are required to meet the patient?s needs. Physician Signature Date Printed Name and Credentials Clinical Instructor Signature Printed Name and Credentials
--- NOTE | 2022-04-17 15:25 | ST.OPTN ---
Visit Care Team Role Provider Type Gianni Zaman DO Family Provider Physician Primary Care Provider Address: [address] [place] [address], [id number] Gina Pettit MD Attending Provider Non-Staff Referring Provider Address: [place], [address] FREE LANCE MODEL Treatment Note FREE LANCE MODEL Treatment Note Start: 04/17/22 15:19 Freq: Status: Active Protocol: Document 04/17/22 15:19 ZS (Rec: 04/17/22 15:25 ZS [id number]) Speech Pathology Treatment Note Session Time Visit Start Time 14:30 Visit Stop Time 15:15 Total Visit Minutes 45 Visit Information Visit Number 1 Plan of Care Dates 04/10/2022 - 11/01/2022 Insurance Information [place] Setting Treatment Setting Outpatient Care Visit Type Note Type Treatment Note Next Note Type Next Note Type Treatment Note General Information Patient History Guanako is a 77 year old male who had a stroke in 2016 and was recently diagnosed with moderate dementia. He received speech therapy services at [facility] following his stroke in 2016. Guanako is currently having difficulty with memory, which his stated is likely related to moderate dementia diagnosis, and communicating thoughts verbally. Guanako stated he will know what he wants to say, but cannot organize the thoughts into a sentence and has difficulty coming up with the words he wants to say. His reported Guanako often gets frustrated when he is unable to communicate his thoughts and will give up trying. Results of the CLQT place Guanako 's composite score at 3.6, indicating overall cognitive skills are WNL. However, Guanako' s memory and language skills fell in the mildly impaired range. Subjective Identification Type Name Identification Reconciled With Medical Record Others Present Family Observations/Patient Presentation Guanako arrived on time accompanied by his , who was present for the session. Chief Complaint(s) Language Objective Short Term Goals 1. Guanako will participate in informal assessment of word finding and sentence generation to determine areas of concern and inform plan of care. 2. Guanako will implement 2-4 external cognitive strategies in home environment to increase memory and word finding. Orthopedic Mechanic Goals Guanako will communicate his thoughts verbally with minimal frustration, as measured by patient and family report and clinician judgment. Treatment Activities Reviewed results of CLQT. Probed language and discussed memory strategies, word finding strategies, and plan of care moving forward. Will probe synonyms in next session . Assessment Assessment of Improvement Guanako named 100% of known objects presented. He identified characteristics of nouns given a visual cue and verbal prompts with 100% accuracy and no perceived word finding difficulty. Discussed memory strategies and reviewed strategies Guanako currently uses at home. Discussed word finding strategies to try at home this week, including gesturing, describing properties of the object, and / conversational partner providing hints regarding the first letter/sound of a word. Guanako expressed understanding and agreement with strategies, though stated he gets frustrated when his tries to guess what he is trying to say because she is not always right and sometimes it distracts him from whatever he is trying to think of. Reviewed with Patient Goals,Progress Being Made,Home Exercise Program Plan Amount of Therapy Recommended 6 Months Frequency of Treatment Once a Week Length of Session 45 Minutes Therapeutic Contents Cognitive-Linguistic Training, Expressive Language Training Provided Patient/Caregiver Instruction Home Exercise Program,Plan of Care,Questions/Concerns Therapy Recommendations Continue with Current Program
--- NOTE | 2022-04-23 11:27 | ST.OPTN ---
Visit Care Team Role Provider Type Gianni Zaman DO Family Provider Physician Primary Care Provider Address: [address] [place] [address], [id number] Gina Pettit MD Attending Provider Non-Staff Referring Provider Address: [address] [place], [address] JACKER FEEDER Treatment Note JACKER FEEDER Treatment Note Start: 04/17/22 15:19 Freq: Status: Active Protocol: Document 04/23/22 11:20 ZS (Rec: 04/23/22 11:26 ZS [id number]) Speech Pathology Treatment Note Session Time Visit Start Time 10:30 Visit Stop Time 11:15 Total Visit Minutes 45 Visit Information Visit Number 2 Plan of Care Dates 04/10/2022 - 11/01/2022 Insurance Information [facility] Treatment Setting Outpatient Care Visit Type Note Type Treatment Note Next Note Type Next Note Type Treatment Note General Information Patient History Guanako is a 77 year old male who had a stroke in 2016 and was recently diagnosed with moderate dementia. He received speech therapy services at [facility] following his stroke in 2016. Guanako is currently having difficulty with memory, which his stated is likely related to moderate dementia diagnosis, and communicating thoughts verbally. Guanako stated he will know what he wants to say, but cannot organize the thoughts into a sentence and has difficulty coming up with the words he wants to say. His reported Guanako often gets frustrated when he is unable to communicate his thoughts and will give up trying. Results of the CLQT place Guanako 's composite score at 3.6, indicating overall cognitive skills are WNL. However, Smith s memory and language skills fell in the mildly impaired range. Subjective Identification Type Name Identification Reconciled With Medical Record Others Present Family Observations/Patient Presentation Guanako arrived on time accompanied by his , who was present for the session. They reported difficulty in remembering to use the memory notebook, though stated Guanako has been using it to write down lists of items to get at the store. Guanako's reported Guanako is not the type to journal or take notes and she does not see him using a memory notebook in this way. Chief Complaint(s) Language Objective Short Term Goals 1. Guanako will participate in informal assessment of word finding and sentence generation to determine areas of concern and inform plan of care. 2. Guanako will implement 2-4 external cognitive strategies in home environment to increase memory and word finding. [facility]ci Goals Guanako will communicate his thoughts verbally with minimal frustration, as measured by patient and family report and clinician judgment. Treatment Activities Probed synonyms and practiced coming up with synonyms in sentences and conversation. Assessment Patient Response to Treatment Good Rehab Potential Good Impairments Identified Cognitive communication Progress Towards Goals Good Progress Assessment of Improvement Guanako identified 1-2 synonyms for each single word provided. Some synonyms were indirectly related or less commonly known words (e.g., diminutive as a synonym for small) and Guaanko took 30-60 seconds to develop a synonym for each word. He identified synonyms for both meanings of words in cases where a word had multiple interpretations (e.g. , stumble or journey as synonyms for trip). Increased speed noted when developing synonyms for words in a given sentence and when asked to give a synonym for a word during conversation. Guanako to practice developing synonyms or describing words at home to increase speed with this task. Reviewed with Patient Goals,Progress Being Made,Home Exercise Program Plan Amount of Therapy Recommended 6 Months Frequency of Treatment Once a Week Length of Session 45 Minutes Therapeutic Contents Cognitive-Linguistic Training, Expressive Language Training Provided Patient/Caregiver Instruction Home Exercise Program,Plan of Care,Questions/Concerns Therapy Recommendations Continue with Current Program
--- NOTE | 2022-05-07 11:19 | ST.OPTN ---
Visit Care Team Role Provider Type Gianni Zaman DO Family Provider Physician Primary Care Provider Address: [address] [place] [address], [id number] Gina Pettit MD Attending Provider Non-Staff Referring Provider Address: [address] [place], [address] JANITOR AND CLEANER Treatment Note JANITOR AND CLEANER Treatment Note Start: 04/17/22 15:19 Freq: Status: Active Protocol: Document 05/07/22 11:15 ZS (Rec: 05/07/22 11:19 ZS [id number]) Speech Pathology Treatment Note Session Time Visit Start Time 10:30 Visit Stop Time 11:15 Total Visit Minutes 45 Visit Information Visit Number 3 Plan of Care Dates 04/10/2022 - 11/01/2022 Insurance Information [employer] Setting Treatment Setting Outpatient Care Visit Type Note Type Treatment Note Next Note Type Next Note Type Treatment Note General Information Patient History Guanako is a 77 year old male who had a stroke in 2016 and was recently diagnosed with moderate dementia. He received speech therapy services at [facility] following his stroke in 2016. Guanako is currently having difficulty with memory, which his stated is likely related to moderate dementia diagnosis, and communicating thoughts verbally. Guanako stated he will know what he wants to say, but cannot organize the thoughts into a sentence and has difficulty coming up with the words he wants to say. His reported Guanako often gets frustrated when he is unable to communicate his thoughts and will give up trying. Results of the CLQT place Guanako 's composite score at 3.6, indicating overall cognitive skills are WNL. However, Smith s memory and language skills fell in the mildly impaired range. Subjective Identification Type Name Identification Reconciled With Medical Record Others Present Family Observations/Patient Presentation Guanako arrived on time accompanied by his , who was present for the session. They reported decreased frustration when Guanako is trying to communicate and high accuracy when working with synonyms at home. Chief Complaint(s) Language Objective Short Term Goals 1. Guanako will participate in informal assessment of word finding and sentence generation to determine areas of concern and inform plan of care. 2. Guanako will implement 2-4 external cognitive strategies in home environment to increase memory and word finding. Bung Dropper Goals Guanako will communicate his thoughts verbally with minimal frustration, as measured by patient and family report and clinician judgment. Treatment Activities Targeted synonyms by coming up with a sentence for a given word and then replacing that word with a synonym. Provided pt education regarding cognition and strategies to reduce frustration. Assessment Patient Response to Treatment Good Rehab Potential Good Impairments Identified Cognitive communication Progress Towards Goals Good Progress Assessment of Improvement Guanako identified 1-2 synonyms for each single word provided. Guanako identified 2 antonyms as synonyms and took 60-90 seconds to develop a synonym for 3 of 28 words, but rapidly and accurately identified synonyms for most provided words. Increased speed noted when developing synonyms for words in a given sentence. Guanako to practice developing synonyms or describing words at home to increase speed with this task. Reviewed with Patient Goals,Progress Being Made,Home Exercise Program Plan Amount of Therapy Recommended 6 Months Frequency of Treatment Once a Week Length of Session 45 Minutes Therapeutic Contents Cognitive-Linguistic Training, Expressive Language Training Provided Patient/Caregiver Instruction Home Exercise Program,Plan of Care,Questions/Concerns Therapy Recommendations Continue with Current Program
--- NOTE | 2022-05-16 10:02 | ST.OPTN ---
Visit Care Team Role Provider Type Gianni Zaman DO Family Provider Physician Primary Care Provider Address: [address] [place] [address], [address] Gina Pettit MD Attending Provider Non-Staff Referring Provider Address: [address] [place], [address] SENIOR HRIS ANALYST Treatment Note SENIOR HRIS ANALYST Treatment Note Start: 04/17/22 15:19 Freq: Status: Active Protocol: Document 05/16/22 09:58 ZS (Rec: 05/16/22 10:02 ZS [id number]) Speech Pathology Treatment Note Session Time Visit Start Time 09:20 Visit Stop Time 10:00 Total Visit Minutes 40 Visit Information Visit Number 4 Plan of Care Dates 04/10/2022 - 11/01/2022 Insurance Information [employer] Setting Treatment Setting Outpatient Care Visit Type Note Type Treatment Note Next Note Type Next Note Type Treatment Note General Information Patient History Guanako is a 77 year old male who had a stroke in 2016 and was recently diagnosed with moderate dementia. He received speech therapy services at [facility] following his stroke in 2016. Guanako is currently having difficulty with memory, which his stated is likely related to moderate dementia diagnosis, and communicating thoughts verbally. Guanako stated he will know what he wants to say, but cannot organize the thoughts into a sentence and has difficulty coming up with the words he wants to say. His reported Guanako often gets frustrated when he is unable to communicate his thoughts and will give up trying. Results of the CLQT place Guanako 's composite score at 3.6, indicating overall cognitive skills are WNL. However, Smith s memory and language skills fell in the mildly impaired range. Subjective Identification Type Name Identification Reconciled With Medical Record Others Present Family Observations/Patient Presentation Guanako arrived on time accompanied by his and Ben, who were present for the session. They reported decreased frustration when Guanako is trying to communicate and increased ease with word finding at home. Chief Complaint(s) Language Objective Short Term Goals 1. Guanako will participate in informal assessment of word finding and sentence generation to determine areas of concern and inform plan of care. 2. Guanako will implement 2-4 external cognitive strategies in home environment to increase memory and word finding. Correction Goals Guanako will communicate his thoughts verbally with minimal frustration, as measured by patient and family report and clinician judgement. Treatment Activities Targeted synonyms by coming up with a sentence for a given word and then replacing that word with a synonym. Discussed plan of care and possible discharge from speech therapy. Guanako to call after his doctor 's appointment to determine if he would benefit from additional speech therapy sessions. Assessment Patient Response to Treatment Good Rehab Potential Good Impairments Identified Cognitive communication Progress Towards Goals Good Progress Assessment of Improvement Guanako identified 1-3 synonyms for each single word provided. Guanako took 15-30 seconds to develop a synonym for each word, which is increased speed since previous session. Guanako to continue home practice with synonyms and discuss continued therapy with his doctor at his upcoming appointment to determine plan of care. Reviewed with Patient Goals,Progress Being Made,Home Exercise Program Plan Amount of Therapy Recommended 6 Months Frequency of Treatment Once a Week Length of Session 45 Minutes Therapeutic Contents Cognitive-Linguistic Training, Expressive Language Training Provided Patient/Caregiver Instruction Home Exercise Program,Plan of Care,Questions/Concerns Therapy Recommendations Continue with Current Program
--- NOTE | 2022-07-10 14:54 | ST.OPDS ---
Visit Care Team Role Provider Type Phi Zaman DO Family Provider Physician Primary Care Provider Address: [address] [place] [address], [address] Gina Pettit MD Attending Provider Non-Staff Referring Provider Address: [place], [address] X RAY DEVELOPING MACHINE OPERATOR Treatment Note X RAY DEVELOPING MACHINE OPERATOR Treatment Note Start: 04/17/22 15:19 Freq: Status: Active Protocol: Document 07/10/22 14:52 ZS (Rec: 07/10/22 14:54 ZS [id number]) Speech Pathology Treatment Note Visit Information Plan of Care Dates 04/10/2022 - 11/01/2022 Insurance Information [place] Setting Treatment Setting Outpatient Care Visit Type Note Type Discharge Summary General Information Patient History Guanako is a 77 year old male who had a stroke in 2016 and was recently diagnosed with moderate dementia. He received speech therapy services at [facility] following his stroke in 2016. Guanako is currently having difficulty with memory, which his stated is likely related to moderate dementia diagnosis, and communicating thoughts verbally. Guanako stated he will know what he wants to say, but cannot organize the thoughts into a sentence and has difficulty coming up with the words he wants to say. His reported Guanako often gets frustrated when he is unable to communicate his thoughts and will give up trying. Results of the CLQT place Guanako 's composite score at 3.6, indicating overall cognitive skills are WNL. However, Smith s memory and language skills fell in the mildly impaired range. Objective Short Term Goals 1. Guanako will participate in informal assessment of word finding and sentence generation to determine areas of concern and inform plan of care. 2. Guanako will implement 2-4 external cognitive strategies in home environment to increase memory and word finding. Long-Term Goals Guanako will communicate his thoughts verbally with minimal frustration, as measured by patient and family report and clinician judgment. Treatment Activities Left message notifying pt of discharge due to time since previous session. Guanako was speaking to his PCP to determine if continued speech therapy was necessary. Pt will need to contact his PCP to get a new referral if he would like to continue receiving speech therapy services. Plan Provided Patient/Caregiver Instruction Plan of Care Therapy Recommendations Discharge from Speech Therapy Reason for Discharge Time since previous session.
== END 2022-07-11 07:51 ==
LOC: SP 09:30
PROVIDERS: Family Provider Family Medicine; PCP Family Medicine; Referring Provider Psychiatry & Neurology Neurology; Visit Provider Psychiatry & Neurology Neurology
DX: R41.3 Other amnesia (principal); R47.89 Other speech disturbances; F68.8 Other specified disorders of adult personality and behavior
CPT/HCPCS: 92507; 92523

== ENCOUNTER → 2022-06-30 08:19 | Outpatient (CLI) | payer OTHER, SELFPAY ==
[2022-04-16 09:16] VITALS: BMI 22.8
[2022-06-30 10:03] LABS: Add Manual Diff / Slide Review NO; Basophils Absolute Auto 0 /uL (0-100); Basophils Percent Auto 0.2 % (0-2); Eosinophils Absolute Auto 200 /uL (0-450); Eosinophils Percent Auto 2.3 % (2-4); Hematocrit 35.3 % (41-53); Hemoglobin 12.5 g/dL (13.5-17.5); Lymphocytes Absolute Auto 1800 /uL (1100-4500); Lymphocytes Percent Auto 19.3 % (25-40); Mean Corpuscular HGB Conc 35.4 % (30-36); Mean Corpuscular Hemoglobin 31.4 PG (26-34); Mean Corpuscular Volume 88.9 fL (80-100); Monocytes Absolute Auto 700 /uL (0-900); Neutrophils Absolute Auto 6600 /uL (1500-7000); Neutrophils Percent Auto 71.2 % (50-75); Platelet Count 255 X10^3/uL (150-400); Red Blood Cell Count 3.97 X10^6/uL (4.5-5.9); Red Cell Distribution Width 14.3 % (11.6-14.8); White Blood Cell Count 9.3 X10^3/uL (4.5-11.0)
[2022-06-30 10:31] LABS: Alanine Aminotransferase 27 IU/L (<50); Albumin 3.8 g/dL (3.5-5.0); Albumin Globulin Ratio 1.3 (1.0-2.8); Alkaline Phosphatase 69 U/L (38-126); Aspartate Aminotransferase 30 IU/L (17-59); BUN Creatinine Ratio 18.2 (6-22); Bilirubin Total 0.4 mg/dL (0.2-1.3); Blood Urea Nitrogen 22 mg/dL (9-20); Calcium 9.2 mg/dL (8.4-10.2); Carbon Dioxide 29 mmol/L (22-32); Chloride 105 mmol/L (98-107); Cholesterol 127 mg/dL (140-199); Estimated Glomerular Filt Rate > 60 mL/min (>60); Glucose 105 mg/dL (80-110); HDL Cholesterol 32 mg/dL (40-60); HEMOLYSIS < 15 (0-50); LDL Cholesterol Calculated 66 mg/dL (<100); Sodium 139 mmol/L (137-145); Total Protein 6.8 g/dL (6.3-8.2); Triglycerides 146 mg/dL (35-150)
[2022-06-30 10:33] LABS: Hemoglobin A1C% w Est Avg Glu 6.4 % (4.0-6.0)
[2022-06-30 10:59] LABS: Prostate Specific Antigen Scrn 0.441 ng/mL (0.1-4.0)
== END ==
PROVIDERS: Family Provider Family Medicine; PCP Family Medicine; Referring Provider Family Medicine; Visit Provider Family Medicine
DX: I10 Essential (primary) hypertension (principal); E11.21 Type 2 diabetes mellitus with diabetic nephropathy; Z12.5 Encounter for screening for malignant neoplasm of prostate; D64.9 Anemia, unspecified; E87.6 Hypokalemia; N40.0 Benign prostatic hyperplasia without lower urinary tract symptoms; Z79.4 Long term (current) use of insulin
CPT/HCPCS: 36415; 80053; 80061; 83036; 85025; G0103

== ENCOUNTER → 2022-08-07 12:32 | Outpatient (CLI) | payer OTHER, SELFPAY ==
[2022-04-16 09:16] VITALS: BMI 22.8
[2022-08-07 14:04] LABS: Hematocrit 34.6 % (41-53); Hemoglobin 11.8 g/dL (13.5-17.5)
[2022-08-07 14:18] LABS: BUN Creatinine Ratio 16.3 (6-22); Blood Urea Nitrogen 22 mg/dL (9-20); Calcium 8.8 mg/dL (8.4-10.2); Carbon Dioxide 28 mmol/L (22-32); Chloride 102 mmol/L (98-107); Estimated Glomerular Filt Rate 54 mL/min (>60); Glucose 148 mg/dL (80-110); HEMOLYSIS < 15 (0-50); Potassium 4.3 mmol/L (3.4-5.1); Sodium 138 mmol/L (137-145)
[2022-08-07 15:51] LABS: Creatinine Urine Random 70.9 mg/dL; Protein (Total) Urine Random 82 mg/dL (0-12); Protein Creatinine Ratio Urine 1.15 GRAM/24H
[2022-08-08 05:13] LABS: Parathyroid Hormone Int 27 pg/mL (15-65)
== END ==
PROVIDERS: Family Provider Family Medicine; PCP Family Medicine; Referring Provider Student in an Organized Health Care Education/Training Program; Visit Provider Student in an Organized Health Care Education/Training Program
DX: D64.9 Anemia, unspecified (principal); N25.81 Secondary hyperparathyroidism of renal origin; R80.9 Proteinuria, unspecified
CPT/HCPCS: 36415; 80048; 82570; 83970; 84156; 85014; 85018

== ENCOUNTER 2022-10-28 09:37 | Inpatient (IN) | payer OTHER, SELFPAY ==
[2022-04-16 09:16] VITALS: BMI 22.8
[2022-10-28] VITALS (18 sets, daily range): BP systolic 145–182; BP diastolic 58–86; PULSE 59–81; RESP 16–30; TEMP 36.9–37.3; O2SAT 92–97; BMI 23.6
--- NOTE | 2022-10-28 09:59 | DI.RAD.S_ITS ---
PROCEDURE: XR CHEST 1V INDICATIONS: Shortness of breath TECHNIQUE: One view of the chest was acquired. COMPARISON: [facility], CR, XR CHEST 1V, 03/11/2021, 19:22. FINDINGS: Surgical changes and devices: Left chest wall 2 lead cardiac pacing device with leads in appropriate position. Lungs and pleura: Lungs are clear. No pleural effusions or pneumothorax. Mediastinum: Mediastinal contours appear normal. Heart size is normal. Bones and chest wall: No suspicious bony lesions. Overlying soft tissues appear unremarkable. IMPRESSION: No acute cardiopulmonary process demonstrated radiographically. Dictated by: Albert Petersen M.D. on 10/28/2022 at 10:34 Approved by: Albert Petersen M.D. on 10/28/2022 at 10:34
[2022-10-28 10:06] LABS: Add Manual Diff / Slide Review NO; Basophils Absolute Auto 0 /uL (0-100); Basophils Percent Auto 0.3 % (0-2); Eosinophils Absolute Auto 100 /uL (0-450); Eosinophils Percent Auto 1.5 % (2-4); Hematocrit 32.2 % (41-53); Hemoglobin 11.2 g/dL (13.5-17.5); Lymphocytes Absolute Auto 1500 /uL (1100-4500); Lymphocytes Percent Auto 15.4 % (25-40); Mean Corpuscular HGB Conc 34.9 % (30-36); Mean Corpuscular Hemoglobin 31.2 PG (26-34); Mean Corpuscular Volume 89.4 fL (80-100); Monocytes Absolute Auto 700 /uL (0-900); Monocytes Percent Auto 6.7 % (3-14); Neutrophils Absolute Auto 7400 /uL (1500-7000); Neutrophils Percent Auto 76.1 % (50-75); Platelet Count 343 X10^3/uL (150-400); Red Cell Distribution Width 14.6 % (11.6-14.8); White Blood Cell Count 9.8 X10^3/uL (4.5-11.0)
[2022-10-28 10:13] LABS: INR 1.6 (0.9-1.3)
[2022-10-28 10:18] LABS: Lactate (Lactic Acid) 1.6 mmol/L (0.7-2.1)
[2022-10-28 10:19] LABS: Alanine Aminotransferase 29 IU/L (<50); Albumin 3.6 g/dL (3.5-5.0); Albumin Globulin Ratio 0.9 (1.0-2.8); Alkaline Phosphatase 75 U/L (38-126); Aspartate Aminotransferase 27 IU/L (17-59); BUN Creatinine Ratio 15.9 (6-22); Bilirubin Total 0.4 mg/dL (0.2-1.3); Blood Urea Nitrogen 17 mg/dL (9-20); Calcium 9.3 mg/dL (8.4-10.2); Carbon Dioxide 25 mmol/L (22-32); Chloride 103 mmol/L (98-107); Estimated Glomerular Filt Rate > 60 mL/min (>60); Globulin 3.8 g/dL (1.7-4.1); Glucose 238 mg/dL (80-110); HEMOLYSIS < 15 (0-50); Potassium 3.9 mmol/L (3.4-5.1); Sodium 138 mmol/L (137-145); Total Protein 7.4 g/dL (6.3-8.2)
[2022-10-28 10:30] LABS: NT-proBNP (BNP-Adult 18+) 169 pg/mL (<450); Troponin I < 0.012 ng/mL (0.01-0.034)
[2022-10-28 10:50] LABS: COVID19 -Nasal RAPID Negative (Negative)
--- NOTE | 2022-10-28 11:18 | PC.NURSE ---
Pt states recurrent pneumonia since Thanksgiving. Just when I start to feel better, I get worse again. PCP advised ER for eval.
--- NOTE | 2022-10-28 11:31 | DI.CT.S_ITS ---
PROCEDURE: CT ANGIO CHEST PE PROTOCOL INDICATIONS: Dyspnea TECHNIQUE: After the administration of intravenous contrast, 2 mm thick sections acquired from the pulmonary apices to the posterior costophrenic angles. 3-dimensional maximum intensity projection (MIP) coronal and sagittal reformats were then acquired through the thorax. For radiation dose reduction, the following was used: automated exposure control, adjustment of mA and/or kV according to patient size. COMPARISON: [facility], CT, CT ANGIO CHEST PE PROTOCOL, 03/11/2021, 20:37. FINDINGS: Image quality: Excellent. Pulmonary arteries: Pulmonary arteries are normal in size, and demonstrate no intraluminal filling defects to suggest central pulmonary embolism. Lungs and pleura: Moderate size airspace opacity in posterior medial left lower lobe is seen extending to left infrahilar region with associated bronchiectasis. Ill-defined airspace opacities also seen scattered in posterior medial right lower lobe extending to right infrahilar region with associated bronchial wall thickening and bronchiectasis. No pleural effusion or pneumothorax. Airway is patent. 6 mm nodular density in right middle lobe is seen series 5, image 233. 5 mm nodular density is also noted in anterior medial right lower lobe series 5, image 243 unchanged from prior study. No new pulmonary nodule or mass is noted. Mediastinum: Heart size is it mildly enlarged, without pericardial effusion. Left chest wall pacemaker leads are in the region of right atrium and right ventricle. Prominent mediastinal lymph nodes are seen measures up to 1 cm in size in right hilar region, 1 cm in size in left hilar region and 1 cm in size in left paratracheal space. [id number] atherosclerotic calcifications in coronary vessels and thoracic aorta is seen. Thoracic aorta is normal in caliber and enhancement. Esophagus is normal in caliber, without hiatal hernia. Bones and chest wall: No suspicious bony lesions. Ribs and thoracic spine appear intact throughout. Thyroid gland is within normal limits. No axillary or supraclavicular adenopathy. Abdomen: Visualized upper abdominal solid organs appear normal in the early arterial phase of enhancement. IMPRESSION: 1. No evidence of pulmonary emboli. 2. Moderate sized infiltrate in left lower lobe extending to left hilar region with associated bronchial wall thickening and bronchiectasis. Ill-defined scattered small infiltrates in right lower lobe extending to right infrahilar region with associated bronchial wall thickening and bronchiectasis suggestive of bilateral lower lobe bronchopneumonia. No pleural effusion or pneumothorax. 3. Mild mediastinal and hilar lymphadenopathy suggestive of reactive inflammatory load. 4. No thoracic aortic aneurysm or gross dissection. Mild atherosclerotic disease. Dictated by: Derrick Alford M.D. on 10/28/2022 at 12:14 Approved by: Derrick Alford M.D. on 10/28/2022 at 12:19
--- NOTE | 2022-10-28 11:34 | ED.SOB ---
HPI - SOB/Dyspnea General Chief Complaint: Shortness of Breath/Dyspnea Stated Complaint: difficulty breathing Time Seen by Provider: 10/28/22 11:22 Source: patient Mode of arrival: Ambulatory Limitations: no limitations History of Present Illness HPI Narrative: Patient here with . Complains of dyspnea for the past 4 weeks. Patient being followed by primary care for community-acquired pneumonia. Just finished course of antibiotics last week. Dual therapy. Patient denies any chest pain or peripheral edema. Denies any chest pain. No prior imaging this year of the chest or lungs according to medical charts. Patient in no distress at this time. states measured low oxygen levels at home with pulse ox down to 83%. At this time patient is in no distress. Is not hypoxic. He is not dyspneic. Related Data Home Medications Medication Instructions Recorded Confirmed ferrous sulfate 27 mg iron tablet 27 mg PO DAILY ##0 01/19/13 11/06/22 cinnamon bark 500 mg capsule 1,000 mg PO BID ##0 08/25/16 11/06/22 (Cinnamon) ascorbic acid (vitamin C) 500 mg 500 mg PO DAILY ##0 12/16/17 11/06/22 tablet myevqhb-lkpznifvm-ledc tablet 1 tab PO BEDTIME 03/05/21 11/06/22 glucosamine sulfate 500 mg tablet 2,000 mg PO BID 03/05/21 11/06/22 (Glucosamine) multivitamin 1 tab PO DAILY 03/05/21 11/06/22 omega [id number]-ewy-tyj-fish oil 1,200 mg 1 cap PO BID 03/05/21 11/06/22 (144 mg-216 mg) capsule (Fish Oil) amlodipine 10 mg tablet 10 mg PO QPM 10/28/22 11/06/22 atorvastatin 80 mg tablet 80 mg PO QPM 10/28/22 11/06/22 lorazepam 0.5 mg tablet 5 mg PO PRN PRN Anxiety 10/28/22 11/06/22 losartan 100 mg tablet 100 mg PO QAM 10/28/22 11/06/22 trazodone 50 mg tablet 50 mg PO QPM 10/28/22 11/06/22 Previous Rx's Medication Instructions Recorded Accu-chek Softclix Lancets #100 ea 12/29/18 Glucose: Test Strips #200 ea 09/25/21 albuterol sulfate 90 mcg/actuation 2 puff inhalation Q6H PRN 12/20/21 aerosol inhaler (ProAir HFA) shortness of breath or wheezing #8.5 grams fluticasone 100 mcg-salmeterol 50 1 inh inhalation BID #60 ea 12/20/21 mcg/dose blistr powdr for inhalation (Wixela Inhub) Syringes: Ultra Fine Insulin #100 ea 03/14/22 Syringe w/Needle carvedilol 12.5 mg tablet 12.5 mg PO BID #180 tabs 03/14/22 carvedilol 25 mg tablet 25 mg PO BID #180 tabs 03/14/22 hydrochlorothiazide 12.5 mg capsule 12.5 mg PO DAILY #90 caps 03/14/22 insulin NPH isoph U-100 human 100 See Rx Instructions .Route 03/14/22 unit/mL (3 mL) subcutaneous pen .COMPLEX #15 mL (Humulin N NPH U-100 Insulin KwikPen) insulin regular human 100 unit/mL See Rx Instructions .Route 03/14/22 injection solution (Humulin R .COMPLEX #30 mL Regular U-100 Insulin) potassium chloride 10 mEq 10 meq PO BEDTIME #90 caps 03/14/22 capsule,extended release sertraline 25 mg tablet 25 mg PO DAILY #90 tabs 03/14/22 warfarin 5 mg tablet 5 mg PO .COMPLEX #100 tabs 05/08/22 cyanocobalamin (vitamin B-12) 1,000 mcg SUBCUT QMONTH #10 mL 06/27/22 1,000 mcg/mL injection solution glucometer #1 ea 06/27/22 BD Ultra Fine Pen Tips 31G x 8mm #2 ea 07/22/22 insulin syringe-needle U-100 0.3 #100 ea 07/22/22 mL 31 gauge x 15/64 (BD Veo Insulin Syringe Ultra-Fine) Allergies Allergy/AdvReac Type Severity Reaction Status Date / Time ciprofloxacin [CIPROFLOXACIN] Allergy Intermediate Dizzy, Verified 11/06/22 13:18 constipation, lightheaded, bad dreams, joint pain atenolol [ATENOLOL] Allergy Mild Lightheaded Verified 11/06/22 13:18 and nausea regadenoson [From Lexiscan] Allergy disorented Verified 11/06/22 13:18 and agitated Review of Systems Review of Systems Narrative: GENERAL: negative chills, fatigue, malaise, fever, sweats. HEENT: negative sinus pain, ear pain, sore throat RESPIRATORY: Positive dyspnea, cough CARDIOVASCULAR: negative chest pain, palpitations GASTROINTESTINAL: negative nausea, vomiting, abdominal pain : negative dysuria, frequency, hematuria MUSCULOSKELETAL: negative muscle or bony pain SKIN: negative rash, skin lesions NEUROLOGIC: negative weakness, numbness ROS Unobtainable: All systems reviewed & are unremarkable except as noted in HPI and below Patient History Medical History (Updated 11/06/22 @ 13:46 by Phi Zaman DO) Actinic keratosis Acute renal failure (01/09/17) Anemia Arthralgia of hands, bilateral Atrial fibrillation (~01/2017) James's esophagus BPH (benign prostatic hyperplasia) BPPV (benign paroxysmal positional vertigo) Cataracts, bilateral (~12/2017) CKD (chronic kidney disease) (~12/2017) Community acquired pneumonia Coronary artery disease Cough productive of clear sputum Diabetes ELLER (dyspnea on exertion) Elevated INR Excessive daytime sleepiness Generalized 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 panic attacks Generalized headaches GERD (gastroesophageal reflux disease) History of CVA (cerebrovascular accident) Hyperlipemia (~12/2014) Hypertension Lipoma of skin of abdomen group home current use of anticoagulant therapy Myocardial infarction Neck stiffness Normocytic anemia Orthostatic lightheadedness Pacemaker (01/2017) Poor sleep pattern Snoring Weakness Surgical History Hx of surgical procedure Hx of tonsillectomy Hx of vasectomy Status post transurethral resection of prostate (03/2014) Family History Father Diabetes mellitus High cholesterol Mother Diabetes mellitus High cholesterol Social History household members: spouse Smoking Status: Current some day smoker alcohol intake: former Smoking Status: Former smoker alcohol intake frequency: holidays/special occasions only Substance Use Type: marijuana Exam Narrative Exam Narrative: GENERAL: in no distress, not toxic not dyspneic HEAD: Normocephalic. EYES: Pupils equal round No scleral icterus. ENT: Mucous membranes moist. NECK: Trachea midline. CARDIOVASCULAR: Regular rate and rhythm without murmurs RESPIRATORY: Diminished bilateral basilar lung sounds. No wheezing rhonchi. No rales. Speaking full sentences. GASTROINTESTINAL: Abdomen soft, non-tender EXTREMITIES: No gross deformities. BACK: No flank tenderness. NEURO: AOx4. SKIN: Warm and dry PSYCH: Not anxious, is cooperative Initial Vital Signs Initial Vital Signs: Vital Signs Temperature 99.1 F 10/28/22 09:41 Pulse Rate 81 10/28/22 09:41 Respiratory Rate 24 10/28/22 09:41 Blood Pressure 161/70 H 10/28/22 09:41 Pulse Oximetry 93 10/28/22 09:41 Oxygen Delivery Method 10/28/22 09:41 Course Course Course Narrative: No new issues during course of stay Decision to Admit Date: 10/28/22 Decision to Admit time: 13:21 Orders Ordered: Discontinued Medications Albuterol (Albuterol 2.5 Mg/3 Ml Neb (Adult)) 2.5 mg INH RTQ4HR PRN PRN Reason: Shortness Of Breath Albuterol (Albuterol 2.5 Mg/3 Ml Neb (Adult)) 2.5 mg INH Q4HRWA [facility] Last Admin: 10/29/22 09:25 Dose: 2.5 mg Documented By: Admin: 10/28/22 23:00 Dose: Not Given Documented By: Admin: 10/28/22 20:15 Dose: 2.5 mg Documented By: SAT Albuterol (Albuterol 2.5 Mg/3 Ml Neb (Adult)) 2.5 mg INH Q2H PRN PRN Reason: Shortness Of Breath Or Wheezing Amlodipine Besylate (Amlodipine 5 Mg Tablet) 10 mg PO QPM [facility] Last Admin: 10/28/22 16:56 Dose: 10 mg Documented By: EMEKA Atorvastatin Calcium (Atorvastatin 20 Mg Tablet) 80 mg PO BEDTIME [facility] Last Admin: 10/28/22 20:11 Dose: 80 mg Documented By: Budesonide (Budesonide 0.5 Mg/2 Ml Neb) 0.5 mg INH RTBID [facility] Last Admin: 10/29/22 09:25 Dose: 0.5 mg Documented By: Admin: 10/28/22 20:15 Dose: 0.5 mg Documented By: SAT Carvedilol (Carvedilol 12.5 Mg Tablet) 37.5 mg PO BID [facility] Carvedilol (Carvedilol 12.5 Mg Tablet) 37.5 mg PO BID [facility] Last Admin: 10/29/22 08:12 Dose: 37.5 mg Documented By: Admin: 10/28/22 20:11 Dose: 37.5 mg Documented By: MS Cyanocobalamin (Cyanocobalamin 1,000 Mcg/Ml Vial) 1,000 mcg SUBCUT Q30D@0900 [facility] Donepezil HCl (Donepezil 5 Mg Tablet) 10 mg PO BEDTIME [facility] Last Admin: 10/28/22 19:38 Dose: Not Given Documented By: MS Ferrous Sulfate (Ferrous Sulfate 325 Mg Tablet) 325 mg PO DAILY [facility] Last Admin: 10/29/22 08:12 Dose: 325 mg Documented By: BT Fish Oil (Fish Oil 1,000 Mg Capsule) 1,000 mg PO BID [facility] Last Admin: 10/29/22 09:54 Dose: 1,000 mg Documented By: Admin: 10/28/22 20:11 Dose: 1,000 mg Documented By: MS Hydrochlorothiazide (Hydrochlorothiazide 25 Mg Tablet) 12.5 mg PO DAILY [facility] Hydrochlorothiazide (Hydrochlorothiazide 25 Mg Tablet) 12.5 mg PO DAILY [facility] Last Admin: 10/29/22 08:13 Dose: 12.5 mg Documented By: BT Sodium Chloride (Normal Saline 0.9%) 500 mls @ 1,000 mls/hr IV BOLUS ONE Stop: 10/28/22 12:08 Last Infusion: 10/28/22 13:08 Dose: 0 mls/hr Documented By: Admin: 10/28/22 11:57 Dose: 1,000 mls/hr Documented By: CTS Ceftriaxone Sodium 2,000 mg/ (Sodium Chloride) 100 mls @ 200 mls/hr IV NOW ONE Stop: 10/28/22 12:32 Last Infusion: 10/28/22 13:51 Dose: 0 mls/hr Documented By: Admin: 10/28/22 13:12 Dose: 200 mls/hr Documented By: RB Azithromycin 500 mg/ Dextrose 250 mls @ 250 mls/hr IV NOW ONE Stop: 10/28/22 12:32 Last Infusion: 10/28/22 14:27 Dose: 0 mls/hr Documented By: Admin: 10/28/22 14:06 Dose: 250 mls/hr Documented By: RB Insulin Human NPH (Insulin Nph 100 Unit/Ml Vial) 24 unit SUBCUT DAILY [facility] Last Admin: 10/29/22 09:55 Dose: 24 unit Documented By: BT Co-signed By: TOM Insulin Human NPH (Insulin Nph 100 Unit/Ml Vial) 6 unit SUBCUT BEDTIME [facility] Last Admin: 10/28/22 20:19 Dose: Not Given Documented By: MS Insulin Human Regular (Insulin Regular 100 Unit/Ml 3 Ml Vial) 0 unit SUBCUT AC [facility] Last Admin: 10/29/22 12:08 Dose: 6 unit Documented By: BT Co-signed By: CLL Admin: 10/29/22 08:14 Dose: 4 unit Documented By: BT Co-signed By: CLL Admin: 10/28/22 16:54 Dose: Not Given Documented By: AKP Lorazepam (Lorazepam 0.5 Mg Tablet) 0.5 mg PO BID PRN PRN Reason: Anxiety Losartan Potassium (Losartan 50 Mg Tablet) 100 mg PO DAILY [facility] Last Admin: 10/29/22 08:13 Dose: 100 mg Documented By: BT Multivitamins (Multivitamin 1 Tablet) 1 tab PO DAILY [facility] Last Admin: 10/29/22 08:13 Dose: 1 tab Documented By: BT Non-Formulary Medication (Multivitamin) 1 tab PO DAILY [facility] Pantoprazole Sodium (Pantoprazole Dr 20 Mg Tablet) 20 mg PO 0700,2100 [facility] Last Admin: 10/29/22 06:04 Dose: 20 mg Documented By: Admin: 10/28/22 20:20 Dose: Not Given Documented By: MS Potassium Chloride (Potassium Chloride 10 Meq Tab) 10 meq PO BEDTIME [facility] Last Admin: 10/28/22 20:11 Dose: 10 meq Documented By: MS Sertraline HCl (Sertraline 50 Mg Tablet) 25 mg PO DAILY [facility] Last Admin: 10/29/22 08:13 Dose: 25 mg Documented By: BT Trazodone HCl (Trazodone 50 Mg Tablet) 50 mg PO BEDTIME [facility] Last Admin: 10/28/22 20:11 Dose: 50 mg Documented By: MS Vitamin D (Cholecalciferol (Vitamin D3) 1,000 Unit Tablet) 1,000 unit PO DAILY [facility] Last Admin: 10/29/22 08:14 Dose: 1,000 unit Documented By: BT Warfarin Sodium (Warfarin 5 Mg Tablet) 5 mg PO DAILY@1700 [facility] Last Admin: 10/28/22 16:58 Dose: 5 mg Documented By: EMEKA Reevaluation(s) Reevaluation #1: Reviewed with patient and family results and they do agree for admit and understand indication for admit as he has failed outpatient antibiotics. Time: 13:21 Consultations Consultation #1: Spoke with hospitalist, Dr. Burris, she will admit patient Time: 13:21 Vital Signs Vital signs: Vital Signs - 8 hr 10/28/22 09:41 10/28/22 11:06 10/28/22 11:07 Temperature 99.1 F Pulse Rate 81 60 59 L Respiratory Rate 24 30 H 27 H Blood Pressure 161/70 H Pulse Oximetry 93 94 94 Oxygen Delivery Method Room Air 10/28/22 11:07 10/28/22 11:20 10/28/22 11:20 Temperature Pulse Rate 59 L Respiratory Rate 21 Blood Pressure 173/79 H 147/70 H Pulse Oximetry 94 Oxygen Delivery Method 10/28/22 11:30 10/28/22 12:00 10/28/22 12:30 Temperature Pulse Rate 60 59 L 60 Respiratory Rate 23 20 Blood Pressure Pulse Oximetry 93 94 94 Oxygen Delivery Method 10/28/22 13:00 Temperature Pulse Rate 61 Respiratory Rate 23 Blood Pressure Pulse Oximetry 95 Oxygen Delivery Method MDM - SOB/Dyspnea Differential Diagnosis Differential diagnosis: Likely congestive heart failure, community acquired pneumonia, asthma with exacerbation, pulmonary embolism and other (Pneumonia) Lab Data Result diagrams: 10/29/22 06:23 10/29/22 06:23 Labs: Lab Results 10/28/22 10/28/22 10/28/22 Range/Units 09:58 09:58 09:58 WBC 9.8 (4.5-11.0) X10^3/uL RBC 3.60 L (4.5-5.9) X10^6/uL Hgb 11.2 L (13.5-17.5) g/dL Hct 32.2 L (41-53) % MCV 89.4 (80-100) fL MCH 31.2 (26-34) PG MCHC 34.9 (30-36) % RDW 14.6 (11.6-14.8) % Plt Count 343 (150-400) X10^3/uL Neut % (Auto) 76.1 H (50-75) % Lymph % (Auto) 15.4 L (25-40) % Boundary % (Auto) 6.7 (3-14) % Eos % (Auto) 1.5 L (2-4) % Baso % (Auto) 0.3 (0-2) % Neut # (Auto) 7400 H (6824-9126) /uL Lymph # (Auto) 1500 (6584-9418) /uL Boundary # (Auto) 700 (0-900) /uL Eos # (Auto) 100 (0-450) /uL Baso # (Auto) 0 (0-100) /uL PT 19.0 H (10.1-12.7) SECONDS INR 1.6 H (0.9-1.3) Sodium 138 (137-145) mmol/L Potassium 3.9 (3.4-5.1) mmol/L Chloride 103 (98-107) mmol/L Carbon Dioxide 25 (22-32) mmol/L BUN 17 (9-20) mg/dL Creatinine 1.07 (0.66-1.25) mg/dL Estimated GFR > 60 (>60) mL/min BUN/Creatinine Ratio 15.9 (6-22) Glucose 238 H (80-110) mg/dL Lactate (0.7-2.1) mmol/L Calcium 9.3 (8.4-10.2) mg/dL Total Bilirubin 0.4 (0.2-1.3) mg/dL AST 27 (17-59) IU/L ALT 29 (<50) IU/L Alkaline Phosphatase 75 (38-126) U/L Troponin I < 0.012 (0.01-0.034) ng/mL NT-Pro-B Natriuret Pep 169 (<450) pg/mL Total Protein 7.4 (6.3-8.2) g/dL Albumin 3.6 (3.5-5.0) g/dL Globulin 3.8 (1.7-4.1) g/dL Albumin/Globulin Ratio 0.9 L (1.0-2.8) SARS-CoV-2 (PCR) (Negative) 10/28/22 10/28/22 Range/Units 09:58 09:59 WBC (4.5-11.0) X10^3/uL RBC (4.5-5.9) X10^6/uL Hgb (13.5-17.5) g/dL Hct (41-53) % MCV (80-100) fL MCH (26-34) PG MCHC (30-36) % RDW (11.6-14.8) % Plt Count (150-400) X10^3/uL Neut % (Auto) (50-75) % Lymph % (Auto) (25-40) % Boundary % (Auto) (3-14) % Eos % (Auto) (2-4) % Baso % (Auto) (0-2) % Neut # (Auto) (6468-3557) /uL Lymph # (Auto) (6950-7079) /uL Boundary # (Auto) (0-900) /uL Eos # (Auto) (0-450) /uL Baso # (Auto) (0-100) /uL PT (10.1-12.7) SECONDS INR (0.9-1.3) Sodium (137-145) mmol/L Potassium (3.4-5.1) mmol/L Chloride (98-107) mmol/L Carbon Dioxide (22-32) mmol/L BUN (9-20) mg/dL Creatinine (0.66-1.25) mg/dL Estimated GFR (>60) mL/min BUN/Creatinine Ratio (6-22) Glucose (80-110) mg/dL Lactate 1.6 (0.7-2.1) mmol/L Calcium (8.4-10.2) mg/dL Total Bilirubin (0.2-1.3) mg/dL AST (17-59) IU/L ALT (<50) IU/L Alkaline Phosphatase (38-126) U/L Troponin I (0.01-0.034) ng/mL NT-Pro-B Natriuret Pep (<450) pg/mL Total Protein (6.3-8.2) g/dL Albumin (3.5-5.0) g/dL Globulin (1.7-4.1) g/dL Albumin/Globulin Ratio (1.0-2.8) SARS-CoV-2 (PCR) Negative (Negative) Imaging Data Chest x-ray: Radiologist's Impression: [address] [id number] XRay Report Signed Patient: Guanako Israel MR#: [id number] : 1945 Acct:[id number] Age/Sex: 77 / M Date of Service: 10/28/22 Loc: ED Accession Number: [id number] ?? Procedure: XR chest 1V Ordering Provider: Merlin Davenport MD PROCEDURE:? XR CHEST 1V ? INDICATIONS:? Shortness of breath ? TECHNIQUE:? One view of the chest was acquired.? ? COMPARISON:? [facility], CR, XR CHEST 1V, 03/11/2021, 19:22. ? FINDINGS:? ? Surgical changes and devices:? Left chest wall 2 lead cardiac pacing device with leads in appropriate position. ? Lungs and pleura:? Lungs are clear.? No pleural effusions or pneumothorax.? ? Mediastinum:? Mediastinal contours appear normal.? Heart size is normal. ? Bones and chest wall:? No suspicious bony lesions.? Overlying soft tissues appear unremarkable.? ? IMPRESSION:? No acute cardiopulmonary process demonstrated radiographically. ? ? Dictated by: Albert Petersen M.D. on 10/28/2022 at 10:34 ? ? Approved by: Albert Petersen M.D. on 10/28/2022 at 10:34 ? CT scan - chest: Radiologist's Impression: [address] Scan ReportSigned Patient: Guanako Israel LMR#: [id number]: 1945cct:[id number]/Sex: 77 / MDate of Service: 10/28/22Loc: EDAccession Number: [id number] Procedure: CT angio chest PE protocol Ordering Provider: Merlin Davenport MD PROCEDURE: CT ANGIO CHEST PE PROTOCOL INDICATIONS: Dyspnea TECHNIQUE: After the administration of intravenous contrast, 2 mm thick sections acquired from the pulmonary apices to the posterior costophrenic angles. 3-dimensional maximum intensity projection (MIP) coronal and sagittal reformats were then acquired through the thorax. For radiation dose reduction, the following was used: automated exposure control, adjustment of mA and/or kV according to patient size. COMPARISON: [facility], CT, CT ANGIO CHEST PE PROTOCOL, 03/11/2021, 20:37. FINDINGS: Image quality: Excellent. Pulmonary arteries: Pulmonary arteries are normal in size, and demonstrate no intraluminal filling defects to suggest central pulmonary embolism. Lungs and pleura: Moderate size airspace opacity in posterior medial left lower lobe is seen extending to left infrahilar region with associated bronchiectasis. Ill-defined airspace opacities also seen scattered in posterior medial right lower lobe extending to right infrahilar region with associated bronchial wall thickening and bronchiectasis. No pleural effusion or pneumothorax. Airway is patent. 6 mm nodular density in right middle lobe is seen series 5, image 233. 5 mm nodular density is also noted in anterior medial right lower lobe series 5, image 243 unchanged from prior study. No new pulmonary nodule or mass is noted. Mediastinum: Heart size is it mildly enlarged, without pericardial effusion. Left chest wall pacemaker leads are in the region of right atrium and right ventricle. Prominent mediastinal lymph nodes are seen measures up to 1 cm in size in right hilar region, 1 cm in size in left hilar region and 1 cm in size in left paratracheal space. [id number] atherosclerotic calcifications in coronary vessels and thoracic aorta is seen. Thoracic aorta is normal in caliber and enhancement. Esophagus is normal in caliber, without hiatal hernia. Bones and chest wall: No suspicious bony lesions. Ribs and thoracic spine appear intact throughout. Thyroid gland is within normal limits. No axillary or supraclavicular adenopathy. Abdomen: Visualized upper abdominal solid organs appear normal in the early arterial phase of enhancement. IMPRESSION: 1. No evidence of pulmonary emboli. 2. Moderate sized infiltrate in left lower lobe extending to left hilar region with associated bronchial wall thickening and bronchiectasis. Ill-defined scattered small infiltrates in right lower lobe extending to right infrahilar region with associated bronchial wall thickening and bronchiectasis suggestive of bilateral lower lobe bronchopneumonia. No pleural effusion or pneumothorax. 3. Mild mediastinal and hilar lymphadenopathy suggestive of reactive inflammatory load. 4. No thoracic aortic aneurysm or gross dissection. Mild atherosclerotic disease. Dictated by: Derrick Alford M.D. on 10/28/2022 at 12:14 Approved by: Derrick Alford M.D. on 10/28/2022 at 12:19 ECG Data Interpretation: Normal sinus rhythm rate [address] elevation or depression MDM Narrative Medical decision making narrative: Appropriate for admission as patient has failed outpatient therapy for community-acquired pneumonia. Significant pneumonia found on CT scan imaging. Patient 83% room air at times at home. Patient and family agree for admit. Reviewed with hospitalist agrees for admit. Discharge Plan Departure Patient Disposition: Admitted As Inpatient Clinical Impression: Community acquired pneumonia Qualifiers: Laterality: unspecified laterality Qualified Code(s): J18.9 - Pneumonia, unspecified organism Admit Date/Time: 10/28/22 13:13 Admit Provider: Morenita Mata
[2022-10-28] MEDS: SODIUM CHLORIDE 0.9% 500 ML 1000 ML IV (11:57)
[2022-10-28] MEDS: cefTRIAXone 2,000 MG in SODIUM CHLORIDE 0.9% 100 ML 200 MG IV (13:12)
[2022-10-28] MEDS: AZITHROMYCIN 500 MG in DEXTROSE 5% IN WATER 250 ML 250 MG IV (14:06)
--- NOTE | 2022-10-28 14:38 | PM.HP.1 ---
History of Present Illness History of Present Illness Date Patient Seen: 10/28/22 Chief complaint: difficulty breathing Narrative: Patient presented to ER with .? Complained of dyspnea for the past 4 weeks.? Patient was being followed by primary care for community-acquired pneumonia.? Just finished course of antibiotics last week.? Dual therapy- specifics not given by patient but recent prescription for Amox/Clav and Doxycycline.? Patient denies any chest pain or peripheral edema.? Denies any chest pain.? No prior imaging this year of the chest or lungs according to medical charts.? Patient in no distress at this time.? indicated in ER, measured low oxygen levels at home with pulse ox down to 83% Patient History Medical History Actinic keratosis Acute renal failure (01/09/17) Anemia Arthralgia of hands, bilateral Atrial fibrillation (~01/2017) James's esophagus BPH (benign prostatic hyperplasia) BPPV (benign paroxysmal positional vertigo) Cataracts, bilateral (~12/2017) CKD (chronic kidney disease) (~12/2017) Community acquired pneumonia Coronary artery disease Diabetes ELLER (dyspnea on exertion) Elevated INR Excessive daytime sleepiness Generalized 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 panic attacks Generalized headaches GERD (gastroesophageal reflux disease) History of CVA (cerebrovascular accident) Hyperlipemia (~12/2014) Hypertension Lipoma of skin of abdomen alf current use of anticoagulant therapy Myocardial infarction Neck stiffness Normocytic anemia Orthostatic lightheadedness Pacemaker (01/2017) Poor sleep pattern Snoring Surgical History Hx of surgical procedure Hx of tonsillectomy Hx of vasectomy Status post transurethral resection of prostate (03/2014) Family & Social History Family History Father Diabetes mellitus High cholesterol Mother Diabetes mellitus High cholesterol Social History: household members spouse Safety & Behavioral: Feels Safe in Current Yes Environment Been Physically Hurt or No Threatened By a Person Tobacco & Substance use: Tobacco type cigarettes Smoking Status Former smoker alcohol intake former alcohol intake frequency holiday/special occasion Substance Use Type marijuana Meds Home Medications and Allergies Home Medications Medication Instructions Recorded Confirmed Type ferrous sulfate 27 mg iron tablet 27 mg PO DAILY ##0 01/19/13 10/28/22 History cinnamon bark 500 mg capsule 1,000 mg PO BID ##0 08/25/16 10/28/22 History (Cinnamon) ascorbic acid (vitamin C) 500 mg 500 mg PO DAILY ##0 12/16/17 10/28/22 History tablet Accu-chek Softclix Lancets #100 ea 12/29/18 10/28/22 Rx jvmdcal-ezfplqehk-nndu tablet 1 tab PO BEDTIME 03/05/21 10/28/22 History glucosamine sulfate 500 mg tablet 2,000 mg PO BID 03/05/21 10/28/22 History (Glucosamine) multivitamin 1 tab PO DAILY 03/05/21 10/28/22 History omega 8-xgb-kws-fish oil 1,200 mg 1 cap PO BID 03/05/21 10/28/22 History (144 mg-216 mg) capsule (Fish Oil) Glucose: Test Strips #200 ea 09/25/21 10/28/22 Rx albuterol sulfate 90 mcg/actuation 2 puff inhalation Q6H PRN 12/20/21 10/28/22 Rx aerosol inhaler (ProAir HFA) shortness of breath or wheezing #8.5 grams fluticasone 100 mcg-salmeterol 50 1 inh inhalation BID #60 ea 12/20/21 10/28/22 Rx mcg/dose blistr powdr for inhalation (Wixela Inhub) Syringes: Ultra Fine Insulin #100 ea 03/14/22 10/28/22 Rx Syringe w/Needle carvedilol 12.5 mg tablet 12.5 mg PO BID #180 tabs 03/14/22 10/28/22 Rx carvedilol 25 mg tablet 25 mg PO BID #180 tabs 03/14/22 10/28/22 Rx hydrochlorothiazide 12.5 mg capsule 12.5 mg PO DAILY #90 caps 03/14/22 10/28/22 Rx insulin NPH isoph U-100 human 100 See Rx Instructions .Route 03/14/22 10/28/22 Rx unit/mL (3 mL) subcutaneous pen .COMPLEX #15 mL (Humulin N NPH U-100 Insulin KwikPen) insulin regular human 100 unit/mL See Rx Instructions .Route 03/14/22 10/28/22 Rx injection solution (Humulin R .COMPLEX #30 mL Regular U-100 Insulin) potassium chloride 10 mEq 10 meq PO BEDTIME #90 caps 03/14/22 10/28/22 Rx capsule,extended release sertraline 25 mg tablet 25 mg PO DAILY #90 tabs 03/14/22 10/28/22 Rx warfarin 5 mg tablet 5 mg PO .COMPLEX #100 tabs 05/08/22 10/28/22 Rx cyanocobalamin (vitamin B-12) 1,000 mcg SUBCUT QMONTH #10 mL 06/27/22 10/28/22 Rx 1,000 mcg/mL injection solution glucometer #1 ea 06/27/22 10/28/22 Rx BD Ultra Fine Pen Tips 31G x 8mm #2 ea 07/22/22 10/28/22 Rx insulin syringe-needle U-100 0.3 #100 ea 07/22/22 10/28/22 Rx mL 31 gauge x 15/64 (BD Veo Insulin Syringe Ultra-Fine) amlodipine 10 mg tablet 10 mg PO QPM 10/28/22 10/28/22 History atorvastatin 80 mg tablet 80 mg PO QPM 10/28/22 10/28/22 History lorazepam 0.5 mg tablet 5 mg PO PRN PRN Anxiety 10/28/22 10/28/22 History losartan 100 mg tablet 100 mg PO QAM 10/28/22 10/28/22 History trazodone 50 mg tablet 50 mg PO QPM 10/28/22 History Allergies Allergy/AdvReac Type Severity Reaction Status Date / Time ciprofloxacin [CIPROFLOXACIN] Allergy Intermediate Dizzy, Verified 10/28/22 09:41 constipation, lightheaded, bad dreams, joint pain atenolol [ATENOLOL] Allergy Mild Lightheaded Verified 10/28/22 09:41 and nausea regadenoson [From Lexiscan] Allergy disorented Verified 10/28/22 09:41 and agitated Review of Systems Review of Systems Narrative: Fourteen system review was completed: Patient not complaining of any fever chills nausea vomiting or diaphoresis. No pain or palpitations. Has had some dyspnea, cough and decreased O2 sat at home. Constipation or diarrhea. No dysuria or hematuria. Able to move all extremities volitionally. No specific localized strength deficits. No neurological symptoms in any extremity. Skin lesions or rashes. No complaining of acute depression or mood changes. Exam Vital Signs (past 8 hours): - 10/28/22 09:41 10/28/22 11:06 10/28/22 11:07 Temperature 99.1 F Pulse Rate 81 60 59 L Respiratory Rate 24 30 H 27 H Blood Pressure 161/70 H Pulse Oximetry 93 94 94 Oxygen Delivery Method Room Air 10/28/22 11:07 10/28/22 11:20 10/28/22 11:20 Temperature Pulse Rate 59 L Respiratory Rate 21 Blood Pressure 173/79 H 147/70 H Pulse Oximetry 94 Oxygen Delivery Method 10/28/22 11:30 10/28/22 12:00 10/28/22 12:30 Temperature Pulse Rate 60 59 L 60 Respiratory Rate 23 20 Blood Pressure Pulse Oximetry 93 94 94 Oxygen Delivery Method 10/28/22 13:00 10/28/22 13:17 10/28/22 13:17 Temperature Pulse Rate 61 61 Respiratory Rate 23 Blood Pressure 156/74 H Pulse Oximetry 95 95 Oxygen Delivery Method 10/28/22 13:20 10/28/22 13:20 10/28/22 13:30 Temperature Pulse Rate 61 60 Respiratory Rate 23 Blood Pressure 161/76 H Pulse Oximetry 95 94 Oxygen Delivery Method 10/28/22 13:40 10/28/22 13:40 10/28/22 14:12 Temperature Pulse Rate 60 59 L Respiratory Rate Blood Pressure 165/77 H Pulse Oximetry 95 93 Oxygen Delivery Method 10/28/22 14:14 10/28/22 14:14 10/28/22 14:20 Temperature Pulse Rate 60 Respiratory Rate Blood Pressure 182/86 H 171/79 H Pulse Oximetry 94 Oxygen Delivery Method 10/28/22 14:20 Temperature Pulse Rate 59 L Respiratory Rate 24 Blood Pressure Pulse Oximetry 94 Oxygen Delivery Method Oxygen Delivery Method Room Air Narrative Exam Narrative: GENERAL: in no acute distress. HEAD: Normocephalic. EYES: Pupils equal round? No scleral icterus. ENT:? Mucous membranes moist.? NECK: Trachea midline. CARDIOVASCULAR: Regular rate with S1 and S2 and normal rhythm without murmurs RESPIRATORY:? Patient has decreased breath sounds at the bases bilaterally. No wheezing or rhonchi.? No rales.? Speaking full sentences.? GASTROINTESTINAL: Abdomen soft, non-tender EXTREMITIES:? No gross deformities.? BACK:? No flank tenderness. NEURO: AOx4. Normal sensation of all extremities. No localized neurological signs. SKIN:? Warm and dry PSYCH:? Not anxious, is cooperative Chest x-ray demonstrate: Moderate size airspace opacity in posterior medial left lower lobe is seen extending to left infrahilar region with associated bronchiectasis.? Ill-defined airspace opacities also seen scattered in posterior medial right lower lobe extending to right infrahilar region with associated bronchial wall thickening and bronchiectasis Objective Labs Result Diagrams: 10/28/22 09:58 10/28/22 09:58 Labs: Laboratory Results - last 24 hr 10/28/22 10/28/22 10/28/22 09:58 09:58 09:58 WBC 9.8 RBC 3.60 L Hgb 11.2 L Hct 32.2 L MCV 89.4 MCH 31.2 MCHC 34.9 RDW 14.6 Plt Count 343 Neut % (Auto) 76.1 H Lymph % (Auto) 15.4 L [place] % (Auto) 6.7 Eos % (Auto) 1.5 L Baso % (Auto) 0.3 Neut # (Auto) 7400 H Lymph # (Auto) 1500 [place] # (Auto) 700 Eos # (Auto) 100 Baso # (Auto) 0 PT 19.0 H INR 1.6 H Sodium 138 Potassium 3.9 Chloride 103 Carbon Dioxide 25 BUN 17 Creatinine 1.07 Estimated GFR > 60 BUN/Creatinine Ratio 15.9 Glucose 238 H Lactate Calcium 9.3 Total Bilirubin 0.4 AST 27 ALT 29 Alkaline Phosphatase 75 Troponin I < 0.012 NT-Pro-B Natriuret Pep 169 Total Protein 7.4 Albumin 3.6 Globulin 3.8 Albumin/Globulin Ratio 0.9 L SARS-CoV-2 (PCR) 10/28/22 10/28/22 09:58 09:59 WBC RBC Hgb Hct MCV MCH MCHC RDW Plt Count Neut % (Auto) Lymph % (Auto) [place] % (Auto) Eos % (Auto) Baso % (Auto) Neut # (Auto) Lymph # (Auto) [place] # (Auto) Eos # (Auto) Baso # (Auto) PT INR Sodium Potassium Chloride Carbon Dioxide BUN Creatinine Estimated GFR BUN/Creatinine Ratio Glucose Lactate 1.6 Calcium Total Bilirubin AST ALT Alkaline Phosphatase Troponin I NT-Pro-B Natriuret Pep Total Protein Albumin Globulin Albumin/Globulin Ratio SARS-CoV-2 (PCR) Negative Assessment & Plan Assessment & Plan narrative: 1. Bilateral lower lobe pneumonia confirmed by chest x-ray. Present on admission. Failed outpatient treatment of community-acquired pneumonia. Treat with azithromycin 500 mg IV daily for 3 doses and ceftriaxone 2 g daily for 5 doses. Neutrophil% elevated to 76.1. Follow clinically and labs. Blood cultures pending. COVID PCR confirmed to be negative. 2. History of acute renal failure but currently stable. Monitor labs. 3. Atrial fibrillation with pacemaker. Present on admission. Anticoagulated with warfarin. INR only 1.6. Continue treatment to ensure reaches therapeutic treatment. Monitor labs and dose of warfarin. 4. James's esophagitis history and GERD. Present on admission. Treat with PPI. 5. Diabetes. Type 2. Present on admission. Maintain patient's regular medications. Patient eats a regular diet but avoids high glucose foods. Measure hemoglobin A1c. 6. Hypertension. Present on admission. Maintain patient's regular medication and monitor clinically. 7. Benign prostatic hypertrophy. Present on admission. No current treatment. 8. Anxiety/panic disorder. Present on admission. Continue treatment Ativan 5 mg as needed acute panic. 9. History of CVA. No active treatment. 10. Sleep patterns difficult. Present on admission. By trazodone 50 mg q.h.s. to help to sleep. 11. Coronary artery disease with history of myocardial infarction. Present on admission. BNP noted to be 169 and troponin noted to be less than 0.012. 12. History of iron deficiency with chronic anemia. Present on admission. Iron replacement. Follow labs and clinically. DVT prophylaxis: Patient is on warfarin and this will be continued. However when measured in the ER was sub therapeutic INR. We will continue to monitor this. Level of intervention: Full Code. Substitute decision maker: named Chante Israel Time Spent With Patient Critical Care time: I spent a total of [] minutes of critical care time on this patient's care today; this time is exclusive of procedural time.
[2022-10-28] MEDS: AMLODIPINE 5 MG TABLET 10 MG PO (16:56)
[2022-10-28] MEDS: WARFARIN 5 MG TABLET PO (16:58)
[2022-10-28] MEDS: FISH OIL 1,000 MG CAPSULE 1000 MG PO (20:11)
[2022-10-28] MEDS: ATORVASTATIN 20 MG TABLET 80 MG PO (20:11)
[2022-10-28] MEDS: carvediloL 12.5 MG TABLET 37.5 MG PO (20:11)
[2022-10-28] MEDS: POTASSIUM CHLORIDE 10 MEQ TAB PO (20:11)
[2022-10-28] MEDS: TRAZODONE 50 MG TABLET PO (20:11)
[2022-10-28] MEDS: BUDESONIDE 0.5 MG/2 ML NEB INH (20:15)
[2022-10-28] MEDS: ALBUTEROL 2.5 MG/3 ML NEB (ADULT) INH (20:15)
[2022-10-29] MEDS: PANTOPRAZOLE DR 20 MG TABLET PO (06:04)
[2022-10-29 07:13] LABS: Add Manual Diff / Slide Review NO; Basophils Absolute Auto 0 /uL (0-100); Basophils Percent Auto 0.2 % (0-2); Eosinophils Absolute Auto 200 /uL (0-450); Eosinophils Percent Auto 2.8 % (2-4); Hematocrit 31.7 % (41-53); Hemoglobin 11.1 g/dL (13.5-17.5); Lymphocytes Absolute Auto 1900 /uL (1100-4500); Lymphocytes Percent Auto 30.2 % (25-40); Mean Corpuscular HGB Conc 35.1 % (30-36); Mean Corpuscular Hemoglobin 31.2 PG (26-34); Mean Corpuscular Volume 88.9 fL (80-100); Monocytes Absolute Auto 600 /uL (0-900); Monocytes Percent Auto 9.4 % (3-14); Neutrophils Absolute Auto 3500 /uL (1500-7000); Neutrophils Percent Auto 57.4 % (50-75); Platelet Count 339 X10^3/uL (150-400); Red Blood Cell Count 3.56 X10^6/uL (4.5-5.9); Red Cell Distribution Width 14.6 % (11.6-14.8); White Blood Cell Count 6.2 X10^3/uL (4.5-11.0)
[2022-10-29 07:18] LABS: INR 1.5 (0.9-1.3); Prothrombin Time 16.7 SECONDS (10.1-12.7)
[2022-10-29 07:25] LABS: Hemoglobin A1C% w Est Avg Glu 6.4 % (4.0-6.0)
[2022-10-29 07:46] LABS: Alanine Aminotransferase 30 IU/L (<50); Albumin 3.4 g/dL (3.5-5.0); Albumin Globulin Ratio 0.9 (1.0-2.8); Alkaline Phosphatase 77 U/L (38-126); Aspartate Aminotransferase 31 IU/L (17-59); Bilirubin Total 0.4 mg/dL (0.2-1.3); Blood Urea Nitrogen 19 mg/dL (9-20); C-Reactive Protein Quant 2.4 mg/dL (<1.0); Calcium 9.2 mg/dL (8.4-10.2); Carbon Dioxide 27 mmol/L (22-32); Chloride 103 mmol/L (98-107); Estimated Glomerular Filt Rate > 60 mL/min (>60); Globulin 3.8 g/dL (1.7-4.1); Glucose 113 mg/dL (80-110); HEMOLYSIS < 15 (0-50); Potassium 3.7 mmol/L (3.4-5.1); Sodium 139 mmol/L (137-145); Total Protein 7.2 g/dL (6.3-8.2)
[2022-10-29 08:12] VITALS: BP 149/55; PULSE 63
[2022-10-29] MEDS: FERROUS SULFATE 325 MG TABLET PO (08:12)
[2022-10-29] MEDS: carvediloL 12.5 MG TABLET 37.5 MG PO (08:12)
[2022-10-29 08:13] VITALS: BP 148/55; PULSE 63
[2022-10-29] MEDS: LOSARTAN 50 MG TABLET 100 MG PO (08:13)
[2022-10-29] MEDS: hydroCHLOROthiazide 25 MG TABLET 12.5 MG PO (08:13)
[2022-10-29] MEDS: MULTIVITAMIN 1 TABLET 1 TAB PO (08:13)
[2022-10-29] MEDS: SERTRALINE 50 MG TABLET 25 MG PO (08:13)
[2022-10-29] MEDS: CHOLECALCIFEROL (VITAMIN D3) 1,000 UNIT TABLET 1000 UNIT PO (08:14)
[2022-10-29] MEDS: INSULIN REGULAR 100 UNIT/ML 3 ML VIAL SUBCUT ×2 (08:14→12:08)
[2022-10-29] MEDS: ALBUTEROL 2.5 MG/3 ML NEB (ADULT) INH (09:25)
[2022-10-29] MEDS: BUDESONIDE 0.5 MG/2 ML NEB INH (09:25)
[2022-10-29 09:27] VITALS: O2SAT 92
[2022-10-29] MEDS: FISH OIL 1,000 MG CAPSULE 1000 MG PO (09:54)
[2022-10-29] MEDS: INSULIN NPH 100 UNIT/ML VIAL 24 UNIT SUBCUT (09:55)
[2022-10-29 10:12] VITALS: BP 149/55; PULSE 60; RESP 18; TEMP 36.2; O2SAT 93
--- NOTE | 2022-10-29 14:04 | CM.DANOTE ---
Patient is a 77 yo male and was admitted on 10/28/22 for SOB. Pt has [facility] for insurance and his PCP is Dr. Phi Zaman. EMR was reviewed. Per MD, pt failed outpt tx of pneumonia and admitted with bilateral pneumonia and dyspnea and getting IV-Abx. Per MD, pt had repeat chest xray and pt stable for d/c to home today and no identified barriers to discharge. SW met bedside with pt and spouse and they confirm they lives at home in [place] and are active and independent at baseline and both retired. Pt denies any hx of HH or SNF and does not use DME for ambulation. Pt states informally they are each others DPOAs and SW discussed the benefit of formal DPOA pwk as they have multiple adult children and a large family. SW provided DPOA brochure and pwk and also copy of POLST as pt and spouse inquiring about advanced directives and deny having completed any forms. Pt and spouse plan to complete DPOA pwk after d/c and would like to complete POLST with their PCP and provide a copy to [facility] once completed. Pt and spouse do not anticipate any needs and agreeable with d/c to home and spouse will provide transport. Plan: Patient to d/c home today via spouse POV and no further SW needs at this time. GAGAN Escobedo Discharge Planning/Care Management Advanced directive, confirm from FAMILY Start: 10/28/22 15:18 Freq: Q24H Status: Discharge Protocol: Document 10/28/22 15:18 AKP (Rec: 10/28/22 15:20 AKP [id number]) Advance Directive, confirm on record Time 15:19 Person contacted to bring in Copy received No CM Discharge Assessment Start: 10/29/22 14:03 Freq: Status: Discharge Protocol: Document 10/29/22 14:03 BF (Rec: 10/29/22 14:04 BF [id number]) Discharge Planning Assessment Assigned Die Tripper GAGAN Bradley DPOA/Assigned Designee Name informally spouse Chante, provided DPOA pwk Advance Directives? Yes Advance Directives on File No: Provided copy of POLST to complete with PCP History Provided By Patient,Significant Other, Medical Record Has Patient been admitted in last 30 No days? Prior Living Arrangements House Household Members spouse Type of transporation used prior to Drives own vehicle admit Independent with ADL's Yes Is patient alert and oriented? Yes Caregiver for Another No Barriers to Discharge No Discharge Plan Home Transportation Arrangement Spouse bedside and can transport at d/c Referrals Initiated None needed Whiteboard Updated in Patient Room with Yes name and ext. # of Die Tripper Review Status In Process Please Provide Date Initial DC 10/29/22 Assessment Was Performed Next Review Type Continued Stay Review
--- NOTE | 2022-10-29 15:11 | PM.DS.1 ---
History of Present Illness History of Present Illness Chief complaint: difficulty breathing Narrative: Patient presented to ER with .? Complained of dyspnea for the past 4 weeks.? Patient was being followed by primary care for community-acquired pneumonia.? Just finished course of antibiotics last week.? Dual therapy- specifics not given by patient but recent prescription for Amox/Clav and Doxycycline.? Patient denies any chest pain or peripheral edema.? Denies any chest pain.? No prior imaging this year of the chest or lungs according to medical charts.? Patient in no distress at this time.? indicated in ER,? measured low oxygen levels at home with pulse ox down to 83% Discharge Providers Provider Date of admission: 10/28/22 13:13 Discharge Date: 10/29/22 Primary care physician: Phi Zaman, DO Discharge provider: Tomás Hurley MD Summary Hospital Course Discharge Diagnosis: 1. Bilateral lower lobe pneumonia, presumed bacterial 2. COPD with acute exacerbation 3 chronic atrial fibrillation 4. Permanent pacemaker Chest CTA:1. No evidence of pulmonary emboli. 2. Moderate sized infiltrate in left lower lobe extending to left hilar region with associated bronchial wall thickening and bronchiectasis.? Ill-defined scattered small infiltrates in right lower lobe extending to right infrahilar region with associated bronchial wall thickening and bronchiectasis suggestive of bilateral lower lobe bronchopneumonia.? No pleural effusion or pneumothorax. 3.? Mild mediastinal and hilar lymphadenopathy suggestive of reactive inflammatory load. 4. No thoracic aortic aneurysm or gross dissection.? Mild atherosclerotic disease. Hospital Course: Is noted patient was admitted due to symptoms of pneumonia which had failed to improve with outpatient so of oral antibiotics. He had noted low O2 sat 83% at home but Neisha O2 sat noted hospital was 90% initially in the ED. patient was started on broad-spectrum antibiotics, prednisone and nebulizer treatments. He had rapid recovery overnight and able to discharge home with oral medications. Exam Vital Signs (past 8 hours): - 10/29/22 08:12 10/29/22 08:13 10/29/22 09:27 Temperature Pulse Rate 63 63 Respiratory Rate Blood Pressure 149/55 H 148/55 H Pulse Oximetry 92 Oxygen Flow Rate 10/29/22 10:12 Temperature 97.1 F L Pulse Rate 60 Respiratory Rate 18 Blood Pressure 149/55 H Pulse Oximetry 93 Oxygen Flow Rate 0 Oxygen Delivery Method Room Air Oxygen Flow Rate 0 Narrative Exam Narrative: General: Alert very pleasant male sitting in chair and in no distress Lungs: Breathing is nonlabored, normal respiratory rate, clear to auscultation except faint wheeze heard anteriorly Heart: Regular paced rhythm Extremities: No edema Neurological: Affect and appears fully oriented Objective Labs Result Diagrams: 10/29/22 06:23 10/29/22 06:23 Labs: Laboratory Results - last 24 hr 10/29/22 10/29/22 10/29/22 06:23 06:23 06:23 WBC 6.2 RBC 3.56 L Hgb 11.1 L Hct 31.7 L MCV 88.9 MCH 31.2 MCHC 35.1 RDW 14.6 Plt Count 339 Neut % (Auto) 57.4 Lymph % (Auto) 30.2 [place] % (Auto) 9.4 Eos % (Auto) 2.8 Baso % (Auto) 0.2 Neut # (Auto) 3500 Lymph # (Auto) 1900 [place] # (Auto) 600 Eos # (Auto) 200 Baso # (Auto) 0 PT 16.7 H INR 1.5 H Sodium Potassium Chloride Carbon Dioxide BUN Creatinine Estimated GFR BUN/Creatinine Ratio Glucose Hemoglobin A1c 6.4 H Calcium Total Bilirubin AST ALT Alkaline Phosphatase C-Reactive Protein Total Protein Albumin Globulin Albumin/Globulin Ratio 10/29/22 06:23 WBC RBC Hgb Hct MCV MCH MCHC RDW Plt Count Neut % (Auto) Lymph % (Auto) [place] % (Auto) Eos % (Auto) Baso % (Auto) Neut # (Auto) Lymph # (Auto) [place] # (Auto) Eos # (Auto) Baso # (Auto) PT INR Sodium 139 Potassium 3.7 Chloride 103 Carbon Dioxide 27 BUN 19 Creatinine 1.12 Estimated GFR > 60 BUN/Creatinine Ratio 17.0 Glucose 113 H D Hemoglobin A1c Calcium 9.2 Total Bilirubin 0.4 AST 31 ALT 30 Alkaline Phosphatase 77 C-Reactive Protein 2.4 H Total Protein 7.2 Albumin 3.4 L Globulin 3.8 Albumin/Globulin Ratio 0.9 L [facility] Medical History Actinic keratosis Acute renal failure (01/09/17) Anemia Arthralgia of hands, bilateral Atrial fibrillation (~01/2017) James's esophagus BPH (benign prostatic hyperplasia) BPPV (benign paroxysmal positional vertigo) Cataracts, bilateral (~12/2017) CKD (chronic kidney disease) (~12/2017) Community acquired pneumonia Coronary artery disease Diabetes ELLER (dyspnea on exertion) Elevated INR Excessive daytime sleepiness Generalized 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 panic attacks Generalized headaches GERD (gastroesophageal reflux disease) History of CVA (cerebrovascular accident) Hyperlipemia (~12/2014) Hypertension 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 Myocardial infarction Neck stiffness Normocytic anemia Orthostatic lightheadedness Pacemaker (01/2017) Poor sleep pattern Snoring Surgical History Hx of surgical procedure Hx of tonsillectomy Hx of vasectomy Status post transurethral resection of prostate (03/2014) Family History Father Diabetes mellitus High cholesterol Mother Diabetes mellitus High cholesterol Social History household members: spouse Smoking Status: Current some day smoker alcohol intake: former Discharge Plan Discharge Plan Patient Disposition: Home Provider Discharge Comment: You were treated for bacterial pneumonia with COPD exacerbation. Finish antibiotics and prednisone as prescribed. Use your albuterol inhaler up to every 4 hours as needed for cough, wheezing or shortness of breath. Return to ED for sudden worse shortness of breath, fever or chest pain. Otherwise follow-up with PCP. The prednisone is a steroid medication and may make your blood sugars go up temporarily. Your INR is 1.5 today. Antibiotics usually cause INR to go up. Recheck INR in 1 week. Discharge orders & Medications Prescriptions: New azithromycin 500 mg tablet 500 mg PO DAILY 2 Days Qty: 2 0RF Rx Instructions: start today (10/29) on day 2 of therapy cefdinir 300 mg capsule 300 mg PO BID Qty: 10 0RF prednisone 20 mg tablet 40 mg PO DAILY 5 Days Qty: 10 0RF Continued ferrous sulfate 27 mg iron Tablet 27 mg PO DAILY Qty: 0 cinnamon bark [Cinnamon] 500 mg Capsule 1,000 mg PO BID Qty: 0 ascorbic acid (vitamin C) 500 MG tablet 500 mg PO DAILY Qty: 0 (DME) Accu-chek Softclix Lancets 0 .Route .MEDSUPPLY Qty: 100 3RF Dose Instruction: As directed Rx Instructions: use accucheck soft click lancets to check blood sugar 4-6 times daily (DME) Glucose: Test Strips 0 .Route .MEDSUPPLY Qty: 200 10RF Dose Instruction: As directed Rx Instructions: use accucheck Sandra plus test strips to check blood sugar 4-6 times daily. 10 boxes ok fluticasone propion-salmeterol [Wixela Inhub] 100-50 mcg/dose blister with device 1 inh inhalation BID Qty: 60 11RF albuterol sulfate [ProAir HFA] 90 mcg/actuation HFA aerosol inhaler 2 puff inhalation Q6H PRN (Reason: shortness of breath or wheezing) Qty: 8.5 1RF warfarin 5 mg tablet 5 mg PO .COMPLEX Qty: 100 3RF Rx Instructions: 5mg by mouth daily, or as directed. (DME) insulin syringe-needle U-100 [BD Veo Insulin Syringe UF] 0.3 mL 31 gauge x 15/64 syringe See Rx Instructions .ROUTE .COMPLEX Qty: 100 0RF Dose Instruction: Use to inject insulin up to four times daily Rx Instructions: Use to inject insulin up to four times daily (DME) BD Ultra Fine Pen Tips 31G x 8mm 100 package See Rx Instructions .ROUTE .MEDSUPPLY Qty: 2 2RF Rx Instructions: USE TO INJECT INSULIN TWICE DAILY carvedilol 12.5 mg tablet 12.5 mg PO BID Qty: 180 3RF Rx Instructions: must administer with a meal/food TAKE WITH 25MG TABLET BID FOR TOTAL DOSE 37.5MG carvedilol 25 mg tablet 25 mg PO BID Qty: 180 3RF Rx Instructions: must administer with a meal/food TAKE WITH 12.5MG TABLET BID FOR TOTAL DOSE OF 37.5MG hydrochlorothiazide 12.5 mg capsule 12.5 mg PO DAILY Qty: 90 3RF Humulin N NPH Insulin KwikPen 100 unit/mL (3 mL) insulin pen See Rx Instructions .ROUTE .COMPLEX Qty: 15 11RF Dose Instruction: Inject 24 units under the skin every morning AND 6 units every evening. Twice daily dosing. Rx Instructions: Inject 24 units under the skin every morning AND 6 units every evening. Twice daily dosing. Humulin R Regular U-100 Insuln 100 unit/mL solution See Rx Instructions .ROUTE .COMPLEX Qty: 30 11RF Dose Instruction: Inject 4-9 units per sliding scale under the skin before meals Rx Instructions: Inject 4-9 units per sliding scale under the skin before meals potassium chloride 10 mEq capsule, extended release 10 meq PO BEDTIME Qty: 90 3RF sertraline 25 mg tablet 25 mg PO DAILY Qty: 90 3RF (DME) Syringes: Ultra Fine Insulin Syringe w/Needle 0 .Route .MEDSUPPLY Qty: 100 3RF Dose Instruction: As directed Rx Instructions: As directed (DME) glucometer Qty: 1 0RF Dose Instruction: As directed Rx Instructions: use accucheck Sandra plus glucometer to check blood sugar 4-6 times daily cyanocobalamin (vitamin B-12) 1,000 mcg/mL solution 1,000 mcg SUBCUT QMONTH Qty: 10 1RF multivitamin Tablet 1 tab PO DAILY glucosamine sulfate [Glucosamine] 500 mg Tablet 2,000 mg PO BID [id number]-zotvuaiev-zoid Tablet 1 tab PO BEDTIME omega 4-fnc-pyo-fish oil [Fish Oil] 1,200 (144-216) mg Capsule 1 cap PO BID atorvastatin 80 mg tablet 80 mg PO QPM Rx Instructions: Take 1 tablet (80 mg) by mouth at bedtime trazodone 50 mg tablet 50 mg PO QPM Rx Instructions: Take 1 tablet (50 mg) by mouth at bedtime lorazepam 0.5 mg tablet 5 mg PO PRN PRN (Reason: Anxiety) Rx Instructions: Take 1 tablet (0.5 mg) BID by mouth daily as needed for anxiety amlodipine 10 mg tablet 10 mg PO QPM losartan 100 mg tablet 100 mg PO QAM Rx Instructions: Take 1 tablet (100 mg) by mouth daily Follow up/Referrals: Phi Zaman, [Primary Care Provider] - Diet/Activity/Treatments Diet: Regular Visit Report/Discharge Packet Instructions: DI for Pneumonia -- Adult Discharge Data Primary Care Provider: Phi Zaman
== END 2022-10-29 13:55 | disposition home or self-care (01) | DRG 194 ==
LOC: ED 11:22 → AC 13:21
PROVIDERS: Admitting Provider Neuromusculoskeletal Medicine, Sports Medicine; Emergency Provider Emergency Medicine; Family Provider Family Medicine; PCP Family Medicine; Referring Provider Emergency Medicine; Visit Provider Neuromusculoskeletal Medicine, Sports Medicine
DX: J15.9 Unspecified bacterial pneumonia (principal); I48.20 Chronic atrial fibrillation, unspecified; J44.1 Chronic obstructive pulmonary disease with (acute) exacerbation; K22.70 Barrett's esophagus without dysplasia; E11.9 Type 2 diabetes mellitus without complications; I10 Essential (primary) hypertension; F41.0 Panic disorder [episodic paroxysmal anxiety]; D50.9 Iron deficiency anemia, unspecified; E78.5 Hyperlipidemia, unspecified; Z79.01 Long term (current) use of anticoagulants; Z87.891 Personal history of nicotine dependence; Z95.0 Presence of cardiac pacemaker; Z79.4 Long term (current) use of insulin; Z20.822 Contact with and (suspected) exposure to COVID-19
CPT/HCPCS: 36415; 71045; 71275; 80053; 82962; 83036; 83605; 83880; 84484; 85025; 85610; 86140; 87040; 87635; 93005; 94640; 96365; 99284; C9803; A9270; J0696; J7613; Q9967

== ENCOUNTER → 2022-12-10 07:41 | Outpatient (CLI) | payer OTHER, SELFPAY ==
[2022-10-28 15:06] VITALS: BMI 23.6
[2022-12-10 08:13] LABS: INR 1.1 (0.9-1.3); Prothrombin Time 12.4 SECONDS (10.1-12.7)
[2022-12-10 08:24] LABS: Alanine Aminotransferase 31 IU/L (<50); Albumin 3.8 g/dL (3.5-5.0); Albumin Globulin Ratio 1.3 (1.0-2.8); Alkaline Phosphatase 63 U/L (38-126); Aspartate Aminotransferase 28 IU/L (17-59); BUN Creatinine Ratio 17.6 (6-22); Bilirubin Total 0.6 mg/dL (0.2-1.3); Blood Urea Nitrogen 24 mg/dL (9-20); Carbon Dioxide 30 mmol/L (22-32); Chloride 101 mmol/L (98-107); Estimated Glomerular Filt Rate 54 mL/min (>60); Globulin 2.9 g/dL (1.7-4.1); Glucose 145 mg/dL (80-110); HEMOLYSIS < 15 (0-50); Magnesium 1.7 mg/dL (1.6-2.3); Potassium 3.6 mmol/L (3.4-5.1); Sodium 138 mmol/L (137-145); Total Protein 6.7 g/dL (6.3-8.2)
== END ==
PROVIDERS: Family Provider Family Medicine; PCP Family Medicine; Referring Provider Physician Assistant Medical; Visit Provider Physician Assistant Medical
DX: I48.19 Other persistent atrial fibrillation (principal); Z79.01 Long term (current) use of anticoagulants
CPT/HCPCS: 36415; 80053; 83735; 85610

== ENCOUNTER → 2023-02-04 08:48 | Outpatient (CLI) | payer OTHER, SELFPAY ==
[2022-10-28 15:06] VITALS: BMI 23.6
--- NOTE | 2023-02-04 | DI.ECHO.S_ITS ---
[facility] +---------+ : : [address] : : : : [id number] : : : : Phone: [phone]+ Echocardiogram Report + + :Name: ZARI BABCOCK Study Date: 02/04/2023 Height: 69 in : :[facility] ReadingLocation: Weight: 167 lb : : Gender: Male BSA: 1.9 m2 : :: 1945 Age: 78 yrs BP: 138/75 mmHg: :Reason For Study: MITRAL REGURGITATION : :Ordering Physician: SANTIAGO, : :FACUNDO Performed By: Jaky Carney : :Referring: DARIUS HENDERSON : + + Interpretation Summary The patient has a paced rhythm. The left ventricle is normal in size and wall thickness. The ejection fraction is estimated to be 55-60%. Previous LVEF 60 to 65%. That time rhythm was not paced. Apical wall motion abnormality may reflect pacemaker activation. Distal inferior wall hypokinetic likely due to pacemaker. The right ventricle is normal size. The right ventricular systolic function is normal. There is a pacemaker lead in the right ventricle. There is mild to moderate mitral regurgitation. Compared to the prior echo study, there has been an increase in the severity of mitral regurgitation. There is mild tricuspid regurgitation. Compared to the prior echo exam, there has been no change in TR severity. The right ventricular systolic pressure is estimated to be at least 26 mmHg based on an estimated right atrial pressure of 3 mm Hg. There is aortic root sclerosis/calcification. Procedure: A two-dimensional transthoracic echocardiogram with color flow and Doppler was performed. The study quality was technically adequate. Comparison is made with the echocardiogram of 03/09/2021. The patient has a paced rhythm. The heart rate ranged between 60 bpm during the study. Left Ventricle: The left ventricle is normal in size and wall thickness. There is no thrombus. The ejection fraction is estimated to be 55-60%. Apical wall motion abnormality may reflect pacemaker activation. Distal inferior wall hypokinetic likely due to pacemaker. Diastolic function could not be accurately assessed due to paced rhythm. E/E' med: 9.4. Right Ventricle: The right ventricle is normal size. There is a pacemaker lead in the right ventricle. The right ventricular systolic function is normal. Atria: The left atrial size is normal. The left atrium has mildly decreased in size since the prior echo exam. Right atrial size is normal. There is a catheter/pacemaker lead seen in the right atrium. A patent foramen ovale is suspected. Mitral Valve: There is mild mitral annular calcification. There is mild to moderate mitral regurgitation. Compared to the prior echo study, there has been an increase in the severity of mitral regurgitation. Aortic Valve: The aortic valve is trileaflet. The aortic valve opens well. There is no aortic valve stenosis. No aortic regurgitation is present. Tricuspid Valve: The tricuspid valve is normal. There is mild tricuspid regurgitation. The right ventricular systolic pressure is estimated to be at least 26 mmHg based on an estimated right atrial pressure of 3 mm Hg. Compared to the prior echo exam, there has been no change in TR severity. Pulmonic Valve: The pulmonic valve leaflets are thin and pliable; valve motion is normal. There is mild pulmonic regurgitation. Great Vessels: The aortic root is normal size. There is aortic root sclerosis/calcification. The dimensions of the ascending aorta are normal. The IVC is of normal diameter and collapses greater than 50% with a sniff. This suggests a low right atrial pressure of 3 mm Hg. Pericardium/ Pleura There is no pericardial effusion. There is an anterior echo-free space consistent with a fat pad. There is no pleural effusion. MMode/2D Measurements & Calculations LVIDd: 5.4 cm LVOT diam: 2.1 cm LVIDs: 3.3 cm Ao root diam: 3.5 cm FS: 38.4 % asc Aorta Diam: 3.2 cm IVSd: 0.93 cm LVPWd: 0.86 cm LV parker. diameter/BSA (cm/m^2): 2.8 LV sys. diameter/BSA (cm/m^2): 1.7 LA A2 area: 20.3 cm2 RA long axis: 4.8 cm LA A4 area: 18.8 cm2 RA area: 14.9 cm2 LA length (vol): 6.0 cm RA vol: 39.7 ml LA vol: 54.1 ml RA : 20.7 ml/m2 LA vol index: 28.3 ml/m2 IVC diam: 0.78 cm RVD1 (basal): 4.1 cm RVD2 (mid): 3.2 cm TAPSE: 1.9 cm Doppler Measurements & Calculations Ao V2 max: 119.0 cm/sec LVOT Max Ocry: 89.3 cm/sec Ao V2 mean: 88.8 cm/sec LV V1 max P.2 mmHg Ao max P.7 mmHg LV V1 VTI: 19.5 cm Ao mean P.4 mmHg KONRAD(I,D): 2.8 cm2 Ao V2 VTI: 25.3 cm KONRAD(V,D): 2.7 cm2 sev ratio: 0.77 KONRAD indexed to BSA (cm^2/m^2): 1.5 MV E max cory: 84.8 cm/sec TR max cory: 237.6 cm/sec MV A max cory: 45.4 cm/sec TR max P.6 mmHg MV E/A: 1.9 PA V2 max: 79.2 cm/sec Med Peak E' Cory: 9.0 cm/sec PA V2 mean: 52.8 cm/sec E/E' med: 9.4 PA mean P.3 mmHg Lat Peak E' Cory: 10.7 cm/sec PA pr(Accel): 46.5 mmHg E/E' lat: 7.9 E/e' average: 8.7 MV dec time: 0.18 sec SV(LVOT): 70.6 ml Reading Physician:11:45 AM
--- NOTE | 2023-02-04 | DI.US.S_ITS ---
PROCEDURE: US CAROTID DOPPLER BI INDICATIONS: Stenosis of bilateral carotid arteries TECHNIQUE: Color and pulse Doppler interrogation was performed of both carotid systems, with image documentation and velocity measurements. COMPARISON: [facility], , CAROTID ARTERY DOPPLER BILAT, 09/30/2016, 9:38. FINDINGS: Stenosis calculations are based on SRU (Society of Radiologists in Ultrasound) criteria. Right side: Brachial blood pressure: 146/76 mm Hg. Common carotid artery peak systolic velocity: 86 cm/sec. Internal carotid artery peak systolic velocity: 85 cm/sec. Internal carotid artery end diastolic velocity: 33 cm/sec. External carotid artery peak systolic velocity: 116 cm/sec. ICA/CCA peak systolic ratio: 1.0 . Almanzar scale imaging description: Minimal plaque at the bifurcation Percent internal carotid artery stenosis: Less than 50%, unchanged . Vertebral artery: Flow direction is antegrade. Left side: Brachial blood pressure: 147/82 mm Hg. Common carotid artery peak systolic velocity: 76 cm/sec. Internal carotid artery peak systolic velocity: 101 cm/sec. Internal carotid artery end diastolic velocity: 37 cm/sec. External carotid artery peak systolic velocity: 121 cm/sec. ICA/CCA peak systolic ratio: 1.3 . Almanzar scale imaging description: Mild plaque at the bifurcation Percent internal carotid artery stenosis: Less than 50%, stable . Vertebral artery: Flow direction is antegrade. IMPRESSION: Less than 50% stenosis of the internal carotid arteries bilaterally, unchanged. Dictated by: Varsha Cunningham M.D. on 02/04/2023 at 15:38 Approved by: Varsha Cunningham M.D. on 02/04/2023 at 15:39
== END ==
PROVIDERS: Family Provider Family Medicine; PCP Family Medicine; Referring Provider Internal Medicine Cardiovascular Disease; Visit Provider Internal Medicine Cardiovascular Disease
DX: I65.23 Occlusion and stenosis of bilateral carotid arteries (principal); I08.1 Rheumatic disorders of both mitral and tricuspid valves; Z95.0 Presence of cardiac pacemaker
CPT/HCPCS: 93306; 93880

== ENCOUNTER → 2023-02-07 09:15 | Outpatient (CLI) | payer OTHER, SELFPAY ==
[2022-10-28 15:06] VITALS: BMI 23.6
[2023-02-07 09:38] LABS: Add Manual Diff / Slide Review NO; Basophils Absolute Auto 0 /uL (0-100); Basophils Percent Auto 0.3 % (0-2); Eosinophils Absolute Auto 300 /uL (0-450); Eosinophils Percent Auto 4.4 % (2-4); Hematocrit 38.7 % (41-53); Hemoglobin 13.4 g/dL (13.5-17.5); Lymphocytes Absolute Auto 1900 /uL (1100-4500); Lymphocytes Percent Auto 24.7 % (25-40); Mean Corpuscular HGB Conc 34.6 % (30-36); Mean Corpuscular Hemoglobin 30.6 PG (26-34); Mean Corpuscular Volume 88.5 fL (80-100); Monocytes Absolute Auto 600 /uL (0-900); Monocytes Percent Auto 8.3 % (3-14); Neutrophils Absolute Auto 4800 /uL (1500-7000); Neutrophils Percent Auto 62.3 % (50-75); Platelet Count 225 X10^3/uL (150-400); Red Blood Cell Count 4.37 X10^6/uL (4.5-5.9); Red Cell Distribution Width 14.8 % (11.6-14.8); White Blood Cell Count 7.7 X10^3/uL (4.5-11.0)
[2023-02-07 10:04] LABS: BUN Creatinine Ratio 18.5 (6-22); Blood Urea Nitrogen 25 mg/dL (9-20); Calcium 9.5 mg/dL (8.4-10.2); Carbon Dioxide 30 mmol/L (22-32); Chloride 103 mmol/L (98-107); Estimated Glomerular Filt Rate 54 mL/min (>60); Glucose 124 mg/dL (80-110); HEMOLYSIS < 15 (0-50); Potassium 4.1 mmol/L (3.4-5.1); Sodium 140 mmol/L (137-145)
== END ==
PROVIDERS: Family Provider Family Medicine; PCP Family Medicine; Referring Provider Internal Medicine Cardiovascular Disease; Visit Provider Internal Medicine Cardiovascular Disease
DX: I48.19 Other persistent atrial fibrillation (principal)
CPT/HCPCS: 36415; 80048; 85025

== ENCOUNTER → 2023-06-16 08:33 | Outpatient (CLI) | payer OTHER, SELFPAY ==
[2022-10-28 15:06] VITALS: BMI 23.6
[2023-06-16 10:44] LABS: Cholesterol 137 mg/dL (140-199); HDL Cholesterol 29 mg/dL (40-60); LDL Cholesterol Calculated 80 mg/dL (<100); Triglycerides 142 mg/dL (35-150)
== END ==
PROVIDERS: Family Provider Family Medicine; PCP Family Medicine; Referring Provider Internal Medicine Cardiovascular Disease; Visit Provider Internal Medicine Cardiovascular Disease
DX: I10 Essential (primary) hypertension (principal)
CPT/HCPCS: 36415; 80061

== ENCOUNTER → 2023-06-23 07:49 | Outpatient (CLI) | payer OTHER, SELFPAY ==
[2022-10-28 15:06] VITALS: BMI 23.6
[2023-06-23 08:52] LABS: Add Manual Diff / Slide Review NO; Basophils Absolute Auto 0 /uL (0-100); Basophils Percent Auto 0.4 % (0-2); Eosinophils Absolute Auto 500 /uL (0-450); Eosinophils Percent Auto 6.4 % (2-4); Hematocrit 36.4 % (41-53); Hemoglobin 12.8 g/dL (13.5-17.5); Lymphocytes Absolute Auto 1900 /uL (1100-4500); Lymphocytes Percent Auto 24.7 % (25-40); Mean Corpuscular HGB Conc 35.1 % (30-36); Mean Corpuscular Hemoglobin 32.3 PG (26-34); Mean Corpuscular Volume 92.1 fL (80-100); Monocytes Absolute Auto 600 /uL (0-900); Monocytes Percent Auto 8.1 % (3-14); Neutrophils Absolute Auto 4500 /uL (1500-7000); Neutrophils Percent Auto 60.4 % (50-75); Platelet Count 251 X10^3/uL (150-400); Red Blood Cell Count 3.95 X10^6/uL (4.5-5.9); Red Cell Distribution Width 13.6 % (11.6-14.8); White Blood Cell Count 7.5 X10^3/uL (4.5-11.0)
[2023-06-23 09:11] LABS: Alanine Aminotransferase 29 IU/L (<50); Albumin 4.1 g/dL (3.5-5.0); Albumin Globulin Ratio 1.4 (1.0-2.8); Alkaline Phosphatase 75 U/L (38-126); Aspartate Aminotransferase 28 IU/L (17-59); BUN Creatinine Ratio 16.9 (6-22); Bilirubin Total 0.4 mg/dL (0.2-1.3); Blood Urea Nitrogen 26 mg/dL (9-20); Calcium 9.7 mg/dL (8.4-10.2); Carbon Dioxide 28 mmol/L (22-32); Chloride 103 mmol/L (98-107); Estimated Glomerular Filt Rate 46 mL/min (>60); Globulin 2.9 g/dL (1.7-4.1); Glucose 163 mg/dL (80-110); HEMOLYSIS < 15 (0-50); Potassium 4.8 mmol/L (3.4-5.1); Sodium 137 mmol/L (137-145)
[2023-06-23 09:27] LABS: Free T3, Triiodothyronine Free 3.57 pg/mL (2.77-5.27); Free T4, Direct Thyroxine 1.06 ng/dL (0.78-2.19)
[2023-06-23 09:40] LABS: Thyroid Stimulating Hormone 1.99 uIU/mL (0.47-4.68)
== END ==
PROVIDERS: Family Provider Family Medicine; PCP Family Medicine; Referring Provider Family Medicine; Visit Provider Family Medicine
DX: D51.0 Vitamin B12 deficiency anemia due to intrinsic factor deficiency (principal); E11.21 Type 2 diabetes mellitus with diabetic nephropathy; I10 Essential (primary) hypertension; Z79.4 Long term (current) use of insulin
CPT/HCPCS: 36415; 80053; 83036; 84439; 84443; 84481; 85025

== ENCOUNTER → 2023-07-24 11:00 | Outpatient (CLI) | payer OTHER, SELFPAY ==
[2022-10-28 15:06] VITALS: BMI 23.6
[2023-07-24 11:59] LABS: Influenza A - CEPHEID Flu A NEGATIVE (NEGATIVE); Influenza B - CEPHEID Flu B NEGATIVE (NEGATIVE); Respiratory Syncytial Virus Negative (Negative)
[2023-07-24 12:07] LABS: COVID-19 CEPHEID 4-PLEX PCR Negative (Negative)
== END ==
PROVIDERS: Family Provider Family Medicine; PCP Family Medicine; Visit Provider Family Medicine
DX: U07.1 COVID-19 (principal); R53.83 Other fatigue; J02.9 Acute pharyngitis, unspecified
CPT/HCPCS: 0241U

== ENCOUNTER → 2023-07-24 11:10 | Outpatient (CLI) | payer OTHER, SELFPAY ==
[2022-10-28 15:06] VITALS: BMI 23.6
--- NOTE | 2023-07-24 11:12 | DI.RAD.S_ITS ---
PROCEDURE: XR CHEST 2V INDICATIONS: eval and treat chronic cough TECHNIQUE: 2 views of the chest were acquired. COMPARISON: [facility], CR, XR CHEST 1V, 10/28/2022, 9:57. FINDINGS: Surgical changes and devices: Pacemaker Lungs and pleura: Lungs are clear. No pleural effusions or pneumothorax. Mediastinum: Mediastinal contours are normal. Heart size is normal. Bones and chest wall: No suspicious bony abnormalities. Soft tissues appear unremarkable. IMPRESSION: No evidence acute pulmonary process. Dictated by: Heber Hare M.D. on 07/24/2023 at 12:40 Approved by: Heber Hare M.D. on 07/24/2023 at 12:40
== END ==
PROVIDERS: Family Provider Family Medicine; PCP Family Medicine; Referring Provider Family Medicine; Visit Provider Family Medicine
DX: U07.1 COVID-19 (principal); J18.9 Pneumonia, unspecified organism; J02.9 Acute pharyngitis, unspecified; R05.8 Other specified cough; R53.83 Other fatigue
CPT/HCPCS: 0241U; 71046

== ENCOUNTER → 2023-07-30 10:33 | Outpatient (CLI) | payer OTHER, SELFPAY ==
[2022-10-28 15:06] VITALS: BMI 23.6
--- NOTE | 2023-07-31 01:16 | DI.NM.S_ITS ---
DATE OF SERVICE: 07/30/2023 PROCEDURE: Pharmacological perfusion study. INDICATION: On flecainide, history of paroxysmal Afib, Mobitz type 2 AV block, on pacemaker, fatigue. RADIOPHARMACEUTICAL: 26 millicurie technetium-99m Myoview IV was injected at stress and 12.1 millicurie technetium-99m Myoview IV was injected at rest. CARDIAC STRESS: The patient underwent IV Lexiscan perfusion study under the supervision of an attending staff using standard intravenous Lexiscan as per protocol. The patient remained hemodynamically stable. Resting blood pressure 156/78. Baseline rhythm A sensed and ventricular paced rhythm. During stress, no new convincing ischemic changes. No significant arrhythmias. The patient had minimal dyspnea. No chest discomfort. RAW DATA: There is increased subdiaphragmatic activity. Hot spot near the apex. GATED STUDY: Resting LV ejection fraction 65 and stress LV ejection fraction 74%. I do not see any significant wall motion abnormalities. Resting end-diastolic volume 141 mL. TID ratio 0.95, which is within normal limits. Lung/heart ratio 0.35, which is within normal limits. MYOCARDIAL PERFUSION SCAN: Stress supine, resting supine, and stress prone images were compared to each other. Stress supine and resting supine images revealed moderate-size, moderate to severely decreased perfusion of inferior wall extending into the inferoapex. During stress prone images, inferior wall defect got completely resolved; however patient remained to have inferoapical defect, which is kind of fixed. No significant reversible ischemia. CONCLUSION: 1. No obvious reversible ischemia. 2. Inferior wall defect got resolved during stress prone images suggestive of evidence of tissue attenuation artifact. Fixed inferoapical defect could be due to pacemaker. On gated study, preserved left ventricular function without any significant apical wall motion abnormalities with left contraction; however one cannot rule out old inferoapical infarction. The patient had a perfusion study in June,. At that time also had similar perfusion changes. No significant change from the previous study. In absence of ischemia, preserved left ventricular function, overall low-risk myocardial perfusion scan. [place] - ROOPA/angella/foster doc#: [id number]/job#: [id number] dd: 07/30/2023 16:55:00 dt: 07/31/2023 01:03:00 DICTATING MD/COPIES TO: Cristian Gore MD COPIES MNE: JEN;
== END ==
PROVIDERS: Family Provider Family Medicine; PCP Family Medicine; Referring Provider Internal Medicine Cardiovascular Disease; Visit Provider Internal Medicine Cardiovascular Disease
DX: I48.0 Paroxysmal atrial fibrillation (principal); I47.29 Other ventricular tachycardia; R53.83 Other fatigue; Z51.81 Encounter for therapeutic drug level monitoring; Z79.899 Other long term (current) drug therapy; Z95.0 Presence of cardiac pacemaker
CPT/HCPCS: 78452; 93017; A9502; J2785

== ENCOUNTER → 2023-11-11 07:40 | Outpatient (CLI) | payer OTHER, SELFPAY ==
[2022-10-28 15:06] VITALS: BMI 23.6
[2023-11-11 08:16] LABS: Hematocrit 34.9 % (41-53); Hemoglobin 12.1 g/dL (13.5-17.5); Mean Corpuscular HGB Conc 34.8 % (30-36); Mean Corpuscular Hemoglobin 31.7 PG (26-34); Mean Corpuscular Volume 91.3 fL (80-100); Platelet Count 270 X10^3/uL (150-400); Red Blood Cell Count 3.82 X10^6/uL (4.5-5.9); Red Cell Distribution Width 13.7 % (11.6-14.8); White Blood Cell Count 6.7 X10^3/uL (4.5-11.0)
== END ==
LOC: LAB 07:42
PROVIDERS: Family Provider Family Medicine; PCP Family Medicine; Referring Provider Family Medicine; Visit Provider Family Medicine
DX: D64.9 Anemia, unspecified (principal); R53.1 Weakness
CPT/HCPCS: 36415; 85027

== ENCOUNTER → 2023-11-18 09:34 | Outpatient (CLI) | payer OTHER, SELFPAY ==
[2022-10-28 15:06] VITALS: BMI 23.6
[2023-11-18 10:39] LABS: BUN Creatinine Ratio 17.9 (6-22); Blood Urea Nitrogen 26 mg/dL (9-20); Calcium 9.7 mg/dL (8.4-10.2); Carbon Dioxide 27 mmol/L (22-32); Chloride 101 mmol/L (98-107); Estimated Glomerular Filt Rate 50 mL/min (>60); Glucose 185 mg/dL (80-110); HEMOLYSIS < 15 (0-50); Potassium 3.9 mmol/L (3.4-5.1); Sodium 137 mmol/L (137-145)
[2023-11-18 11:27] LABS: Vitamin B12 > 1000 pg/mL (239-931)
[2023-11-18 13:08] LABS: Creatinine Urine Random 170.9 mg/dL; Protein (Total) Urine Random 33 mg/dL (0-12); Protein Creatinine Ratio Urine 0.19 GRAM/24H
[2023-11-19 10:30] LABS: Parathyroid Hormone Int 29 pg/mL (15-65)
[2023-11-20 12:36] LABS: Albumin 3.5 g/dL (2.9-4.4); Alpha-1-Globulin 0.3 g/dL (0.0-0.4); Alpha-2-Globulin 0.9 g/dL (0.4-1.0); Gamma Globulin 1.1 g/dL (0.4-1.8); Globulin Total 3.3 g/dL (2.2-3.9); Protein, Total 6.8 g/dL (6.0-8.5)
== END ==
LOC: LAB 09:38
PROVIDERS: Family Provider Family Medicine; PCP Family Medicine; Referring Provider Student in an Organized Health Care Education/Training Program; Visit Provider Student in an Organized Health Care Education/Training Program
DX: N05.9 Unspecified nephritic syndrome with unspecified morphologic changes (principal); R80.9 Proteinuria, unspecified; N25.81 Secondary hyperparathyroidism of renal origin; D64.9 Anemia, unspecified; R53.1 Weakness; D51.0 Vitamin B12 deficiency anemia due to intrinsic factor deficiency
CPT/HCPCS: 36415; 80048; 82570; 82607; 83970; 84155; 84156; 84165

== ENCOUNTER 2023-12-21 12:04 | Emergency (ER) | payer OTHER, SELFPAY ==
[2022-10-28 15:06] VITALS: BMI 23.6
[2023-12-21 12:10] VITALS: BP 134/83; PULSE 70; RESP 18; TEMP 36.7; O2SAT 98; BMI 25.4
[2023-12-21 14:03] VITALS: BP 130/78; PULSE 76; RESP 18; O2SAT 100
--- NOTE | 2023-12-21 14:05 | ED.WEAKNESS ---
HPI - Weakness <Mariia Clements PA-C - Last Filed: 12/21/23 14:12> General Chief complaint: Weakness Stated complaint: covid+ sent by onocologist Time Seen by Provider: 12/21/23 12:21 Source: patient Mode of arrival: Ambulatory History of Present Illness HPI Narrative: 78-year-old male with past medical history CVA, AFib on Coumadin, Barretts esophagus, diabetes, expressive aphasia presents to the ED with 1 week of intermittent fever, fatigue. 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 Patient took a home test for COVID-19 which was positive this morning. Patient called his oncologist who sent him to the ED to be evaluated. Patient endorses overall myalgias, fatigue, low energy. Denies nausea, vomiting, chest pain, shortness of breath, dysuria, lightheadedness, dizziness, syncope. Patient's states that he sometimes walks like he is somewhat drunk or lightheaded. However, in the ED patient has a normal gait. Related Data Home Medications Medication Instructions Recorded Confirmed cinnamon bark 500 mg capsule 1,000 mg PO BID ##0 08/25/16 07/24/23 (Cinnamon) ascorbic acid (vitamin C) 500 mg 500 mg PO DAILY ##0 12/16/17 07/24/23 tablet [id number]-[id number]-[id number] tablet 1 tab PO BEDTIME 03/05/21 07/24/23 glucosamine sulfate 500 mg tablet 2,000 mg PO BID 03/05/21 07/24/23 (Glucosamine) multivitamin 1 tab PO DAILY 03/05/21 07/24/23 omega 1-vbw-tnn-fish oil 1,200 mg 1 cap PO BID 03/05/21 07/24/23 (144 mg-216 mg) capsule (Fish Oil) flecainide 100 mg tablet 50 mg PO BID 06/19/23 07/24/23 blood sugar diagnostic (OneTouch #10 ea 07/24/23 07/24/23 Verio test strips) Previous Rx's Medication Instructions Recorded omeprazole 20 mg capsule,delayed 20 mg PO BID #180 caps 01/19/13 release albuterol sulfate 90 mcg/actuation 2 puff inhalation Q6H PRN 12/20/21 aerosol inhaler (ProAir HFA) shortness of breath or wheezing #8.5 grams BD Ultra Fine Pen Tips 31G x 8mm #2 ea 07/22/22 Glucose: Test Strips #200 ea 02/16/23 glucometer #1 ea 02/16/23 insulin NPH isoph U-100 human 100 See Rx Instructions .Route 03/23/23 unit/mL (3 mL) subcutaneous pen .COMPLEX #15 mL (Humulin N NPH U-100 Insulin KwikPen) atorvastatin 80 mg tablet See Rx Instructions .Route 03/31/23 .COMPLEX #90 tabs potassium chloride 10 mEq See Rx Instructions .Route 04/29/23 capsule,extended release .COMPLEX #90 caps carvedilol 12.5 mg tablet See Rx Instructions .Route 05/05/23 .COMPLEX #180 tabs carvedilol 25 mg tablet See Rx Instructions .Route 05/05/23 .COMPLEX #180 tabs sertraline 25 mg tablet See Rx Instructions .Route 05/05/23 .COMPLEX #90 tabs insulin regular human 100 unit/mL See Rx Instructions .Route 05/08/23 injection solution (Humulin R .COMPLEX #10 mL Regular U-100 Insulin) hydrochlorothiazide 12.5 mg capsule 12.5 mg PO DAILY #90 caps 06/10/23 losartan 100 mg tablet 100 mg PO DAILY #90 tabs 06/10/23 warfarin 5 mg tablet 5 mg PO .COMPLEX #100 tabs 06/26/23 amlodipine 10 mg tablet 10 mg PO QPM #90 tabs 07/08/23 nirmatrelvir 150 mg-ritonavir 100 See Rx Instructions PO PER PKG DIR 07/24/23 mg tablets in a dose pack #20 ea (Paxlovid) Syringes: Ultra Fine Insulin #100 ea 07/27/23 Syringe w/Needle lorazepam 0.5 mg tablet See Rx Instructions .Route 08/14/23 .COMPLEX #60 tabs Lancets #100 ea 11/19/23 insulin syringe-needle U-100 0.3 #100 ea 11/19/23 mL 31 gauge x 15/64 (BD Veo Insulin Syringe Ultra-Fine) trazodone 50 mg tablet See Rx Instructions .Route 11/19/23 .COMPLEX #90 tabs fluticasone 100 mcg-salmeterol 50 1 inh inhalation BID #60 ea 11/20/23 mcg/dose blistr powdr for inhalation (Wixela Inhub) cyanocobalamin (vitamin B-12) 1,000 mcg SUBCUT QMONTH #10 mL 11/26/23 1,000 mcg/mL injection solution furosemide 20 mg tablet 20 mg PO DAILY #90 tabs 12/08/23 Allergies Allergy/AdvReac Type Severity Reaction Status Date / Time ciprofloxacin [CIPROFLOXACIN] Allergy Intermediate Dizzy, Verified 07/24/23 09:55 constipation, lightheaded, bad dreams, joint pain atenolol [ATENOLOL] Allergy Mild Lightheaded Verified 07/24/23 09:55 and nausea regadenoson [From Lexiscan] Allergy disorented Verified 07/24/23 09:55 and agitated lisinopril AdvReac Verified 07/24/23 09:55 Review of Systems <Mariia Clements PA-C - Last Filed: 12/21/23 14:12> Constitutional Constitutional: Reports chills, Reports fatigue, Reports fever(s), Denies frequent falls, Reports lethargy and Denies weakness Eyes Eyes: Denies change in vision, Denies eye discharge, Denies irritation and Denies loss of vision ENT Ears, Nose, Mouth, and Throat: Denies change in voice, Denies dizziness, Denies neck pain, Denies sore throat and Denies throat swelling Cardiovascular Cardiovascular: Denies chest pain, Denies irregular heart rhythm, Denies lightheadedness, Denies palpitations, Denies dyspnea, Denies dyspnea on exertion and Denies orthopnea Respiratory Respiratory: Denies cough, Denies dyspnea, Denies dyspnea on exertion and Denies wheezing Gastrointestinal Gastrointestinal: Denies abdominal pain, Denies change in bowel habits, Denies diarrhea, Denies nausea and Denies vomiting Musculoskeletal Musculoskeletal: Denies neck pain and Denies numbness Integumentary/Breasts Skin/Breast: Denies pruritus, Denies erythema, Denies rash and Denies wounds Neurologic Neurologic: Denies behavioral changes, Denies confusion, Denies dizziness, Denies frequent falls, Denies loss of vision, Denies numbness and Denies weakness Psychiatric Psychiatric: Denies anxiety, Denies behavioral changes, Denies confusion, Denies depression, Denies homicidal ideation and Denies suicidal ideation Endocrine Endocrine: Reports fatigue, Denies flushing and Denies palpitations Hematologic/Lymphatic Hematologic/Lymphatic: Denies easy bruising Allergic/Immunologic Allergic/Immunologic: Denies urticaria, Denies throat swelling and Denies wheezing Patient History <Mariia Clements PA-C - Last Filed: 12/21/23 14:12> Medical History Actinic keratosis Acute renal failure (01/09/17) Anemia Arthralgia of hands, bilateral Atrial fibrillation (~01/2017) James's esophagus BPH (benign prostatic hyperplasia) BPPV (benign paroxysmal positional vertigo) Cataracts, bilateral (~12/2017) CKD (chronic kidney disease) (~12/2017) Community acquired pneumonia Coronary artery disease Cough productive of clear sputum Diabetes ELLER (dyspnea on exertion) Elevated INR Excessive daytime sleepiness Generalized 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 panic attacks Generalized headaches GERD (gastroesophageal reflux disease) History of CVA (cerebrovascular accident) Hyperlipemia (~12/2014) Hypertension Lipoma of skin of abdomen skilled nursing current use of anticoagulant therapy Myocardial infarction Neck stiffness Normocytic anemia Orthostatic lightheadedness Pacemaker (01/2017) Poor sleep pattern Snoring Weakness Surgical History Hx of surgical procedure Hx of tonsillectomy Hx of vasectomy Status post transurethral resection of prostate (03/2014) Family History Father Diabetes mellitus High cholesterol Mother Diabetes mellitus High cholesterol Social History household members: spouse Smoking Status: Former smoker alcohol intake: former Smoking Status: Former smoker alcohol intake frequency: holidays/special occasions only Substance Use Type: marijuana Exam <Mariia Clements PA-C - Last Filed: 12/21/23 14:12> Narrative Exam Narrative: Const General:?cooperative, healthy appearing and comfortable [facility] Head:?normal to inspection Ears:?hearing grossly normal bilaterally Nose:?external nose normal Face and sinus:?normal facial exam and sinuses nontender Mouth:?oral mucosae normal Throat:?posterior oropharynx normal Eyes General:?appearance normal, both eyes and all related structures Neck Neck:?normal visual inspection and no lymphadenopathy noted Resp Effort & Inspection:?normal respiratory effort Auscultation:?clear to auscultation bilaterally Cardio Rate:?regular rate Rhythm:?regular rhythm Neuro General:?patient alert, patient awake and patient oriented x3 Initial Vital Signs Initial Vital Signs: Vital Signs Temperature 98.0 F 12/21/23 12:10 Pulse Rate 70 12/21/23 12:10 Respiratory Rate 18 12/21/23 12:10 Blood Pressure 134/83 12/21/23 12:10 Pulse Oximetry 98 12/21/23 12:10 Oxygen Delivery Method Room Air 12/21/23 12:10 <Jo-Ann Hagen DO - Last Filed: 12/22/23 07:26> Initial Vital Signs Initial Vital Signs: Vital Signs Temperature 98.0 F 12/21/23 12:10 Pulse Rate 70 12/21/23 12:10 Respiratory Rate 18 12/21/23 12:10 Blood Pressure 134/83 12/21/23 12:10 Pulse Oximetry 98 12/21/23 12:10 Oxygen Delivery Method Room Air 12/21/23 12:10 Course <Mariia Clements PA-C - Last Filed: 12/21/23 14:12> Vital Signs Vital signs: Vital Signs - 8 hr 12/21/23 12:10 12/21/23 14:03 Temperature 98.0 F Pulse Rate 70 76 Respiratory Rate 18 18 Blood Pressure 134/83 130/78 Pulse Oximetry 98 100 Oxygen Delivery Method Room Air Room Air <Jo-Ann Hagen DO - Last Filed: 12/22/23 07:26> Vital Signs Vital signs: Vital Signs - 8 hr 12/21/23 12:10 12/21/23 14:03 Temperature 98.0 F Pulse Rate 70 76 Respiratory Rate 18 18 Blood Pressure 134/83 130/78 Pulse Oximetry 98 100 Oxygen Delivery Method Room Air Room Air MDM - Weakness <Mariia Clements PA-C - Last Filed: 12/21/23 14:12> MDM Narrative Medical decision making narrative: 78-year-old male with past medical history CVA, AFib on Coumadin, Barretts esophagus, diabetes, expressive aphasia presents to the ED with 1 week of intermittent fever, fatigue. Patient's vitals are normal, saturating 100% on room air. Lungs clear to auscultation bilaterally. Counseled patient that he is experiencing symptoms consistent with COVID-19, and advised supportive care. Recommend follow-up with oncology and PCP as soon as possible. ED return precautions were discussed with patient. Patient verbalized understanding. Medical records reviewed: Yes Discharge Plan Departure Patient Disposition: Home Clinical Impression: COVID-19 Instructions: COVID-19 Activity Restrictions/Additional Instructions: You were evaluated in the ED today for fatigue and fever. The symptoms you are experiencing are consistent with the COVID-19 infection. Please rest well and stay well hydrated. You may take Tylenol or ibuprofen for fever and aches. Return to the ED if you experience any chest pain or shortness of breath. Please follow-up with your oncologist and primary care doctor as soon as possible. Prescriptions: No Action cinnamon bark [Cinnamon] 500 mg Capsule 1,000 mg PO BID Qty: 0 ascorbic acid (vitamin C) 500 MG tablet 500 mg PO DAILY Qty: 0 albuterol sulfate [ProAir HFA] 90 mcg/actuation HFA aerosol inhaler 2 puff inhalation Q6H PRN (Reason: shortness of breath or wheezing) Qty: 8.5 1RF (DME) BD Ultra Fine Pen Tips 31G x 8mm 100 package See Rx Instructions .ROUTE .MEDSUPPLY Qty: 2 2RF Rx Instructions: USE TO INJECT INSULIN TWICE DAILY omeprazole 20 mg capsule,delayed release(DR/EC) 20 mg PO BID Qty: 180 3RF (DME) Glucose: Test Strips 0 .Route .MEDSUPPLY Qty: 200 10RF Dose Instruction: As directed Rx Instructions: use to check blood sugar 4-6 times daily. 10 boxes ok (DME) glucometer Qty: 1 0RF Dose Instruction: As directed Rx Instructions: use glucometer to check blood sugar 4-6 times daily Humulin N NPH Insulin KwikPen 100 unit/mL (3 mL) insulin pen See Rx Instructions .ROUTE .COMPLEX Qty: 15 11RF Dose Instruction: Inject 24 units under the skin every morning AND 6 units every evening. Rx Instructions: Inject 24 units under the skin every morning AND 6 units every evening. atorvastatin 80 mg tablet See Rx Instructions .ROUTE .COMPLEX Qty: 90 3RF Dose Instruction: Take 1 tablet (80 mg) by mouth at bedtime Rx Instructions: Take 1 tablet (80 mg) by mouth at bedtime potassium chloride 10 mEq capsule, extended release See Rx Instructions .ROUTE .COMPLEX Qty: 90 3RF Dose Instruction: Take 1 capsule (10 mEq) by mouth at bedtime Rx Instructions: Take 1 capsule (10 mEq) by mouth at bedtime sertraline 25 mg tablet See Rx Instructions .ROUTE .COMPLEX Qty: 90 3RF Dose Instruction: Take 1 tablet (25 mg) by mouth daily Rx Instructions: Take 1 tablet (25 mg) by mouth daily carvedilol 25 mg tablet See Rx Instructions .ROUTE .COMPLEX Qty: 180 3RF Dose Instruction: Take 1 tablet (25 mg) by mouth 2 times daily with a meal/food. Take with 12.5 mg tablet 2 times daily for a total dose of 37.5 mg Rx Instructions: Take 1 tablet (25 mg) by mouth 2 times daily with a meal/food. Take with 12.5 mg tablet 2 times daily for a total dose of 37.5 mg carvedilol 12.5 mg tablet See Rx Instructions .ROUTE .COMPLEX Qty: 180 3RF Dose Instruction: Take 1 tablet (12.5 mg) by mouth 2 times daily with a meal/food. Take with 25 mg tablet 2 times daily for a total dose of 37.5 mg Rx Instructions: Take 1 tablet (12.5 mg) by mouth 2 times daily with a meal/food. Take with 25 mg tablet 2 times daily for a total dose of 37.5 mg Humulin R Regular U-100 Insuln 100 unit/mL solution See Rx Instructions .ROUTE .COMPLEX Qty: 10 11RF Dose Instruction: Inject 4-9 units per sliding scale under the skin before meals Rx Instructions: Inject 4-9 units per sliding scale under the skin before meals MEALTIME INSULIN Glc 150-199 before the meal: give 2 units of Humulin R Glc 200- 249 give 4 units Glc 250- 299 give 8 units Glc 300- 449 give 12 units Greater than 450 call the doctor. With this the maximum daily dose of Humulin will be 36 units hydrochlorothiazide 12.5 mg capsule 12.5 mg PO DAILY Qty: 90 3RF losartan 100 mg tablet 100 mg PO DAILY Qty: 90 3RF warfarin 5 mg tablet 5 mg PO .COMPLEX Qty: 100 3RF Rx Instructions: 5mg by mouth daily, or as directed. amlodipine 10 mg tablet 10 mg PO QPM Qty: 90 3RF (DME) Syringes: Ultra Fine Insulin Syringe w/Needle 0 .Route .MEDSUPPLY Qty: 100 3RF Dose Instruction: As directed Rx Instructions: As directed lorazepam 0.5 mg tablet See Rx Instructions .ROUTE .COMPLEX Qty: 60 5RF Rx Instructions: Take 1 tablet by mouth twice daily as needed for anxiety; (DME) insulin syringe-needle U-100 [BD Veo Insulin Syringe UF] 0.3 mL 31 gauge x 15/64 syringe See Rx Instructions .ROUTE .COMPLEX Qty: 100 5RF Dose Instruction: Use to inject insulin up to four times daily Rx Instructions: Use to inject insulin up to four times daily trazodone 50 mg tablet See Rx Instructions .ROUTE .COMPLEX Qty: 90 1RF Dose Instruction: Take 1 tablet (50 mg) by mouth at bedtime Rx Instructions: Take 1 tablet (50 mg) by mouth at bedtime (DME) Lancets 0 .Route .MEDSUPPLY Qty: 100 3RF Dose Instruction: As directed Rx Instructions: use to check blood sugar 4-6 times daily fluticasone propion-salmeterol [Wixela Inhub] 100-50 mcg/dose blister with device 1 inh inhalation BID Qty: 60 3RF cyanocobalamin (vitamin B-12) 1,000 mcg/mL solution 1,000 mcg SUBCUT QMONTH Qty: 10 1RF furosemide 20 mg tablet 20 mg PO DAILY Qty: 90 3RF flecainide 100 mg tablet 50 mg PO BID (DME) OneTouch Verio test strips Strip See Rx Instructions .ROUTE .MEDSUPPLY Qty: 10 Rx Instructions: As directed Paxlovid 150-100 mg tablets,dose pack See Rx Instructions PO PER PKG DIR Qty: 20 0RF Rx Instructions: PO PER PKG DIR multivitamin Tablet 1 tab PO DAILY glucosamine sulfate [Glucosamine] 500 mg Tablet 2,000 mg PO BID [id number] Tablet 1 tab PO BEDTIME omega 0-tzu-wgg-fish oil [Fish Oil] 1,200 (144-216) mg Capsule 1 cap PO BID Referrals: Phi Zaman DO [Primary Care Provider] - Stand Alone Forms: Patient Portal/API ED Sign-out <Jo-Ann Hagen DO - Last Filed: 12/22/23 07:26> Cosign ED Attending Cosignature Attestation: I was immediately available in the department for consultation.
== END 2023-12-21 14:04 | disposition home or self-care (01) ==
PROVIDERS: Emergency Provider Student in an Organized Health Care Education/Training Program; Family Provider Family Medicine; PCP Family Medicine
DX: U07.1 COVID-19 (principal)
CPT/HCPCS: 99281; 99282

== ENCOUNTER → 2024-05-19 07:40 | Outpatient (CLI) | payer OTHER, SELFPAY ==
[2022-10-28 15:06] VITALS: BMI 23.6
[2024-05-19 08:28] LABS: Add Manual Diff / Slide Review NO; Basophils Absolute Auto 0 /uL (0-100); Basophils Percent Auto 0.2 % (0-2); Eosinophils Absolute Auto 300 /uL (0-450); Eosinophils Percent Auto 4.2 % (2-4); Hematocrit 35.7 % (41-53); Hemoglobin 12.3 g/dL (13.5-17.5); Lymphocytes Absolute Auto 2000 /uL (1100-4500); Lymphocytes Percent Auto 25.2 % (25-40); Mean Corpuscular HGB Conc 34.5 % (30-36); Mean Corpuscular Hemoglobin 32.1 PG (26-34); Mean Corpuscular Volume 93.1 fL (80-100); Monocytes Absolute Auto 700 /uL (0-900); Monocytes Percent Auto 8.4 % (3-14); Neutrophils Absolute Auto 4900 /uL (1500-7000); Platelet Count 310 X10^3/uL (150-400); Red Blood Cell Count 3.84 X10^6/uL (4.5-5.9); White Blood Cell Count 7.8 X10^3/uL (4.5-11.0)
[2024-05-19 08:45] LABS: Alanine Aminotransferase 26 IU/L (<50); Albumin 3.8 g/dL (3.5-5.0); Albumin Globulin Ratio 1.2 (1.0-2.8); Alkaline Phosphatase 77 U/L (38-126); Aspartate Aminotransferase 27 IU/L (17-59); BUN Creatinine Ratio 15.2 (6-22); Bilirubin Total 0.5 mg/dL (0.2-1.3); Blood Urea Nitrogen 23 mg/dL (9-20); Calcium 9.3 mg/dL (8.4-10.2); Carbon Dioxide 27 mmol/L (22-32); Chloride 105 mmol/L (98-107); Cholesterol 160 mg/dL (140-199); Estimated Glomerular Filt Rate 47 mL/min (>60); Globulin 3.2 g/dL (1.7-4.1); Glucose 159 mg/dL (80-110); HDL Cholesterol 30 mg/dL (40-60); HEMOLYSIS < 15 (0-50); LDL Cholesterol Calculated 101 mg/dL (<100); Potassium 4.4 mmol/L (3.4-5.1); Sodium 138 mmol/L (137-145); Triglycerides 143 mg/dL (35-150)
[2024-05-19 09:18] LABS: TSH w/ Reflex to FT4 1.91 uIU/mL (0.47-4.68)
[2024-05-19 11:11] LABS: Creatinine Urine Random 130.25 mg/dL
[2024-05-19 11:35] LABS: Microalbumin Urine Random 23.9 mg/dL (0-1.6)
== END ==
PROVIDERS: Family Provider Family Medicine; PCP Family Medicine; Referring Provider Family Medicine; Visit Provider Family Medicine
DX: R53.1 Weakness (principal); E11.21 Type 2 diabetes mellitus with diabetic nephropathy; R42 Dizziness and giddiness; Z79.4 Long term (current) use of insulin; I10 Essential (primary) hypertension; E16.2 Hypoglycemia, unspecified
CPT/HCPCS: 36415; 80053; 80061; 82043; 82570; 83036; 84443; 85025

== ENCOUNTER 2024-07-05 10:12 | Emergency (ER) | payer OTHER, SELFPAY ==
[2022-10-28 15:06] VITALS: BMI 23.6
[2024-07-05] VITALS (26 sets, daily range): BP systolic 142–176; BP diastolic 71–84; PULSE 69–88; RESP 16–34; TEMP 36.4–36.6; O2SAT 88–95; BMI 25.1
--- NOTE | 2024-07-05 10:14 | ED.SOB ---
HPI - SOB/Dyspnea General Chief Complaint: Shortness of Breath/Dyspnea Stated Complaint: problems breathing, o2 level low Time Seen by Provider: 07/05/24 10:14 Source: patient, family, RN notes reviewed and old records reviewed Mode of arrival: Ambulatory Limitations: no limitations History of Present Illness HPI Narrative: 79-year-old male history of CVA, atrial fibrillation on Coumadin with pacemaker, James's esophagus, diabetes, cognitive decline, CKD presents with complaint of increased shortness of breath more with exertion but family notes that even at rest he has breathing a little bit more quickly. No fevers or chills. Patient has had chest congestion with a new cough, it has been productive with clear/white sputum. No nasal congestion, no sore throat. Patient denies any chest pain or pressure. No nausea or vomiting. No diarrhea or constipation. No urinary issues. Patient notes some mild swelling in his feet which is intermittent and a little bit worse lately. notes his memory has been a little bit worse lately as well. She also notes yesterday he had an episode where got a little unsteady and pulled the towel rack off the wall. She states he did not fall. Did not have any acute neurologic changes but seemed a little weaker. Patient has a history pacemaker, no reported cardiac stents. Reports allergy to ciprofloxacin, atenolol, lisinopril and regadenoson. Remote history 21 pack years of tobacco last use 45 years ago. No regular alcohol, smokes marijuana daily no other recreational drugs. Dr. Zaman is his primary care physician. Patient is accompanied by his . Related Data Home Medications Medication Instructions Recorded Confirmed cinnamon bark 500 mg capsule 1,000 mg PO BID ##0 08/25/16 06/02/24 (Cinnamon) ascorbic acid (vitamin C) 500 mg 500 mg PO DAILY ##0 12/16/17 06/02/24 tablet zrywket-qavqsbrbl-jvik tablet 1 tab PO BEDTIME 03/05/21 06/02/24 glucosamine sulfate 500 mg tablet 2,000 mg PO BID 03/05/21 06/02/24 (Glucosamine) multivitamin 1 tab PO DAILY 03/05/21 06/02/24 omega 6-nul-ttg-fish oil 1,200 mg 1 cap PO BID 03/05/21 06/02/24 (144 mg-216 mg) capsule (Fish Oil) flecainide 100 mg tablet 50 mg PO BID 06/19/23 06/02/24 Previous Rx's Medication Instructions Recorded omeprazole 20 mg capsule,delayed 20 mg PO BID #180 caps 01/19/13 release albuterol sulfate 90 mcg/actuation 2 puff inhalation Q6H PRN 12/20/21 aerosol inhaler (ProAir HFA) shortness of breath or wheezing #8.5 grams BD Ultra Fine Pen Tips 31G x 8mm #2 ea 07/22/22 insulin regular human 100 unit/mL See Rx Instructions .Route 05/08/23 injection solution (Humulin R .COMPLEX #10 mL Regular U-100 Insulin) warfarin 5 mg tablet 5 mg PO .COMPLEX #100 tabs 06/26/23 amlodipine 10 mg tablet 10 mg PO QPM #90 tabs 07/08/23 lorazepam 0.5 mg tablet See Rx Instructions .Route 08/14/23 .COMPLEX #60 tabs Lancets #100 ea 11/19/23 insulin syringe-needle U-100 0.3 #100 ea 11/19/23 mL 31 gauge x 15/64 (BD Veo Insulin Syringe Ultra-Fine) fluticasone 100 mcg-salmeterol 50 1 inh inhalation BID #60 ea 11/20/23 mcg/dose blistr powdr for inhalation (Wixela Inhub) furosemide 20 mg tablet 20 mg PO DAILY #90 tabs 12/08/23 potassium chloride 10 mEq See Rx Instructions .Route 02/15/24 capsule,extended release .COMPLEX #90 caps Syringes: Ultra Fine Insulin #100 ea 03/07/24 Syringe w/Needle atorvastatin 80 mg tablet See Rx Instructions .Route 05/03/24 .COMPLEX #90 tabs trazodone 50 mg tablet See Rx Instructions .Route 05/03/24 .COMPLEX #90 tabs Glucose: Test Strips #200 ea 05/12/24 carvedilol 12.5 mg tablet See Rx Instructions .Route 05/17/24 .COMPLEX #180 tabs carvedilol 25 mg tablet See Rx Instructions .Route 05/17/24 .COMPLEX #180 tabs sertraline 25 mg tablet See Rx Instructions .Route 05/17/24 .COMPLEX #90 tabs insulin NPH isoph U-100 human 100 See Rx Instructions .Route 05/23/24 unit/mL (3 mL) subcutaneous pen .COMPLEX #15 mL (Humulin N NPH U-100 Insulin KwikPen) losartan 100 mg tablet 100 mg PO DAILY #90 tabs 06/14/24 hydrochlorothiazide 12.5 mg capsule 12.5 mg PO DAILY #90 caps 06/20/24 OneTouch Verio Flex Start kit See Rx Instructions .Route 06/24/24 .COMPLEX #1 kit amoxicillin 875 mg-potassium 1 tab PO BID #14 tabs 07/05/24 clavulanate 125 mg tablet Allergies Allergy/AdvReac Type Severity Reaction Status Date / Time ciprofloxacin [CIPROFLOXACIN] Allergy Intermediate Dizzy, Verified 07/05/24 10:22 constipation, lightheaded, bad dreams, joint pain atenolol [ATENOLOL] Allergy Mild Lightheaded Verified 07/05/24 10:22 and nausea regadenoson [From Lexiscan] Allergy disorented Verified 07/05/24 10:22 and agitated lisinopril AdvReac Verified 07/05/24 10:22 Review of Systems Review of Systems ROS Unobtainable: All systems reviewed & are unremarkable except as noted in HPI and below Patient History Medical History Neck mass Skin lesion of face BETO (acute kidney injury) Acute renal failure Cough productive of clear sputum Weakness Community acquired pneumonia Elevated INR Neck stiffness Orthostatic lightheadedness Lipoma of skin of abdomen Arthralgia of hands, bilateral Normocytic anemia Excessive daytime sleepiness Poor sleep pattern Snoring ELLER (dyspnea on exertion) BPPV (benign paroxysmal positional vertigo) Generalized 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 panic attacks 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 therapy Hyperlipemia (~12/2014) Generalized headaches Cataracts, bilateral (~12/2017) Actinic keratosis Coronary artery disease Myocardial infarction History of CVA (cerebrovascular accident) Pacemaker (01/2017) Atrial fibrillation (~01/2017) CKD (chronic kidney disease) (~12/2017) James's esophagus BPH (benign prostatic hyperplasia) Diabetes GERD (gastroesophageal reflux disease) Hypertension Anemia Acute renal failure (01/09/17) Surgical History Hx of tonsillectomy Hx of vasectomy Hx of surgical procedure Status post transurethral resection of prostate (03/2014) Family History Father Diabetes mellitus High cholesterol Mother Diabetes mellitus High cholesterol Social History household members: spouse Smoking Status: Former smoker alcohol intake: former Smoking Status: Former smoker alcohol intake frequency: holidays/special occasions only Substance Use Type: marijuana Exam Narrative Exam Narrative: GEN: well nourished, well appearing male, alert and oriented x 3, patient appears to be in mild distress. HEENT: Atraumatic, pupils are equal round reactive to light, extraocular movements are intact, nares are clear, TMs are clear with no fluid, there is no conjunctival pallor. Throat is clear without any exudates, erythema, tonsillar enlargement or uvular deviation, no patient's droop HEART: Regular rate and rhythm without murmur, clicks, rubs. Trace pedal edema bilaterally. No JVD. LUNGS:Lungs clear to auscultation, no wheezes, rales, crackles, chest moves symmetrically, no tachypnea accessory muscle use. Speaks in full sentences. ABD:bowel sounds normal, soft, non-tender, no guarding, rebound, rigidity, no masses noted, no hepatosplenomegaly :No CVA tenderness MSCL: Non-tender, no muscle atrophy, muscles strength 5/5 upper and lower extremities, full range of motion, normal gait. Patient able to stand, removed his clothes back on the gurney without any issue. NEURO:CN 2-12 intact, sensation normal. SKIN: No rash, erythema or other skin changes. Initial Vital Signs Initial Vital Signs: Vital Signs Blood Pressure 149/72 H 07/05/24 10:17 Course Orders Ordered: ED Orders 07/05/24 10:24 XR chest 1V Stat EKG-12 Lead Stat 07/05/24 10:25 Complete Blood Count AUTO DIFF Stat Comprehensive Metabolic Panel Stat Lactate (Lactic Acid) Stat NT-proBNP (BNP-Adult 18+) Stat Prothrombin Time INR Stat Troponin & CK Cardiac Panel Stat 07/05/24 10:26 Respiratory Panel (Film Array) Stat 07/05/24 12:49 CT angio chest PE protocol Stat Vital Signs Vital signs: Vital Signs - 8 hr 07/05/24 10:17 07/05/24 10:18 07/05/24 10:20 Temperature 97.8 F Pulse Rate 71 88 Respiratory Rate 22 Blood Pressure 149/72 H 149/72 H Pulse Oximetry 90 L 91 Oxygen Delivery Method Room Air 07/05/24 10:30 07/05/24 10:40 07/05/24 10:50 Temperature Pulse Rate 69 69 69 Respiratory Rate 20 18 25 H Blood Pressure Pulse Oximetry 93 94 95 Oxygen Delivery Method 07/05/24 11:00 07/05/24 11:10 07/05/24 11:17 Temperature Pulse Rate 69 69 Respiratory Rate 29 H 20 Blood Pressure 142/71 H 142/71 H Pulse Oximetry 95 95 Oxygen Delivery Method 07/05/24 11:17 07/05/24 11:20 07/05/24 11:30 Temperature Pulse Rate 69 69 69 Respiratory Rate 20 18 17 Blood Pressure Pulse Oximetry 95 95 94 Oxygen Delivery Method 07/05/24 11:40 07/05/24 11:50 07/05/24 12:00 Temperature Pulse Rate 69 69 69 Respiratory Rate 19 19 18 Blood Pressure Pulse Oximetry 95 93 95 Oxygen Delivery Method 07/05/24 12:10 07/05/24 12:20 07/05/24 12:30 Temperature Pulse Rate 69 69 69 Respiratory Rate 16 17 17 Blood Pressure Pulse Oximetry 94 94 94 Oxygen Delivery Method 07/05/24 12:40 07/05/24 12:48 07/05/24 12:48 Temperature Pulse Rate 69 78 Respiratory Rate 17 24 Blood Pressure 176/84 H Pulse Oximetry 94 90 L Oxygen Delivery Method 07/05/24 12:50 07/05/24 12:50 07/05/24 13:00 Temperature Pulse Rate 78 69 69 Respiratory Rate 24 19 34 H Blood Pressure Pulse Oximetry 88 L 92 Oxygen Delivery Method 07/05/24 13:01 07/05/24 13:01 07/05/24 13:15 Temperature Pulse Rate 69 69 Respiratory Rate 30 H Blood Pressure 144/76 H Pulse Oximetry 93 Oxygen Delivery Method 07/05/24 13:17 07/05/24 13:17 07/05/24 13:20 Temperature Pulse Rate 69 69 Respiratory Rate 17 18 Blood Pressure 151/72 H Pulse Oximetry 93 95 Oxygen Delivery Method 07/05/24 15:32 Temperature 97.6 F Pulse Rate 69 Respiratory Rate 24 Blood Pressure 144/74 H Pulse Oximetry 95 Oxygen Delivery Method Room Air MDM - SOB/Dyspnea Lab Data 07/05/24 10:25 07/05/24 10:25 Labs: Lab Results 07/05/24 07/05/24 Range/Units 10:25 10:26 WBC 9.8 (4.5-11.0) X10^3/uL RBC 3.96 L (4.5-5.9) X10^6/uL Hgb 12.6 L (13.5-17.5) g/dL Hct 36.1 L (41-53) % MCV 91.3 (80-100) fL MCH 31.8 (26-34) PG MCHC 34.8 (30-36) % RDW 14.3 (11.6-14.8) % Plt Count 303 (150-400) X10^3/uL Neut % (Auto) 67.9 (50-75) % Lymph % (Auto) 19.2 L (25-40) % [place] % (Auto) 7.9 (3-14) % Eos % (Auto) 4.7 H (2-4) % Baso % (Auto) 0.3 (0-2) % Neut # (Auto) 6600 (9345-9580) /uL Lymph # (Auto) 1900 (1122-6107) /uL [place] # (Auto) 800 (0-900) /uL Eos # (Auto) 500 H (0-450) /uL Baso # (Auto) 0 (0-100) /uL PT 33.9 H (9.4-12.5) SECONDS INR 2.9 H (0.9-1.3) Sodium 135 L (137-145) mmol/L Potassium 4.1 (3.4-5.1) mmol/L Chloride 104 (98-107) mmol/L Carbon Dioxide 23 (22-32) mmol/L BUN 38 H (9-20) mg/dL Creatinine 1.80 H (0.66-1.25) mg/dL Estimated GFR 38 L (>60) mL/min BUN/Creatinine Ratio 21.1 (6-22) Glucose 109 (80-110) mg/dL Lactate 0.8 (0.7-2.1) mmol/L Calcium 9.5 (8.4-10.2) mg/dL Total Bilirubin 0.6 (0.2-1.3) mg/dL AST 27 (17-59) IU/L ALT 23 (<50) IU/L Alkaline Phosphatase 79 (38-126) U/L Total Creatine Kinase 54 L (55-170) U/L Troponin I < 0.012 (0.01-0.034) ng/mL NT-Pro-B Natriuret Pep 183 (<450) pg/mL Total Protein 7.5 (6.3-8.2) g/dL Albumin 4.1 (3.5-5.0) g/dL Globulin 3.4 (1.7-4.1) g/dL Albumin/Globulin Ratio 1.2 (1.0-2.8) Chlamy pneumoniae PCR Not detected (Not Detect) Adenovirus (PCR) Not detected (Not Detect) B.parapertussis DNA PCR Not detected (Not Detecte) Coronavirus OC43 (PCR) Not detected (Not Detect) Coronavirus HKU1 (PCR) Not detected (Not Detect) Coronavirus 229E (PCR) Not detected (Not Detect) SARS-CoV-2 (PCR) Not detected (Not Detecte) Coronavirus NL63 (PCR) Not detected (Not Detect) Human Metapneumovir PCR Not detected (Not Detect) Influenza Type A (PCR) Not detected (Not Detect) Influenza Type B (PCR) Not detected (Not Detect) M. pneumoniae (PCR) Not detected (Not Detect) Parainfluenza 1 (PCR) Not detected (Not Detect) Parainfluenza 2 (PCR) Not detected (Not Detect) Parainfluenza 3 (PCR) Not detected (Not Detect) Parainfluenza 4 (PCR) Not detected (Not Detect) RSV (PCR) Not detected (Not Detect) Entero/Rhino (PCR) Not detected (Not Detect) Point of Care Testing Glucose POC 87 Imaging Data Chest x-ray: Radiologist's Impression: Close Chest X-Ray (Signed) Heber Hare - 07/05/24 Radiology Report (Cancelled) Cristian Gore - 07/31/23 Myocardial Perfusion Scan Nuc Med (Signed) Cristian Gore - 07/31/23 Chest X-Ray (Signed) Heber Hare - 07/24/23 Echocardiogram Ultrasound (Signed) Cristian Gore - 02/04/23 Carotid Doppler Study (Signed) Varsha Cunningham - 02/04/23 Chest CTA (Signed) Derrick Alford - 10/28/22 Chest X-Ray (Signed) Albert Petersen - 10/28/22 Chest CTA (Signed) Rj Gamble - 03/11/21 Chest X-Ray (Signed) Rj Gamble - 03/11/21 Chest CTA (Signed) Gary,Fausto - 03/09/21 Chest X-Ray (Signed) Fausto Mace - 03/09/21 Chest X-Ray (Signed) Lina George - 03/07/21 Abdomen/Pelvis CT (Signed) Lina George - 03/05/21 Echocardiogram Ultrasound (Signed) Cristian Gore - 02/20/21 Telemetry Strips 12/21/19 Chest X-Ray (Signed) Nick Phipps - 10/04/19 Chest X-Ray (Signed) Keenan Barron - 06/10/19 Radiology Report (Cancelled) Cristian Gore - 06/09/19 Echocardiogram Ultrasound (Signed) Cristian Gore - 06/09/19 Myocardial Perfusion Scan Nuc Med (Signed) Raisa Goredhu - 06/08/19 Cervical/Thoracic Injection (Signed) Keenan Barron - 09/28/18 Launch?[place] [address] XRay Report Signed Patient: Guanako Israel MR#: [id number] : 1945 Acct:[id number] Age/Sex: 79 / M Date of Service: 07/05/24 Loc: ED Accession Number: [id number] Procedure: XR chest 1V Ordering Provider: Jo-Ann Hagen D.O. PROCEDURE: XR CHEST 1V INDICATIONS: Shortness of breath TECHNIQUE: One view of the chest was acquired. COMPARISON: [facility], , XR CHEST 2V, 07/24/2023, 11:13. FINDINGS: Surgical changes and devices: Pacemaker Lungs and pleura: Lungs are clear. No pleural effusions or pneumothorax. Mediastinum: Mediastinal contours appear normal. Heart size is normal. Bones and chest wall: No suspicious bony lesions. Overlying soft tissues appear unremarkable. IMPRESSION: No acute cardiopulmonary abnormality is seen. Dictated by: Heber Hare M.D. on 07/05/2024 at 12:07 Approved by: Heber Hare M.D. on 07/05/2024 at 12:08 ECG Data Attestation: I personally reviewed and interpreted this ECG as follows: Prior ECG tracings: available for review Interpretation: Dual paced rhythm rate of 70 OR 176 QRS of 194 QTC of 505. Patient has prior EKG from 10/28/2022 had intermittent atrial pacing. MDM Narrative Medical decision making narrative: 79-year-old male with several days of cough, productive clear white sputum and increased shortness of breath. states somewhat similar to when patient had pneumonia in the past. Patient's lungs are clear on exam he does have little bit of a mild cough. Has some trace pedal edema but no other signs of fluid overload. On vitals initially arrival to the room patient had brief low O2 sat immediately after ambulating into the department but quickly recovered to the 93-94% range. Labs white count of 9.8 hemoglobin of 12.6 consistent with priors for the past 2 years, platelets are 303, predominance of eosinophils with low lymphocytes. INR today is therapeutic at 2.9. Sodium is 135 potassium 4 1 chloride 104 CO2 is 23 with a BUN of 38 creatinine 1.80, little bit elevated from May when he was 1.5 which appears to be his baseline. Glucose of 109 calcium of 9.5 LFTs are normal total CK is 54. Troponin is less than 0.012. BNP is 183. EKG dual paced rhythm. Chest x-ray shows no acute change. Respiratory panel is negative. On ambulation patient's O2 dropped to 88% but recovers quickly. CT angio was obtained no pulmonary emboli, airway disease with diffuse bronchial thickening and left upper lobe secretions resulting in moderate atelectasis lingula dependent left upper lobe aspiration can be considered.n we will treat patient for pneumonia. Spoke with patient he would prefer to return home, did discuss with hospitalist patient could be observation status but patient much prefers to return. After discussion with Dr. Hudson we will discharge home plan for swallow eval is paged outpatient amoxicillin and speech eval. Discharge Plan Departure Patient Disposition: Home Clinical Impression: Pneumonia Instructions: DI for Pneumonia -- Adult Activity Restrictions/Additional Instructions: Your imaging shows changes on the left lung consistent with possible pneumonia/infection possibility for aspiration. Please follow up with your physician for recheck and repeat imaging to make sure that changes have resolved. You also need to discuss having a swallow evaluation with your physician to evaluate for recurrent aspiration. Take oral antibiotics until completed. Prescription sent to Please return for or worsening symptoms, new chest pain or shortness of breath, persistent vomiting, new swelling of your extremities or other new or concerning changes. Prescriptions: New amoxicillin-pot clavulanate 875-125 mg tablet 1 tab PO BID Qty: 14 0RF No Action cinnamon bark [Cinnamon] 500 mg Capsule 1,000 mg PO BID Qty: 0 ascorbic acid (vitamin C) 500 MG tablet 500 mg PO DAILY Qty: 0 albuterol sulfate [ProAir HFA] 90 mcg/actuation HFA aerosol inhaler 2 puff inhalation Q6H PRN (Reason: shortness of breath or wheezing) Qty: 8.5 1RF (DME) BD Ultra Fine Pen Tips 31G x 8mm 100 package See Rx Instructions .ROUTE .MEDSUPPLY Qty: 2 2RF Rx Instructions: USE TO INJECT INSULIN TWICE DAILY Humulin R Regular U-100 Insuln 100 unit/mL solution See Rx Instructions .ROUTE .COMPLEX Qty: 10 11RF Dose Instruction: Inject 4-9 units per sliding scale under the skin before meals Rx Instructions: Inject 4-9 units per sliding scale under the skin before meals MEALTIME INSULIN Glc 150-199 before the meal: give 2 units of Humulin R Glc 200- 249 give 4 units Glc 250- 299 give 8 units Glc 300- 449 give 12 units Greater than 450 call the doctor. With this the maximum daily dose of Humulin will be 36 units warfarin 5 mg tablet 5 mg PO .COMPLEX Qty: 100 3RF Rx Instructions: 5mg by mouth daily, or as directed. amlodipine 10 mg tablet 10 mg PO QPM Qty: 90 3RF lorazepam 0.5 mg tablet See Rx Instructions .ROUTE .COMPLEX Qty: 60 5RF Rx Instructions: Take 1 tablet by mouth twice daily as needed for anxiety; (DME) insulin syringe-needle U-100 [BD Veo Insulin Syringe UF] 0.3 mL 31 gauge x 15/64 syringe See Rx Instructions .ROUTE .COMPLEX Qty: 100 5RF Dose Instruction: Use to inject insulin up to four times daily Rx Instructions: Use to inject insulin up to four times daily (DME) Lancets 0 .Route .MEDSUPPLY Qty: 100 3RF Dose Instruction: As directed Rx Instructions: use to check blood sugar 4-6 times daily fluticasone propion-salmeterol [Wixela Inhub] 100-50 mcg/dose blister with device 1 inh inhalation BID Qty: 60 3RF furosemide 20 mg tablet 20 mg PO DAILY Qty: 90 3RF omeprazole 20 mg capsule,delayed release(DR/EC) 20 mg PO BID Qty: 180 1RF potassium chloride 10 mEq capsule, extended release See Rx Instructions .ROUTE .COMPLEX Qty: 90 1RF Dose Instruction: Take 1 capsule (10 mEq) by mouth at bedtime Rx Instructions: Take 1 capsule (10 mEq) by mouth at bedtime (DME) Syringes: Ultra Fine Insulin Syringe w/Needle 0 .Route .MEDSUPPLY Qty: 100 3RF Dose Instruction: As directed Rx Instructions: As directed atorvastatin 80 mg tablet See Rx Instructions .ROUTE .COMPLEX Qty: 90 3RF Dose Instruction: Take 1 tablet (80 mg) by mouth at bedtime Rx Instructions: Take 1 tablet (80 mg) by mouth at bedtime trazodone 50 mg tablet See Rx Instructions .ROUTE .COMPLEX Qty: 90 3RF Dose Instruction: Take 1 tablet (50 mg) by mouth at bedtime Rx Instructions: Take 1 tablet (50 mg) by mouth at bedtime (DME) Glucose: Test Strips 0 .Route .MEDSUPPLY Qty: 200 10RF Dose Instruction: As directed Rx Instructions: use to check blood sugar 4-6 times daily. 10 boxes ok sertraline 25 mg tablet See Rx Instructions .ROUTE .COMPLEX Qty: 90 3RF Dose Instruction: Take 1 tablet (25 mg) by mouth daily Rx Instructions: Take 1 tablet (25 mg) by mouth daily carvedilol 25 mg tablet See Rx Instructions .ROUTE .COMPLEX Qty: 180 3RF Dose Instruction: Take 1 tablet (25 mg) by mouth 2 times daily with a meal/food. Take with 12.5 mg tablet 2 times daily for a total dose of 37.5 mg Rx Instructions: Take 1 tablet (25 mg) by mouth 2 times daily with a meal/food. Take with 12.5 mg tablet 2 times daily for a total dose of 37.5 mg carvedilol 12.5 mg tablet See Rx Instructions .ROUTE .COMPLEX Qty: 180 3RF Dose Instruction: Take 1 tablet (12.5 mg) by mouth 2 times daily with a meal/food. Take with 25 mg tablet 2 times daily for a total dose of 37.5 mg Rx Instructions: Take 1 tablet (12.5 mg) by mouth 2 times daily with a meal/food. Take with 25 mg tablet 2 times daily for a total dose of 37.5 mg Humulin N NPH Insulin KwikPen 100 unit/mL (3 mL) insulin pen See Rx Instructions .ROUTE .COMPLEX Qty: 15 11RF Dose Instruction: Inject 24 units under the skin every morning AND 6 units every evening. Rx Instructions: Inject 24 units under the skin every morning AND 6 units every evening. losartan 100 mg tablet 100 mg PO DAILY Qty: 90 3RF hydrochlorothiazide 12.5 mg capsule 12.5 mg PO DAILY Qty: 90 3RF OneTouch Verio Flex Start kit See Rx Instructions .ROUTE .COMPLEX Qty: 1 0RF Dose Instruction: Test blood sugars 4-6 times daily Rx Instructions: Test blood sugars 4-6 times daily flecainide 100 mg tablet 50 mg PO BID multivitamin Tablet 1 tab PO DAILY glucosamine sulfate [Glucosamine] 500 mg Tablet 2,000 mg PO BID drojlvi-[id number] Tablet 1 tab PO BEDTIME omega 4-cqe-fha-fish oil [Fish Oil] 1,200 (144-216) mg Capsule 1 cap PO BID Referrals: Phi Zaman DO [Primary Care Provider] - Stand Alone Forms: Patient Portal/API
--- NOTE | 2024-07-05 10:24 | DI.RAD.S_ITS ---
PROCEDURE: XR CHEST 1V INDICATIONS: Shortness of breath TECHNIQUE: One view of the chest was acquired. COMPARISON: [facility], CR, XR CHEST 2V, 07/24/2023, 11:13. FINDINGS: Surgical changes and devices: Pacemaker Lungs and pleura: Lungs are clear. No pleural effusions or pneumothorax. Mediastinum: Mediastinal contours appear normal. Heart size is normal. Bones and chest wall: No suspicious bony lesions. Overlying soft tissues appear unremarkable. IMPRESSION: No acute cardiopulmonary abnormality is seen. Dictated by: Heber Hare M.D. on 07/05/2024 at 12:07 Approved by: Heber Hare M.D. on 07/05/2024 at 12:08
--- NOTE | 2024-07-05 10:24 | EKG_ITS ---
[address] [address] Test Date: 2024-07-05 Pat Name: Guanako Israel Department: Room: Gender: Male Huc Ob: GODFREY : 1945 Requested By: Order Number: [id number] Reading MD: Ja Pruitt MD Measurements Intervals [place] Rate: 70 P: 30 [place]: 176 QRS: -76 QRSD: 194 T: 88 QT: 468 QTc: 505 Interpretive Statements AV dual-paced rhythm Electronically Signed On 07-05-2024 12:05:58 PDT by Ja Pruitt MD
[2024-07-05 10:33] LABS: Add Manual Diff / Slide Review NO; Basophils Absolute Auto 0 /uL (0-100); Basophils Percent Auto 0.3 % (0-2); Eosinophils Absolute Auto 500 /uL (0-450); Eosinophils Percent Auto 4.7 % (2-4); Hematocrit 36.1 % (41-53); Hemoglobin 12.6 g/dL (13.5-17.5); Lymphocytes Absolute Auto 1900 /uL (1100-4500); Lymphocytes Percent Auto 19.2 % (25-40); Mean Corpuscular HGB Conc 34.8 % (30-36); Mean Corpuscular Hemoglobin 31.8 PG (26-34); Mean Corpuscular Volume 91.3 fL (80-100); Monocytes Absolute Auto 800 /uL (0-900); Monocytes Percent Auto 7.9 % (3-14); Neutrophils Absolute Auto 6600 /uL (1500-7000); Neutrophils Percent Auto 67.9 % (50-75); Platelet Count 303 X10^3/uL (150-400); Red Blood Cell Count 3.96 X10^6/uL (4.5-5.9); Red Cell Distribution Width 14.3 % (11.6-14.8); White Blood Cell Count 9.8 X10^3/uL (4.5-11.0)
[2024-07-05 10:41] LABS: INR 2.9 (0.9-1.3); Prothrombin Time 33.9 SECONDS (9.4-12.5)
[2024-07-05 10:50] LABS: Lactate (Lactic Acid) 0.8 mmol/L (0.7-2.1)
[2024-07-05 10:52] LABS: Alanine Aminotransferase 23 IU/L (<50); Albumin 4.1 g/dL (3.5-5.0); Albumin Globulin Ratio 1.2 (1.0-2.8); Alkaline Phosphatase 79 U/L (38-126); Aspartate Aminotransferase 27 IU/L (17-59); BUN Creatinine Ratio 21.1 (6-22); Bilirubin Total 0.6 mg/dL (0.2-1.3); Blood Urea Nitrogen 38 mg/dL (9-20); Calcium 9.5 mg/dL (8.4-10.2); Carbon Dioxide 23 mmol/L (22-32); Chloride 104 mmol/L (98-107); Creatine Kinase 54 U/L (55-170); Estimated Glomerular Filt Rate 38 mL/min (>60); Globulin 3.4 g/dL (1.7-4.1); Glucose 109 mg/dL (80-110); HEMOLYSIS < 15 (0-50); Potassium 4.1 mmol/L (3.4-5.1); Sodium 135 mmol/L (137-145); Total Protein 7.5 g/dL (6.3-8.2)
[2024-07-05 11:03] LABS: NT-proBNP (BNP-Adult 18+) 183 pg/mL (<450); Troponin I < 0.012 ng/mL (0.01-0.034)
[2024-07-05 11:24] LABS: Adenovirus Not Detected (Not Detect); B. parapertussis Not Detected (Not Detecte); Bordetella pertussis Not Detected (Not Detect); Chlamydophila pneumoniae Not Detected (Not Detect); Coronavirus 229E Not Detected (Not Detect); Coronavirus HKU1 Not Detected (Not Detect); Coronavirus NL 63 Not Detected (Not Detect); Coronavirus OC43 Not Detected (Not Detect); Human Metapneumovirus Not Detected (Not Detect); Human Rhinovirus/Enterovirus Not Detected (Not Detect); Influenza A Not Detected (Not Detect); Influenza B Not Detected (Not Detect); Mycoplasma pneumoniae Not Detected (Not Detect); Parainfluenza Virus 1 Not Detected (Not Detect); Parainfluenza Virus 2 Not Detected (Not Detect); Parainfluenza Virus 3 Not Detected (Not Detect); Parainfluenza Virus 4 Not Detected (Not Detect); Respiratory Syncytial Virus Not Detected (Not Detect); SARS- CoV-2 Not Detected (Not Detecte)
--- NOTE | 2024-07-05 12:49 | DI.CT.S_ITS ---
PROCEDURE: CT ANGIO CHEST PE PROTOCOL INDICATIONS: low o2 with ambulation TECHNIQUE: After the administration of intravenous contrast, 2 mm thick sections acquired from the pulmonary apices to the posterior costophrenic angles. 3-dimensional maximum intensity projection (MIP) coronal and sagittal reformats were then acquired through the thorax. For radiation dose reduction, the following was used: automated exposure control, adjustment of mA and/or kV according to patient size. COMPARISON: [facility], CR, XR CHEST 1V, 07/05/2024, 10:26. [facility], CT, CT ANGIO CHEST PE PROTOCOL, 10/28/2022, 11:39. [facility], CR, XR CHEST 2V, 07/24/2023, 11:13. FINDINGS: Image quality: Diagnostic. Pulmonary arteries: Pulmonary arteries are normal in size, and demonstrate no intraluminal filling defects to suggest central pulmonary embolism. Lower Neck: No enlarged lymph nodes. Thyroid: No thyroid nodules which require sonographic follow up, per consensus guidelines. Axillae: No enlarged lymph nodes. Chest Wall: Left chest wall generator with cardiac leads. Bones: Unremarkable. Lungs and Pleura: No pneumothorax or pleural effusions. There is atelectasis in the lingula and dependent left upper lobe. Diffuse bronchial thickening. Secretions within the left upper lobe/lingula central airways. Heart: Heart size is mildly enlarged, three-vessel coronary calcifications. No pericardial effusion. Thoracic Vessels: No aortic aneurysm. Mediastinum and Miriam: No enlarged lymph nodes. Esophagus: No wall thickening. Moderate hiatal hernia. Upper Abdomen: Visualized upper abdomen solid organs and bowel loops appear normal. IMPRESSION: No pulmonary embolus. Airways disease, with diffuse bronchial thickening and left upper lobe secretions, resulting in moderate atelectasis of the lingula and dependent left upper lobe. Aspiration could also be considered. Correlate with risk factors. Dictated by: Laron Archer M.D. on 07/05/2024 at 13:41 Approved by: Laron Archer M.D. on 07/05/2024 at 13:48
== END 2024-07-05 15:34 | disposition home or self-care (01) ==
PROVIDERS: Emergency Provider Emergency Medicine; Family Provider Family Medicine; PCP Family Medicine
DX: J18.9 Pneumonia, unspecified organism (principal); Z11.52 Encounter for screening for COVID-19; Z79.01 Long term (current) use of anticoagulants
CPT/HCPCS: 36415; 71045; 71275; 80053; 82550; 82962; 83605; 83880; 84484; 85025; 85610; 87633; 93005; 93010; 99284; Q9967

== ENCOUNTER → 2024-07-13 10:04 | Outpatient (CLI) | payer OTHER, SELFPAY ==
[2022-10-28 15:06] VITALS: BMI 23.6
--- NOTE | 2024-07-13 10:05 | DI.RAD.S_ITS ---
PROCEDURE: XR KNEE LT 3V INDICATIONS: left knee pain TECHNIQUE: 3 views of the knee were acquired. COMPARISON: None. FINDINGS: Bones: No fractures or dislocations. No suspicious bony lesions. Mild tricompartmental Soft tissues: Moderate joint effusion. No suspicious soft tissue calcifications. Vascular calcifications. IMPRESSION: Moderate knee joint effusion. Hawv-ov-yeggixob tricompartmental osteoarthritis. Kellgren-Fede Grade 2. Dictated by: Laron Archer M.D. on 07/13/2024 at 12:27 Approved by: Laron Archer M.D. on 07/13/2024 at 12:32
== END ==
PROVIDERS: Family Provider Family Medicine; PCP Family Medicine; Referring Provider Family Medicine; Visit Provider Family Medicine
DX: M17.12 Unilateral primary osteoarthritis, left knee (principal); M25.462 Effusion, left knee; M25.562 Pain in left knee
CPT/HCPCS: 73562

== ENCOUNTER → 2024-08-04 10:59 | Outpatient (CLI) | payer OTHER, SELFPAY ==
[2022-10-28 15:06] VITALS: BMI 23.6
[2024-08-04 11:37] LABS: Hematocrit 35.6 % (41-53); Hemoglobin 12.4 g/dL (13.5-17.5)
[2024-08-04 12:06] LABS: Blood Urea Nitrogen 29 mg/dL (9-20); Calcium 9.6 mg/dL (8.4-10.2); Carbon Dioxide 29 mmol/L (22-32); Chloride 104 mmol/L (98-107); Estimated Glomerular Filt Rate 49 mL/min (>60); Glucose 145 mg/dL (80-110); HEMOLYSIS < 15 (0-50); Potassium 4.1 mmol/L (3.4-5.1); Sodium 137 mmol/L (137-145)
[2024-08-04 12:14] LABS: Creatinine Urine Random 98.84 mg/dL; Protein (Total) Urine Random 32 mg/dL (0-12); Protein Creatinine Ratio Urine 0.32 GRAM/24H
== END ==
LOC: LAB 11:00
PROVIDERS: Family Provider Family Medicine; PCP Family Medicine; Referring Provider Student in an Organized Health Care Education/Training Program; Visit Provider Student in an Organized Health Care Education/Training Program
DX: N05.9 Unspecified nephritic syndrome with unspecified morphologic changes (principal); D70.9 Neutropenia, unspecified; D63.1 Anemia in chronic kidney disease; N25.81 Secondary hyperparathyroidism of renal origin; R80.9 Proteinuria, unspecified
CPT/HCPCS: 36415; 80048; 82570; 83970; 84156; 85014; 85018

== ENCOUNTER 2024-08-26 13:23 | Emergency (ER) | payer OTHER, SELFPAY ==
[2022-10-28 15:06] VITALS: BMI 23.6
[2024-08-26] VITALS (17 sets, daily range): BP systolic 142–170; BP diastolic 72–82; PULSE 68–71; RESP 13–26; TEMP 35.6; O2SAT 91–99; BMI 23.9
--- NOTE | 2024-08-26 13:31 | DI.RAD.S_ITS ---
PROCEDURE: XR CHEST 1V INDICATIONS: altered mental status TECHNIQUE: One view of the chest was acquired. COMPARISON: [facility], CR, XR CHEST 1V, 07/05/2024, 10:26. FINDINGS: Surgical changes and devices: Left chest wall pacemaker leads are in the region of right atrium and right ventricle. Lungs and pleura: Lungs are clear. No pleural effusions or pneumothorax. Mediastinum: Mediastinal contours appear normal. Heart size is normal. Bones and chest wall: No suspicious bony lesions. Overlying soft tissues appear unremarkable. IMPRESSION: No acute cardiopulmonary pathology. Dictated by: Derrick Alford M.D. on 08/26/2024 at 13:54 Approved by: Derrick Alford M.D. on 08/26/2024 at 13:57
--- NOTE | 2024-08-26 13:31 | EKG_ITS ---
[place] [id number] [place] [id number] Test Date: 2024-08-26 Pat Name: Guanako Israel Department: [facility] Room: Gender: Male Desolderer: ALLYN : 1945 Requested By: Order Number: [id number] Reading MD: Tomás Apodaca Measurements Intervals [place] Rate: 70 P: 109 KS: 174 QRS: -79 QRSD: 170 T: 88 QT: 504 QTc: 544 Interpretive Statements AV dual-paced rhythm with occasional ventricular-paced complexes Electronically Signed On 08-26-2024 17:28:56 PDT by Tomás Apodaca
[2024-08-26 13:53] LABS: Add Manual Diff / Slide Review NO; Basophils Absolute Auto 100 /uL (0-100); Basophils Percent Auto 0.4 % (0-2); Eosinophils Absolute Auto 200 /uL (0-450); Eosinophils Percent Auto 1.7 % (2-4); Hematocrit 39.5 % (41-53); Hemoglobin 13.6 g/dL (13.5-17.5); Lymphocytes Absolute Auto 1500 /uL (1100-4500); Lymphocytes Percent Auto 11.5 % (25-40); Mean Corpuscular HGB Conc 34.5 % (30-36); Mean Corpuscular Hemoglobin 31.7 PG (26-34); Monocytes Absolute Auto 700 /uL (0-900); Monocytes Percent Auto 5.1 % (3-14); Neutrophils Absolute Auto 10700 /uL (1500-7000); Neutrophils Percent Auto 81.3 % (50-75); Platelet Count 251 X10^3/uL (150-400); Red Blood Cell Count 4.29 X10^6/uL (4.5-5.9); Red Cell Distribution Width 14.2 % (11.6-14.8); White Blood Cell Count 13.1 X10^3/uL (4.5-11.0)
[2024-08-26 14:02] LABS: Alanine Aminotransferase 29 IU/L (<50); Albumin 4.5 g/dL (3.5-5.0); Albumin Globulin Ratio 1.3 (1.0-2.8); Alkaline Phosphatase 68 U/L (38-126); Aspartate Aminotransferase 35 IU/L (17-59); BUN Creatinine Ratio 20.9 (6-22); Bilirubin Total 0.7 mg/dL (0.2-1.3); Blood Urea Nitrogen 28 mg/dL (9-20); Calcium 9.6 mg/dL (8.4-10.2); Carbon Dioxide 26 mmol/L (22-32); Chloride 105 mmol/L (98-107); Estimated Glomerular Filt Rate 54 mL/min (>60); Globulin 3.5 g/dL (1.7-4.1); Glucose 82 mg/dL (80-110); Sodium 138 mmol/L (137-145)
--- NOTE | 2024-08-26 14:04 | ED_ITS ---
HPI - General Adult <Merlin Davenport MD - Last Filed: 09/06/24 18:57> General Chief complaint: Diabetic Problem Stated complaint: Hypoglycemia Time Seen by Provider: 08/26/24 13:43 Source: patient Mode of arrival: EMS History of Present Illness HPI narrative: Blood sugar by EMS 50. Patient was given glucose by EMS and improved to 108. Patient brought in by ambulance from home, at bedside. Patient was bringing items in from a shed at home. When he got inside he states that he did not feel good and was shaky and sweaty, he laid down on a couch and did have syncopal episode. states he was very diaphoretic. Twitching and tremor like activity noted by . No prior history of seizures. However patient has never had his glucose this low before. He does have history of diabetes and takes insulin. He did take his long-acting Lantus this morning but no short- acting insulin today. He did eat cereal, a bolus serial at 9:00 a.m. today, 5 hours ago. No recent illness fever chills cough cold congestion. Patient denies ever having any chest pain shortness of breath back pain abdominal pain headache, slurred speech or facial droop or numbness or tingling to the limbs. Related Data Home Medications Medication Instructions Recorded Confirmed cinnamon bark 500 mg capsule 1,000 mg PO BID ##0 08/25/16 08/30/24 (Cinnamon) ascorbic acid (vitamin C) 500 mg 500 mg PO DAILY ##0 12/16/17 08/30/24 tablet ywwgcpz-avytxexkh-szcy tablet 1 tab PO BEDTIME 03/05/21 08/30/24 glucosamine sulfate 500 mg tablet 2,000 mg PO BID 03/05/21 08/30/24 (Glucosamine) multivitamin 1 tab PO DAILY 03/05/21 08/30/24 omega 7-yhh-hul-fish oil 1,200 mg 1 cap PO BID 03/05/21 08/30/24 (144 mg-216 mg) capsule (Fish Oil) flecainide 100 mg tablet 50 mg PO BID 06/19/23 08/30/24 insulin glargine-yfgn 100 unit/mL 10 unit SUBCUT .COMPLEX 08/30/24 08/30/24 subcutaneous solution Previous Rx's Medication Instructions Recorded omeprazole 20 mg capsule,delayed 20 mg PO BID #180 caps 01/19/13 release albuterol sulfate 90 mcg/actuation 2 puff inhalation Q6H PRN 12/20/21 aerosol inhaler (ProAir HFA) shortness of breath or wheezing #8.5 grams BD Ultra Fine Pen Tips 31G x 8mm #2 ea 07/22/22 Lancets #100 ea 11/19/23 insulin syringe-needle U-100 0.3 #100 ea 11/19/23 mL 31 gauge x 15/64 (BD Veo Insulin Syringe Ultra-Fine) fluticasone 100 mcg-salmeterol 50 1 inh inhalation BID #60 ea 11/20/23 mcg/dose blistr powdr for inhalation (Wixela Inhub) furosemide 20 mg tablet 20 mg PO DAILY #90 tabs 12/08/23 potassium chloride 10 mEq See Rx Instructions .Route 02/15/24 capsule,extended release .COMPLEX #90 caps Syringes: Ultra Fine Insulin #100 ea 03/07/24 Syringe w/Needle atorvastatin 80 mg tablet See Rx Instructions .Route 05/03/24 .COMPLEX #90 tabs trazodone 50 mg tablet See Rx Instructions .Route 05/03/24 .COMPLEX #90 tabs Glucose: Test Strips #200 ea 05/12/24 carvedilol 12.5 mg tablet See Rx Instructions .Route 05/17/24 .COMPLEX #180 tabs carvedilol 25 mg tablet See Rx Instructions .Route 05/17/24 .COMPLEX #180 tabs sertraline 25 mg tablet See Rx Instructions .Route 05/17/24 .COMPLEX #90 tabs losartan 100 mg tablet 100 mg PO DAILY #90 tabs 06/14/24 hydrochlorothiazide 12.5 mg capsule 12.5 mg PO DAILY #90 caps 06/20/24 OneTouch Verio Flex Start kit See Rx Instructions .Route 06/24/24 .COMPLEX #1 kit warfarin 5 mg tablet 5 mg PO DAILY #100 tabs 07/20/24 amlodipine 10 mg tablet 10 mg PO QPM #90 tabs 08/02/24 insulin regular human 100 unit/mL See Rx Instructions .Route 08/02/24 injection solution (Humulin R .COMPLEX #10 mL Regular U-100 Insulin) lorazepam 0.5 mg tablet See Rx Instructions .Route 08/17/24 .COMPLEX #60 tabs empagliflozin 25 mg tablet 25 mg PO QAM #30 tabs 08/30/24 (Jardiance) Allergies Allergy/AdvReac Type Severity Reaction Status Date / Time ciprofloxacin [CIPROFLOXACIN] Allergy Intermediate Dizzy, Verified 08/30/24 14:39 constipation, lightheaded, bad dreams, joint pain atenolol [ATENOLOL] Allergy Mild Lightheaded Verified 08/30/24 14:39 and nausea regadenoson [From Lexiscan] Allergy disorented Verified 08/30/24 14:39 and agitated lisinopril AdvReac Verified 08/30/24 14:39 Review of Systems <Merlin Daevnport MD - Last Filed: 09/06/24 18:57> Review of Systems Narrative: GENERAL: negative chills, fatigue, malaise, fever, positive sweats. HEENT: negative sinus pain, ear pain, sore throat RESPIRATORY: negative dyspnea, cough CARDIOVASCULAR: negative chest pain, palpitations GASTROINTESTINAL: negative nausea, vomiting, abdominal pain : negative dysuria, frequency, hematuria MUSCULOSKELETAL: negative muscle or bony pain SKIN: negative rash, skin lesions NEUROLOGIC: negative weakness, numbness, positive syncope ROS Unobtainable: All systems reviewed & are unremarkable except as noted in HPI and below Patient History <Merlin Davenport MD - Last Filed: 09/06/24 18:57> Medical History Chronic pain of left knee Acute pain of left knee Neck mass Skin lesion of face BETO (acute kidney injury) Acute renal failure Cough productive of clear sputum Weakness Community acquired pneumonia Elevated INR Neck stiffness Orthostatic lightheadedness Lipoma of skin of abdomen Arthralgia of hands, bilateral Normocytic anemia Excessive daytime sleepiness Poor sleep pattern Snoring ELLER (dyspnea on exertion) BPPV (benign paroxysmal positional vertigo) Generalized 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 panic 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 Hyperlipemia (~12/2014) Generalized headaches Cataracts, bilateral (~12/2017) Actinic keratosis Coronary artery disease Myocardial infarction History of CVA (cerebrovascular accident) Pacemaker (01/2017) Atrial fibrillation (~01/2017) CKD (chronic kidney disease) (~12/2017) James's esophagus BPH (benign prostatic hyperplasia) Diabetes GERD (gastroesophageal reflux disease) Hypertension Anemia Acute renal failure (01/09/17) Surgical History Hx of tonsillectomy Hx of vasectomy Hx of surgical procedure Status post transurethral resection of prostate (03/2014) Family History Father Diabetes mellitus High cholesterol Mother Diabetes mellitus High cholesterol Social History household members: spouse Smoking Status: Former smoker alcohol intake: former Smoking Status: Former smoker alcohol intake frequency: holidays/special occasions only Substance Use Type: marijuana Exam <Merlin Davenport MD - Last Filed: 09/06/24 18:57> Narrative Exam Narrative: GENERAL: in no distress, not toxic not dyspneic HEAD: Normocephalic. EYES: Pupils equal round ENT: Mucous membranes moist. NECK: Trachea midline. CARDIOVASCULAR: Regular rate and rhythm RESPIRATORY: Clear to auscultation. Breath sounds equal bilaterally. No wheezes, rales, or rhonchi. GASTROINTESTINAL: Abdomen soft, non-tender EXTREMITIES: No gross deformities. BACK: No flank tenderness. NEURO: AOx4. Clear speech no facial droop fast exam is negative. Negative pronator drift. SKIN: Warm and dry, not diaphoretic skin is pink PSYCH: Not anxious, is cooperative Initial Vital Signs Initial Vital Signs: Vital Signs Temperature 96.0 F L 08/26/24 13:23 Pulse Rate 71 08/26/24 13:23 Respiratory Rate 15 08/26/24 13:23 Blood Pressure 154/76 H 08/26/24 13:23 Pulse Oximetry 99 08/26/24 13:23 Oxygen Delivery Method Room Air 08/26/24 13:23 <Gerson Ayala MD - Last Filed: 08/26/24 19:35> Initial Vital Signs Initial Vital Signs: Vital Signs Temperature 96.0 F L 08/26/24 13:23 Pulse Rate 71 08/26/24 13:23 Respiratory Rate 15 08/26/24 13:23 Blood Pressure 154/76 H 08/26/24 13:23 Pulse Oximetry 99 08/26/24 13:23 Oxygen Delivery Method Room Air 08/26/24 13:23 Course <Merlin Davenport MD - Last Filed: 11/05/24 18:57> Orders Ordered: Discontinued Medications Dextrose (D10w) 1,000 mls @ 150 mls/hr IV CONT BETH Last Infusion: 08/26/24 19:14 Dose: Infused Documented By: Infusion: 08/26/24 17:33 Dose: 0 mls/hr Documented By: Admin: 08/26/24 15:48 Dose: 150 mls/hr Documented By: SHARA Vital Signs Vital signs: Vital Signs - 8 hr 08/26/24 13:23 08/26/24 13:28 08/26/24 13:28 Temperature 96.0 F L Pulse Rate 71 69 Respiratory Rate 15 Blood Pressure 154/76 H 154/76 H Pulse Oximetry 99 96 Oxygen Delivery Method Room Air 08/26/24 13:30 08/26/24 13:31 08/26/24 13:31 Temperature Pulse Rate 70 70 Respiratory Rate Blood Pressure 144/75 H Pulse Oximetry 98 99 Oxygen Delivery Method 08/26/24 14:00 08/26/24 14:00 08/26/24 14:24 Temperature Pulse Rate 69 69 Respiratory Rate 15 17 Blood Pressure 148/76 H Pulse Oximetry 96 98 Oxygen Delivery Method 08/26/24 14:24 08/26/24 14:30 08/26/24 14:30 Temperature Pulse Rate 69 Respiratory Rate 18 Blood Pressure 158/79 H 146/74 H Pulse Oximetry 95 Oxygen Delivery Method 08/26/24 15:00 08/26/24 15:00 08/26/24 15:30 Temperature Pulse Rate 69 69 Respiratory Rate 13 14 Blood Pressure 142/74 H Pulse Oximetry 93 91 Oxygen Delivery Method 08/26/24 15:30 08/26/24 16:00 08/26/24 16:00 Temperature Pulse Rate 68 Respiratory Rate 15 Blood Pressure 146/72 H 159/76 H Pulse Oximetry 91 Oxygen Delivery Method Room Air 08/26/24 16:30 08/26/24 16:31 08/26/24 16:31 Temperature Pulse Rate 69 69 Respiratory Rate 15 13 Blood Pressure 167/77 H Pulse Oximetry 96 96 Oxygen Delivery Method 08/26/24 17:00 08/26/24 17:00 08/26/24 17:30 Temperature Pulse Rate 69 69 Respiratory Rate 26 H 17 Blood Pressure 170/82 H Pulse Oximetry 97 96 Oxygen Delivery Method 08/26/24 17:30 08/26/24 18:00 08/26/24 18:00 Temperature Pulse Rate 69 Respiratory Rate 16 Blood Pressure 160/76 H 159/77 H Pulse Oximetry 97 Oxygen Delivery Method 08/26/24 18:30 08/26/24 18:30 08/26/24 19:00 Temperature Pulse Rate 69 Respiratory Rate 16 Blood Pressure 163/78 H 152/72 H Pulse Oximetry 96 Oxygen Delivery Method 08/26/24 19:00 Temperature Pulse Rate 69 Respiratory Rate 23 Blood Pressure Pulse Oximetry 94 Oxygen Delivery Method <Gerson Ayala MD - Last Filed: 08/26/24 19:35> Orders Ordered: Discontinued Medications Dextrose (D10w) 1,000 mls @ 150 mls/hr IV CONT BETH Last Infusion: 08/26/24 19:14 Dose: Infused Documented By: Infusion: 08/26/24 17:33 Dose: 0 mls/hr Documented By: Admin: 08/26/24 15:48 Dose: 150 mls/hr Documented By: SHARA Vital Signs Vital signs: Vital Signs - 8 hr 08/26/24 13:23 08/26/24 13:28 08/26/24 13:28 Temperature 96.0 F L Pulse Rate 71 69 Respiratory Rate 15 Blood Pressure 154/76 H 154/76 H Pulse Oximetry 99 96 Oxygen Delivery Method Room Air 08/26/24 13:30 08/26/24 13:31 08/26/24 13:31 Temperature Pulse Rate 70 70 Respiratory Rate Blood Pressure 144/75 H Pulse Oximetry 98 99 Oxygen Delivery Method 08/26/24 14:00 08/26/24 14:00 08/26/24 14:24 Temperature Pulse Rate 69 69 Respiratory Rate 15 17 Blood Pressure 148/76 H Pulse Oximetry 96 98 Oxygen Delivery Method 08/26/24 14:24 08/26/24 14:30 08/26/24 14:30 Temperature Pulse Rate 69 Respiratory Rate 18 Blood Pressure 158/79 H 146/74 H Pulse Oximetry 95 Oxygen Delivery Method 08/26/24 15:00 08/26/24 15:00 08/26/24 15:30 Temperature Pulse Rate 69 69 Respiratory Rate 13 14 Blood Pressure 142/74 H Pulse Oximetry 93 91 Oxygen Delivery Method 08/26/24 15:30 08/26/24 16:00 08/26/24 16:00 Temperature Pulse Rate 68 Respiratory Rate 15 Blood Pressure 146/72 H 159/76 H Pulse Oximetry 91 Oxygen Delivery Method Room Air 08/26/24 16:30 08/26/24 16:31 08/26/24 16:31 Temperature Pulse Rate 69 69 Respiratory Rate 15 13 Blood Pressure 167/77 H Pulse Oximetry 96 96 Oxygen Delivery Method 08/26/24 17:00 08/26/24 17:00 08/26/24 17:30 Temperature Pulse Rate 69 69 Respiratory Rate 26 H 17 Blood Pressure 170/82 H Pulse Oximetry 97 96 Oxygen Delivery Method 08/26/24 17:30 08/26/24 18:00 08/26/24 18:00 Temperature Pulse Rate 69 Respiratory Rate 16 Blood Pressure 160/76 H 159/77 H Pulse Oximetry 97 Oxygen Delivery Method 08/26/24 18:30 08/26/24 18:30 08/26/24 19:00 Temperature Pulse Rate 69 Respiratory Rate 16 Blood Pressure 163/78 H 152/72 H Pulse Oximetry 96 Oxygen Delivery Method 08/26/24 19:00 Temperature Pulse Rate 69 Respiratory Rate 23 Blood Pressure Pulse Oximetry 94 Oxygen Delivery Method Medical Decision Making <Merlin Davenport MD - Last Filed: 09/06/24 18:57> Lab Data 08/26/24 13:45 08/26/24 13:45 Labs: Lab Results 08/26/24 08/26/24 08/26/24 Range/Units 13:45 13:59 16:45 WBC 13.1 H (4.5-11.0) X10^3/uL RBC 4.29 L (4.5-5.9) X10^6/uL Hgb 13.6 (13.5-17.5) g/dL Hct 39.5 L (41-53) % MCV 92.0 (80-100) fL MCH 31.7 (26-34) PG MCHC 34.5 (30-36) % RDW 14.2 (11.6-14.8) % Plt Count 251 (150-400) X10^3/uL Neut % (Auto) 81.3 H (50-75) % Lymph % (Auto) 11.5 L (25-40) % [place] % (Auto) 5.1 (3-14) % Eos % (Auto) 1.7 L (2-4) % Baso % (Auto) 0.4 (0-2) % Neut # (Auto) 71369 H (2931-2040) /uL Lymph # (Auto) 1500 (1586-4885) /uL [place] # (Auto) 700 (0-900) /uL Eos # (Auto) 200 (0-450) /uL Baso # (Auto) 100 (0-100) /uL Sodium 138 (137-145) mmol/L Potassium 3.9 (3.4-5.1) mmol/L Chloride 105 (98-107) mmol/L Carbon Dioxide 26 (22-32) mmol/L BUN 28 H (9-20) mg/dL Creatinine 1.34 H (0.66-1.25) mg/dL Estimated GFR 54 L (>60) mL/min BUN/Creatinine Ratio 20.9 (6-22) Glucose 82 (80-110) mg/dL Calcium 9.6 (8.4-10.2) mg/dL Total Bilirubin 0.7 (0.2-1.3) mg/dL AST 35 (17-59) IU/L ALT 29 (<50) IU/L Alkaline Phosphatase 68 (38-126) U/L Ammonia < 9 L (9-30) umol/L Total Protein 8.0 (6.3-8.2) g/dL Albumin 4.5 (3.5-5.0) g/dL Globulin 3.5 (1.7-4.1) g/dL Albumin/Globulin Ratio 1.3 (1.0-2.8) Urine Color Yellow Urine Appearance Clear Urine pH 7.0 (4.5-8.0) Ur Specific [place] 1.010 (1.000-1.035) Urine Protein 1+ H (Negative) Urine Glucose (UA) Negative (Negative) g/dL Urine Ketones Negative (NEGATIVE) Urine Occult Blood Negative (Negative) Urine Nitrate Negative (Negative) Urine Bilirubin Negative (NEGATIVE) Urine Urobilinogen 0.2 (0.2) E.U./dL Ur Leukocyte Esterase Negative (NEGATIVE) Urine RBC None seen (0-5/HPF) Urine WBC 0-1/hpf (0-5/HPF) Ur Squamous Epith Cells None seen (0-5/HPF) Urine Bacteria None seen (None) Ur Culture Indicated? Cult not indicated Vol Urine Centrifuged 10ml (spun) U Opiates 300ng/mL cut Negative (Negative) Ur Oxycodone Screen Negative (Negative) Urine Methadone Screen Negative (Negative) Ur Barbiturates Screen Negative (Negative) U Tricyclic Antidepress Negative (Negative) Ur Phencyclidine Scrn Negative (Negative) Ur Amphetamines Screen Negative (Negative) U Methamphetamines Scrn Negative (Negative) Ur MDMA Scrn (Ecstasy) Negative (Negative) U Benzodiazepines Scrn Negative (Negative) Urine Cocaine Screen Negative (Negative) U Marijuana (THC) Screen Positive H (Negative) Urine Specific [place] (Normal) Ketones 0.13 (<0.27) mmol/L Ur Creatinine (Normal) 08/26/24 Range/Units 16:45 WBC (4.5-11.0) X10^3/uL RBC (4.5-5.9) X10^6/uL Hgb (13.5-17.5) g/dL Hct (41-53) % MCV (80-100) fL MCH (26-34) PG MCHC (30-36) % RDW (11.6-14.8) % Plt Count (150-400) X10^3/uL Neut % (Auto) (50-75) % Lymph % (Auto) (25-40) % [place] % (Auto) (3-14) % Eos % (Auto) (2-4) % Baso % (Auto) (0-2) % Neut # (Auto) (4607-1147) /uL Lymph # (Auto) (4859-2555) /uL [place] # (Auto) (0-900) /uL Eos # (Auto) (0-450) /uL Baso # (Auto) (0-100) /uL Sodium (137-145) mmol/L Potassium (3.4-5.1) mmol/L Chloride (98-107) mmol/L Carbon Dioxide (22-32) mmol/L BUN (9-20) mg/dL Creatinine (0.66-1.25) mg/dL Estimated GFR (>60) mL/min BUN/Creatinine Ratio (6-22) Glucose (80-110) mg/dL Calcium (8.4-10.2) mg/dL Total Bilirubin (0.2-1.3) mg/dL AST (17-59) IU/L ALT (<50) IU/L Alkaline Phosphatase (38-126) U/L Ammonia (9-30) umol/L Total Protein (6.3-8.2) g/dL Albumin (3.5-5.0) g/dL Globulin (1.7-4.1) g/dL Albumin/Globulin Ratio (1.0-2.8) Urine Color Urine Appearance Urine pH Normal (4.5-8.0) Ur Specific [place] (1.000-1.035) Urine Protein (Negative) Urine Glucose (UA) (Negative) g/dL Urine Ketones (NEGATIVE) Urine Occult Blood (Negative) Urine Nitrate (Negative) Urine Bilirubin (NEGATIVE) Urine Urobilinogen (0.2) E.U./dL Ur Leukocyte Esterase (NEGATIVE) Urine RBC (0-5/HPF) Urine WBC (0-5/HPF) Ur Squamous Epith Cells (0-5/HPF) Urine Bacteria (None) Ur Culture Indicated? Vol Urine Centrifuged U Opiates 300ng/mL cut (Negative) Ur Oxycodone Screen (Negative) Urine Methadone Screen (Negative) Ur Barbiturates Screen (Negative) U Tricyclic Antidepress (Negative) Ur Phencyclidine Scrn (Negative) Ur Amphetamines Screen (Negative) U Methamphetamines Scrn (Negative) Ur MDMA Scrn (Ecstasy) (Negative) U Benzodiazepines Scrn (Negative) Urine Cocaine Screen (Negative) U Marijuana (THC) Screen (Negative) Urine Specific [place] Normal (Normal) Ketones (<0.27) mmol/L Ur Creatinine Normal (Normal) Point of Care Testing Glucose POC 223 Urine Dip Bedside Urine Glucose Negative Bedside Urine Bilirubin - Negative Bedside Urine Ketone - Negative Urine Specific [place] 1.010 Bedside Urine Occult Blood - Negative Bedside Urine pH 7.0 Bedside Urine Protein + 30 Bedside Urine Urobilinogen - Negative Bedside Urine Nitrite - Negative Bedside Urine Leukocytes - Negative Esterase Point of care testing: Point of Care Testing Glucose POC 223 Urine Dip Bedside Urine Glucose Negative Bedside Urine Bilirubin - Negative Bedside Urine Ketone - Negative Urine Specific [place] 1.010 Bedside Urine Occult Blood - Negative Bedside Urine pH 7.0 Bedside Urine Protein + 30 Bedside Urine Urobilinogen - Negative Bedside Urine Nitrite - Negative Bedside Urine Leukocytes - Negative Esterase Imaging Data Chest x-ray: Radiologist's Impression: [address] [address] XRay Report Signed Patient: Guanako Israel MR#: [id number] : 1945 Acct:[id number] Age/Sex: 79 / M Date of Service: 08/26/24 Loc: ED Accession Number: [id number] Procedure: XR chest 1V Ordering Provider: Merlin Davenport MD PROCEDURE: XR CHEST 1V INDICATIONS: altered mental status TECHNIQUE: One view of the chest was acquired. COMPARISON: [facility], CR, XR CHEST 1V, 07/05/2024, 10:26. FINDINGS: Surgical changes and devices: Left chest wall pacemaker leads are in the region of right atrium and right ventricle. Lungs and pleura: Lungs are clear. No pleural effusions or pneumothorax. Mediastinum: Mediastinal contours appear normal. Heart size is normal. Bones and chest wall: No suspicious bony lesions. Overlying soft tissues appear unremarkable. IMPRESSION: No acute cardiopulmonary pathology. Dictated by: Derrick Alford M.D. on 08/26/2024 at 13:54 Approved by: Derrick Alford M.D. on 08/26/2024 at 13:57 CT scan - head: Radiologist's Impression: [place] [address] CT Scan Report Signed Patient: Guanako Israel MR#: [id number] : 1945 Acct:[id number] Age/Sex: 79 / M Date of Service: 08/26/24 Loc: ED Accession Number: [id number] Procedure: CT head/brain wo con Ordering Provider: Merlin Davenport MD PROCEDURE: CT HEAD/BRAIN WO CON INDICATIONS: Altered mental status/TIA TECHNIQUE: Noncontrast 4.5 mm thick angled axial sections acquired from the foramen magnum to the vertex, with coronal and sagittal reformats. For radiation dose reduction, the following was used: automated exposure control, adjustment of mA and/or kV according to patient size. COMPARISON: [facility], CT, HEAD WITHOUT CONTRAST, 12/22/2017, 7:57. FINDINGS: Image quality: Diagnostic. CSF spaces: Basal cisterns are patent. No extra-axial fluid collections. The ventricles are symmetric in size and shape. Brain: No intracranial bleeds or masses. Old lacunar infarct is again seen in left basal ganglia. There is cerebral volume loss for age, with resultant ventricular and sulcal prominence. There are periventricular and deep white matter chronic small vessel ischemic changes. There is intracranial internal carotid artery atherosclerosis. Skull and face: Calvarium and visualized facial bones appear intact, without suspicious lesions. Sinuses: Visualized sinuses and mastoids are clear. IMPRESSION: No acute intracranial pathology. No significant changes from previous studies. Dictated by: Derrick Alford M.D. on 08/26/2024 at 14:53 Approved by: Derrick Alford M.D. on 08/26/2024 at 14:54 CTA - brain/neck: Radiologist's Impression: [place] [address] CT Scan Report Signed Patient: Guanako Israel MR#: [id number] : 1945 Acct:[id number] Age/Sex: 79 / M Date of Service: 08/26/24 Loc: ED Accession Number: [id number] Procedure: CT angio head and neck Ordering Provider: Merlin Davenport MD PROCEDURE: CT ANGIO HEAD AND NECK INDICATIONS: Altered mental status/TIA TECHNIQUE: After the administration of intravenous contrast, 1 mm thick sections acquired from the aortic arch through the [place] of [place]. 3-dimensional udoairh-vhkyhlfdo-gjbgikofjv (MIP) and/or volume rendering reformats were acquired of the central intracranial vasculature and neck separately. For radiation dose reduction, the following was used: automated exposure control, adjustment of mA and/or kV according to patient size. COMPARISON: [facility], CT, CT HEAD WITHOUT CONTRAST, 03/19/2022, 10:19. [facility], CT, CT HEAD/BRAIN WO CON, 08/26/2024, 14:17. FINDINGS: Image quality: Diagnostic. BRAIN: CSF spaces: Ventricles are normal in size and shape. Basal cisterns are patent. No extra-axial fluid collections. Brain: No significant abnormality of the brain can be seen. Skull and face: Calvarium and facial bones appear intact, without suspicious lesions. Orbits appear normal. Sinuses: Sinuses and mastoids are clear. HEAD CT ANGIOGRAPHY: Anterior circulation: Intracranial internal carotid arteries are normal in size and flow. The flow within the paired anterior cerebral arteries is normal and symmetric. The flow within the middle cerebral arteries is normal and symmetric. The anterior communicating artery is seen. No aneurysms are seen. Posterior circulation: Visualized portions of the vertebral arteries demonstrate normal caliber, and join to form a normal appearing basilar artery. Flow within the posterior cerebral arteries is normal and symmetric. No aneurysms are seen. NECK CT ANGIOGRAPHY: Carotid system: The great vessels demonstrate a conventional anatomy as they arise from the aortic arch. The origins of the common carotid arteries appear patent. The common carotid arteries demonstrate normal caliber and courses. The bifurcation regions are both widely patent. The internal carotid arteries demonstrate normal calibers and courses. Posterior circulation: The origins of the vertebral arteries both appear widely patent. The more superior extracranial portions of both vertebral arteries also demonstrate normal courses and calibers. They join to form a normal appearing basilar artery. Soft tissues: Visualized neck soft tissues demonstrate no suspicious abnormalities. Bones: No suspicious bony lesions. Visualized cervical spine appears normally aligned. IMPRESSION: 1. No significant intracranial arterial abnormality is seen. 2. No significant abnormality is seen within the arteries of the neck. Any quantitative measurements of stenosis were performed using NASCET criteria. Dictated by: Derrick Alford M.D. on 08/26/2024 at 14:46 Approved by: Derrick Alford M.D. on 08/26/2024 at 14:49 [facility] Narrative Medical decision making narrative: Blood sugar by EMS 50. Patient was given glucose by EMS and improved to 108. Patient brought in by ambulance from home, at bedside. Patient was bringing items in from a shed at home. When he got inside he states that he did not feel good and was shaky and sweaty, he laid down on a couch and did have syncopal episode. states he was very diaphoretic. Twitching and tremor like activity noted by . No prior history of seizures. However patient has never had his glucose this low before. He does have history of diabetes and takes insulin. He did take his long-acting Lantus this morning but no short- acting insulin today. He did eat cereal, a bolus serial at 9:00 a.m. today, 5 hours ago. No recent illness fever chills cough cold congestion. Patient denies ever having any chest pain shortness of breath back pain abdominal pain headache, slurred speech or facial droop or numbness or tingling to the limbs. After history and exam EKG CBC CMP seizure precautions, CT head CT angiogram head and neck [facility] Medical records reviewed: No recent visits for this complaint Differential considered: Includes but not limited to hypoglycemia stroke seizure Lab Test results independently reviewed as above. Pertinent findings: WBC 13.1 hemoglobin 13.6 sodium 130 potassium 3.9 bicarb 26 BUN 28 creatinine 1.34 GFR 54 glucose 82 ketones 0.13 Independently reviewed EKG AV paced rhythm rate 70 Imaging studies independently reviewed: Chest x-ray CT head CT angiogram head and neck no acute finding Consultations: Treatments: D10 drip. Re-evaluations: 5:37 p.m.. Patient improving. Is eating meal tray. Blood sugar has improved. After D10 IV fluids Discussion: Diagnosis: August 26, 2024 at 6:[address] Davenport: Sign out to Dr. Ayala, patient will need to be re-evaluated for maintenance of blood sugar for possible discharge 08/26/24, 6:00 p.mPorsche, Jamie. Sign-out from Dr. Robbins. 79-year-old male with history of diabetes, took long-acting Lantus this morning usual dose, did not take shortening acting Lantus, earlier today had diaphoresis and near syncopal like symptoms in context of low sugar, EMS recorded glucose at 50, glucose repleted. Glucose measured labs here, EKG without obvious ischemic changes by report, troponin negative. CT head no acute changes. CT angiogram head and neck vessels no acute changes. Blood sugar improved after D10 IV fluids, has been taking oral food tray. Observe for stabilization of glucose. Mild leukocytosis noted. Chest x-ray negative. Urinalysis negative. Likely we will need to recommend decreased Lantus morning dose at discharge. Assumed interim care. Glucose 223 again, stable. Took food tray. Wants to go home. We will discharge patient home. Advised half dose Lantus tomorrow morning, check sugars through the weekend, contact his primary care provider on Thursday for further glucose control management concerns. Return precautions discussed. <Gerson Ayala MD - Last Filed: 08/26/24 19:35> Lab Data Labs: Lab Results 08/26/24 08/26/24 08/26/24 Range/Units 13:45 13:59 16:45 WBC 13.1 H (4.5-11.0) X10^3/uL RBC 4.29 L (4.5-5.9) X10^6/uL Hgb 13.6 (13.5-17.5) g/dL Hct 39.5 L (41-53) % MCV 92.0 (80-100) fL MCH 31.7 (26-34) PG MCHC 34.5 (30-36) % RDW 14.2 (11.6-14.8) % Plt Count 251 (150-400) X10^3/uL Neut % (Auto) 81.3 H (50-75) % Lymph % (Auto) 11.5 L (25-40) % [place] % (Auto) 5.1 (3-14) % Eos % (Auto) 1.7 L (2-4) % Baso % (Auto) 0.4 (0-2) % Neut # (Auto) 23947 H (1988-1680) /uL Lymph # (Auto) 1500 (9746-7986) /uL [place] # (Auto) 700 (0-900) /uL Eos # (Auto) 200 (0-450) /uL Baso # (Auto) 100 (0-100) /uL Sodium 138 (137-145) mmol/L Potassium 3.9 (3.4-5.1) mmol/L Chloride 105 (98-107) mmol/L Carbon Dioxide 26 (22-32) mmol/L BUN 28 H (9-20) mg/dL Creatinine 1.34 H (0.66-1.25) mg/dL Estimated GFR 54 L (>60) mL/min BUN/Creatinine Ratio 20.9 (6-22) Glucose 82 (80-110) mg/dL Calcium 9.6 (8.4-10.2) mg/dL Total Bilirubin 0.7 (0.2-1.3) mg/dL AST 35 (17-59) IU/L ALT 29 (<50) IU/L Alkaline Phosphatase 68 (38-126) U/L Ammonia < 9 L (9-30) umol/L Total Protein 8.0 (6.3-8.2) g/dL Albumin 4.5 (3.5-5.0) g/dL Globulin 3.5 (1.7-4.1) g/dL Albumin/Globulin Ratio 1.3 (1.0-2.8) Urine Color Yellow Urine Appearance Clear Urine pH 7.0 (4.5-8.0) Ur Specific [place] 1.010 (1.000-1.035) Urine Protein 1+ H (Negative) Urine Glucose (UA) Negative (Negative) g/dL Urine Ketones Negative (NEGATIVE) Urine Occult Blood Negative (Negative) Urine Nitrate Negative (Negative) Urine Bilirubin Negative (NEGATIVE) Urine Urobilinogen 0.2 (0.2) E.U./dL Ur Leukocyte Esterase Negative (NEGATIVE) Urine RBC None seen (0-5/HPF) Urine WBC 0-1/hpf (0-5/HPF) Ur Squamous Epith Cells None seen (0-5/HPF) Urine Bacteria None seen (None) Ur Culture Indicated? Cult not indicated Vol Urine Centrifuged 10ml (spun) U Opiates 300ng/mL cut Negative (Negative) Ur Oxycodone Screen Negative (Negative) Urine Methadone Screen Negative (Negative) Ur Barbiturates Screen Negative (Negative) U Tricyclic Antidepress Negative (Negative) Ur Phencyclidine Scrn Negative (Negative) Ur Amphetamines Screen Negative (Negative) U Methamphetamines Scrn Negative (Negative) Ur MDMA Scrn (Ecstasy) Negative (Negative) U Benzodiazepines Scrn Negative (Negative) Urine Cocaine Screen Negative (Negative) U Marijuana (THC) Screen Positive H (Negative) Urine Specific [place] (Normal) Ketones 0.13 (<0.27) mmol/L Ur Creatinine (Normal) 08/26/24 Range/Units 16:45 WBC (4.5-11.0) X10^3/uL RBC (4.5-5.9) X10^6/uL Hgb (13.5-17.5) g/dL Hct (41-53) % MCV (80-100) fL MCH (26-34) PG MCHC (30-36) % RDW (11.6-14.8) % Plt Count (150-400) X10^3/uL Neut % (Auto) (50-75) % Lymph % (Auto) (25-40) % [place] % (Auto) (3-14) % Eos % (Auto) (2-4) % Baso % (Auto) (0-2) % Neut # (Auto) (4876-1052) /uL Lymph # (Auto) (5147-2475) /uL [place] # (Auto) (0-900) /uL Eos # (Auto) (0-450) /uL Baso # (Auto) (0-100) /uL Sodium (137-145) mmol/L Potassium (3.4-5.1) mmol/L Chloride (98-107) mmol/L Carbon Dioxide (22-32) mmol/L BUN (9-20) mg/dL Creatinine (0.66-1.25) mg/dL Estimated GFR (>60) mL/min BUN/Creatinine Ratio (6-22) Glucose (80-110) mg/dL Calcium (8.4-10.2) mg/dL Total Bilirubin (0.2-1.3) mg/dL AST (17-59) IU/L ALT (<50) IU/L Alkaline Phosphatase (38-126) U/L Ammonia (9-30) umol/L Total Protein (6.3-8.2) g/dL Albumin (3.5-5.0) g/dL Globulin (1.7-4.1) g/dL Albumin/Globulin Ratio (1.0-2.8) Urine Color Urine Appearance Urine pH Normal (4.5-8.0) Ur Specific [place] (1.000-1.035) Urine Protein (Negative) Urine Glucose (UA) (Negative) g/dL Urine Ketones (NEGATIVE) Urine Occult Blood (Negative) Urine Nitrate (Negative) Urine Bilirubin (NEGATIVE) Urine Urobilinogen (0.2) E.U./dL Ur Leukocyte Esterase (NEGATIVE) Urine RBC (0-5/HPF) Urine WBC (0-5/HPF) Ur Squamous Epith Cells (0-5/HPF) Urine Bacteria (None) Ur Culture Indicated? Vol Urine Centrifuged U Opiates 300ng/mL cut (Negative) Ur Oxycodone Screen (Negative) Urine Methadone Screen (Negative) Ur Barbiturates Screen (Negative) U Tricyclic Antidepress (Negative) Ur Phencyclidine Scrn (Negative) Ur Amphetamines Screen (Negative) U Methamphetamines Scrn (Negative) Ur MDMA Scrn (Ecstasy) (Negative) U Benzodiazepines Scrn (Negative) Urine Cocaine Screen (Negative) U Marijuana (THC) Screen (Negative) Urine Specific [place] Normal (Normal) Ketones (<0.27) mmol/L Ur Creatinine Normal (Normal) Point of Care Testing Glucose POC 223 Urine Dip Bedside Urine Glucose Negative Bedside Urine Bilirubin - Negative Bedside Urine Ketone - Negative Urine Specific [place] 1.010 Bedside Urine Occult Blood - Negative Bedside Urine pH 7.0 Bedside Urine Protein + 30 Bedside Urine Urobilinogen - Negative Bedside Urine Nitrite - Negative Bedside Urine Leukocytes - Negative Esterase Point of care testing: Point of Care Testing Glucose POC 223 Urine Dip Bedside Urine Glucose Negative Bedside Urine Bilirubin - Negative Bedside Urine Ketone - Negative Urine Specific [place] 1.010 Bedside Urine Occult Blood - Negative Bedside Urine pH 7.0 Bedside Urine Protein + 30 Bedside Urine Urobilinogen - Negative Bedside Urine Nitrite - Negative Bedside Urine Leukocytes - Negative Esterase [facility] Narrative Medical decision making narrative: Blood sugar by EMS 50. Patient was given glucose by EMS and improved to 108. Patient brought in by ambulance from home, at bedside. Patient was bringing items in from a shed at home. When he got inside he states that he did not feel good and was shaky and sweaty, he laid down on a couch and did have syncopal episode. states he was very diaphoretic. Twitching and tremor like activity noted by . No prior history of seizures. However patient has never had his glucose this low before. He does have history of diabetes and takes insulin. He did take his long-acting Lantus this morning but no short- acting insulin today. He did eat cereal, a bolus serial at 9:00 a.m. today, 5 hours ago. No recent illness fever chills cough cold congestion. Patient denies ever having any chest pain shortness of breath back pain abdominal pain headache, slurred speech or facial droop or numbness or tingling to the limbs. After history and exam EKG CBC CMP seizure precautions, CT head CT angiogram head and neck [facility] Medical records reviewed: No recent visits for this complaint Differential considered: Includes but not limited to hypoglycemia stroke seizure Lab Test results independently reviewed as above. Pertinent findings: WBC 13.1 hemoglobin 13.6 sodium 130 potassium 3.9 bicarb 26 BUN 28 creatinine 1.34 GFR 54 glucose 82 ketones 0.13 Independently reviewed EKG AV paced rhythm rate 70 Imaging studies independently reviewed: Chest x-ray CT head CT angiogram head and neck no acute finding Consultations: Treatments: D10 drip. Re-evaluations: 5:37 p.m.. Patient improving. Is eating meal tray. Blood sugar has improved. After D10 IV fluids Discussion: Diagnosis: August 26, 2024 at 6:[address] Davenport: Sinus Dr. Ayala, patient will need to be re-evaluated for maintenance of blood sugar for possible discharge 08/26/24, 6:00 p.mPorsche, Jamie. Sign-out from Dr. Robbins. 79-year-old male with history of diabetes, took long-acting Lantus this morning usual dose, did not take shortening acting Lantus, earlier today had diaphoresis and near syncopal like symptoms in context of low sugar, EMS recorded glucose at 50, glucose repleted. Glucose measured labs here, EKG without obvious ischemic changes by report, troponin negative. CT head no acute changes. CT angiogram head and neck vessels no acute changes. Blood sugar improved after D10 IV fluids, has been taking oral food tray. Observe for stabilization of glucose. Mild leukocytosis noted. Chest x-ray negative. Urinalysis negative. Likely we will need to recommend decreased Lantus morning dose at discharge. Assumed interim care. Glucose 223 again, stable. Took food tray. Wants to go home. We will discharge patient home. Advised half dose Lantus tomorrow morning, check sugars through the weekend, contact his primary care provider on Thursday for further glucose control management concerns. Return precautions discussed. Discharge Plan Departure Patient Disposition: Home Clinical Impression: Hypoglycemic episode in patient with diabetes mellitus Activity Restrictions/Additional Instructions: Low sugar event, history of diabetes. Nearly passing out. Low sugar was identified, treated with IV sugar infusion, you subsequently were able to take oral feed, glucose stabilized. Consider decreasing your dose of morning long- acting Lantus by half over the weekend, follow up sugars, contact your regular doctor Thursday regarding further glucose control measures. You also had other blood work unrevealing, CT head study negative, CT head and neck vessels with IV contrast study also was reportedly negative. Symptoms seemed consistent with hyperglycemic episode at this time. Further workup and follow up as an outpatient for now. Take oral feeds regularly Prescriptions: No Action cinnamon bark [Cinnamon] 500 mg Capsule 1,000 mg PO BID Qty: 0 ascorbic acid (vitamin C) 500 MG tablet 500 mg PO DAILY Qty: 0 albuterol sulfate [ProAir HFA] 90 mcg/actuation HFA aerosol inhaler 2 puff inhalation Q6H PRN (Reason: shortness of breath or wheezing) Qty: 8.5 1RF (DME) BD Ultra Fine Pen Tips 31G x 8mm 100 package See Rx Instructions .ROUTE .MEDSUPPLY Qty: 2 2RF Rx Instructions: USE TO INJECT INSULIN TWICE DAILY (DME) insulin syringe-needle U-100 [BD Veo Insulin Syringe UF] 0.3 mL 31 gauge x 15/64 syringe See Rx Instructions .ROUTE .COMPLEX Qty: 100 5RF Dose Instruction: Use to inject insulin up to four times daily Rx Instructions: Use to inject insulin up to four times daily (DME) Lancets 0 .Route .MEDSUPPLY Qty: 100 3RF Dose Instruction: As directed Rx Instructions: use to check blood sugar 4-6 times daily fluticasone propion-salmeterol [Wixela Inhub] 100-50 mcg/dose blister with device 1 inh inhalation BID Qty: 60 3RF furosemide 20 mg tablet 20 mg PO DAILY Qty: 90 3RF potassium chloride 10 mEq capsule, extended release See Rx Instructions .ROUTE .COMPLEX Qty: 90 1RF Dose Instruction: Take 1 capsule (10 mEq) by mouth at bedtime Rx Instructions: Take 1 capsule (10 mEq) by mouth at bedtime (DME) Syringes: Ultra Fine Insulin Syringe w/Needle 0 .Route .MEDSUPPLY Qty: 100 3RF Dose Instruction: As directed Rx Instructions: As directed atorvastatin 80 mg tablet See Rx Instructions .ROUTE .COMPLEX Qty: 90 3RF Dose Instruction: Take 1 tablet (80 mg) by mouth at bedtime Rx Instructions: Take 1 tablet (80 mg) by mouth at bedtime trazodone 50 mg tablet See Rx Instructions .ROUTE .COMPLEX Qty: 90 3RF Dose Instruction: Take 1 tablet (50 mg) by mouth at bedtime Rx Instructions: Take 1 tablet (50 mg) by mouth at bedtime (DME) Glucose: Test Strips 0 .Route .MEDSUPPLY Qty: 200 10RF Dose Instruction: As directed Rx Instructions: use to check blood sugar 4-6 times daily. 10 boxes ok sertraline 25 mg tablet See Rx Instructions .ROUTE .COMPLEX Qty: 90 3RF Dose Instruction: Take 1 tablet (25 mg) by mouth daily Rx Instructions: Take 1 tablet (25 mg) by mouth daily carvedilol 25 mg tablet See Rx Instructions .ROUTE .COMPLEX Qty: 180 3RF Dose Instruction: Take 1 tablet (25 mg) by mouth 2 times daily with a meal/food. Take with 12.5 mg tablet 2 times daily for a total dose of 37.5 mg Rx Instructions: Take 1 tablet (25 mg) by mouth 2 times daily with a meal/food. Take with 12.5 mg tablet 2 times daily for a total dose of 37.5 mg carvedilol 12.5 mg tablet See Rx Instructions .ROUTE .COMPLEX Qty: 180 3RF Dose Instruction: Take 1 tablet (12.5 mg) by mouth 2 times daily with a meal/food. Take with 25 mg tablet 2 times daily for a total dose of 37.5 mg Rx Instructions: Take 1 tablet (12.5 mg) by mouth 2 times daily with a meal/food. Take with 25 mg tablet 2 times daily for a total dose of 37.5 mg losartan 100 mg tablet 100 mg PO DAILY Qty: 90 3RF hydrochlorothiazide 12.5 mg capsule 12.5 mg PO DAILY Qty: 90 3RF OneTouch Verio Flex Start kit See Rx Instructions .ROUTE .COMPLEX Qty: 1 0RF Dose Instruction: Test blood sugars 4-6 times daily Rx Instructions: Test blood sugars 4-6 times daily warfarin 5 mg tablet 5 mg PO DAILY Qty: 100 3RF Protocol: Dose Management Condition: Thursday Dose/Route: 5 mg Instruction: 1 x 5 mg tablet Condition: Thursday Dose/Route: 5 mg Instruction: 1 x 5 mg tablet Condition: Thursday Dose/Route: 5 mg Instruction: 1 x 5 mg tablet Condition: Thursday Dose/Route: 5 mg Instruction: 1 x 5 mg tablet Condition: Dose/Route: 5 mg Instruction: 1 x 5 mg tablet Condition: Thursday Dose/Route: 5 mg Instruction: 1 x 5 mg tablet Condition: Thursday Dose/Route: 5 mg Instruction: 1 x 5 mg tablet Protocol Text: Adjustment Start Date: Thursday08/23/24 INR Value: 2.9 INR Date: 08/23/24 Recheck Date: 09/20/24 Humulin R Regular U-100 Insuln 100 unit/mL solution See Rx Instructions .ROUTE .COMPLEX Qty: 10 11RF Dose Instruction: Inject 4-9 units per sliding scale under the skin before meals Rx Instructions: Inject 4-9 units per sliding scale under the skin before meals MEALTIME INSULIN Glc 150-199 before the meal: give 2 units of Humulin R Glc 200- 249 give 4 units Glc 250- 299 give 8 units Glc 300- 449 give 12 units Greater than 450 call the doctor. With this the maximum daily dose of Humulin will be 36 units amlodipine 10 mg tablet 10 mg PO QPM Qty: 90 3RF omeprazole 20 mg capsule,delayed release(DR/EC) 20 mg PO BID Qty: 180 1RF lorazepam 0.5 mg tablet See Rx Instructions .ROUTE .COMPLEX Qty: 60 5RF Rx Instructions: Take 1 tablet by mouth twice daily as needed for anxiety flecainide 100 mg tablet 50 mg PO BID insulin glargine-yfgn 100 unit/mL solution 10 unit SUBCUT .COMPLEX Rx Instructions: Inject 18 units in the morning Jardiance 25 mg tablet 25 mg PO QAM Qty: 30 2RF multivitamin Tablet 1 tab PO DAILY glucosamine sulfate [Glucosamine] 500 mg Tablet 2,000 mg PO BID [id number] Tablet 1 tab PO BEDTIME omega 4-hbj-ioh-fish oil [Fish Oil] 1,200 (144-216) mg Capsule 1 cap PO BID Referrals: Phi Zaman DO [Primary Care Provider] - Stand Alone Forms: Patient Portal/API
[2024-08-26 14:05] LABS: HEMOLYSIS 70 (0-50); Potassium 3.9 mmol/L (3.4-5.1)
[2024-08-26 14:17] LABS: Ammonia (NH3) < 9 umol/L (9-30)
[2024-08-26 14:38] LABS: Ketones (Beta-Hydroxybutyrate) 0.13 mmol/L (<0.27)
[2024-08-26] MEDS: DEXTROSE 10 % IN WATER 1,000 ML 150 ML IV (15:48)
[2024-08-26 16:54] LABS: Appearance Urine UA CLEAR; Bilirubin Urine UA NEGATIVE (NEGATIVE); Color Urine UA YELLOW; Glucose Urine UA NEGATIVE (Negative); Ketones Urine UA NEGATIVE (NEGATIVE); Leukocyte Esterase Urine UA NEGATIVE (NEGATIVE); Nitrite Urine UA NEGATIVE (Negative); Occult Blood Urine UA NEGATIVE (Negative); Protein Urine UA 1+ (Negative); Urobilinogen Urine UA 0.2 E.U./dL (0.2)
[2024-08-26 16:57] LABS: Ur Creatinine Normal (Normal); Ur Specific Gravity Normal (Normal); Urine THC Positive (Negative); Urine pH Normal (Normal)
[2024-08-26 16:58] LABS: Urine Amphetamines Negative (Negative); Urine Barbiturates Negative (Negative); Urine Benzodiazepines Negative (Negative); Urine Cocaine Negative (Negative); Urine MDMA Negative (Negative); Urine Methadone Negative (Negative); Urine Methamphetamines Negative (Negative); Urine Opiates Negative (Negative); Urine Oxycodone Negative (Negative); Urine Phencyclidine Negative (Negative); Urine Tricyclic Antidepressant Negative (Negative)
[2024-08-26 16:59] LABS: RBC Urine None Seen (0-5/HPF); Urine Volume 10mL (spun); WBC Urine 0-1/HPF (0-5/HPF)
[2024-08-26 17:00] LABS: Bacteria Urine None Seen; Culture Indicated Urine Cult Not Indicated; Squamous Epithelial Cell Urine None Seen (0-5/HPF)
--- NOTE | 2024-08-26 17:39 | PC.NURSE ---
completed 90% meal tray. Tolerated well
== END 2024-08-26 19:16 | disposition home or self-care (01) ==
PROVIDERS: Emergency Medicine; Emergency Provider Emergency Medicine; Family Provider Family Medicine; PCP Family Medicine
DX: E11.649 Type 2 diabetes mellitus with hypoglycemia without coma (principal); Z79.899 Other long term (current) drug therapy; R41.82 Altered mental status, unspecified; R79.89 Other specified abnormal findings of blood chemistry
CPT/HCPCS: 70450; 70496; 70498; 71045; 80053; 80305; 81001; 81003; 82009; 82140; 82962; 85025; 93005; 96360; 96361; 99284; Q9967

== ENCOUNTER → 2024-09-20 09:29 | Outpatient (CLI) | payer OTHER, SELFPAY ==
[2022-10-28 15:06] VITALS: BMI 23.6
[2024-09-20 10:10] LABS: Prothrombin Time 63.7 SECONDS (9.4-12.5)
[2024-09-20 10:11] LABS: INR 5.9 (0.9-1.3)
== END ==
PROVIDERS: Family Provider Family Medicine; PCP Family Medicine; Referring Provider Family Medicine; Visit Provider Family Medicine
DX: R79.1 Abnormal coagulation profile (principal); Z79.01 Long term (current) use of anticoagulants
CPT/HCPCS: 36415; 85610

== ENCOUNTER → 2024-09-28 08:47 | Outpatient (CLI) | payer OTHER, SELFPAY ==
[2022-10-28 15:06] VITALS: BMI 23.6
[2024-09-28 09:29] LABS: Prothrombin Time 32.7 SECONDS (9.4-12.5)
== END ==
PROVIDERS: Family Provider Family Medicine; PCP Family Medicine; Referring Provider Family Medicine; Visit Provider Family Medicine
DX: I48.0 Paroxysmal atrial fibrillation (principal); Z79.01 Long term (current) use of anticoagulants
CPT/HCPCS: 36415; 85610

== ENCOUNTER → 2024-10-12 10:41 | Outpatient (CLI) | payer OTHER, SELFPAY ==
[2022-10-28 15:06] VITALS: BMI 23.6
--- NOTE | 2024-11-11 11:32 | DIAB.MNT ---
Initial Diabetes Medical Nutrition Therapy Assessment Name: Guanako Israel Date: 10/12/24 Time: 11a-12p Dx: Type II Diabetes Provider: Justen Preferred Learning Style: Joseph Mujica presents for initial accompanied by Chante, spouse. States they are concerned about BG and insulin therapy. Taking Regular insulin due to elevations, though provider has asked them to hold due to h/o severe low. No recent lows but no CGM, using finger sticks. Would likely benefit from switch to quick acting vs R insulin. Reports some memory concerns since stroke in . Reports h/o severe low of 51mg/dl with EMS called. Treats low with OJ or candy bar and a nap per report. Diet Recall: 8a; coffee, bagel cream cheese OR bowl cereal with fruit OR pancakes x 2 with egg and fruit 12p: lunchable OR pbj OR leftovers OR 2c pasta with red sauce and meat 4-5p: pasta OR chx, veg, pasta x 1/4c with croissant large and butter OR frozen meal 630p: ice cream vanilla x 2c with fruit diet beverages water peach tea-- sf? unsure Anthropometrics: Ht: 69 Wt: 174# reported Physical Activity: walks the dog 1x per day for 30-45 min Self-Monitoring Blood Glucose: Checks 4x per day or more per report, not all documented in log book (see below results from book). Most numbers elevated per bolded below. Recent: 10/06: 223 fasting, 140, 346 10/07: 136 fasting, 284, 352 10/08: 167 fasting, 231, 232 10/09: 93 fasting, 299, 185 10/10: 115 fasting, 200 10/11: 163 fasting, 164, 100 10/12: 199 fasting Diabetes Medications: 28u Glargine Novolin SSI Pertinent Labs: HgA1c: 7.1% 09/2024 Past Medical History: (Last Reviewed 08/26/24 @ 15:35 by Merlin Davenport MD) Actinic keratosis Acute pain of left knee Acute renal failure Acute renal failure (01/09/17) BETO (acute kidney injury) Anemia Arthralgia of hands, bilateral Atrial fibrillation (~01/2017) James's esophagus BPH (benign prostatic hyperplasia) BPPV (benign paroxysmal positional vertigo) Cataracts, bilateral (~12/2017) senile Chronic pain of left knee CKD (chronic kidney disease) (~12/2017) related to diab, htn Community acquired pneumonia Coronary artery disease Cough productive of clear sputum Diabetes ELLER (dyspnea on exertion) Elevated INR Excessive daytime sleepiness Generalized 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 panic attacks Generalized headaches GERD (gastroesophageal reflux disease) History of CVA (cerebrovascular accident) Hyperlipemia (~12/2014) Hypertension Lipoma of skin of abdomen senior living current use of anticoagulant therapy Myocardial infarction Neck mass Neck stiffness Normocytic anemia Orthostatic lightheadedness Pacemaker (01/2017) Poor sleep pattern Skin lesion of face Snoring Weakness Nutrition Rx: Plate Method Nutrition Diagnosis: - Nutrition and food related knowledge deficit r/t no recent MNT or Dm ed since first dx aeb pt report - Excessive CHO intake r/t nutrition knowledge deficit aeb diet recall and elevated BG Intervention: This participant was very receptive. Provided appropriate educational handouts. Discussed the following topics: Completed intake assessment. Discussed barriers to care. Pathophysiology of T2DM HgA1c, its correlation to blood glucose numbers, and rationale for goal BG review and goals Types of insulin and action and risks of lows for using regular vs fast acting Plate Method, impact of macronutrients on blood sugar Recommended servings for carbohydrates at meals and snacks CGM Sample and education Hydration recs and impact on BG Created SMART goals for patient self-care and success. Goals: wear CGm x 10.5 days Bring peach tea label info choose water Try to keep CHO to 1c at meals Follow-up: ADRIAN ALVAREZ follow-up in 3-4 weeks Malia Disla RDN, ANTONIO Certified Diabetes Care and P[employer] Gauger Apprentice P: [phone] Thank you for this referral
== END ==
PROVIDERS: Family Provider Family Medicine; PCP Family Medicine; Referring Provider Family Medicine
DX: E11.21 Type 2 diabetes mellitus with diabetic nephropathy (principal); E11.65 Type 2 diabetes mellitus with hyperglycemia; Z79.4 Long term (current) use of insulin; Z71.3 Dietary counseling and surveillance
CPT/HCPCS: 97802

== ENCOUNTER → 2024-10-28 11:37 | Outpatient (CLI) | payer OTHER, SELFPAY ==
[2022-10-28 15:06] VITALS: BMI 23.6
[2024-10-28 12:23] LABS: Prothrombin Time 52.3 SECONDS (9.4-12.5)
[2024-10-28 12:32] LABS: INR 4.8 (0.9-1.3)
== END ==
PROVIDERS: Family Provider Family Medicine; PCP Family Medicine; Referring Provider Family Medicine; Visit Provider Family Medicine
DX: R79.1 Abnormal coagulation profile (principal)
CPT/HCPCS: 36415; 85610

== ENCOUNTER → 2025-01-06 10:31 | Outpatient (CLI) | payer OTHER, SELFPAY ==
[2022-10-28 15:06] VITALS: BMI 23.6
--- NOTE | 2025-02-17 13:31 | DIAB.MNTFU ---
Follow-up Diabetes Medical Nutrition Therapy Assessment Name: Guanako Israel Date: 01/06/25 Time: 1105-12 Dx: Type II Diabetes Guanako presents for follow-up DM visit, accompanied by Chante. Endorses less stress with DM. Reports things overall are going well. Does not want CGM, doing finger sticks regularly. Did CGM sample. Endorses more energy recently. States he has changed his diet. Eating q 4 hours. Eating out 3-4 x per week usually Mongolian or Cam[place]onian food. Eating more green veggies 2-3x per week. Continues on Novalin R for meals, however using this less per report. Does not want to make changes to a fast acting insulin. We have discussed this at length. If having lows, feels light headed, unsteady and sweaty and treats with juice or cake. Did have excessive lows with CGM sample. Diet Recall: 8a; 2 pancakes x 6 OR waffle with egg OR eggs with potatoes Or raisin bran cereal (BG in clinic 3 hours after this breakfast was 223mg/dl) 12p: sandwich wiht some fries Or lunchable OR PBJ 4-5p: Chx stirfry with 1c rice OR 1-1.5c pasta with meat OR cheese burger 7p: ice cream x 1c water 0oz usually diet tea: 16oz x2-3 other snacks: pretzels, sweet roll, blue riggins pies, veggies, fruit Anthropometrics: Ht: 69 Wt: 177# 12/2024 174# reported 10/2024 Physical Activity: walks the dog 1x per day for 30-45 min Self-Monitoring Blood Glucose: Checks 2-3x per day, FBG in goal though sometimes running on the low side. All other readings pre meal are elevated. Improved from last visit with improved FBG. When he wore the CGM sample in October, excessive lows. Denies any severe lows recently. Date Pre Post Pre Post Pre Post HS 12/31 72 252 266 01/01 102 214 01/02 89 228 224 01/03 71 366 01/04 86 135 163 01/05 93 203 01/06 76 TIR with sample CGM: 6% very high 20% high 65% in range 7% low 2% very low avmg/dl GMI: 6.7% std dev: 61mg/dl variation: 42.8% Previous visit 10/06: 223 fasting, 140, 346 10/07: 136 fasting, 284, 352 10/08: 167 fasting, 231, 232 10/09: 93 fasting, 299, 185 10/10: 115 fasting, 200 10/11: 163 fasting, 164, 100 10/12: 199 fasting Diabetes Medications: 30u Glargine Novolin SSI Pertinent Labs: HgA1c: 7.1% 09/2024 Past Medical History: (Last Reviewed 08/26/24 @ 15:35 by Merlin Davenport MD) Actinic keratosis Acute pain of left knee Acute renal failure Acute renal failure (01/09/17) BETO (acute kidney injury) Anemia Arthralgia of hands, bilateral Atrial fibrillation (~01/2017) James's esophagus BPH (benign prostatic hyperplasia) BPPV (benign paroxysmal positional vertigo) Cataracts, bilateral (~12/2017) senile Chronic pain of left knee CKD (chronic kidney disease) (~12/2017) related to diab, htn Community acquired pneumonia Coronary artery disease Cough productive of clear sputum Diabetes ELLER (dyspnea on exertion) Elevated INR Excessive daytime sleepiness Generalized 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 panic attacks Generalized headaches GERD (gastroesophageal reflux disease) History of CVA (cerebrovascular accident) Hyperlipemia (~12/2014) Hypertension Lipoma of skin of abdomen assisted current use of anticoagulant therapy Myocardial infarction Neck mass Neck stiffness Normocytic anemia Orthostatic lightheadedness Pacemaker (01/2017) Poor sleep pattern Skin lesion of face Snoring Weakness Nutrition Rx: Plate Method CHO per meal: 45g; Per snack: 15-30g Nutrition Diagnosis: - Nutrition and food related knowledge deficit r/t no recent MNT or Dm ed since first dx aeb pt report- improved/in progress - Excessive CHO intake r/t nutrition knowledge deficit aeb diet recall and elevated BG- improved /in progress Intervention: This participant was very receptive. Provided appropriate educational handouts. Discussed the following topics: Rule of 15 for tx lows Nutrition recs and plate method Carb counting and portions Potential to reduce HS insulin given FBG Hydration Created SMART goals for patient self-care and success. Goals: wear CGm x 10.5 days- met Bring peach tea label info- not met choose water-- not met Try to keep CHO to 1c at meals - improved Choose lower CHO cereal- new Watch CHO portions and aim for 45g at meals- new Consider reduction of HS insulin to 28u - new Aim for 8-16oz water per day min- new Follow-up: ADRIAN ALVAREZ follow-up in 3-4 weeks Malia Disla RDN, AN[place]IO Certified Diabetes Care and Parach[employer] Supervisor P: [phone] Thank you for this referral
== END ==
PROVIDERS: Family Provider Family Medicine; PCP Family Medicine; Referring Provider Family Medicine
DX: E11.21 Type 2 diabetes mellitus with diabetic nephropathy (principal); Z79.4 Long term (current) use of insulin; Z71.3 Dietary counseling and surveillance
CPT/HCPCS: 97803

== ENCOUNTER → 2025-03-13 08:04 | Outpatient (CLI) | payer OTHER, SELFPAY ==
[2022-10-28 15:06] VITALS: BMI 23.6
[2025-03-13 09:00] LABS: Add Manual Diff / Slide Review NO; Basophils Absolute Auto 0 /uL (0-100); Basophils Percent Auto 0.3 % (0-2); Eosinophils Absolute Auto 300 /uL (0-450); Eosinophils Percent Auto 3.4 % (2-4); Hematocrit 37.8 % (41-53); Hemoglobin 13.2 g/dL (13.5-17.5); Lymphocytes Absolute Auto 1700 /uL (1100-4500); Lymphocytes Percent Auto 17.5 % (25-40); Mean Corpuscular Hemoglobin 32.1 PG (26-34); Mean Corpuscular Volume 91.5 fL (80-100); Monocytes Absolute Auto 600 /uL (0-900); Monocytes Percent Auto 6.4 % (3-14); Neutrophils Absolute Auto 7200 /uL (1500-7000); Neutrophils Percent Auto 72.4 % (50-75); Platelet Count 277 X10^3/uL (150-400); Red Blood Cell Count 4.13 X10^6/uL (4.5-5.9); Red Cell Distribution Width 14.2 % (11.6-14.8); White Blood Cell Count 9.9 X10^3/uL (4.5-11.0)
[2025-03-13 09:05] LABS: INR 3.2 (0.9-1.3); Prothrombin Time 35.5 SECONDS (9.4-12.5)
[2025-03-13 09:13] LABS: Hemoglobin A1C% w Est Avg Glu 6.9 % (4.0-6.0)
[2025-03-13 09:16] LABS: Alanine Aminotransferase 26 IU/L (<50); Albumin Globulin Ratio 1.5 (1.0-2.8); Alkaline Phosphatase 81 U/L (38-126); Aspartate Aminotransferase 30 IU/L (17-59); BUN Creatinine Ratio 17.3 (6-22); Bilirubin Total 0.7 mg/dL (0.2-1.3); Blood Urea Nitrogen 24 mg/dL (9-20); Calcium 9.6 mg/dL (8.4-10.2); Carbon Dioxide 26 mmol/L (22-32); Chloride 106 mmol/L (98-107); Cholesterol 154 mg/dL (140-199); Estimated Glomerular Filt Rate 52 mL/min (>60); Globulin 2.7 g/dL (1.7-4.1); Glucose 163 mg/dL (70-99); HDL Cholesterol 27 mg/dL (40-60); HEMOLYSIS < 15 (0-50); LDL Cholesterol Calculated 94 mg/dL (<100); Potassium 4.4 mmol/L (3.4-5.1); Sodium 139 mmol/L (137-145); Total Protein 6.7 g/dL (6.3-8.2); Triglycerides 164 mg/dL (35-150)
[2025-03-13 09:26] LABS: Creatinine Urine Random 127.02 mg/dL
== END ==
PROVIDERS: Family Provider Family Medicine; PCP Family Medicine; Referring Provider Family Medicine; Visit Provider Family Medicine
DX: I10 Essential (primary) hypertension (principal); E11.21 Type 2 diabetes mellitus with diabetic nephropathy; Z79.4 Long term (current) use of insulin; D51.0 Vitamin B12 deficiency anemia due to intrinsic factor deficiency; Z79.01 Long term (current) use of anticoagulants; R79.1 Abnormal coagulation profile; I48.0 Paroxysmal atrial fibrillation
CPT/HCPCS: 36415; 80053; 80061; 82043; 82570; 83036; 85025; 85610

== ENCOUNTER → 2025-04-13 15:42 | Outpatient (CLI) | payer OTHER, SELFPAY ==
[2022-10-28 15:06] VITALS: BMI 23.6
--- NOTE | 2025-04-13 15:45 | DI.RAD.S_ITS ---
PROCEDURE: XR KNEE LT 3V INDICATIONS: knee pain TECHNIQUE: 3 views of the knee were acquired. COMPARISON: [facility], [place], XR KNEE LT 3V, 07/13/2024, 10:05. FINDINGS: Bones: No fractures or dislocations. No suspicious bony lesions. There are small osteophytes forming in the anterior patella compartment. Suprapatellar enthesophyte is present. There is redemonstration of well corticated ossific density projecting over the proximal tibia best seen on lateral view, probably loose body. Soft tissues: Small joint effusion. No suspicious soft tissue calcifications. Vascular calcifications are present. IMPRESSION: No acute osseous abnormality. Small joint effusion. 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 Approved by: Denisha Salinas M.D.,Ph.D. on 04/18/2025 at 12:00
== END ==
LOC: RAD 15:44
PROVIDERS: Family Provider Family Medicine; PCP Family Medicine; Referring Provider Family Medicine; Visit Provider Family Medicine
DX: M25.562 Pain in left knee (principal); M25.462 Effusion, left knee; G89.29 Other chronic pain
CPT/HCPCS: 73562

== ENCOUNTER 2025-05-02 11:02 | Emergency (ER) | payer OTHER, SELFPAY ==
[2022-10-28 15:06] VITALS: BMI 23.6
[2025-05-02 11:03] VITALS: BP 152/72; PULSE 81; RESP 14; TEMP 37.2; O2SAT 97; BMI 25.1
--- NOTE | 2025-05-02 11:33 | ED.MALEGU ---
HPI - Male Genitourinary <Daria Townsend PA-C - Last Filed: 05/02/25 16:48> General Chief complaint: Urogenital-Male Stated complaint: lower lt abdominal paint, low grade fever Time Seen by Provider: 05/02/25 11:05 Source: patient and family Mode of arrival: Ambulatory History of Present Illness HPI Narrative: Mr. Israel is a very pleasant 80-year-old male with a past medical history of insulin-dependent type 2 diabetes, paroxysmal AFib with a pacemaker on warfarin, prior stroke w/ aphasia, prior CO with stent, appendectomy who presents to the emergency department for left upper quadrant abdominal pain x3 days. Patient was feeling unwell for a few days precipitating the abdominal pain. Describes pain is in the left upper quadrant of the abdomen and the left flank, connected, nonradiating. No urinary symptoms or change in bowel movements. Reports low-grade fevers, temperature 99.0? F at this time. Denies chest pain, shortness of breath, coughing, sore throat, hematuria, dysuria, melena, hematochezia. No ETOH use. Related Data Home Medications ?Medication ?Instructions ?Recorded ?Confirmed cinnamon bark 500 mg capsule 1,000 mg PO BID ##0 08/25/16 04/25/25 (Cinnamon) ascorbic acid (vitamin C) 500 mg 500 mg PO DAILY ##0 12/16/17 04/25/25 tablet hptajjc-bqiwiwfrk-diym tablet 1 tab PO BEDTIME 03/05/21 04/25/25 glucosamine sulfate 500 mg tablet 2,000 mg PO BID 03/05/21 04/25/25 (Glucosamine) multivitamin 1 tab PO DAILY 03/05/21 04/25/25 omega 6-yim-ltw-fish oil 1,200 mg 1 cap PO BID 03/05/21 04/25/25 (144 mg-216 mg) capsule (Fish Oil) flecainide 100 mg tablet 50 mg PO BID 06/19/23 04/25/25 fluticasone 100 mcg-salmeterol 50 1 inh inhalation BID PRN 03/16/25 04/25/25 mcg/dose blistr powdr for inhalation (Wixela Inhub) Previous Rx's ?Medication ?Instructions ?Recorded omeprazole 20 mg capsule,delayed 20 mg PO BID #180 caps 01/19/13 release albuterol sulfate 90 mcg/actuation 2 puff inhalation Q6H PRN 12/20/21 aerosol inhaler (ProAir HFA) shortness of breath or wheezing #8.5 grams Lancets #100 ea 11/19/23 Syringes: Ultra Fine Insulin #100 ea 03/07/24 Syringe w/Needle trazodone 50 mg tablet See Rx Instructions .Route 05/03/24 .COMPLEX #90 tabs Glucose: Test Strips #200 ea 05/12/24 carvedilol 12.5 mg tablet See Rx Instructions .Route 05/17/24 .COMPLEX #180 tabs carvedilol 25 mg tablet See Rx Instructions .Route 05/17/24 .COMPLEX #180 tabs sertraline 25 mg tablet See Rx Instructions .Route 05/17/24 .COMPLEX #90 tabs losartan 100 mg tablet 100 mg PO DAILY #90 tabs 06/14/24 hydrochlorothiazide 12.5 mg capsule 12.5 mg PO DAILY #90 caps 06/20/24 OneTouch Verio Flex Start kit See Rx Instructions .Route 06/24/24 .COMPLEX #1 kit warfarin 5 mg tablet 5 mg PO DAILY #100 tabs 07/20/24 BD Ultra Fine Pen Tips 31G x 8mm #2 ea 10/31/24 insulin glargine 100 unit/mL (3 28 unit (0.28 mL) SUBCUT QPM #15 mL 11/09/24 mL) subcutaneous pen (Lantus Solostar U-100 Insulin) insulin regular hum U-500 conc 500 See Rx Instructions SUBCUT 11/09/24 unit/mL(3 mL) subcut pen (Humulin .COMPLEX #6 mL R U-500 (Conc) Insulin Kwikpen) potassium chloride 10 mEq 10 meq PO ONCE PM #90 caps 11/11/24 capsule,extended release furosemide 20 mg tablet 20 mg PO DAILY #90 tabs 01/24/25 lorazepam 0.5 mg tablet See Rx Instructions .Route 03/07/25 .COMPLEX #60 tabs insulin glargine-yfgn 100 unit/mL 28 unit (0.28 mL) SUBCUT QPM #15 mL 04/11/25 (3 mL) subcutaneous pen atorvastatin 80 mg tablet 80 mg PO ONCE PM #90 tabs 04/25/25 insulin syringe-needle U-100 0.3 #100 ea 04/25/25 mL 31 gauge x 15/64 amoxicillin 875 mg-potassium 1 tab PO Q12H 10 days #20 tabs 05/02/25 clavulanate 125 mg tablet Allergies Allergy/AdvReac Type Severity Reaction Status Date / Time ciprofloxacin (CIPROFLOXACIN) Allergy Intermediate Dizzy, Verified 05/02/25 11:12 constipation, lightheaded, bad dreams, joint pain atenolol (ATENOLOL) Allergy Mild Lightheaded Verified 05/02/25 11:12 and nausea regadenoson (From Lexiscan) Allergy disorented Verified 05/02/25 11:12 and agitated lisinopril AdvReac Verified 05/02/25 11:12 Review of Systems <Daria Townsend PA-C - Last Filed: 05/02/25 16:48> Review of Systems ROS Unobtainable: All systems reviewed & are unremarkable except as noted in HPI and below Patient History <Daria Townsend PA-C - Last Filed: 05/02/25 16:48> Medical History (Updated 05/02/25 @ 14:31 by Daria Townsend PA-C) Hypotensive episode Low HDL (under 40) Edema of both feet Chronic pain of left knee Acute pain of left knee Neck mass Skin lesion of face BETO (acute kidney injury) Acute renal failure Cough productive of clear sputum Weakness Community acquired pneumonia Elevated INR Neck stiffness Orthostatic lightheadedness Lipoma of skin of abdomen Arthralgia of hands, bilateral Normocytic anemia Excessive daytime sleepiness Poor sleep pattern Snoring ELLER (dyspnea on exertion) BPPV (benign paroxysmal positional vertigo) Generalized 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 panic attacks 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 Hyperlipemia (~12/2014) Generalized headaches Cataracts, bilateral (~12/2017) Actinic keratosis Coronary artery disease Myocardial infarction History of CVA (cerebrovascular accident) Pacemaker (01/2017) Atrial fibrillation (~01/2017) CKD (chronic kidney disease) (~12/2017) James's esophagus BPH (benign prostatic hyperplasia) Diabetes GERD (gastroesophageal reflux disease) Hypertension Anemia Acute renal failure (01/09/17) Surgical History Hx of tonsillectomy Hx of vasectomy Hx of surgical procedure Status post transurethral resection of prostate (03/2014) Family History Father Diabetes mellitus High cholesterol Mother Diabetes mellitus High cholesterol Social History household members: spouse Smoking Status: Unknown if ever smoked alcohol intake: former Smoking Status: Unknown if ever smoked alcohol intake frequency: holidays/special occasions only Exam <Daria Townsend PA-C - Last Filed: 05/02/25 16:48> Narrative Exam Narrative: GENERAL: 80 year old patient appears stated age. Well-developed patient, in no acute distress. HEAD: Atraumatic. Normocephalic. EYES: No injection or drainage. ENT: Nose without bleeding, purulent drainage. Throat without erythema, tonsillar hypertrophy or exudate. Airway patent. NECK: Trachea midline. Cervical ROM intact. CARDIOVASCULAR: Regular rate and rhythm. RESPIRATORY: ?Nonlabored respirations. ?Speaking in clear, full sentences. ?Clear to auscultation. Breath sounds equal bilaterally. No wheezes, rales, or rhonchi. ? GASTROINTESTINAL: Bruising on the anterior abdominal wall reported from insulin injections. Tenderness to palpation of left upper quadrant/lateral abdomen. No rebound or guarding. Abdomen is soft, nondistended but it is protuberant. Bowel sounds present. EXTREMITIES: No edema or joint tenderness. BACK: No CVA tenderness. NEURO: AOx3. ?Some expressive aphasia which is baseline, assists with history Clear speech. ?Moves all 4 extremities appropriately. SKIN: No rash or erythema of visible areas Initial Vital Signs Initial Vital Signs: Vital Signs Temperature 99.0 F 05/02/25 11:03 Pulse Rate 81 05/02/25 11:03 Respiratory Rate 14 05/02/25 11:03 Blood Pressure 152/72 H 05/02/25 11:03 Pulse Oximetry 97 05/02/25 11:03 Oxygen Delivery Method Room Air 05/02/25 11:03 <Jo-Ann Hagen DO - Last Filed: 05/03/25 08:00> Initial Vital Signs Initial Vital Signs: Vital Signs Temperature 99.0 F 05/02/25 11:03 Pulse Rate 81 05/02/25 11:03 Respiratory Rate 14 05/02/25 11:03 Blood Pressure 152/72 H 05/02/25 11:03 Pulse Oximetry 97 07/01/25 11:03 Oxygen Delivery Method Room Air 05/02/25 11:03 Course <Daria Townsend PA-C - Last Filed: 05/02/25 16:48> Orders Ordered: Discontinued Medications Sodium Chloride (Normal Saline 0.9%) 1,000 mls @ 1,000 mls/hr IV BOLUS ONE Stop: 05/02/25 13:02 Last Infusion: 05/02/25 14:27 Dose: Infused Documented By: Admin: 05/02/25 12:24 Dose: 1,000 mls/hr Documented By: RL Ceftriaxone Sodium 1,000 mg/ (Sodium Chloride) 100 mls @ 200 mls/hr IV NOW ONE Stop: 05/02/25 13:23 Last Infusion: 05/02/25 14:33 Dose: Infused Documented By: Admin: 05/02/25 13:34 Dose: 200 mls/hr Documented By: GIULIANA Metronidazole (Flagyl) 500 mg in 100 mls @ 100 mls/hr IV NOW ONE Stop: 05/02/25 14:21 Last Infusion: 05/02/25 15:27 Dose: Infused Documented By: Admin: 05/02/25 14:27 Dose: 100 mls/hr Documented By: GIULIANA Morphine Sulfate (Morphine 4 Mg/Ml Inj) 4 mg IV NOW ONE Stop: 05/02/25 12:04 Last Admin: 05/02/25 12:25 Dose: 4 mg Documented By: GIULIANA Ondansetron HCl (Ondansetron 4 Mg/2 Ml Inj) 4 mg IV NOW PRN PRN Reason: Nausea And Vomiting Ondansetron HCl (Ondansetron 4 Mg Odt) 4 mg PO NOW PRN PRN Reason: Nausea And Vomiting Ondansetron HCl (Ondansetron 4 Mg/2 Ml Inj) 4 mg IV NOW ONE Stop: 05/02/25 12:04 Last Admin: 05/02/25 12:25 Dose: 4 mg Documented By: GIULIANA Vital Signs Vital signs: Vital Signs - 8 hr 05/02/25 11:03 05/02/25 15:30 Temperature 99.0 F Pulse Rate 81 70 Respiratory Rate 14 18 Blood Pressure 152/72 H 134/69 Pulse Oximetry 97 96 Oxygen Delivery Method Room Air Room Air <Jo-Ann Hagen DO - Last Filed: 05/03/25 08:00> Orders Ordered: Discontinued Medications Sodium Chloride (Normal Saline 0.9%) 1,000 mls @ 1,000 mls/hr IV BOLUS ONE Stop: 05/02/25 13:02 Last Infusion: 05/02/25 14:27 Dose: Infused Documented By: Admin: 05/02/25 12:24 Dose: 1,000 mls/hr Documented By: GIULIANA Ceftriaxone Sodium 1,000 mg/ (Sodium Chloride) 100 mls @ 200 mls/hr IV NOW ONE Stop: 05/02/25 13:23 Last Infusion: 05/02/25 14:33 Dose: Infused Documented By: Admin: 05/02/25 13:34 Dose: 200 mls/hr Documented By: GIULIANA Metronidazole (Flagyl) 500 mg in 100 mls @ 100 mls/hr IV NOW ONE Stop: 05/02/25 14:21 Last Infusion: 05/02/25 15:27 Dose: Infused Documented By: Admin: 05/02/25 14:27 Dose: 100 mls/hr Documented By: GIULIANA Morphine Sulfate (Morphine 4 Mg/Ml Inj) 4 mg IV NOW ONE Stop: 05/02/25 12:04 Last Admin: 05/02/25 12:25 Dose: 4 mg Documented By: GIULIANA Ondansetron HCl (Ondansetron 4 Mg/2 Ml Inj) 4 mg IV NOW PRN PRN Reason: Nausea And Vomiting Ondansetron HCl (Ondansetron 4 Mg Odt) 4 mg PO NOW PRN PRN Reason: Nausea And Vomiting Ondansetron HCl (Ondansetron 4 Mg/2 Ml Inj) 4 mg IV NOW ONE Stop: 05/02/25 12:04 Last Admin: 05/02/25 12:25 Dose: 4 mg Documented By: GIULIANA Vital Signs Vital signs: Vital Signs - 8 hr 05/02/25 11:03 05/02/25 15:30 Temperature 99.0 F Pulse Rate 81 70 Respiratory Rate 14 18 Blood Pressure 152/72 H 134/69 Pulse Oximetry 97 96 Oxygen Delivery Method Room Air Room Air MDM - Male Genitourinary <Daria Townsend PA-C - Last Filed: 05/02/25 16:48> Medical Records Attestation: I reviewed the patient's medical records. Lab Data 05/02/25 11:49 05/02/25 11:49 Labs: Lab Results 05/02/25 Range/Units 11:49 WBC 10.9 (4.5-11.0) X10^3/uL RBC 3.80 L (4.5-5.9) X10^6/uL Hgb 12.2 L (13.5-17.5) g/dL Hct 35.3 L (41-53) % MCV 92.7 (80-100) fL MCH 32.1 (26-34) PG MCHC 34.6 (30-36) % RDW 14.2 (11.6-14.8) % Plt Count 245 (150-400) X10^3/uL Neut % (Auto) 76.1 H (50-75) % Lymph % (Auto) 15.6 L (25-40) % [place] % (Auto) 7.0 (3-14) % Eos % (Auto) 1.0 L (2-4) % Baso % (Auto) 0.3 (0-2) % Neut # (Auto) 8300 H (3900-9660) /uL Lymph # (Auto) 1700 (6019-8454) /uL [place] # (Auto) 800 (0-900) /uL Eos # (Auto) 100 (0-450) /uL Baso # (Auto) 0 (0-100) /uL PT 30.8 H (9.4-12.5) SECONDS INR 2.8 H (0.9-1.3) APTT 38 H (25.1-36.5) SECONDS Sodium 136 L (137-145) mmol/L Potassium 4.3 (3.4-5.1) mmol/L Chloride 106 (98-107) mmol/L Carbon Dioxide 22 (22-32) mmol/L BUN 44 H (9-20) mg/dL Creatinine 2.03 H (0.66-1.25) mg/dL Estimated GFR 33 L (>60) mL/min BUN/Creatinine Ratio 21.7 (6-22) Glucose 220 H (70-99) mg/dL Lactate 1.0 (0.7-2.1) mmol/L Calcium 9.1 (8.4-10.2) mg/dL Total Bilirubin 0.7 (0.2-1.3) mg/dL AST 28 (17-59) IU/L ALT 31 (<50) IU/L Alkaline Phosphatase 79 (38-126) U/L Total Protein 7.1 (6.3-8.2) g/dL Albumin 4.0 (3.5-5.0) g/dL Globulin 3.1 (1.7-4.1) g/dL Albumin/Globulin Ratio 1.3 (1.0-2.8) Lipase 60 (23-300) U/L Urine Dip Bedside Urine Glucose Negative Bedside Urine Bilirubin - Negative Bedside Urine Ketone - Negative Urine Specific [place] 1.015 Bedside Urine Occult Blood - Negative Bedside Urine pH 6.0 Bedside Urine Protein - Negative Bedside Urine Urobilinogen - Negative Bedside Urine Nitrite - Negative Bedside Urine Leukocytes - Negative Esterase Imaging Data CT scan - abdomen/pelvis: Radiologist's Impression: PROCEDURE: CT ABDOMEN PELVIS W CON INDICATIONS: LUQ abd pain/L flank TECHNIQUE: After the administration of intravenous contrast, axial sections acquired from the lung bases to the pubic symphysis. Coronal and sagittal reformats were performed. For radiation dose reduction, the following was used: automated exposure control, adjustment of mA and/or kV according to patient size. COMPARISON: [facility], CT, CT ANGIO CHEST PE PROTOCOL, 07/05/2024, 13:12. FINDINGS: Image quality: Diagnostic. Lower Chest: Moderate hiatal hernia. ABDOMEN: Liver: Stable 1.1 centimeter hypoattenuating lesion in segment 4 of the liver. Gallbladder: No radiopaque gallstones or wall thickening. Biliary ducts: No biliary dilation. Pancreas: No ductal dilation. Spleen: Size is within normal limits. Adrenal Glands: No adrenal nodules. Kidneys and Ureters: No hydronephrosis. No solid mass. No complex renal cystic lesion which requires follow up. Stomach and Bowel: Diverticulitis of the distal descending colon, with associated wall thickening and pericolonic fat stranding. No adjacent abscess. Peritoneum: No abnormal intraperitoneal fluid. No free air. Ventral Wall: No significant ventral hernia. Abdominal Nodes: No retroperitoneal or mesenteric adenopathy by size criteria. Vessels: Aorta and inferior vena cava are normal in size. PELVIS: Pelvic Organs: Unremarkable. Bladder: No bladder wall thickening, accounting for underdistention. Fat deposition within the bladder wall, indicating chronic inflammation. Bladder wall trabeculation, likely from chronic outlet obstruction. Pelvic Nodes: No enlarged lymph nodes. Miscellaneous: No inguinal hernias are seen. Bones: No aggressive osseous abnormality. IMPRESSION: Uncomplicated acute diverticulitis of the distal descending colon. Other ancillary findings as above. Dictated by: Laron Archer M.D. on 05/02/2025 at 13:08 Approved by: Laron Archer M.D. on 05/02/2025 at 13:12 [facility] Narrative Medical decision making narrative: 80-year-old male with a past medical history of insulin-dependent type 2 diabetes, paroxysmal AFib with a pacemaker on warfarin, prior stroke w/ aphasia, prior CO with stent, appendectomy who presents to the emergency department for left upper quadrant abdominal pain x3 days. Differential diagnosis includes but is not limited to pancreatitis, colitis, diverticulitis, nephrolithiasis, pyelonephritis, etc. On exam patient is in no acute distress, nontoxic appearing, vital signs within normal limits. His abdomen is soft, nondistended but is protuberant with left upper quadrant tenderness. Abdominal wall bruising reported from insulin injections. No rebound or guarding. We will obtain labs, CT abdomen and pelvis, treat with morphine Zofran and fluids at this time. ECG reveals abnormal AV paced rhythm, similar to prior on 08/26/2024 with a regular rate and rhythm. Labs reveal normal WBC count of 10.9, decrease in RBCs at 3.8, hemoglobin 12.2, hematocrit 35.3. Normal platelets 245. INR appropriate for warfarin use at 2.8. Sodium 136, potassium 4.3. Patient does have elevation of his BUN 44 and creatinine 2.03, he is still producing urine and point of care UA is entirely negative. Glucose elevated at 220. Normal LFTs. Normal lipase 60. 1320: Pt pain free at this time. Disussed labs, decreased kidney function, dehydration. Pt admits to not drink much water, less than 1 bottle a day. He is having no difficutly with urination. CT reveals uncomplicated acute diverticulitis of the distal descending colon. Patient is feeling much better. We will treat with ceftriaxone and Flagyl in the emergency department, discharge home on Augmentin. Recommended clear liquid diet for the next few days and then slowly increased normal diet. Discussed strict ED return precautions and follow up with PCP. Also discussed all incidental findings on imaging and he was provided with a printed copy. Patient has an appointment with his tube buffer next week. Patient verbalized understanding of all information and is agreeable to plan, all questions answered, abdominal pain improved, no rebound or guarding. VS WNL. He is stable for discharge home. <Jo-Ann Hagen, DO - Last Filed: 05/03/25 08:00> Lab Data Labs: Lab Results 05/02/25 Range/Units 11:49 WBC 10.9 (4.5-11.0) X10^3/uL RBC 3.80 L (4.5-5.9) X10^6/uL Hgb 12.2 L (13.5-17.5) g/dL Hct 35.3 L (41-53) % MCV 92.7 (80-100) fL MCH 32.1 (26-34) PG MCHC 34.6 (30-36) % RDW 14.2 (11.6-14.8) % Plt Count 245 (150-400) X10^3/uL Neut % (Auto) 76.1 H (50-75) % Lymph % (Auto) 15.6 L (25-40) % [place] % (Auto) 7.0 (3-14) % Eos % (Auto) 1.0 L (2-4) % Baso % (Auto) 0.3 (0-2) % Neut # (Auto) 8300 H (6095-9302) /uL Lymph # (Auto) 1700 (0201-1943) /uL [place] # (Auto) 800 (0-900) /uL Eos # (Auto) 100 (0-450) /uL Baso # (Auto) 0 (0-100) /uL PT 30.8 H (9.4-12.5) SECONDS INR 2.8 H (0.9-1.3) APTT 38 H (25.1-36.5) SECONDS Sodium 136 L (137-145) mmol/L Potassium 4.3 (3.4-5.1) mmol/L Chloride 106 (98-107) mmol/L Carbon Dioxide 22 (22-32) mmol/L BUN 44 H (9-20) mg/dL Creatinine 2.03 H (0.66-1.25) mg/dL Estimated GFR 33 L (>60) mL/min BUN/Creatinine Ratio 21.7 (6-22) Glucose 220 H (70-99) mg/dL Lactate 1.0 (0.7-2.1) mmol/L Calcium 9.1 (8.4-10.2) mg/dL Total Bilirubin 0.7 (0.2-1.3) mg/dL AST 28 (17-59) IU/L ALT 31 (<50) IU/L Alkaline Phosphatase 79 (38-126) U/L Total Protein 7.1 (6.3-8.2) g/dL Albumin 4.0 (3.5-5.0) g/dL Globulin 3.1 (1.7-4.1) g/dL Albumin/Globulin Ratio 1.3 (1.0-2.8) Lipase 60 (23-300) U/L Urine Dip Bedside Urine Glucose Negative Bedside Urine Bilirubin - Negative Bedside Urine Ketone - Negative Urine Specific [place] 1.015 Bedside Urine Occult Blood - Negative Bedside Urine pH 6.0 Bedside Urine Protein - Negative Bedside Urine Urobilinogen - Negative Bedside Urine Nitrite - Negative Bedside Urine Leukocytes - Negative Esterase Discharge Plan Departure Patient Disposition: Home Clinical Impression: Diverticulitis, BETO (acute kidney injury) Instructions: DI for Diverticulitis Activity Restrictions/Additional Instructions: Dear Mr. Israel, Thank you for coming to the emergency department. Today you were evaluated for left-sided abdominal pain. The CT scan showed diverticulitis which is infection/inflammation of your colon. Your lab work also revealed decreased kidney function which is likely result of dehydration. Please increase hydration, complete full course of antibiotics, eat a liquid diet for the next 1-2 days, follow up with your primary care doctor and your tube buffer as scheduled. Please return to the emergency department if you develop severe pain, fevers, any new or worsening symptoms. Please follow up with your primary care doctor within the next 2-3 days for ER follow-up. (If you do not have a PCP you can call [phone]. ?to schedule an appointment with an [facility] Primary Care Provider) IF YOU DEVELOP ANY NEW OR WORSENING SYMPTOMS, RETURN TO THE ER! Please read the attached instructions, they highlight more specific treatments and interventions for you at home. Thank you for letting me participate in your care, Daria Townsend PA-C Prescriptions: New amoxicillin-pot clavulanate 875-125 mg tablet 1 tab PO Q12H 10 Days Qty: 20 0RF No Action cinnamon bark [Cinnamon] 500 mg Capsule 1,000 mg PO BID Qty: 0 ascorbic acid (vitamin C) 500 MG tablet 500 mg PO DAILY Qty: 0 albuterol sulfate [ProAir HFA] 90 mcg/actuation HFA aerosol inhaler 2 puff inhalation Q6H PRN (Reason: shortness of breath or wheezing) Qty: 8.5 1RF (DME) Lancets 0 .Route .MEDSUPPLY Qty: 100 3RF Dose Instruction: As directed Rx Instructions: use to check blood sugar 4-6 times daily (DME) Syringes: Ultra Fine Insulin Syringe w/Needle 0 .Route .MEDSUPPLY Qty: 100 3RF Dose Instruction: As directed Rx Instructions: As directed trazodone 50 mg tablet See Rx Instructions .ROUTE .COMPLEX Qty: 90 3RF Dose Instruction: Take 1 tablet (50 mg) by mouth at bedtime Rx Instructions: Take 1 tablet (50 mg) by mouth at bedtime (DME) Glucose: Test Strips 0 .Route .MEDSUPPLY Qty: 200 10RF Dose Instruction: As directed Rx Instructions: use to check blood sugar 4-6 times daily. 10 boxes ok sertraline 25 mg tablet See Rx Instructions .ROUTE .COMPLEX Qty: 90 3RF Dose Instruction: Take 1 tablet (25 mg) by mouth daily Rx Instructions: Take 1 tablet (25 mg) by mouth daily carvedilol 25 mg tablet See Rx Instructions .ROUTE .COMPLEX Qty: 180 3RF Dose Instruction: Take 1 tablet (25 mg) by mouth 2 times daily with a meal/food. Take with 12.5 mg tablet 2 times daily for a total dose of 37.5 mg Rx Instructions: Take 1 tablet (25 mg) by mouth 2 times daily with a meal/food. Take with 12.5 mg tablet 2 times daily for a total dose of 37.5 mg carvedilol 12.5 mg tablet See Rx Instructions .ROUTE .COMPLEX Qty: 180 3RF Dose Instruction: Take 1 tablet (12.5 mg) by mouth 2 times daily with a meal/food. Take with 25 mg tablet 2 times daily for a total dose of 37.5 mg Rx Instructions: Take 1 tablet (12.5 mg) by mouth 2 times daily with a meal/food. Take with 25 mg tablet 2 times daily for a total dose of 37.5 mg losartan 100 mg tablet 100 mg PO DAILY Qty: 90 3RF hydrochlorothiazide 12.5 mg capsule 12.5 mg PO DAILY Qty: 90 3RF OneTouch Verio Flex Start kit See Rx Instructions .ROUTE .COMPLEX Qty: 1 0RF Dose Instruction: Test blood sugars 4-6 times daily Rx Instructions: Test blood sugars 4-6 times daily warfarin 5 mg tablet 5 mg PO DAILY Qty: 100 3RF Protocol: Dose Management Condition: Thursday Dose/Route: 5 mg Instruction: 1 x 5 mg tablet Condition: Thursday Dose/Route: 5 mg Instruction: 1 x 5 mg tablet Condition: Thursday Dose/Route: 5 mg Instruction: 1 x 5 mg tablet Condition: Thursday Dose/Route: Hold Instruction: No doses Condition: Dose/Route: 5 mg Instruction: 1 x 5 mg tablet Condition: Thursday Dose/Route: 5 mg Instruction: 1 x 5 mg tablet Condition: Thursday Dose/Route: 5 mg Instruction: 1 x 5 mg tablet Protocol Text: Adjustment Start Date: Thursday04/28/25 INR Value: 2.8 INR Date: 04/28/25 Recheck Date: 05/12/25 (DME) BD Ultra Fine Pen Tips 31G x 8mm 100 package See Rx Instructions .ROUTE .MEDSUPPLY Qty: 2 2RF Rx Instructions: USE TO INJECT INSULIN TWICE DAILY insulin glargine [Lantus Solostar U-100 Insulin] 100 unit/mL (3 mL) insulin pen 28 unit SUBCUT QPM Qty: 15 2RF Humulin R U-500 (Conc) Kwikpen 500 unit/mL (3 mL) insulin pen See Rx Instructions SUBCUT .COMPLEX Qty: 6 12RF Rx Instructions: subcutaneously; Inject 4-10 units per sliding scale under the skin before meals MEALTIME INSULIN Glc 150-199 before the meal: give 1 units Glc 200- 249 give 3 units Glc 250- 299 give 6 units Glc 300- 449 give 10 units Greater than 450 call the doctor. Take 15 min before meals or immediately after potassium chloride 10 mEq capsule, extended release 10 meq PO ONCE PM Qty: 90 1RF furosemide 20 mg tablet 20 mg PO DAILY Qty: 90 3RF omeprazole 20 mg capsule,delayed release(DR/EC) 20 mg PO BID Qty: 180 1RF lorazepam 0.5 mg tablet See Rx Instructions .ROUTE .COMPLEX Qty: 60 5RF Rx Instructions: Take 1 tablet by mouth twice daily as needed for anxiety insulin glargine-yfgn 100 unit/mL (3 mL) insulin pen 28 unit SUBCUT QPM Qty: 15 2RF atorvastatin 80 mg tablet 80 mg PO ONCE PM Qty: 90 3RF (DME) insulin syringe-needle U-100 0.3 mL 31 gauge x 15/64 syringe See Rx Instructions .ROUTE .COMPLEX Qty: 100 5RF Dose Instruction: Use to inject insulin up to four times daily Rx Instructions: Use to inject insulin up to four times daily flecainide 100 mg tablet 50 mg PO BID fluticasone propion-salmeterol [Wixela Inhub] 100-50 mcg/dose blister with device 1 inh inhalation BID PRN multivitamin Tablet 1 tab PO DAILY glucosamine sulfate [Glucosamine] 500 mg Tablet 2,000 mg PO BID qcncymt-qecngxqem-kcvm Tablet 1 tab PO BEDTIME omega 7-bam-inz-fish oil [Fish Oil] 1,200 (144-216) mg Capsule 1 cap PO BID Referrals: [facility] Zaman DO [Primary Care Provider, Family Practice] Stand Alone Forms: Patient Portal/API ED Sign-out <Jo-Ann Hagen DO - Last Filed: 05/03/25 08:00> Cosign ED Attending Cosignature Attestation: I was immediately available in the department for consultation.
--- NOTE | 2025-05-02 11:34 | PC.NURSE ---
Left lower back pain that radiates to stomach. History of CKD III. No hx of kidney stones. Family states pt has been weaker than usual. PMH: stroke (family reports issues with memory loss d/t stroke)
--- NOTE | 2025-05-02 11:51 | EKG_ITS ---
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
[2025-05-02 11:59] LABS: Add Manual Diff / Slide Review NO; Hematocrit 35.3 % (41-53); Hemoglobin 12.2 g/dL (13.5-17.5); Lymphocytes Absolute Auto 1700 /uL (1100-4500); Mean Corpuscular HGB Conc 34.6 % (30-36); Mean Corpuscular Hemoglobin 32.1 PG (26-34); Mean Corpuscular Volume 92.7 fL (80-100); Platelet Count 245 X10^3/uL (150-400)
--- NOTE | 2025-05-02 12:03 | DI.CT.S_ITS ---
PROCEDURE: CT ABDOMEN PELVIS W CON INDICATIONS: LUQ abd pain/L flank TECHNIQUE: After the administration of intravenous contrast, axial sections acquired from the lung bases to the pubic symphysis. Coronal and sagittal reformats were performed. For radiation dose reduction, the following was used: automated exposure control, adjustment of mA and/or kV according to patient size. COMPARISON: [facility], CT, CT ANGIO CHEST PE PROTOCOL, 07/05/2024, 13:12. FINDINGS: Image quality: Diagnostic. Lower Chest: Moderate hiatal hernia. ABDOMEN: Liver: Stable 1.1 centimeter hypoattenuating lesion in segment 4 of the liver. Gallbladder: No radiopaque gallstones or wall thickening. Biliary ducts: No biliary dilation. Pancreas: No ductal dilation. Spleen: Size is within normal limits. Adrenal Glands: No adrenal nodules. Kidneys and Ureters: No hydronephrosis. No solid mass. No complex renal cystic lesion which requires follow up. Stomach and Bowel: Diverticulitis of the distal descending colon, with associated wall thickening and pericolonic fat stranding. No adjacent abscess. Peritoneum: No abnormal intraperitoneal fluid. No free air. Ventral Wall: No significant ventral hernia. Abdominal Nodes: No retroperitoneal or mesenteric adenopathy by size criteria. Vessels: Aorta and inferior vena cava are normal in size. PELVIS: Pelvic Organs: Unremarkable. Bladder: No bladder wall thickening, accounting for underdistention. Fat deposition within the bladder wall, indicating chronic inflammation. Bladder wall trabeculation, likely from chronic outlet obstruction. Pelvic Nodes: No enlarged lymph nodes. Miscellaneous: No inguinal hernias are seen. Bones: No aggressive osseous abnormality. IMPRESSION: Uncomplicated acute diverticulitis of the distal descending colon. Other ancillary findings as above. Dictated by: Laron Archer M.D. on 05/02/2025 at 13:08 Approved by: Laron Archer M.D. on 05/02/2025 at 13:12
[2025-05-02 12:13] LABS: Alanine Aminotransferase 31 IU/L (<50); Albumin 4.0 g/dL (3.5-5.0); Albumin Globulin Ratio 1.3 (1.0-2.8); Alkaline Phosphatase 79 U/L (38-126); Blood Urea Nitrogen 44 mg/dL (9-20); Calcium 9.1 mg/dL (8.4-10.2); Carbon Dioxide 22 mmol/L (22-32); Chloride 106 mmol/L (98-107); Estimated Glomerular Filt Rate 33 mL/min (>60); Globulin 3.1 g/dL (1.7-4.1); Glucose 220 mg/dL (70-99); HEMOLYSIS < 15 (0-50); Lipase 60 U/L (23-300); Potassium 4.3 mmol/L (3.4-5.1); Sodium 136 mmol/L (137-145); Total Protein 7.1 g/dL (6.3-8.2)
[2025-05-02 12:24] LABS: INR 2.8 (0.9-1.3); Prothrombin Time 30.8 SECONDS (9.4-12.5)
[2025-05-02] MEDS: SODIUM CHLORIDE 0.9% 1,000 ML 1000 ML IV (12:24)
[2025-05-02] MEDS: ONDANSETRON 4 MG/2 ML INJ IV (12:25)
[2025-05-02] MEDS: MORPHINE 4 MG/ML INJ IV (12:25)
[2025-05-02 12:26] LABS: PTT Partial Thromboplastin Tim 38 SECONDS (25.1-36.5)
[2025-05-02 12:28] LABS: Lactate (Lactic Acid) 1.0 mmol/L (0.7-2.1)
[2025-05-02] MEDS: metroNIDAZOLE 500 MG/100 ML PIGGYBACK 100 MG IV (14:27)
[2025-05-02 15:30] VITALS: BP 134/69; PULSE 70; RESP 18; O2SAT 96
== END 2025-05-02 15:30 | disposition home or self-care (01) ==
PROVIDERS: Emergency Provider Physician Assistant; Family Provider Family Medicine; PCP Family Medicine
DX: K57.92 Diverticulitis of intestine, part unspecified, without perforation or abscess without bleeding (principal); N17.9 Acute kidney failure, unspecified; E11.9 Type 2 diabetes mellitus without complications; Z79.4 Long term (current) use of insulin; I48.0 Paroxysmal atrial fibrillation; Z79.01 Long term (current) use of anticoagulants; I25.2 Old myocardial infarction; Z95.5 Presence of coronary angioplasty implant and graft
CPT/HCPCS: 74177; 80053; 81003; 83605; 83690; 85025; 85610; 85730; 93005; 93010; 96365; 96367; 96375; 99283; 99284; J0696; J2270; J2405; Q9967

== ENCOUNTER → 2025-05-15 10:35 | Outpatient (CLI) | payer OTHER, SELFPAY ==
[2022-10-28 15:06] VITALS: BMI 23.6
[2025-05-15 11:39] LABS: Hematocrit 34.9 % (41-53); Hemoglobin 12.3 g/dL (13.5-17.5)
[2025-05-15 11:54] LABS: Protein (Total) Urine Random 23 mg/dL (0-12); Protein Creatinine Ratio Urine 0.17 GRAM/24H
[2025-05-15 12:01] LABS: INR 2.3 (0.9-1.3); Prothrombin Time 25.7 SECONDS (9.4-12.5)
[2025-05-15 12:08] LABS: Blood Urea Nitrogen 58 mg/dL (9-20); Calcium 8.9 mg/dL (8.4-10.2); Carbon Dioxide 24 mmol/L (22-32); Chloride 104 mmol/L (98-107); Estimated Glomerular Filt Rate 38 mL/min (>60); Glucose 165 mg/dL (70-99); HEMOLYSIS < 15 (0-50); Potassium 4.2 mmol/L (3.4-5.1); Sodium 136 mmol/L (137-145)
== END ==
PROVIDERS: Family Provider Family Medicine; PCP Family Medicine; Referring Provider Student in an Organized Health Care Education/Training Program; Visit Provider Student in an Organized Health Care Education/Training Program
DX: N05.9 Unspecified nephritic syndrome with unspecified morphologic changes (principal); D70.9 Neutropenia, unspecified; N25.81 Secondary hyperparathyroidism of renal origin; Z79.01 Long term (current) use of anticoagulants
CPT/HCPCS: 36415; 80048; 82570; 83970; 84156; 85014; 85018; 85610

== ENCOUNTER 2025-05-19 21:20 | Emergency (ER) | payer OTHER, SELFPAY ==
[2022-10-28 15:06] VITALS: BMI 23.6
[2025-05-19] VITALS (10 sets, daily range): BP systolic 78–148; BP diastolic 48–80; PULSE 69–71; RESP 16–34; TEMP 36.6; O2SAT 94–98; BMI 24.3
--- NOTE | 2025-05-19 21:45 | ED_ITS ---
HPI - Weakness General Chief complaint: Weakness Stated complaint: tired 2 days Time Seen by Provider: 05/19/25 21:23 Source: patient and EMS Mode of arrival: EMS History of Present Illness HPI Narrative: 71-year-old history AFib on Coumadin CVA CAD dyslipidemia type 1 diabetic presents with weakness for the past 2 days with no energy feeling lightheaded and dizzy along with nonproductive cough and poor oral intake brought in via EMS for further evaluation. He was recently diagnosed with acute diverticulitis in early May and has not been normal since then. He denies active chest pain, shortness of breath, loss of consciousness, urinary complaints sick contacts, nausea, vomiting, diarrhea. Other than what is stated 14 point review of system is negative. Related Data Home Medications ?Medication ?Instructions ?Recorded ?Confirmed cinnamon bark 500 mg capsule 1,000 mg PO BID ##0 08/2505/19/25 (Cinnamon) ascorbic acid (vitamin C) 500 mg 500 mg PO DAILY ##0 0 12/16/17 05/19/25 tablet jgutqof-msstmrzcf-louj tablet 1 tab PO BEDTIME 05/19/25 glucosamine sulfate 500 mg tablet 2,000 mg PO BID 02/2005/19/25 (Glucosamine) multivitamin 1 tab PO DAILY 03/05/2105/02 omega 2-ryc-sbi-fish oil 1,200 mg 1 cap PO BID 05/19/25 (144 mg-216 mg) capsule (Fish Oil) flecainide 100 mg tablet 50 mg PO BID 06/19/23 fluticasone 100 mcg-salmeterol 50 1 inh inhalation BID PRN SOB or 03/16/25 05/19/25 mcg/dose blistr powdr for wheezing inhalation (Wixela Inhub) ezetimibe 10 mg tablet 10 mg PO DAILY 05/19/2505/02 Previous Rx's ?Medication ?Instructions ?Recorded omeprazole 20 mg capsule,delayed 20 mg PO BID #180 cap s 01/19/13 release albuterol sulfate 90 mcg/actuation 2 puff inhalation Q 6H PRN 12/20/21 aerosol inhaler (ProAir HFA) shortness of breath or wh eezing #8.5 grams Lancets #100 ea 11/19/23 Syringes: Ultra Fine Insulin #100 ea 03/07/24 Syringe w/Needle trazodone 50 mg tablet See Rx Instructions .Route 0 05/03/24 .COMPLEX #90 tabs Glucose: Test Strips #200 ea 05/12/24 losartan 100 mg tablet 100 mg PO DAILY #90 tabs hydrochlorothiazide 12.5 mg capsule 12.5 mg PO DAILY # 90 caps 06/20/24 Held on 05/19/25. Instructions: Provider's Order OneTouch Verio Flex Start kit See Rx Instructions .Rou te 06/24/24 .COMPLEX #1 kit warfarin 5 mg tablet 5 mg PO DAILY #100 tabs 07/03 06/25 BD Ultra Fine Pen Tips 31G x 8mm #2 ea 10/31/24 insulin regular hum U-500 conc 500 See Rx Instructions SUBCUT 11/09/24 unit/mL(3 mL) subcut pen (Humulin .COMPLEX #6 mL R U-500 (Conc) Insulin Kwikpen) furosemide 20 mg tablet 20 mg PO DAILY #90 tabs 01/01 03/26 lorazepam 0.5 mg tablet See Rx Instructions .Route 0 03/07/25 .COMPLEX #60 tabs insulin glargine-yfgn 100 unit/mL 28 unit (0.28 mL) PATRICIO BCUT QPM #15 mL 04/11/25 (3 mL) subcutaneous pen atorvastatin 80 mg tablet 80 mg PO ONCE PM #90 tabs insulin syringe-needle U-100 0.3 #100 ea 04/25/25 mL 31 gauge x 15/64 carvedilol 12.5 mg tablet 12.5 mg PO BID #180 tabs 07/27 carvedilol 25 mg tablet See Rx Instructions .Route 0 05/10/25 .COMPLEX #180 tabs potassium chloride 10 mEq 10 meq PO QPM #90 caps 05/10 capsule,extended release Held on 05/19/25. Instructions: Provider's Order sertraline 25 mg tablet 25 mg PO DAILY #90 tabs 07/27 Allergies Allergy/AdvReac Type Severity Reaction Status Date / Time ciprofloxacin (CIPROFLOXACIN) Allergy Intermediate Dizzy, Verified 05/19/25 21:30 constipation, lightheaded, bad dreams, joint pain atenolol (ATENOLOL) Allergy Mild Lightheaded Verified 05/19/25 21:30 and nausea regadenoson (From Lexiscan) Allergy disorented Verified 05/19/25 21:30 and agitated lisinopril AdvReac Verified 05/19/25 21:30 Review of Systems Review of Systems ROS Unobtainable: All systems reviewed & are unremarkable except as noted in HPI and below Patient History Medical History (Updated 05/20/25 @ 00:02 by Ja Raya, DO) Hypotensive episode Low HDL (under 40) Edema of both feet Chronic pain of left knee Acute pain of left knee Neck mass Skin lesion of face BETO (acute kidney injury) Acute renal failure Cough productive of clear sputum Weakness Community acquired pneumonia Elevated INR Neck stiffness Orthostatic lightheadedness Lipoma of skin of abdomen Arthralgia of hands, bilateral Normocytic anemia Excessive daytime sleepiness Poor sleep pattern Snoring ELLER (dyspnea on exertion) BPPV (benign paroxysmal positional vertigo) Generalized 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 panic attacks [facility] current use of anticoagulant therapy Hyperlipemia (~12/2014) Generalized headaches Cataracts, bilateral (~12/2017) Actinic keratosis Coronary artery disease Myocardial infarction History of CVA (cerebrovascular accident) Pacemaker (01/2017) Atrial fibrillation (~01/2017) CKD (chronic kidney disease) (~12/2017) James's esophagus BPH (benign prostatic hyperplasia) Diabetes GERD (gastroesophageal reflux disease) Hypertension Anemia Acute renal failure (01/09/17) Surgical History Hx of tonsillectomy Hx of vasectomy Hx of surgical procedure Status post transurethral resection of prostate (03/2014) Family History Father Diabetes mellitus High cholesterol Mother Diabetes mellitus High cholesterol Social History household members: spouse alcohol intake: former alcohol intake frequency: holidays/special occasions only Exam Narrative Exam Narrative: GENERAL: [80] year old patient appears stated age. Well-developed patient, in mild distress. HEAD: Atraumatic. Normocephalic. EYES: Pupils equal round and reactive. Extraocular motions intact. No scleral icterus. No injection or drainage. ENT: Nose without bleeding, purulent drainage. Throat without erythema, tonsillar hypertrophy or exudate. Airway patent. NECK: Trachea midline. Non tender CARDIOVASCULAR: Regular rate and rhythm without murmurs, gallops, or rubs. RESPIRATORY: Clear to auscultation. Breath sounds equal bilaterally. No wheezes, rales, or rhonchi. GASTROINTESTINAL: Abdomen soft, non-tender, nondistended. EXTREMITIES: No edema or joint tenderness. BACK: Nontender without deformity or crepitance. No flank tenderness. NEURO: AOx3. GCS 15 nonfocal neuro exam SKIN: No rash or erythema of visible areas Initial Vital Signs Initial Vital Signs: Vital Signs Pulse Rate 69 05/19/25 21:27 Respiratory Rate 21 05/19/25 21:27 Pulse Oximetry 97 05/19/25 21:27 Course Orders Ordered: ED Orders 05/19/25 21:45 XR chest 1V Stat EKG-12 Lead Stat 05/19/25 21:47 CT head/brain wo con Stat 05/19/25 22:30 Complete Blood Count AUTO DIFF Stat Comprehensive Metabolic Panel Stat Lipase Stat Magnesium Stat NT-proBNP (BNP-Adult 18+) Stat PTT Partial Thromboplastin Hector Stat Prothrombin Time INR Stat Troponin & CK Cardiac Panel Stat 05/19/25 22:35 Covid-19 + FLU A/B + RSV - PCR Stat 05/19/25 23:00 Blood Culture Stat Discontinued Medications Lactated Ringer's (Lactated Ringers) 1,000 mls @ 1,000 mls/hr IV BOLUS ONE Stop: 05/19/25 23:30 Last Infusion: 05/19/25 23:21 Dose: Infused Documented By: Admin: 05/19/25 22:43 Dose: 1,000 mls/hr Documented By: LIBBY Ondansetron HCl (Ondansetron 4 Mg/2 Ml Inj) 4 mg IV NOW ONE Stop: 05/19/25 22:31 Last Admin: 05/19/25 22:32 Dose: 4 mg Documented By: SHANTELL Vital Signs Vital signs: Vital Signs - 8 hr 05/19/25 21:27 05/19/25 21:29 05/19/25 21:30 Temperature 97.8 F Pulse Rate 69 69 69 Respiratory Rate 21 20 16 Blood Pressure 122/63 Pulse Oximetry 97 94 96 Oxygen Delivery Method Room Air 05/19/25 22:00 05/19/25 22:24 05/19/25 22:24 Temperature Pulse Rate 69 69 Respiratory Rate 19 21 Blood Pressure 87/50 L Pulse Oximetry 97 98 Oxygen Delivery Method 05/19/25 22:28 05/19/25 22:28 05/19/25 22:30 Temperature Pulse Rate 69 69 Respiratory Rate 31 H 34 H Blood Pressure 78/48 L Pulse Oximetry 97 98 Oxygen Delivery Method 05/19/25 22:31 05/19/25 22:31 05/19/25 23:00 Temperature Pulse Rate 71 Respiratory Rate 28 H Blood Pressure 148/80 H 140/67 Pulse Oximetry 98 Oxygen Delivery Method 05/19/25 23:00 Temperature Pulse Rate 69 Respiratory Rate 20 Blood Pressure Pulse Oximetry 97 Oxygen Delivery Method MDM - Weakness Lab Data 05/19/25 22:30 05/19/25 22:30 Labs: Lab Results 05/19/25 05/19/25 Range/Units 22:30 22:35 WBC 6.5 (4.5-11.0) X10^3/uL RBC 3.75 L (4.5-5.9) X10^6/uL Hgb 12.0 L (13.5-17.5) g/dL Hct 33.8 L (41-53) % MCV 90.3 (80-100) fL MCH 31.9 (26-34) PG MCHC 35.4 (30-36) % RDW 14.0 (11.6-14.8) % Plt Count 278 (150-400) X10^3/uL Neut % (Auto) 55.4 (50-75) % Lymph % (Auto) 31.9 (25-40) % [place] % (Auto) 10.4 (3-14) % Eos % (Auto) 2.0 (2-4) % Baso % (Auto) 0.3 (0-2) % Neut # (Auto) 3600 (1360-4827) /uL Lymph # (Auto) 2100 (3630-5026) /uL [place] # (Auto) 700 (0-900) /uL Eos # (Auto) 100 (0-450) /uL Baso # (Auto) 0 (0-100) /uL PT 26.3 H (9.4-12.5) SECONDS INR 2.4 H (0.9-1.3) APTT 34 (25.1-36.5) SECONDS Sodium 134 L (137-145) mmol/L Potassium 4.0 (3.4-5.1) mmol/L Chloride 105 (98-107) mmol/L Carbon Dioxide 21 L (22-32) mmol/L BUN 46 H (9-20) mg/dL Creatinine 1.67 H (0.66-1.25) mg/dL Estimated GFR 41 L (>60) mL/min BUN/Creatinine Ratio 27.5 H (6-22) Glucose 180 H (70-99) mg/dL Calcium 8.8 (8.4-10.2) mg/dL Magnesium 1.9 (1.6-2.3) mg/dL Total Bilirubin 0.5 (0.2-1.3) mg/dL AST 29 (17-59) IU/L ALT 31 (<50) IU/L Alkaline Phosphatase 69 (38-126) U/L Total Creatine Kinase < 20 L (55-170) U/L Troponin I < 0.012 (0.01-0.034) ng/mL NT-Pro-B Natriuret Pep 1570 H (<450) pg/mL Total Protein 6.7 (6.3-8.2) g/dL Albumin 3.6 (3.5-5.0) g/dL Globulin 3.1 (1.7-4.1) g/dL Albumin/Globulin Ratio 1.2 (1.0-2.8) Lipase 136 (23-300) U/L SARS-CoV-2 (PCR) Positive H (Negative) Influenza A (RT-PCR) Flu a negative (NEGATIVE) Influenza B (RT-PCR) Flu b negative (NEGATIVE) RSV (PCR) Negative (Negative) Imaging Data CT scan - head: Radiologist Impression: [address] [address] [address] Scan Report Signed Patient: Guanako Israel MR#: [id number] : 1945 Acct:[id number] Age/Sex: 80 / M Date of Service: 05/19/25 Loc: ED Accession Number: [id number] Procedure: CT head/brain wo con Ordering Provider: Ja Raya D.O. PROCEDURE: CT HEAD/BRAIN WO CON INDICATIONS: weakness, hx of cva, on coumadin TECHNIQUE: Noncontrast 4.5 mm thick angled axial sections acquired from the foramen magnum to the vertex, with coronal and sagittal reformats. For radiation dose reduction, the following was used: automated exposure control, adjustment of mA and/or kV according to patient size. COMPARISON: [facility], CT, CT HEAD/BRAIN WO CON, 08/26/2024, 14:17. FINDINGS: Image quality: Diagnostic. CSF spaces: Basal cisterns are patent. No extra-axial fluid collections. The ventricles are symmetric in size and shape. Brain: No intracranial bleeds or mass effect. There is cerebral volume loss, with resultant ventricular and sulcal prominence. There are periventricular and deep white matter chronic small vessel ischemic changes. There is intracranial internal carotid artery atherosclerosis. Old left subinsular infarction. Skull and face: Calvarium and visualized facial bones appear intact, without suspicious lesions. Sinuses: Visualized sinuses and mastoids are clear. IMPRESSION: 1. No acute intracranial process. 2. Mild to moderate atrophy and chronic microvascular ischemic changes. Chest x-ray: Radiologist Impression: [address] [address] XRay Report Signed Patient: Guanako Israel MR#: [id number] : 1945 Acct:[id number] Age/Sex: 80 / M Date of Service: 05/19/25 Loc: ED Accession Number: [id number] Procedure: XR chest 1V Ordering Provider: Ja Raya D.O. PROCEDURE: XR CHEST 1V INDICATIONS: Chest Pain TECHNIQUE: One view of the chest was acquired. COMPARISON: [facility], CR, XR CHEST 1V, 08/26/2024, 13:30. FINDINGS: Surgical changes and devices: Pacemaker. Lungs and pleura: Lungs are clear. No pleural effusions or pneumothorax. Mediastinum: Mediastinal contours appear normal. Heart size is enlarged. Bones and chest wall: No suspicious bony lesions. Overlying soft tissues appear unremarkable. IMPRESSION: No acute pulmonary process. ECG Data Interpretation: AV dual paced HR 71 NC 176 QRS 196 QT 480 Unchanged from 05/02/25 MDM Narrative Medical decision making narrative: Vital signs, nurse triage note, medication list, previous ER visits, and all imaging studies reviewed. Patient given LR 1 L bolus here along with Zofran here patient feels much better on reexamination. CT head and chest x-ray showed no acute process. Hemoglobin 12 INR 2.4 sodium 134 BUN 46 creatinine 1.67 glucose 180 troponin known BNP is 15 70 Patient is COVID positive was sent home on Zofran prescription and to keep hydrated. Differential diagnosis STEMI, NSTEMI, unstable angina, CVA, TIA, vertigo, dehydration, electrolyte derangement, COVID, flu, RSV, UTI, sepsis. Discharge Plan Departure Patient Disposition: Home Clinical Impression: Acute COVID-19 Instructions: DI for COVID-19 (Suspected or Confirmed ) Activity Restrictions/Additional Instructions: Return with new or worsening symptoms. Keep hydrated. Take Tylenol and/or ibuprofen for pain and fever control. Follow up PCP in 1-2 weeks if no improvement in symptoms. Prescriptions: No Action cinnamon bark [Cinnamon] 500 mg Capsule 1,000 mg PO BID Qty: 0 ascorbic acid (vitamin C) 500 MG tablet 500 mg PO DAILY Qty: 0 albuterol sulfate [ProAir HFA] 90 mcg/actuation HFA aerosol inhaler 2 puff inhalation Q6H PRN (Reason: shortness of breath or wheezing) Qty: 8.5 1RF (DME) Lancets 0 .Route .MEDSUPPLY Qty: 100 3RF Dose Instruction: As directed Rx Instructions: use to check blood sugar 4-6 times daily (DME) Syringes: Ultra Fine Insulin Syringe w/Needle 0 .Route .MEDSUPPLY Qty: 100 3RF Dose Instruction: As directed Rx Instructions: As directed trazodone 50 mg tablet See Rx Instructions .ROUTE .COMPLEX Qty: 90 3RF Dose Instruction: Take 1 tablet (50 mg) by mouth at bedtime Rx Instructions: Take 1 tablet (50 mg) by mouth at bedtime (DME) Glucose: Test Strips 0 .Route .MEDSUPPLY Qty: 200 10RF Dose Instruction: As directed Rx Instructions: use to check blood sugar 4-6 times daily. 10 boxes ok losartan 100 mg tablet 100 mg PO DAILY Qty: 90 3RF hydrochlorothiazide 12.5 mg capsule 12.5 mg PO DAILY Qty: 90 3RF OneTouch Verio Flex Start kit See Rx Instructions .ROUTE .COMPLEX Qty: 1 0RF Dose Instruction: Test blood sugars 4-6 times daily Rx Instructions: Test blood sugars 4-6 times daily warfarin 5 mg tablet 5 mg PO DAILY Qty: 100 3RF Protocol: Dose Management Condition: Thursday Dose/Route: 5 mg Instruction: 1 x 5 mg tablet Condition: Thursday Dose/Route: 5 mg Instruction: 1 x 5 mg tablet Condition: Thursday Dose/Route: 5 mg Instruction: 1 x 5 mg tablet Condition: Thursday Dose/Route: Hold Instruction: No doses Condition: Dose/Route: 5 mg Instruction: 1 x 5 mg tablet Condition: Thursday Dose/Route: 5 mg Instruction: 1 x 5 mg tablet Condition: Thursday Dose/Route: 5 mg Instruction: 1 x 5 mg tablet Protocol Text: Adjustment Start Date: Thursday04/28/25 INR Value: 2.8 INR Date: 04/28/25 Recheck Date: 05/12/25 (DME) BD Ultra Fine Pen Tips 31G x 8mm 100 package See Rx Instructions .ROUTE .MEDSUPPLY Qty: 2 2RF Rx Instructions: USE TO INJECT INSULIN TWICE DAILY insulin glargine [Lantus Solostar U-100 Insulin] 100 unit/mL (3 mL) insulin pen 28 unit SUBCUT QPM Qty: 15 2RF Humulin R U-500 (Conc) Kwikpen 500 unit/mL (3 mL) insulin pen See Rx Instructions SUBCUT .COMPLEX Qty: 6 12RF Rx Instructions: subcutaneously; Inject 4-10 units per sliding scale under the skin before meals MEALTIME INSULIN Glc 150-199 before the meal: give 1 units Glc 200- 249 give 3 units Glc 250- 299 give 6 units Glc 300- 449 give 10 units Greater than 450 call the doctor. Take 15 min before meals or immediately after furosemide 20 mg tablet 20 mg PO DAILY Qty: 90 3RF omeprazole 20 mg capsule,delayed release(DR/EC) 20 mg PO BID Qty: 180 1RF lorazepam 0.5 mg tablet See Rx Instructions .ROUTE .COMPLEX Qty: 60 5RF Rx Instructions: Take 1 tablet by mouth twice daily as needed for anxiety insulin glargine-yfgn 100 unit/mL (3 mL) insulin pen 28 unit SUBCUT QPM Qty: 15 2RF atorvastatin 80 mg tablet 80 mg PO ONCE PM Qty: 90 3RF (DME) insulin syringe-needle U-100 0.3 mL 31 gauge x 15/64 syringe See Rx Instructions .ROUTE .COMPLEX Qty: 100 5RF Dose Instruction: Use to inject insulin up to four times daily Rx Instructions: Use to inject insulin up to four times daily carvedilol 12.5 mg tablet 12.5 mg PO BID Qty: 180 3RF carvedilol 25 mg tablet See Rx Instructions .ROUTE .COMPLEX Qty: 180 3RF Dose Instruction: Take 1 tablet (25 mg) by mouth 2 times daily with a meal/food. Take with 12.5 mg tablet 2 times daily for a total dose of 37.5 mg Rx Instructions: Take 1 tablet (25 mg) by mouth 2 times daily with a meal/food. Take with 12.5 mg tablet 2 times daily for a total dose of 37.5 mg sertraline 25 mg tablet 25 mg PO DAILY Qty: 90 3RF potassium chloride 10 mEq capsule, extended release 10 meq PO QPM Qty: 90 1RF flecainide 100 mg tablet 50 mg PO BID fluticasone propion-salmeterol [Wixela Inhub] 100-50 mcg/dose blister with device 1 inh inhalation BID PRN multivitamin Tablet 1 tab PO DAILY glucosamine sulfate [Glucosamine] 500 mg Tablet 2,000 mg PO BID hgxuapo-coubiybud-igcz Tablet 1 tab PO BEDTIME omega 2-zjt-sox-fish oil [Fish Oil] 1,200 (144-216) mg Capsule 1 cap PO BID Referrals: Phi Zaman DO [Primary Care Provider, Family Practice] Stand Alone Forms: Patient Portal/API
--- NOTE | 2025-05-19 21:45 | EKG_ITS ---
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
--- NOTE | 2025-05-19 21:45 | DI.RAD.S_ITS ---
PROCEDURE: XR CHEST 1V INDICATIONS: Chest Pain TECHNIQUE: One view of the chest was acquired. COMPARISON: [facility], CR, XR CHEST 1V, 08/26/2024, 13:30. FINDINGS: Surgical changes and devices: Pacemaker. Lungs and pleura: Lungs are clear. No pleural effusions or pneumothorax. Mediastinum: Mediastinal contours appear normal. Heart size is enlarged. Bones and chest wall: No suspicious bony lesions. Overlying soft tissues appear unremarkable. IMPRESSION: No acute pulmonary process. Dictated by: Varsha Cunningham M.D. on 05/19/2025 at 22:35 Approved by: Varsha Cunningham M.D. on 05/19/2025 at 22:35
[2025-05-19] MEDS: ONDANSETRON 4 MG/2 ML INJ IV (22:32)
[2025-05-19] MEDS: LACTATED RINGERS 1,000 ML 1000 ML IV (22:43)
[2025-05-19 22:48] LABS: Add Manual Diff / Slide Review NO; Hematocrit 33.8 % (41-53); Hemoglobin 12.0 g/dL (13.5-17.5); Lymphocytes Absolute Auto 2100 /uL (1100-4500); Mean Corpuscular HGB Conc 35.4 % (30-36); Mean Corpuscular Hemoglobin 31.9 PG (26-34); Mean Corpuscular Volume 90.3 fL (80-100); Platelet Count 278 X10^3/uL (150-400)
[2025-05-19 22:57] LABS: INR 2.4 (0.9-1.3); Prothrombin Time 26.3 SECONDS (9.4-12.5)
[2025-05-19 23:00] LABS: PTT Partial Thromboplastin Tim 34 SECONDS (25.1-36.5)
[2025-05-19 23:02] LABS: Alanine Aminotransferase 31 IU/L (<50); Albumin 3.6 g/dL (3.5-5.0); Albumin Globulin Ratio 1.2 (1.0-2.8); Alkaline Phosphatase 69 U/L (38-126); Blood Urea Nitrogen 46 mg/dL (9-20); Calcium 8.8 mg/dL (8.4-10.2); Carbon Dioxide 21 mmol/L (22-32); Chloride 105 mmol/L (98-107); Creatine Kinase < 20 U/L (55-170); Estimated Glomerular Filt Rate 41 mL/min (>60); Globulin 3.1 g/dL (1.7-4.1); Glucose 180 mg/dL (70-99); HEMOLYSIS < 15 (0-50); Lipase 136 U/L (23-300); Magnesium 1.9 mg/dL (1.6-2.3); Potassium 4.0 mmol/L (3.4-5.1); Sodium 134 mmol/L (137-145); Total Protein 6.7 g/dL (6.3-8.2)
[2025-05-19 23:14] LABS: NT-proBNP (BNP-Adult 18+) 1570 pg/mL (<450); Troponin I < 0.012 ng/mL (0.01-0.034)
[2025-05-19 23:40] LABS: Influenza A - CEPHEID Flu A NEGATIVE (NEGATIVE); Influenza B - CEPHEID Flu B NEGATIVE (NEGATIVE)
[2025-05-19 23:44] LABS: COVID-19 CEPHEID 4-PLEX PCR POSITIVE (Negative)
[2025-05-20] VITALS: BP 133/65; PULSE 69; RESP 24; O2SAT 98
== END 2025-05-20 00:24 | disposition home or self-care (01) ==
PROVIDERS: Emergency Provider Family Medicine; Family Provider Family Medicine; PCP Family Medicine
DX: U07.1 COVID-19 (principal); R07.9 Chest pain, unspecified; Z79.01 Long term (current) use of anticoagulants
CPT/HCPCS: 70450; 71045; 80053; 82550; 83690; 83735; 83880; 84484; 85025; 85610; 85730; 87040; 87637; 93005; 96361; 96374; 99284; J2405

== ENCOUNTER → 2025-06-01 09:56 | Outpatient (CLI) | payer OTHER, SELFPAY ==
[2022-10-28 15:06] VITALS: BMI 23.6
[2025-06-01 11:29] LABS: Prothrombin Time 53.9 SECONDS (9.4-12.5)
[2025-06-01 11:32] LABS: INR 5.0 (0.9-1.3)
== END ==
PROVIDERS: Family Provider Family Medicine; PCP Family Medicine; Referring Provider Family Medicine; Visit Provider Family Medicine
DX: I48.0 Paroxysmal atrial fibrillation (principal); Z79.01 Long term (current) use of anticoagulants
CPT/HCPCS: 36415; 85610

== ENCOUNTER → 2025-06-05 07:29 | Outpatient (CLI) | payer OTHER, SELFPAY ==
[2022-10-28 15:06] VITALS: BMI 23.6
[2025-06-05 08:43] LABS: Blood Urea Nitrogen 24 mg/dL (9-20); Calcium 9.0 mg/dL (8.4-10.2); Carbon Dioxide 27 mmol/L (22-32); Chloride 104 mmol/L (98-107); Cholesterol 106 mg/dL (140-199); Estimated Glomerular Filt Rate 55 mL/min (>60); Glucose 153 mg/dL (70-99); HDL Cholesterol 27 mg/dL (40-60); HEMOLYSIS < 15 (0-50); Potassium 4.1 mmol/L (3.4-5.1); Sodium 137 mmol/L (137-145); Triglycerides 128 mg/dL (35-150)
== END ==
PROVIDERS: Family Provider Family Medicine; PCP Family Medicine; Referring Provider Internal Medicine Cardiovascular Disease; Visit Provider Student in an Organized Health Care Education/Training Program
DX: I10 Essential (primary) hypertension (principal); N05.9 Unspecified nephritic syndrome with unspecified morphologic changes
CPT/HCPCS: 36415; 80048; 80061

== ENCOUNTER 2025-08-05 12:38 | Emergency (ER) | payer OTHER, SELFPAY ==
[2025-07-04 10:50] VITALS: BMI 23.9
[2025-08-05 12:49] VITALS: BP 186/84; PULSE 70; RESP 18; TEMP 36.7; O2SAT 95; BMI 24.0
--- NOTE | 2025-08-05 13:25 | ED.BACK ---
HPI - Back Pain/Injury General Chief Complaint: Back Pain/Injury Stated Complaint: High blood pressure, back pain since thursday Time Seen by Provider: 08/05/25 12:44 Source: patient History of Present Illness HPI Narrative: 80-year-old gentleman history of atrial fibrillation on Coumadin, flecainide, paroxysmal atrial fibrillation, pacemaker prior stroke, with aphasia, prior CA, with stent, dyslipidemia, insulin dependent type 2 diabetic, presents with right flank pain has been ongoing for the past week getting worse with no improvement. Patient denies fever, chills, body aches, sore throat, hematuria, abdominal pain, nausea, vomiting, diarrhea, constipation, chest pain, shortness breath. But he does endorse elevated blood pressure for which he is on multiple medicines but amlodipine was taken off his medication list back in May and was told to go back on it and has not been able to refill the medication at this time. Other than what is stated 14 point review of system is negative. Related Data Home Medications ?Medication ?Instructions ?Recorded ?Confirmed cinnamon bark 500 mg capsule 1,000 mg PO BID ##0 08/25/16 07/07/25 (Cinnamon) ascorbic acid (vitamin C) 500 mg 500 mg PO DAILY ##0 12/16/17 07/07/25 tablet llmogaj-hkgpynfzu-mfjg tablet 1 tab PO BEDTIME 03/05/21 07/07/25 glucosamine sulfate 500 mg tablet 2,000 mg PO BID 03/05/21 07/07/25 (Glucosamine) multivitamin 1 tab PO DAILY 03/05/21 07/07/25 omega 4-czn-yrc-fish oil 1,200 mg 1 cap PO BID 03/05/21 07/07/25 (144 mg-216 mg) capsule (Fish Oil) flecainide 100 mg tablet 50 mg PO BID 06/19/23 07/07/25 fluticasone 100 mcg-salmeterol 50 1 inh inhalation BID PRN SOB or 03/16/25 07/07/25 mcg/dose blistr powdr for wheezing inhalation (Wixela Inhub) ezetimibe 10 mg tablet 10 mg PO DAILY 05/19/25 07/07/25 Previous Rx's ?Medication ?Instructions ?Recorded omeprazole 20 mg capsule,delayed 20 mg PO BID #180 caps 01/19/13 release albuterol sulfate 90 mcg/actuation 2 puff inhalation Q6H PRN 12/20/21 aerosol inhaler (ProAir HFA) shortness of breath or wheezing #8.5 grams Syringes: Ultra Fine Insulin #100 ea 03/07/24 Syringe w/Needle hydrochlorothiazide 12.5 mg capsule 12.5 mg PO DAILY #90 caps 06/20/24 OneTouch Verio Flex Start kit See Rx Instructions .Route 06/24/24 .COMPLEX #1 kit BD Ultra Fine Pen Tips 31G x 8mm #2 ea 10/31/24 insulin regular hum U-500 conc 500 See Rx Instructions SUBCUT 11/09/24 unit/mL(3 mL) subcut pen (Humulin .COMPLEX #6 mL R U-500 (Conc) Insulin Kwikpen) furosemide 20 mg tablet 20 mg PO DAILY #90 tabs 01/24/25 lorazepam 0.5 mg tablet See Rx Instructions .Route 03/07/25 .COMPLEX #60 tabs insulin glargine-yfgn 100 unit/mL 28 unit (0.28 mL) SUBCUT QPM #15 mL 04/11/25 (3 mL) subcutaneous pen atorvastatin 80 mg tablet 80 mg PO ONCE PM #90 tabs 04/25/25 insulin syringe-needle U-100 0.3 #100 ea 04/25/25 mL 31 gauge x 15/64 carvedilol 12.5 mg tablet 12.5 mg PO BID #180 tabs 05/10/25 carvedilol 25 mg tablet See Rx Instructions .Route 05/10/25 .COMPLEX #180 tabs potassium chloride 10 mEq 10 meq PO QPM #90 caps 05/10/25 capsule,extended release sertraline 25 mg tablet 25 mg PO DAILY #90 tabs 05/10/25 ondansetron 4 mg disintegrating 4 mg PO Q6H PRN nausea and 05/20/25 tablet vomiting #30 tabs trazodone 50 mg tablet See Rx Instructions .Route 05/30/25 .COMPLEX #90 tabs Glucose: Test Strips #200 ea 06/26/25 Lancets #100 ea 06/26/25 COVID vaccine 5- (12yrs 0.5 ml IM Q21D #5 mL 07/07/25 up)-adjuvant (PF) 5 mcg/0.5 mL IM syringe losartan 100 mg tablet 50 mg (1/2 x 100 mg) PO BID #90 07/07/25 tabs warfarin 5 mg tablet 5 mg PO DAILY #100 tabs 07/13/25 amlodipine 2.5 mg tablet 2.5 mg PO DAILY #30 tabs 08/05/25 amoxicillin 875 mg-potassium 1 tab PO Q12H #14 tabs 08/05/25 clavulanate 125 mg tablet Allergies Allergy/AdvReac Type Severity Reaction Status Date / Time ciprofloxacin (CIPROFLOXACIN) Allergy Intermediate Dizzy, Verified 08/05/25 12:53 constipation, lightheaded, bad dreams, joint pain atenolol (ATENOLOL) Allergy Mild Lightheaded Verified 08/05/25 12:53 and nausea regadenoson (From Lexiscan) Allergy disorented Verified 08/05/25 12:53 and agitated lisinopril AdvReac Verified 08/05/25 12:53 Review of Systems Review of Systems ROS Unobtainable: All systems reviewed & are unremarkable except as noted in HPI and below Patient History Medical History (Updated 08/05/25 @ 15:30 by Ja Raya, ) Onychomycosis COVID-19 Acute COVID-19 Elevated INR Hypotensive episode Low HDL (under 40) Edema of both feet Chronic pain of left knee Neck mass Skin lesion of face BETO (acute kidney injury) Acute renal failure Weakness Elevated INR Neck stiffness Orthostatic lightheadedness Lipoma of skin of abdomen Arthralgia of hands, bilateral Normocytic anemia Excessive daytime sleepiness Poor sleep pattern Snoring ELLER (dyspnea on exertion) BPPV (benign paroxysmal positional vertigo) Generalized 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 panic attacks 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 Hyperlipemia (~12/2014) Generalized headaches Cataracts, bilateral (~12/2017) Actinic keratosis Coronary artery disease Myocardial infarction History of CVA (cerebrovascular accident) Pacemaker (01/2017) Atrial fibrillation (~01/2017) CKD (chronic kidney disease) (~12/2017) James's esophagus BPH (benign prostatic hyperplasia) Diabetes GERD (gastroesophageal reflux disease) Hypertension Anemia Acute renal failure (01/09/17) Surgical History Hx of tonsillectomy Hx of vasectomy Hx of surgical procedure Status post transurethral resection of prostate (03/2014) Family History Father Diabetes mellitus High cholesterol Mother Diabetes mellitus High cholesterol Other Elevated INR Social History household members: spouse alcohol intake: former alcohol intake frequency: holidays/special occasions only Exam Narrative Exam Narrative: GENERAL: [80] year old patient appears stated age. Well-developed patient, in mild distress. HEAD: Atraumatic. Normocephalic. EYES: Pupils equal round and reactive. Extraocular motions intact. No scleral icterus. No injection or drainage. ENT: Nose without bleeding, purulent drainage. Throat without erythema, tonsillar hypertrophy or exudate. Airway patent. NECK: Trachea midline. Non tender CARDIOVASCULAR: Regular rate and rhythm without murmurs, gallops, or rubs. RESPIRATORY: Clear to auscultation. Breath sounds equal bilaterally. No wheezes, rales, or rhonchi. GASTROINTESTINAL: Abdomen soft, non-tender, nondistended. EXTREMITIES: No edema or joint tenderness. BACK: Nontender without deformity or crepitance. No flank tenderness. NEURO: AOx3. SKIN: No rash or erythema of visible areas Initial Vital Signs Initial Vital Signs: Vital Signs Temperature 98.1 F 08/05/25 12:49 Pulse Rate 70 08/05/25 12:49 Respiratory Rate 18 08/05/25 12:49 Blood Pressure 186/84 H 08/05/25 12:49 Pulse Oximetry 95 08/05/25 12:49 Oxygen Delivery Method Room Air 08/05/25 12:49 Course Orders Ordered: ED Orders 08/05/25 13:39 CT abdomen pelvis w con Stat EKG-12 Lead Stat 08/05/25 14:05 Complete Blood Count AUTO DIFF Stat Comprehensive Metabolic Panel Stat Lipase Stat Urine Microscopic Stat Ondansetron HCl (Ondansetron 4 Mg/2 Ml Inj) 4 mg IV NOW PRN PRN Reason: Nausea And Vomiting Ondansetron HCl (Ondansetron 4 Mg Odt) 4 mg PO NOW PRN PRN Reason: Nausea And Vomiting Discontinued Medications Ciprofloxacin (Ciprofloxacin 250 Mg Tablet) 500 mg PO NOW ONE Stop: 08/05/25 15:28 Hydromorphone HCl (Hydromorphone 1 Mg/Ml Syringe) 1 mg IV NOW ONE Stop: 08/05/25 15:27 Lactated Ringer's (Lactated Ringers) 1,000 mls @ 1,000 mls/hr IV BOLUS ONE Stop: 08/05/25 14:39 Last Infusion: 08/05/25 15:29 Dose: Infused Metronidazole (Metronidazole 500 Mg Tablet) 500 mg PO NOW ONE Stop: 08/05/25 15:28 Vital Signs Vital signs: Vital Signs - 8 hr 08/05/25 12:49 08/05/25 14:09 08/05/25 14:10 Temperature 98.1 F Pulse Rate 70 71 70 Respiratory Rate 18 16 Blood Pressure 186/84 H Pulse Oximetry 95 94 95 Oxygen Delivery Method Room Air 08/05/25 14:10 08/05/25 14:25 08/05/25 14:25 Temperature Pulse Rate 70 Respiratory Rate Blood Pressure 184/87 H 186/88 H Pulse Oximetry 94 Oxygen Delivery Method 08/05/25 14:30 08/05/25 14:30 08/05/25 15:00 Temperature Pulse Rate 70 69 Respiratory Rate 20 17 Blood Pressure 193/78 H Pulse Oximetry 96 95 Oxygen Delivery Method 08/05/25 15:00 Temperature Pulse Rate Respiratory Rate Blood Pressure 188/88 H Pulse Oximetry Oxygen Delivery Method MDM - Back Pain/Injury Lab Data 08/05/25 14:05 08/05/25 14:05 Labs: Lab Results 08/05/25 Range/Units 14:05 WBC 8.6 (4.5-11.0) X10^3/uL RBC 3.81 L (4.5-5.9) X10^6/uL Hgb 12.2 L (13.5-17.5) g/dL Hct 35.2 L (41-53) % MCV 92.2 (80-100) fL MCH 31.9 (26-34) PG MCHC 34.6 (30-36) % RDW 14.1 (11.6-14.8) % Plt Count 250 (150-400) X10^3/uL Neut % (Auto) 70.7 (50-75) % Lymph % (Auto) 20.0 L (25-40) % [place] % (Auto) 5.9 (3-14) % Eos % (Auto) 2.7 (2-4) % Baso % (Auto) 0.7 (0-2) % Neut # (Auto) 6100 (0364-7320) /uL Lymph # (Auto) 1700 (9776-7197) /uL [place] # (Auto) 500 (0-900) /uL Eos # (Auto) 200 (0-450) /uL Baso # (Auto) 100 (0-100) /uL Sodium 134 L (137-145) mmol/L Potassium 3.8 (3.4-5.1) mmol/L Chloride 104 (98-107) mmol/L Carbon Dioxide 24 (22-32) mmol/L BUN 19 (9-20) mg/dL Creatinine 1.07 (0.66-1.25) mg/dL Estimated GFR > 60 (>60) mL/min BUN/Creatinine Ratio 17.8 (6-22) Glucose 223 H (70-99) mg/dL Calcium 8.8 (8.4-10.2) mg/dL Total Bilirubin 0.5 (0.2-1.3) mg/dL AST 33 (17-59) IU/L ALT 33 (<50) IU/L Alkaline Phosphatase 73 (38-126) U/L Total Protein 7.0 (6.3-8.2) g/dL Albumin 4.0 (3.5-5.0) g/dL Globulin 3.0 (1.7-4.1) g/dL Albumin/Globulin Ratio 1.3 (1.0-2.8) Lipase 54 (23-300) U/L Urine RBC None seen (0-5/HPF) Urine WBC None seen (0-5/HPF) Ur Squamous Epith Cells None seen (0-5/HPF) Ur Renal Epithelial Cell 0-1/hpf (0-1/HPF) Urine Bacteria None seen (None) Hyaline Casts 5-10/lpf (None) Urine Mucus 1+ H (Negative) Vol Urine Centrifuged 10ml (spun) Urine Dip Bedside Urine Glucose Negative Bedside Urine Bilirubin - Negative Bedside Urine Ketone - Negative Urine Specific [place] 1.030 Bedside Urine Occult Blood - Negative Bedside Urine pH 6 Bedside Urine Protein +++ 300 Bedside Urine Urobilinogen - Negative Bedside Urine Nitrite - Negative Bedside Urine Leukocytes - Negative Esterase MDM Narrative Medical decision making narrative: All lab work, vital signs, nurse triage note, medication list, previous ER visits, and all imaging studies reviewed. CT abdomen and pelvis showed simple acute diverticulitis of the sigmoid and descending colon. Patient given fluids Dilaudid Cipro and Flagyl here. WBC 8.6 hemoglobin 12.2 led to 50 sodium 134 potassium 3.8 chloride 104 BUN 19 creatinine 1.07 glucose 223 LFTs normal lipase 54. Differential diagnosis diverticulitis kidney stone kidney infection constipation small-bowel obstruction. DC home on Cipro Flagyl and [place]. Clear liquid diet advance as tolerated Discharge Plan Departure Patient Disposition: Home Clinical Impression: Acute diverticulitis Instructions: Essential Hypertension, DI for Diverticulitis Activity Restrictions/Additional Instructions: Return with new or worsening symptoms. Take your medicines directed. Clear liquid diet advance as tolerated. Follow up PCP in 1-2 weeks if no improvement in symptoms. Prescriptions: New amoxicillin-pot clavulanate 875-125 mg tablet 1 tab PO Q12H Qty: 14 0RF amlodipine 2.5 mg tablet 2.5 mg PO DAILY Qty: 30 0RF No Action cinnamon bark [Cinnamon] 500 mg Capsule 1,000 mg PO BID Qty: 0 ascorbic acid (vitamin C) 500 MG tablet 500 mg PO DAILY Qty: 0 albuterol sulfate [ProAir HFA] 90 mcg/actuation HFA aerosol inhaler 2 puff inhalation Q6H PRN (Reason: shortness of breath or wheezing) Qty: 8.5 1RF (DME) Syringes: Ultra Fine Insulin Syringe w/Needle 0 .Route .MEDSUPPLY Qty: 100 3RF Dose Instruction: As directed Rx Instructions: As directed hydrochlorothiazide 12.5 mg capsule 12.5 mg PO DAILY Qty: 90 3RF OneTouch Verio Flex Start kit See Rx Instructions .ROUTE .COMPLEX Qty: 1 0RF Dose Instruction: Test blood sugars 4-6 times daily Rx Instructions: Test blood sugars 4-6 times daily (DME) BD Ultra Fine Pen Tips 31G x 8mm 100 package See Rx Instructions .ROUTE .MEDSUPPLY Qty: 2 2RF Rx Instructions: USE TO INJECT INSULIN TWICE DAILY Humulin R U-500 (Conc) Kwikpen 500 unit/mL (3 mL) insulin pen See Rx Instructions SUBCUT .COMPLEX Qty: 6 12RF Rx Instructions: subcutaneously; Inject 4-10 units per sliding scale under the skin before meals MEALTIME INSULIN Glc 150-199 before the meal: give 1 units Glc 200- 249 give 3 units Glc 250- 299 give 6 units Glc 300- 449 give 10 units Greater than 450 call the doctor. Take 15 min before meals or immediately after furosemide 20 mg tablet 20 mg PO DAILY Qty: 90 3RF omeprazole 20 mg capsule,delayed release(DR/EC) 20 mg PO BID Qty: 180 1RF lorazepam 0.5 mg tablet See Rx Instructions .ROUTE .COMPLEX Qty: 60 5RF Rx Instructions: Take 1 tablet by mouth twice daily as needed for anxiety insulin glargine-yfgn 100 unit/mL (3 mL) insulin pen 28 unit SUBCUT QPM Qty: 15 2RF atorvastatin 80 mg tablet 80 mg PO ONCE PM Qty: 90 3RF (DME) insulin syringe-needle U-100 0.3 mL 31 gauge x 15/64 syringe See Rx Instructions .ROUTE .COMPLEX Qty: 100 5RF Dose Instruction: Use to inject insulin up to four times daily Rx Instructions: Use to inject insulin up to four times daily carvedilol 12.5 mg tablet 12.5 mg PO BID Qty: 180 3RF carvedilol 25 mg tablet See Rx Instructions .ROUTE .COMPLEX Qty: 180 3RF Dose Instruction: Take 1 tablet (25 mg) by mouth 2 times daily with a meal/food. Take with 12.5 mg tablet 2 times daily for a total dose of 37.5 mg Rx Instructions: Take 1 tablet (25 mg) by mouth 2 times daily with a meal/food. Take with 12.5 mg tablet 2 times daily for a total dose of 37.5 mg sertraline 25 mg tablet 25 mg PO DAILY Qty: 90 3RF potassium chloride 10 mEq capsule, extended release 10 meq PO QPM Qty: 90 1RF trazodone 50 mg tablet See Rx Instructions .ROUTE .COMPLEX Qty: 90 3RF Dose Instruction: Take 1 tablet (50 mg) by mouth at bedtime Rx Instructions: Take 1 tablet (50 mg) by mouth at bedtime (DME) Glucose: Test Strips 0 .Route .MEDSUPPLY Qty: 200 10RF Dose Instruction: As directed Rx Instructions: use to check blood sugar 4-6 times daily. 10 boxes ok (DME) Lancets 0 .Route .MEDSUPPLY Qty: 100 3RF Dose Instruction: As directed Rx Instructions: use to check blood sugar 4-6 times daily warfarin 5 mg tablet 5 mg PO DAILY Qty: 100 3RF Protocol: Dose Management Condition: Thursday (Week One) Dose/Route: 2.5 mg Instruction: 0.5 x 5 mg tablets Condition: Thursday Dose/Route: 2.5 mg Instruction: 0.5 x 5 mg tablets Condition: Thursday Dose/Route: 5 mg Instruction: 1 x 5 mg tablet Condition: Thursday Dose/Route: 5 mg Instruction: 1 x 5 mg tablet Condition: Dose/Route: 5 mg Instruction: 1 x 5 mg tablet Condition: Thursday Dose/Route: 5 mg Instruction: 1 x 5 mg tablet Condition: Thursday Dose/Route: 5 mg Instruction: 1 x 5 mg tablet Condition: Thursday (Week Two) Dose/Route: 2.5 mg Instruction: 0.5 x 5 mg tablets Condition: Thursday Dose/Route: 2.5 mg Instruction: 0.5 x 5 mg tablets Condition: Thursday Dose/Route: 5 mg Instruction: 1 x 5 mg tablet Condition: Thursday Dose/Route: 5 mg Instruction: 1 x 5 mg tablet Condition: Dose/Route: 5 mg Instruction: 1 x 5 mg tablet Condition: Thursday Dose/Route: 5 mg Instruction: 1 x 5 mg tablet Condition: Thursday Dose/Route: 5 mg Instruction: 1 x 5 mg tablet Protocol Text: Adjustment Start Date: Thursday07/31/25 INR Value: 2.9 INR Date: 07/31/25 Recheck Date: 08/14/25 flecainide 100 mg tablet 50 mg PO BID fluticasone propion-salmeterol [Wixela Inhub] 100-50 mcg/dose blister with device 1 inh inhalation BID PRN (Reason: SOB or wheezing) COVID vac 25-26(12y up)-adj-PF 5 mcg/0.5 mL syringe 0.5 ml IM Q21D Qty: 5 0RF Rx Instructions: for 2 doses losartan 100 mg tablet 50 mg PO BID Qty: 90 3RF multivitamin Tablet 1 tab PO DAILY glucosamine sulfate [Glucosamine] 500 mg Tablet 2,000 mg PO BID cbkhzxi-kwutzsmrr-goso Tablet 1 tab PO BEDTIME omega 4-xsn-yjr-fish oil [Fish Oil] 1,200 (144-216) mg Capsule 1 cap PO BID ezetimibe 10 mg tablet 10 mg PO DAILY ondansetron 4 mg tablet,disintegrating 4 mg PO Q6H PRN (Reason: nausea and vomiting) Qty: 30 0RF Referrals: Phi Zaman DO [Primary Care Provider, Family Practice] Stand Alone Forms: Patient Portal/API
--- NOTE | 2025-08-05 13:39 | DI.CT.S_ITS ---
PROCEDURE: CT ABDOMEN PELVIS W CON INDICATIONS: abd pain/ r flank pain TECHNIQUE: After the administration of intravenous contrast, axial sections acquired from the lung bases to the pubic symphysis. Coronal and sagittal reformats were performed. For radiation dose reduction, the following was used: automated exposure control, adjustment of mA and/or kV according to patient size. COMPARISON: [facility], CT, CT ABDOMEN PELVIS W CON, 05/02/2025, 12:33. FINDINGS: Image quality: Diagnostic. Lower Chest: Small hiatal hernia. ABDOMEN: Liver: Subcentimeter hypodensities likely reflecting hepatic cyst, unchanged. No solid mass identified. Gallbladder: No radiopaque gallstones or wall thickening. Biliary ducts: No biliary dilation. Pancreas: No ductal dilation. Spleen: Size is within normal limits. Adrenal Glands: No adrenal nodules. Kidneys and Ureters: No hydronephrosis. No solid mass. No complex renal cystic lesion which requires follow up. Stomach and Bowel: Innumerable diverticula throughout the colon with mild thickening and slight inflammatory changes within the sigmoid and distal descending colon. No free fluid. No free air. No organized abscess. Peritoneum: No abnormal intraperitoneal fluid. No free air. Ventral Wall: Small fat containing umbilical hernia. Abdominal Nodes: No retroperitoneal or mesenteric adenopathy by size criteria. Vessels: Aorta and inferior vena cava are normal in size. PELVIS: Pelvic Organs: Unremarkable. Bladder: No bladder wall thickening, accounting for underdistention. Pelvic Nodes: No enlarged lymph nodes. Miscellaneous: No inguinal hernias are seen. Bones: No aggressive osseous abnormality. IMPRESSION: Simple acute diverticulitis of the sigmoid and descending colon Dictated by: Merlin Petersen M.D. on 08/05/2025 at 13:59 Approved by: Merlin Petersen M.D. on 08/05/2025 at 14:05
--- NOTE | 2025-08-05 13:39 | EKG_ITS ---
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
[2025-08-05 14:09] VITALS: PULSE 71; RESP 16; O2SAT 94
[2025-08-05 14:10] VITALS: BP 184/87; PULSE 70; O2SAT 95
[2025-08-05 14:17] LABS: Add Manual Diff / Slide Review NO; Hematocrit 35.2 % (41-53); Hemoglobin 12.2 g/dL (13.5-17.5); Lymphocytes Absolute Auto 1700 /uL (1100-4500); Mean Corpuscular HGB Conc 34.6 % (30-36); Mean Corpuscular Hemoglobin 31.9 PG (26-34); Mean Corpuscular Volume 92.2 fL (80-100); Platelet Count 250 X10^3/uL (150-400)
[2025-08-05] MEDS: LACTATED RINGERS 1,000 ML 1000 ML IV (14:18)
[2025-08-05 14:25] VITALS: BP 186/88; PULSE 70; O2SAT 94
[2025-08-05 14:28] LABS: Alanine Aminotransferase 33 IU/L (<50); Albumin 4.0 g/dL (3.5-5.0); Albumin Globulin Ratio 1.3 (1.0-2.8); Alkaline Phosphatase 73 U/L (38-126); Blood Urea Nitrogen 19 mg/dL (9-20); Calcium 8.8 mg/dL (8.4-10.2); Carbon Dioxide 24 mmol/L (22-32); Chloride 104 mmol/L (98-107); Estimated Glomerular Filt Rate > 60 mL/min (>60); Globulin 3.0 g/dL (1.7-4.1); Glucose 223 mg/dL (70-99); HEMOLYSIS 18 (0-50); Lipase 54 U/L (23-300); Potassium 3.8 mmol/L (3.4-5.1); Sodium 134 mmol/L (137-145); Total Protein 7.0 g/dL (6.3-8.2)
[2025-08-05 14:30] VITALS: BP 193/78; PULSE 70; RESP 20; O2SAT 96
[2025-08-05 15:00] VITALS: BP 188/88; PULSE 69; RESP 17; O2SAT 95
[2025-08-05] MEDS: AMOXICILLIN/CLAV 875/125 MG 1 TAB PO (15:39)
== END 2025-08-05 15:54 | disposition home or self-care (01) ==
PROVIDERS: Emergency Provider Family Medicine; PCP Family Medicine
DX: K57.32 Diverticulitis of large intestine without perforation or abscess without bleeding (principal); Z79.01 Long term (current) use of anticoagulants; Z95.0 Presence of cardiac pacemaker; Z86.73 Personal history of transient ischemic attack (TIA), and cerebral infarction without residual deficits; I25.2 Old myocardial infarction; Z95.5 Presence of coronary angioplasty implant and graft
CPT/HCPCS: 36415; 74177; 80053; 81003; 81015; 83690; 85025; 93005; 96361; 96374; 99284; J1171; J7120; Q9967

== ENCOUNTER → 2025-09-06 13:27 | Outpatient (CLI) | payer OTHER, SELFPAY ==
[2022-10-28 15:06] VITALS: BMI 23.6
[2025-07-04 10:50] VITALS: BMI 23.9
--- NOTE | 2025-09-06 13:31 | DI.US.S_ITS ---
PROCEDURE: US CAROTID DOPPLER BI
== END ==
PROVIDERS: PCP Family Medicine; Referring Provider Family Medicine; Visit Provider Internal Medicine Cardiovascular Disease
DX: I65.23 Occlusion and stenosis of bilateral carotid arteries (principal)
CPT/HCPCS: 93880

== ENCOUNTER → 2025-09-08 13:12 | Outpatient (CLI) | payer OTHER, SELFPAY ==
[2022-10-28 15:06] VITALS: BMI 23.6
[2025-07-04 10:50] VITALS: BMI 23.9
== END ==
PROVIDERS: PCP Family Medicine; Referring Provider Internal Medicine Cardiovascular Disease; Visit Provider Internal Medicine Cardiovascular Disease
DX: I08.1 Rheumatic disorders of both mitral and tricuspid valves (principal); Z51.81 Encounter for therapeutic drug level monitoring; Z79.899 Other long term (current) drug therapy
CPT/HCPCS: 93306

== ENCOUNTER → 2025-09-27 09:20 | Outpatient (CLI) | payer OTHER, SELFPAY ==
[2025-07-04 10:50] VITALS: BMI 23.9
--- NOTE | 2025-09-27 09:27 | DI.RAD.S_ITS ---
PROCEDURE: XR CHEST 2V INDICATIONS: cough TECHNIQUE: 2 views of the chest were acquired. COMPARISON: [facility], CR, XR CHEST 1V, 06/29/2025, 16:55. FINDINGS: Surgical changes and devices: Stable left-sided cardiac pacer. Lungs and pleura: Lungs are clear. No pleural effusions or pneumothorax. Mediastinum: Mediastinal contours are normal. Heart size is normal. Bones and chest wall: No suspicious bony abnormalities. Soft tissues appear unremarkable. IMPRESSION: No acute cardiopulmonary abnormality is seen. Dictated by: Lina George MD, PhD on 09/27/2025 at 11:59 Approved by: Lina George MD, PhD on 09/27/2025 at 12:00
== END ==
PROVIDERS: PCP Family Medicine; Referring Provider Family Medicine; Visit Provider Family Medicine
DX: R05.9 Cough, unspecified (principal)
CPT/HCPCS: 71046

== ENCOUNTER → 2025-10-02 07:50 | Outpatient (CLI) | payer OTHER, SELFPAY ==
[2025-07-04 10:50] VITALS: BMI 23.9
[2025-10-02 08:21] LABS: Add Manual Diff / Slide Review NO; Hematocrit 37.4 % (41-53); Hemoglobin 13.2 g/dL (13.5-17.5); Lymphocytes Absolute Auto 1800 /uL (1100-4500); Mean Corpuscular HGB Conc 35.3 % (30-36); Mean Corpuscular Hemoglobin 32.0 PG (26-34); Mean Corpuscular Volume 90.7 fL (80-100); Platelet Count 268 X10^3/uL (150-400)
[2025-10-02 08:25] LABS: Hemoglobin A1C% w Est Avg Glu 7.1 % (4.0-6.0)
[2025-10-02 08:36] LABS: Alanine Aminotransferase 27 IU/L (<50); Albumin 3.9 g/dL (3.5-5.0); Albumin Globulin Ratio 1.3 (1.0-2.8); Alkaline Phosphatase 71 U/L (38-126); Blood Urea Nitrogen 18 mg/dL (9-20); Calcium 9.0 mg/dL (8.4-10.2); Carbon Dioxide 29 mmol/L (22-32); Chloride 105 mmol/L (98-107); Estimated Glomerular Filt Rate > 60 mL/min (>60); Globulin 2.9 g/dL (1.7-4.1); Glucose 111 mg/dL (70-99); HEMOLYSIS < 15 (0-50); Potassium 3.7 mmol/L (3.4-5.1); Sodium 140 mmol/L (137-145); Total Protein 6.8 g/dL (6.3-8.2)
[2025-10-02 09:11] LABS: Microalbumi Creatinin Ratio Ur 897.0 ug/mg CR (<30)
== END ==
PROVIDERS: PCP Family Medicine; Referring Provider Family Medicine; Visit Provider Internal Medicine Cardiovascular Disease
DX: I10 Essential (primary) hypertension (principal); E11.21 Type 2 diabetes mellitus with diabetic nephropathy; D51.0 Vitamin B12 deficiency anemia due to intrinsic factor deficiency; Z79.4 Long term (current) use of insulin
CPT/HCPCS: 36415; 80053; 82043; 82570; 83036; 85025

== ENCOUNTER → 2025-10-16 10:19 | Outpatient (CLI) | payer OTHER, SELFPAY ==
[2025-07-04 10:50] VITALS: BMI 23.9
[2025-10-16 11:29] LABS: Hematocrit 36.2 % (41-53); Hemoglobin 13.0 g/dL (13.5-17.5)
[2025-10-16 11:59] LABS: Blood Urea Nitrogen 17 mg/dL (9-20); Calcium 9.2 mg/dL (8.4-10.2); Carbon Dioxide 26 mmol/L (22-32); Chloride 105 mmol/L (98-107); Estimated Glomerular Filt Rate > 60 mL/min (>60); Glucose 87 mg/dL (70-99); HEMOLYSIS < 15 (0-50); Potassium 4.1 mmol/L (3.4-5.1); Sodium 139 mmol/L (137-145)
[2025-10-16 12:01] LABS: Protein (Total) Urine Random 482 mg/dL (0-12); Protein Creatinine Ratio Urine 3.69 GRAM/24H
== END ==
PROVIDERS: PCP Family Medicine; Referring Provider Student in an Organized Health Care Education/Training Program; Visit Provider Student in an Organized Health Care Education/Training Program
DX: D70.9 Neutropenia, unspecified (principal); D63.1 Anemia in chronic kidney disease; N05.9 Unspecified nephritic syndrome with unspecified morphologic changes; N25.81 Secondary hyperparathyroidism of renal origin; R80.9 Proteinuria, unspecified
CPT/HCPCS: 36415; 80048; 82570; 83970; 84156; 85014; 85018